=== PATIENT | female | born 1945 | race Caucasian/White ===

== ENCOUNTER 2019-07-31 09:56 | Outpatient (CLI) | payer MEDICARE, OTHER, SELFPAY ==
--- NOTE | 2019-07-31 09:58 | MM_ITS ---
WS: [id number] BILATERAL SCREENING DIGITAL MAMMOGRAM WITH CAD HISTORY: SCREENING COMPARISON: 06/21/2018 and 06/18/2017 Bilateral CC and MLO views submitted. Computer aided detection analyzed. Breast composition: The breasts are heterogeneously dense, which may obscure small masses. No suspici ous masses, microcalcifications or architectural distortion. Benign calcifications within each breast . MM/[place] [id number] IMPRESSION: BI-RADS: 2-Benign FOLLOW UP: 1 Year Follow-up
== END 2019-07-31 09:57 | disposition home or self-care (01) ==
LOC: RADSHAW 09:56
PROVIDERS: Family Provider Nurse Practitioner Family; PCP Nurse Practitioner Family; Visit Provider Nurse Practitioner Family
DX: Z12.31 Encounter for screening mammogram for malignant neoplasm of breast (principal)
CPT/HCPCS: 77067

== ENCOUNTER → 2019-08-25 10:59 | Outpatient (BNVA) | payer MEDICARE, OTHER, SELFPAY | PROVIDERS: PCP Nurse Practitioner Family; Visit Provider Nurse Practitioner Family | DX: E78.2 Mixed hyperlipidemia (principal); D64.9 Anemia, unspecified; I10 Essential (primary) hypertension; Z79.899 Other long term (current) drug therapy; E55.9 Vitamin D deficiency, unspecified | CPT/HCPCS: 80053; 80061; 81001; 82306; 82728; 83036; 83540; 83550; 84443; 85007; 85027 ==

== ENCOUNTER → 2019-11-25 09:31 | Outpatient (BNVA) | payer MEDICARE, OTHER, SELFPAY | PROVIDERS: Family Provider Nurse Practitioner Family; PCP Nurse Practitioner Family; Visit Provider Nurse Practitioner Family | DX: E83.52 Hypercalcemia (principal) | CPT/HCPCS: 80053 ==

== ENCOUNTER → 2019-11-26 12:15 | Outpatient (BNVA) | payer MEDICARE, OTHER, SELFPAY | PROVIDERS: Family Provider Nurse Practitioner Family; PCP Nurse Practitioner Family; Visit Provider Nurse Practitioner Family | DX: E83.52 Hypercalcemia (principal); Z79.899 Other long term (current) drug therapy; E55.9 Vitamin D deficiency, unspecified; I10 Essential (primary) hypertension; R53.83 Other fatigue | CPT/HCPCS: 80061; 82306; 83036; 84443; 85025 ==

== ENCOUNTER 2019-12-19 12:26 | Inpatient (IN) | payer MEDICARE, OTHER, SELFPAY ==
[2019-12-19] VITALS (9 sets, daily range): BP systolic 113–190; BP diastolic 72–127; PULSE 75–130; RESP 14–21; TEMP 36.7–38; O2SAT 92–98; BMI 36.9
--- NOTE | 2019-12-19 13:15 | XR_ITS ---
WS: [id number] PORTABLE CHEST HISTORY: chest pain COMPARISON: 01/21/2019 Lungs are clear and well expanded. No pleural effusion or pneumothorax. Cardiac size: Normal. Mediastinum/Aorta: Normal mediastinum. No osseous abnormality seen. Calcific densities measuring 15 x 6 mm in the RIGHT axillary recess. XR/XR chest 1V portable [id number] IMPRESSION: Unremarkable portable chest.
--- NOTE | 2019-12-19 13:37 | ECG_ITS ---
Measurements Intervals [place] Rate: 118 P: 32 VA: 163 QRS: 8 QRSD: 86 T: 29 QT: 355 QTc: 498 SINUS TACHYCARDIA LOW QRS VOLTAGE IN PRECORDIAL LEADS [QRS DEFLECTION < 1.0 mV IN CHEST LEADS] POSSIBLE ANTERIOR MYOCARDIAL INFARCTION , PROBABLY OLD [30 ms Q WAVE IN V3/V4, OR R < 0.2 mV IN V4] POSSIBLE INFERIOR MYOCARDIAL INFARCTION , PROBABLY OLD [30 ms Q WAVE IN II/aVF] ABNORMAL RHYTHM ECG Compared to ECG 01/21/2019 16:10:00 Low QRS voltage now present Myocardial infarct finding now present Sinus rhythm no longer present Electronically Signed On 12-19-2019 19:02:10 CDT by Jass Patino M.D. [email or web address]
--- NOTE | 2019-12-19 13:37 | CT_ITS ---
WS: [id number] CT HEAD NONCONTRAST HISTORY: AMS TECHNIQUE: Contiguous axial imaging performed through the brain in 2.5 mm imaging. Bone and soft tiss ue windows. Sagittal and coronal reformats reviewed. All CT scans at [facility] use at ast one of these dose optimization techniques: automated exposure control; mA and/or kV adjustment pe r patient size (includes targeted exams where dose is matched to clinical indication); or iterative r econstruction. DLP: 754.47 mGy.cm COMPARISON: None available. No acute intracranial hemorrhage, midline shift or mass effect. Mild atrophy and mild chronic microvascular ischemic disease. No prior infarcts. Ventricles: Normal size with no hydrocephalus. No inferior displacement of cerebellar tonsils. Paranasal sinuses: As visualized are clear. Mastoid air cells: Well pneumatized. Calvarium and scalp: Hyperostosis frontalis interna. CT/CT head wo con* [id number] IMPRESSION: 1. No acute intracranial hemorrhage or edema. 2. Mild chronic microvascular ischemic disease.
--- NOTE | 2019-12-19 13:38 | W.ED.FEVER ---
Documented by User: CHRISTINA Luo 12/19/19 15:28 HPI - Fever General: Chief Complaint: Fever Stated Complaint: ams Time Seen by Provider: 12/19/19 13:37 Source: patient and family Mode of arrival: ambulatory Limitations: altered mental status History of Present Illness: HPI Narrative: Patient is a 74-year-old female who presents to ED today along with her after they were referred here by their PCP for fever and altered mental status. Patient apparently had a fever of over 101 at the clinic however she is afebrile upon arrival. tells me that over the past few days she has been complaining of body aches and nausea. Patient has not had any vomiting or diarrhea. She complains of some mild abdominal pains. She has not had any cough, shortness of breath, difficulty breathing. Denies headache. states his does have a history of dementia but states over the past few days she has been more confused than normal. There was some concern as patient has visited the [facility] in [place] which was a hot spot location of the individual that was recently diagnosed with COVID. MD elicited complaint: fever and other (AMS) Onset (ago): day(s) Associated symptoms: Reports abdominal pain, confusion and nausea; Deny flank pain, chills, chest pain, diarrhea, dysuria, extremity pain, headache(s) or vomiting Review of Systems General: Reports: 10 or more systems reviewed and unremarkable except in HPI and below Const: Reports: fever(s) (at clinic prior to arrival here) and body aches; Denies: chills, change in appetite, change in weight, fatigue or malaise Eyes: Denies: change in vision, blurry vision, photophobia, floaters or seeing flashes ENMT: Denies: throat pain, enlarged tonsils or odynophagia Card: Reports: swelling of feet/ankles (chronic); Denies: chest pain, palpitations, irregular heart rhythm, edema, lightheadedness, syncope, pre-syncope, dyspnea on exertion, orthopnea or leg pain with exertion Resp: Denies: dyspnea, productive cough, non-productive cough or chest congestion GI: Reports: abdominal pain and nausea; Denies: vomiting, diarrhea or constipation : Denies: flank pain, difficulty voiding, dysuria, urinary frequency, urinary urgency or urinary hesitancy Musc: Denies: neck pain, back pain, extremity pain, joint pain or joint swelling Skin/Breast: Denies: rash Neuro: Reports: confusion; Denies: headache(s), numbness in extremities, weakness in extremities, sensory changes, lack of coordination, difficulty walking, frequent falls, dizziness or Slurred speech present [facility] ED PFSH: Medical History (Updated 12/19/19 @ 16:54 by Ghazal Vargas MD) Anemia Chronic osteoarthritis Depression Essential hypertension, benign Fibromyalgia H/O malignant neoplasm of colon Mild dementia Mixed hyperlipidemia Post-menopausal osteoporosis Vitamin D deficiency Social History Smoking and tobacco status: never smoked Physical Exam Const: COMMON NORMALS: no acute distress, patient oriented x3 and alert NUTRITIONAL APPEARANCE: obese ORIENTATION/CONSCIOUSNESS: Yes oriented to person, Yes oriented to place and Yes oriented to time Resp: COMMON NORMALS: normal respiratory effort and clear to auscultation bilaterally AUSCULTATION: clear to auscultation bilaterally Cardio: COMMON NORMALS: regular rhythm RATE: tachycardic RHYTHM: regular rhythm GI: COMMON NORMALS: Normal to inspection, nondistended, normoactive bowel sounds present, Soft to palpation, No hepatosplenomegaly present and no masses PALPATION: Yes Soft to palpation, Yes Tenderness to palpation present (GI) (mild diffuse; non-surgical exam) and Yes No hepatosplenomegaly present : COMMON NORMALS: Yes no CVA tenderness BLADDER/KIDNEY EXAM: Yes no CVA tenderness Back/Pelvis: COMMON NORMALS: no CVA tenderness Extremity: COMMON NORMALS: normal to inspection and full ROM OTHER: chronic bilateral non-pitting LE edema Neuro: IRMA COMA SCALE: document GCS findings Irma coma scale eye opening: Spontaneous Divide coma scale verbal response: Orientated Irma coma scale motor response: Obey commands Irma coma scale total score: 15 COMMON NORMALS: patient oriented x3, CN's II-XII intact bilaterally, moves all extremities and no focal motor deficits SENSORIUM/ORIENTATION: Yes alert, Yes oriented to person, Yes oriented to place and Yes oriented to time Skin: COMMON NORMALS: no rashes or lesions noted GENERAL SKIN EXAM: no rashes or lesions noted Course Vital Signs: Vital signs: Vital Signs Temperature 100.4 F H 12/19/19 16:00 Pulse Rate 112 H 12/19/19 16:00 Respiratory Rate 18 12/19/19 16:00 Blood Pressure 188/94 12/19/19 16:00 Pulse Oximetry 96 12/19/19 16:00 MDM - Fever Lab Data: Labs: Lab Results 12/19/19 12/19/19 12/19/19 Range/Units 14:04 14:04 14:04 WBC 3.4 L (4.0-10.0) 10^3/ uL RBC 3.86 L (4.1-5.3) 10^6/u L Hgb 11.1 L (11.5-15.3) g/dL Hct 35.1 L (37.0-47.0) % MCV 90.9 (81-99) fL MCH 28.8 (28.0-34.0) pg MCHC 31.6 (30.0-36.0) g/dL RDW 13.2 (12.1-15.1) % Plt Count 150 (130-400) 10^3/c mm MPV 10.1 (7.4-10.4) fL Neut % (Auto) 84.7 % Lymph % (Auto) 9.1 % Hancock % (Auto) 5.6 % Eos % (Auto) 0.0 % Baso % (Auto) 0.3 % Neut # (Auto) 2.9 (1.8-7.7) 10^3/u L Lymph # (Auto) 0.3 L (0.8-4.8) 10^3/u L Hancock # (Auto) 0.2 (0.2-0.9) 10^3/u L Eos # (Auto) 0.0 (0.0-0.8) 10^3/u L Baso # (Auto) 0.0 (0.0-0.1) 10^3/u L Nucleated RBC % (a uto) 0 % Nucleated RBCs # 0.0 /100WBC Sodium 129 L (136-145) mmol/L Potassium 3.4 L (3.5-5.1) mmol/L Chloride 92 L (98-107) mmol/L Carbon Dioxide 25 (22-29) mmol/L Anion Gap 15.4 (5-19) BUN 7 L (8-23) mg/dL Creatinine 0.6 (0.5-0.9) mg/dL Glucose 104 (65-115) mg/dL Calculated Osmolal ity 264 L (285-295) mOsm/k g Lactate 1.0 (0.5-2.2) mmol/L Calcium 10.6 H (8.5-10.5) mg/dL Magnesium (1.7-2.3) mg/dL Total Bilirubin 0.3 (0.15-1.2) mg/dL AST 23 (0-32) U/L ALT 13 (0-33) U/L Alkaline Phosphata se 53 (35-105) IU/L Total Protein 6.8 (6.6-8.7) g/dL Albumin 4.2 (3.5-5.2) g/dL Globulin 2.6 (1.3-4.6) g/dL Urine Color (Yellow) Urine Appearance (CLEAR) Urine pH (5-7) Ur Specific Gravit y (1.005-1.030) Urine Protein (Negative) Urine Glucose (UA) (Normal) Urine Ketones (Negative) Urine Blood (Negative) Urine Nitrate (Negative) Urine Bilirubin (NEGATIVE) Urine Urobilinogen (Negative) mg/dL Ur Leukocyte Sultana ase (Negative) 12/19/19 12/19/19 Range/Units 14:04 15:15 WBC (4.0-10.0) 10^3/ uL RBC (4.1-5.3) 10^6/u L Hgb (11.5-15.3) g/dL Hct (37.0-47.0) % MCV (81-99) fL MCH (28.0-34.0) pg MCHC (30.0-36.0) g/dL RDW (12.1-15.1) % Plt Count (130-400) 10^3/c mm MPV (7.4-10.4) fL Neut % (Auto) % Lymph % (Auto) % Hancock % (Auto) % Eos % (Auto) % Baso % (Auto) % Neut # (Auto) (1.8-7.7) 10^3/u L Lymph # (Auto) (0.8-4.8) 10^3/u L Hancock # (Auto) (0.2-0.9) 10^3/u L Eos # (Auto) (0.0-0.8) 10^3/u L Baso # (Auto) (0.0-0.1) 10^3/u L Nucleated RBC % (a uto) % Nucleated RBCs # /100WBC Sodium (136-145) mmol/L Potassium (3.5-5.1) mmol/L Chloride (98-107) mmol/L Carbon Dioxide (22-29) mmol/L Anion Gap (5-19) BUN (8-23) mg/dL Creatinine (0.5-0.9) mg/dL Glucose (65-115) mg/dL Calculated Osmolal ity (285-295) mOsm/k g Lactate (0.5-2.2) mmol/L Calcium (8.5-10.5) mg/dL Magnesium 1.6 L (1.7-2.3) mg/dL Total Bilirubin (0.15-1.2) mg/dL AST (0-32) U/L ALT (0-33) U/L Alkaline Phosphata se (35-105) IU/L Total Protein (6.6-8.7) g/dL Albumin (3.5-5.2) g/dL Globulin (1.3-4.6) g/dL Urine Color Yellow (Yellow) Urine Appearance Clear (CLEAR) Urine pH 7 (5-7) Ur Specific Gravit y 1.015 (1.005-1.030) Urine Protein Neg (Negative) Urine Glucose (UA) Norm (Normal) Urine Ketones 1+ H (Negative) Urine Blood Neg (Negative) Urine Nitrate Negative (Negative) Urine Bilirubin Neg (NEGATIVE) Urine Urobilinogen Norm (Negative) mg/dL Ur Leukocyte Sultana ase Negative (Negative) Imaging Data^: CXR: Radiologist's impression: [address] [address] XRay Report Signed Patient: Mariangel Morales Unit #: [id number] : 1945 Age/Sex: 74 / F ADM Date: 12/19/19 Loc: ER Room/Bed: Attending Dr: Ordering Provider/Ordering MD: Oksana Jose Date of Service: 12/19/19 Procedure(s): XR chest 1V portable [id number] Accession Number(s): [id number] Report Number: [id number] WS: [id number] PORTABLE CHEST HISTORY: chest pain COMPARISON: 01/21/2019 Lungs are clear and well expanded. No pleural effusion or pneumothorax. Cardiac size: Normal. Mediastinum/Aorta: Normal mediastinum. No osseous abnormality seen. Calcific densities measuring 15 x 6 mm in the RIGHT axillary recess. XR/XR chest 1V portable [id number] IMPRESSION: Unremarkable portable chest. Dictated By: Ting Ambrocio DO Signed By: Ting Ambrocio DO Signed Date/Time: 12/19/19 141 DD/ 141 CT Head: Radiologist's impression: [place] [address] CT Scan Report Signed Patient: Mariangel Morales Unit #: [id number] : 1945 Age/Sex: 74 / F ADM Date: 12/19/19 Loc: ER Room/Bed: Attending Dr: Ordering Provider/Ordering MD: Oksana Jose Date of Service: 12/19/19 Procedure(s): CT head wo con* [id number] Accession Number(s): [id number] Report Number: [id number] WS: [id number] CT HEAD NONCONTRAST HISTORY: AMS TECHNIQUE: Contiguous axial imaging performed through the brain in 2.5 mm imaging. Bone and soft tissue windows. Sagittal and coronal reformats reviewed. All CT scans at [facility] use at least one of these dose optimization techniques: automated exposure control; mA and/or kV adjustment per patient size (includes targeted exams where dose is matched to clinical indication); or iterative reconstruction. DLP: 754.47 mGy.cm COMPARISON: None available. No acute intracranial hemorrhage, midline shift or mass effect. Mild atrophy and mild chronic microvascular ischemic disease. No prior infarcts. Ventricles: Normal size with no hydrocephalus. No inferior displacement of cerebellar tonsils. Paranasal sinuses: As visualized are clear. Mastoid air cells: Well pneumatized. Calvarium and scalp: Hyperostosis frontalis interna. CT/CT head wo con* [id number] IMPRESSION: 1. No acute intracranial hemorrhage or edema. 2. Mild chronic microvascular ischemic disease. Dictated By: Ting Ambrocio DO Signed By: Ting Ambrocio DO Signed Date/Time: 12/19/191447 DD/ 45 Discharge Plan Discharge Patient Disposition: Admitted As Inpatient Clinical Impression: Fever of unknown origin Condition: Stable Referrals: Deidre,GENET, CUTTING TABLE OPERATOR [Primary Care Provider] - Coding Level of Care Code ED Software Engineering Analyst for Chg Fwd Exam Comprehensive Documented by User: Ghazal Vargas MD 12/19/19 16:55 HPI - Fever General: Chief Complaint: Fever Stated Complaint: ams Time Seen by Provider: 12/19/19 13:37 PFSH ED PFSH: Medical History (Updated 12/19/19 @ 16:54 by Ghazal Vargas MD) Anemia Chronic osteoarthritis Depression Essential hypertension, benign Fibromyalgia H/O malignant neoplasm of colon Mild dementia Mixed hyperlipidemia Post-menopausal osteoporosis Vitamin D deficiency Social History Smoking and tobacco status: never smoked Course Vital Signs: Vital signs: Vital Signs Temperature 100.4 F H 12/19/19 16:00 Pulse Rate 112 H 12/19/19 16:00 Respiratory Rate 18 12/19/19 16:00 Blood Pressure 188/94 12/19/19 16:00 Pulse Oximetry 96 12/19/19 16:00 MDM - Fever MDM Narrative: Medical decision making narrative: Patient presents here with a fever of unknown origin. I saw patient with midlevel and patient does have lymphopenia and will test for coronavirus. Patient main complaints are body aches. Patient seen by Dr. Martinez in the ER and will admit at this time. Patient has no headache or neck pain and do not believe she has meningitis. She has been stable while in the ER. Lab Data: Labs: Lab Results 05/29/20 05/29/20 05/29/20 Range/Units 14:04 14:04 14:04 WBC 3.4 L (4.0-10.0) 10^3/ uL RBC 3.86 L (4.1-5.3) 10^6/u L Hgb 11.1 L (11.5-15.3) g/dL Hct 35.1 L (37.0-47.0) % MCV 90.9 (81-99) fL MCH 28.8 (28.0-34.0) pg MCHC 31.6 (30.0-36.0) g/dL RDW 13.2 (12.1-15.1) % Plt Count 150 (130-400) 10^3/c mm MPV 10.1 (7.4-10.4) fL Neut % (Auto) 84.7 % Lymph % (Auto) 9.1 % Hancock % (Auto) 5.6 % Eos % (Auto) 0.0 % Baso % (Auto) 0.3 % Neut # (Auto) 2.9 (1.8-7.7) 10^3/u L Lymph # (Auto) 0.3 L (0.8-4.8) 10^3/u L Hancock # (Auto) 0.2 (0.2-0.9) 10^3/u L Eos # (Auto) 0.0 (0.0-0.8) 10^3/u L Baso # (Auto) 0.0 (0.0-0.1) 10^3/u L Nucleated RBC % (a uto) 0 % Nucleated RBCs # 0.0 /100WBC Sodium 129 L (136-145) mmol/L Potassium 3.4 L (3.5-5.1) mmol/L Chloride 92 L (98-107) mmol/L Carbon Dioxide 25 (22-29) mmol/L Anion Gap 15.4 (5-19) BUN 7 L (8-23) mg/dL Creatinine 0.6 (0.5-0.9) mg/dL Glucose 104 (65-115) mg/dL Calculated Osmolal ity 264 L (285-295) mOsm/k g Lactate 1.0 (0.5-2.2) mmol/L Calcium 10.6 H (8.5-10.5) mg/dL Magnesium (1.7-2.3) mg/dL Total Bilirubin 0.3 (0.15-1.2) mg/dL AST 23 (0-32) U/L ALT 13 (0-33) U/L Alkaline Phosphata se 53 (35-105) IU/L Total Protein 6.8 (6.6-8.7) g/dL Albumin 4.2 (3.5-5.2) g/dL Globulin 2.6 (1.3-4.6) g/dL Urine Color (Yellow) Urine Appearance (CLEAR) Urine pH (5-7) Ur Specific Gravit y (1.005-1.030) Urine Protein (Negative) Urine Glucose (UA) (Normal) Urine Ketones (Negative) Urine Blood (Negative) Urine Nitrate (Negative) Urine Bilirubin (NEGATIVE) Urine Urobilinogen (Negative) mg/dL Ur Leukocyte Sultana ase (Negative) 12/19/19 12/19/19 Range/Units 14:04 15:15 WBC (4.0-10.0) 10^3/ uL RBC (4.1-5.3) 10^6/u L Hgb (11.5-15.3) g/dL Hct (37.0-47.0) % MCV (81-99) fL MCH (28.0-34.0) pg MCHC (30.0-36.0) g/dL RDW (12.1-15.1) % Plt Count (130-400) 10^3/c mm MPV (7.4-10.4) fL Neut % (Auto) % Lymph % (Auto) % Hancock % (Auto) % Eos % (Auto) % Baso % (Auto) % Neut # (Auto) (1.8-7.7) 10^3/u L Lymph # (Auto) (0.8-4.8) 10^3/u L Hancock # (Auto) (0.2-0.9) 10^3/u L Eos # (Auto) (0.0-0.8) 10^3/u L Baso # (Auto) (0.0-0.1) 10^3/u L Nucleated RBC % (a uto) % Nucleated RBCs # /100WBC Sodium (136-145) mmol/L Potassium (3.5-5.1) mmol/L Chloride (98-107) mmol/L Carbon Dioxide (22-29) mmol/L Anion Gap (5-19) BUN (8-23) mg/dL Creatinine (0.5-0.9) mg/dL Glucose (65-115) mg/dL Calculated Osmolal ity (285-295) mOsm/k g Lactate (0.5-2.2) mmol/L Calcium (8.5-10.5) mg/dL Magnesium 1.6 L (1.7-2.3) mg/dL Total Bilirubin (0.15-1.2) mg/dL AST (0-32) U/L ALT (0-33) U/L Alkaline Phosphata se (35-105) IU/L Total Protein (6.6-8.7) g/dL Albumin (3.5-5.2) g/dL Globulin (1.3-4.6) g/dL Urine Color Yellow (Yellow) Urine Appearance Clear (CLEAR) Urine pH 7 (5-7) Ur Specific Gravit y 1.015 (1.005-1.030) Urine Protein Neg (Negative) Urine Glucose (UA) Norm (Normal) Urine Ketones 1+ H (Negative) Urine Blood Neg (Negative) Urine Nitrate Negative (Negative) Urine Bilirubin Neg (NEGATIVE) Urine Urobilinogen Norm (Negative) mg/dL Ur Leukocyte Sultana ase Negative (Negative) Discharge Plan Discharge Patient Disposition: Admitted As Inpatient Clinical Impression: Fever of unknown origin Condition: Stable Referrals: GENET Jiang, CUTTING TABLE OPERATOR [Primary Care Provider] - Coding Level of Care Code ED Software Engineering Analyst for g Fwd Exam Comprehensive
[2019-12-19 14:16] LABS: Basophils % 0.3 %; Hematocrit 35.1 % (37.0-47.0); Hemoglobin 11.1 g/dL (11.5-15.3); Lymphocytes # 0.3 10^3/uL (0.8-4.8); Lymphocytes % 9.1 %; Mean Corpuscular HGB Conc 31.6 g/dL (30.0-36.0); Mean Corpuscular Hemoglobin 28.8 pg (28.0-34.0); Mean Corpuscular Volume 90.9 fL (81-99); Mean Platelet Volume 10.1 fL (7.4-10.4); Monocytes # 0.2 10^3/uL (0.2-0.9); Monocytes % 5.6 %; Neutrophils # 2.9 10^3/uL (1.8-7.7); Neutrophils % 84.7 %; Nucleated Red Blood Cells % 0 %; Platelet Count 150 10^3/cmm (130-400); Red Blood Count 3.86 10^6/uL (4.1-5.3); Red Cell Distribution Width 13.2 % (12.1-15.1); White Blood Count 3.4 10^3/uL (4.0-10.0)
[2019-12-19 14:34] LABS: Alanine Aminotransferase 13 U/L (0-33); Albumin Level 4.2 g/dL (3.5-5.2); Alkaline Phosphatase 53 IU/L (35-105); Anion Gap 15.4 (5-19); Aspartate Amino Transferase 23 U/L (0-32); Blood Urea Nitrogen 7 mg/dL (8-23); Calcium 10.6 mg/dL (8.5-10.5); Carbon Dioxide 25 mmol/L (22-29); Chloride 92 mmol/L (98-107); Globulin 2.6 g/dL (1.3-4.6); Glucose 104 mg/dL (65-115); Osmolality Calculated 264 mOsm/kg (285-295); Potassium 3.4 mmol/L (3.5-5.1); Sodium 129 mmol/L (136-145); Total Bilirubin 0.3 mg/dL (0.15-1.2); Total Protein 6.8 g/dL (6.6-8.7)
[2019-12-19] MEDS: sodium chloride 0.9% 1,000 ML 500 ML IV (14:43)
[2019-12-19 15:46] LABS: Magnesium 1.6 mg/dL (1.7-2.3)
[2019-12-19 15:58] LABS: Add Urine Microscopic? NO
[2019-12-19 16:06] LABS: Bilirubin Urine Neg (NEGATIVE); Blood Urine Neg (Negative); Glucose Urine UA Norm (Normal); Ketones Urine 1+ (Negative); Leukocyte Esterase Urine Negative (Negative); Nitrate Urine Negative (Negative); Protein Urine Neg (Negative); Specific Gravity, Urine 1.015 (1.005-1.030); Urine Appearance Clear (CLEAR); Urine Color Yellow (Yellow); Urobilinogen Urine Norm (Negative); pH Urine 7 (5-7)
--- NOTE | 2019-12-19 16:49 | CTR_ITS ---
PROCEDURE INFORMATION: Exam: CT Abdomen And Pelvis With Contrast Exam date and time: 12/19/2019 5:52 PM Age: 74 years old Clinical indication: Abdominal pain; Generalized; Prior surgery; Surgery date: 6+ months; Surgery type: Colon; Patient HX: C/O fever, body aches, nausea and mild abd pain TECHNIQUE: Imaging protocol: Computed tomography of the abdomen and pelvis with intravenous contrast. Radiation optimization: All CT scans at this facility use at least one of these dose optimization techniques: automated exposure control; mA and/or kV adjustment per patient size (includes targeted exams where dose is matched to clinical indication); or iterative reconstruction. Contrast material: OMNI 300; Contrast volume: 95 ml; Contrast route: 20G; COMPARISON: CT abdomen pelvis w con* [id number] 01/21/2019 3:02 PM RADIATION DOSE METRICS: Total DLP: 1512.77 mGy-cm FINDINGS: Mediastinum: There is a small hiatal hernia. Liver: There is a diffuse decrease in hepatic parenchymal density, consistent with mild fatty infiltration. There is no focal abnormality within the liver. Gallbladder and bile ducts: There has been a cholecystectomy. Pancreas: The pancreas is normal. Spleen: The spleen is normal. Adrenals: The adrenal glands are normal. Kidneys and ureters: There is a 1 cm sized simple cyst in the mid left kidney. There is a tiny benign-appearing cyst in the lower pole of the right kidney.There is no evidence of hydronephrosis. There is no evidence of renal or ureteral calcifications. Stomach and bowel: There is apparently been a right hemicolectomy. There are some pill shaped objects within the duodenum, presumably representing recently ingested medication. There is some focal thickening of the splenic flexure of the colon with mild stranding in the adjacent fat. This could represent some focal colitis or perhaps mild diverticulitis although no diverticulum is noted in the area. Appendix: Not identified Intraperitoneal space: There is no evidence of free intraperitoneal fluid. Vasculature: Unremarkable. No abdominal aortic aneurysm. Lymph nodes: Unremarkable. No enlarged lymph nodes. Bladder: Unremarkable as visualized. Reproductive: There has been a hysterectomy. Bones/joints: There are degenerative changes in the lower lumbar spine with grade 1 spondylolisthesis at L4-L5 and L4 vertebral hemangioma not significantly changed from previous. Soft tissues: There is a wide-mouth epigastric ventral hernia containing small portion of the colon without evidence for incarceration or obstruction. There is a 2nd wide-mouth ventral hernia containing only fat. CT/CT abdomen pelvis w con* [id number] IMPRESSION: 1. Focal colitis or diverticulitis involving the splenic flexure of the colon. 2. Ventral hernia is unchanged. 3. Fatty liver 4. Small hiatus hernia. COMMENTS: Consistent with the [employer]'s Incidental Findings Committee white paper (J Am Kayla Radiol 2018): Any incidental renal lesion less than 1.0 cm or classified as too small to characterize, or any incidental cystic renal lesion characterized as simple-appearing, is likely benign. No follow-up imaging is recommended for these lesions per consensus recommendations based on imaging criteria. Radiation Dose CTDIVOL = (mGy): DLP = 1512.77 (mGy-cm)
--- NOTE | 2019-12-19 17:01 | ECG_ITS ---
Measurements Intervals [place] Rate: 103 P: 40 IN: 155 QRS: 28 QRSD: 88 T: 34 QT: 268 QTc: 352 SINUS TACHYCARDIA LOW QRS VOLTAGE IN PRECORDIAL LEADS [QRS DEFLECTION < 1.0 mV IN CHEST LEADS] POSSIBLE ANTERIOR MYOCARDIAL INFARCTION , PROBABLY OLD [30 ms Q WAVE IN V3/V4, OR R < 0.2 mV IN V4] ABNORMAL RHYTHM ECG Compared to ECG 01/21/2019 16:10:00 Low QRS voltage now present Myocardial infarct finding now present Sinus rhythm no longer present Electronically Signed On 12-19-2019 19:02:23 CDT by Jass Patino M.D. [email or web address]
--- NOTE | 2019-12-19 17:02 | P.HP_ITS ---
Providers/Chief Complaint Primary Care Provider: SUSIE Tello Chief Complaint: ams History of Present Illness Mariangel Morales is a 74 year old female who presents to the emergency department with history of fever. Over the last several days she has had some abdominal discomfort, fever, and per the patient some dry heaves. She reports she has some dementia and is not the best historian. She has not had any headache. She has some underlying confusion that has been slightly worse. reports she has been coughing on occasion. She denies any chest discomfort. There is been no history of any diarrhea, or dysuria. There is been no history of any positive contact with Covid 19 but she does live in a community where several recent cases were identified. does not believe she has had any tick bites, but does report she has several animals that she likes to sit out on the porch with that could have ticks. reports her mental status is back to baseline in the emergency department. Review of Systems General: Reports: 10 or more systems reviewed and unremarkable except in HPI and below Const: Reports: fever(s), chills and body aches Eyes: Denies: change in vision ENMT: Denies: throat pain Card: Denies: chest pain Resp: Denies: dyspnea, productive cough or non-productive cough GI: Reports: abdominal pain, nausea and vomiting : Denies: flank pain or difficulty voiding Musc: Denies: neck pain Skin/Breast: Denies: rash Neuro: Denies: headache(s) Psych: Denies: anxiety or depression Endo: Denies: polyuria Jn/Lymph: Denies: easy bruising All/Imm: Denies: urticaria Medications/Allergies Home Medications Medication Instructions Recorded Confirmed Last Taken Type alendronate 35 mg tablet 35 mg PO ONCE tab 09/01/19 12/19/19 Unknown History meloxicam 15 mg tablet 15 mg PO DAILY 90 Days #90 tab 09/01/19 12/19/19 Unknown Rx memantine 10 mg tablet ea PO 09/01/19 12/19/19 Unknown History potassium chloride 10 mEq tab PO 09/01/19 12/19/19 Unknown History tablet,extended release tramadol 50 mg tablet tab PO 09/01/19 12/19/19 Unknown History silver sulfadiazine 1 % topical 1 applic TOPICAL BID #50 gm 09/18/19 12/19/19 Unknown Rx cream pregabalin 50 mg capsule 50 mg PO DAILY 90 Days #90 cap 10/02/19 12/19/19 Unknown Rx duloxetine 60 mg capsule,delayed 60 mg PO DAILY #90 cap 11/05/19 12/19/19 Unknown Rx release metoprolol tartrate 25 mg tablet 12.5 mg PO BID #90 tab 11/19/19 12/19/19 Unknown Rx famotidine 20 mg tablet 20 mg PO DAILY 30 Days #30 tab 11/28/19 12/19/19 Unknown Rx furosemide 20 mg tablet 20 mg PO DAILY PRN 30 Days #30 tab 11/28/19 12/19/19 Unknown Rx rosuvastatin 5 mg PO DAILY 12/19/19 12/19/19 Unknown History Allergies Allergy/AdvReac Type Severity Reaction Status Date / Time No Known Allergies Allergy Verified 12/19/19 10:20 PFSH Acute PFSH: Medical History (Updated 12/19/19 @ 17:23 by Martin Maharaj MD) Anemia Chronic osteoarthritis Depression Essential hypertension, benign Fibromyalgia H/O malignant neoplasm of colon Mild dementia Mixed hyperlipidemia Post-menopausal osteoporosis Vitamin D deficiency Surgical History (Updated 12/19/19 @ 17:02 by Martin Maharaj MD) History of ankle surgery History of History of colon surgery History of colon malignancy, with resection Family History (Updated 12/19/19 @ 17:03 by Martin Maharaj MD) Other Diabetes Social History (Updated 12/19/19 @ 17:03 by Martin Maharaj MD) Smoking and tobacco status: former smoker Alcohol intake: never Substance/Drug Use: never Vitals/I&O/Wt Last Vital Signs Temp 100.4 F H 12/19/19 16:00 Pulse 112 H 12/19/19 16:00 Resp 18 12/19/19 16:00 BP 188/94 12/19/19 16:00 Pulse Ox 96 12/19/19 16:00 Weight last 48 hrs Weight 100.698 kg Physical Exam Narrative: EXAM NARRATIVE: General exam is a white female, in no apparent distress, with an elevated heart rate HEENT: Pupils equally round. Oropharynx clear. Neck is supple no lymphadenopathy or thyromegaly Cardiovascular regular, tachycardic, no murmur Lungs clear no wheezing or crackles Abdomen slight tenderness epigastric area, right upper quadrant. Positive bowel sounds. No obvious organomegaly. was deferred Extremities trace edema bilaterally. No cyanosis or clubbing Data : 12/19/19 14:04 12/19/19 14:04 Micro: Microbiology 12/19/19 14:06 Blood Culture - Preliminary Blood SPECIMEN COLLECTED 12/19/19 14:04 Blood Culture - Preliminary Blood SPECIMEN COLLECTED Other data: Covid 19 testing has been ordered as well as influenza. CT abdomen and pelvis has been ordered for abdominal discomfort EKG and troponin has been ordered for nausea, tachycardia Blood culture has been done and is pending Lymphopenia is noted. Calcium is high at 10.6. Urinalysis was negative with the exception of 1+ ketones. Head CT without acute changes. Chest x-ray no obvious infiltrate A&P Assessment and plan (1) Fever: Etiology unknown at this point. Work-up has been negative. Check CT scan abdomen and pelvis with contrast Influenza testing, Covid 19 testing Await cultures Tick panel is sent For now, secondary to leukopenia, hyponatremia, will initiate doxycycline IV(patient with nausea) for concern of tickborne illness as well as Rocephin secondary to sepsis and await cultures and lab She had confusion on admission but appears better now. We will do neurologic checks. Status: Acute (2) Leukopenia: See notations above Status: Acute (3) Hyponatremia: Repeat sodium in the morning Status: Acute (4) Hypokalemia: Supplement Status: Acute (5) Hypomagnesemia: Supplement Status: Acute (6) Sepsis: Concern of possible sepsis, even though initial lactate was normal. Concern is fever, tachycardia, and increased confusion. Source is not yet known. Initiating Rocephin while awaiting cultures as well as doxycycline. Status: Acute Additional A&P Information Hypercalcemia. Check PTH level. Hydrate and repeat in the morning Dementia. Check B12 and TSH History of GERD. Initiate Protonix, higher dose secondary to nausea and history of vomiting today. History of colon cancer with resection in the past with no evidence of recurrence Hyperlipidemia Hypertension. Continue patient's home beta-flory Depression/anxiety History of anemia Full code Lovenox for DVT prophylaxis Maintenance IV fluids Attestations Medical Necessity Statement*: Will need less than 2 midnight stay for evaluation of fever Time Spent in Patient Care: Greater than 35 minutes Coding Level of Care Code Acute Truck Driver Supervisor for Chg Fwd Diagnoses Fever R50.9 Leukopenia D72.819 Hyponatremia E87.1 Hypokalemia E87.6 Hypomagnesemia E83.42 Sepsis A41.9
[2019-12-19] MEDS: magnesium sulfate premix 2 GM/50 ML PIGGYBACK IV (17:27)
[2019-12-19] MEDS: acetaminophen 500 mg Tablet 1000 MG PO (17:27)
[2019-12-19 17:35] LABS: Troponin T (5th) Once 9 ng/mL (0-10)
[2019-12-19 17:43] LABS: Thyroid Stimulating Hormone 0.92 uIU/mL (0.27-4.20)
[2019-12-19] MEDS: iohexol 300 mg/mL 100 mL Btl IV (18:24)
--- NOTE | 2019-12-19 19:32 | PC.NURSE ---
COVID SWAB Patient's Covid swab completed. Swab labeled and taken to lab to be sent to [facility].
[2019-12-19 20:07] LABS: Influenza A by IFA Negative (Negative); Influenza B by IFA Negative (Negative)
[2019-12-19] MEDS: sodium chloride 0.9% 1,000 ML 75 ML IV (21:41)
[2019-12-19] MEDS: enoxaparin 40 mg/0.4 mL Syringe SUBCUT (21:41)
[2019-12-19] MEDS: metoprolol tartrate 25 mg Tablet 12.5 MG PO (21:41)
[2019-12-19] MEDS: pantoprazole DR 40 mg Tablet PO (21:41)
[2019-12-19] MEDS: HYDROmorphone 1 mg/mL INJ 1 mL 2 MG IVP (21:42)
[2019-12-19] MEDS: piperacillin-tazobactam 3.375 GM in sodium chloride 0.9% (plus) 50 ML IV (21:42)
[2019-12-19 22:06] LABS: Procalcitonin 0.21 ng/mL (0-0.5); Vitamin B12 259 pg/mL (232-1245)
[2019-12-19 22:17] LABS: Lipase 15 U/L (13-60)
[2019-12-19] MEDS: doxycycline 100 MG in sodium chloride 0.9% (plus) 100 ML IV (23:00)
[2019-12-19 23:19] LABS: Calcium 9.9 mg/dL (8.5-10.5); Parathyroid Hormone 190.8 pg/mL (15-65)
--- NOTE | 2019-12-19 23:29 | PC.NURSE ---
nurse noted swelling in upper left arm. ED nurse told ICU nurse that mg infusion had infiltrated. arm is hot, red, and swollen
[2019-12-20] VITALS (26 sets, daily range): BP systolic 106–165; BP diastolic 51–106; PULSE 69–117; RESP 14–27; TEMP 36.9–38.7; O2SAT 83–99
[2019-12-20] MEDS: morphine 4 mg/mL SDV 1 mL IVP (00:24)
[2019-12-20] MEDS: ondansetron 2 mg/ML SDV 2 mL 4 MG IVP ×3 (00:44→13:02)
[2019-12-20] MEDS: acetaminophen 325 mg Tablet 650 MG PO ×2 (04:11→17:01)
[2019-12-20 04:50] LABS: Basophils % 0.3 %; Hematocrit 32.3 % (37.0-47.0); Hemoglobin 10.1 g/dL (11.5-15.3); Lymphocytes # 0.3 10^3/uL (0.8-4.8); Mean Corpuscular HGB Conc 31.3 g/dL (30.0-36.0); Mean Corpuscular Hemoglobin 29.4 pg (28.0-34.0); Mean Corpuscular Volume 93.9 fL (81-99); Mean Platelet Volume 10.5 fL (7.4-10.4); Monocytes # 0.2 10^3/uL (0.2-0.9); Monocytes % 5.9 %; Neutrophils # 2.4 10^3/uL (1.8-7.7); Neutrophils % 83.1 %; Nucleated Red Blood Cells % 0 %; Platelet Count 122 10^3/cmm (130-400); Red Blood Count 3.44 10^6/uL (4.1-5.3); Red Cell Distribution Width 13.5 % (12.1-15.1); White Blood Count 2.9 10^3/uL (4.0-10.0)
[2019-12-20 05:10] LABS: Alanine Aminotransferase 28 U/L (0-33); Albumin Level 3.6 g/dL (3.5-5.2); Alkaline Phosphatase 67 IU/L (35-105); Anion Gap 13.8 (5-19); Aspartate Amino Transferase 53 U/L (0-32); Blood Urea Nitrogen 9 mg/dL (8-23); Calcium 10.3 mg/dL (8.5-10.5); Carbon Dioxide 24 mmol/L (22-29); Chloride 98 mmol/L (98-107); Globulin 2.7 g/dL (1.3-4.6); Glucose 101 mg/dL (65-115); Osmolality Calculated 270 mOsm/kg (285-295); Potassium 3.8 mmol/L (3.5-5.1); Sodium 132 mmol/L (136-145); Total Bilirubin 0.3 mg/dL (0.15-1.2); Total Protein 6.3 g/dL (6.6-8.7)
[2019-12-20] MEDS: piperacillin-tazobactam 3.375 GM in sodium chloride 0.9% (plus) 50 ML IV ×3 (06:06→21:50)
[2019-12-20] MEDS: TRAMadol 50 mg Tablet PO (06:07)
--- NOTE | 2019-12-20 07:28 | P.PN_ITS ---
Subjective Subjective: Interval history: Mariangel reports she feels better. She denies any diarrhea. She states her abdomen feels a little bit better but is still slightly tender. Denies any shortness of breath or cough. Medications: Reviewed: Yes Vitals/I&O/Wt Last Vital Signs Temp 99.6 F 12/20/19 05:14 Pulse 83 12/20/19 04:00 Resp 19 H 12/20/19 04:00 BP 150/90 12/20/19 04:00 Pulse Ox 94 12/20/19 04:00 12/19/19 12/20/19 12/20/19 22:59 06:59 14:59 Intake Total 1200 / 1200 Output Total 400 / 400 Balance 800 / 800 Weight last 48 hrs Weight 100.698 kg Physical Exam Narrative: EXAM NARRATIVE: General exam no apparent distress Cardiovascular regular, tachycardic, no murmur Lungs clear no wheezing or crackles Abdomen slight tenderness persists epigastric area but appears to be better than yesterday. Positive bowel sounds. No obvious organomegaly Extremities trace edema bilaterally. No cyanosis or clubbing Data : 12/20/19 04:20 12/20/19 04:20 Micro: Microbiology 12/19/19 14:06 Blood Culture - Preliminary Blood SPECIMEN COLLECTED 12/19/19 14:04 Blood Culture - Preliminary Blood SPECIMEN COLLECTED A&P Assessment and plan (1) Fever: Ruling out COVID. CT scan suggested colitis in the region of the splenic flexure Influenza testing negative Awaiting cultures Tick panel is sent Still with leukopenia, now with some thrombocytopenia. Still has lymphopenia. AST slightly elevated today There was concern of confusion on admission but she has none now. Status: Acute (2) Leukopenia: Still present Status: Acute (3) Hyponatremia: Improved but still slightly low Status: Acute (4) Hypokalemia: Resolved Status: Acute (5) Hypomagnesemia: Supplemented Status: Acute (6) Sepsis: Concern of possible sepsis, even though initial lactate was normal. Concern is fever, tachycardia, and increased confusion. Source is not yet known. Initiating Rocephin while awaiting cultures as well as doxycycline. Status: Acute Additional A&P Information Thrombocytopenia. Continue to follow. At this point no reason to discontinue anticoagulation. Hypercalcemia. Normal after hydration. However PTH level high. Consider outpatient follow-up Dementia. B12 and folate levels were normal History of GERD. Continue Protonix. No current reflux, vomiting or nausea History of colon cancer with resection in the past with no evidence of recur rence Hyperlipidemia Hypertension. Continue patient's home beta-flory Depression/anxiety History of anemia Full code Lovenox for DVT prophylaxis Continue maintenance IV fluids Attestations Medical Necessity Statement*: Needs continued hospitalization, for IV antibiotics secondary to concern of colitis in this febrile patient. Coding Level of Care Code Acute Creative Services Specialist for Chg F[employer] Diagnoses Fever R50.9 Leukopenia D72.819 Hyponatremia E87.1 Hypokalemia E87.6 Hypomagnesemia E83.42 Sepsis A41.9
[2019-12-20] MEDS: metoprolol tartrate 25 mg Tablet 12.5 MG PO ×2 (08:23→17:01)
[2019-12-20] MEDS: pantoprazole DR 40 mg Tablet PO ×2 (08:23→17:01)
[2019-12-20] MEDS: memantine 5 mg tablet 10 MG PO (08:24)
[2019-12-20] MEDS: atorvastatin 40 mg Tablet 20 MG PO (08:24)
[2019-12-20] MEDS: pregabalin 50 mg Capsule PO (08:24)
[2019-12-20] MEDS: duloxetine 60 mg Capsule PO (08:24)
[2019-12-20] MEDS: doxycycline 100 MG in sodium chloride 0.9% (plus) 100 ML IV ×2 (08:26→21:57)
[2019-12-20] MEDS: sodium chloride 0.9% 1,000 ML 75 ML IV ×2 (09:57→22:17)
[2019-12-20] MEDS: enoxaparin 40 mg/0.4 mL Syringe SUBCUT (20:42)
[2019-12-20] MEDS: morphine 4 mg/mL SDV 1 mL 2 MG IVP (20:42)
[2019-12-20] MEDS: lanolin oint 7 gm 1 APPLIC TOPICAL (22:19)
[2019-12-20 23:00] LABS: Coronavirus Lab Test PTC SEE COMMENTS
[2019-12-21] VITALS (16 sets, daily range): BP systolic 111–139; BP diastolic 54–72; PULSE 68–101; RESP 18–26; TEMP 36.6–37.4; O2SAT 93–99
[2019-12-21] MEDS: morphine 4 mg/mL SDV 1 mL 2 MG IVP ×2 (00:44→05:28)
[2019-12-21] MEDS: acetaminophen 325 mg Tablet 650 MG PO (03:06)
[2019-12-21] MEDS: trazodone 50 mg Tablet 25 MG PO ×2 (03:06→21:20)
[2019-12-21] MEDS: ondansetron 2 mg/ML SDV 2 mL 4 MG IVP (03:06)
[2019-12-21 04:04] LABS: Basophils % 0.5 %; Hematocrit 29.9 % (37.0-47.0); Hemoglobin 9.2 g/dL (11.5-15.3); Lymphocytes # 0.3 10^3/uL (0.8-4.8); Lymphocytes % 13.9 %; Mean Corpuscular HGB Conc 30.8 g/dL (30.0-36.0); Mean Corpuscular Hemoglobin 29.4 pg (28.0-34.0); Mean Corpuscular Volume 95.5 fL (81-99); Mean Platelet Volume 11.2 fL (7.4-10.4); Monocytes # 0.1 10^3/uL (0.2-0.9); Monocytes % 6.3 %; Neutrophils # 1.6 10^3/uL (1.8-7.7); Neutrophils % 78.8 %; Nucleated Red Blood Cells % 0 %; Platelet Count 81 10^3/cmm (130-400); Red Blood Count 3.13 10^6/uL (4.1-5.3); Red Cell Distribution Width 13.7 % (12.1-15.1); White Blood Count 2.1 10^3/uL (4.0-10.0)
[2019-12-21 04:07] LABS: Alanine Aminotransferase 22 U/L (0-33); Albumin Level 3.2 g/dL (3.5-5.2); Alkaline Phosphatase 51 IU/L (35-105); Anion Gap 14.3 (5-19); Aspartate Amino Transferase 36 U/L (0-32); Blood Urea Nitrogen 9 mg/dL (8-23); Calcium 9.9 mg/dL (8.5-10.5); Carbon Dioxide 23 mmol/L (22-29); Chloride 101 mmol/L (98-107); Globulin 2.6 g/dL (1.3-4.6); Glucose 116 mg/dL (65-115); Osmolality Calculated 277 mOsm/kg (285-295); Potassium 3.3 mmol/L (3.5-5.1); Sodium 135 mmol/L (136-145); Total Bilirubin 0.3 mg/dL (0.15-1.2); Total Protein 5.8 g/dL (6.6-8.7)
[2019-12-21] MEDS: piperacillin-tazobactam 3.375 GM in sodium chloride 0.9% (plus) 50 ML IV ×3 (05:22→21:22)
[2019-12-21] MEDS: pregabalin 50 mg Capsule PO (08:37)
[2019-12-21] MEDS: memantine 5 mg tablet 10 MG PO (08:38)
[2019-12-21] MEDS: pantoprazole DR 40 mg Tablet PO ×2 (08:38→17:22)
[2019-12-21] MEDS: duloxetine 60 mg Capsule PO (08:38)
[2019-12-21] MEDS: metoprolol tartrate 25 mg Tablet 12.5 MG PO ×2 (08:38→17:22)
[2019-12-21] MEDS: atorvastatin 40 mg Tablet 20 MG PO (08:38)
[2019-12-21] MEDS: doxycycline 100 MG in sodium chloride 0.9% (plus) 100 ML IV ×2 (08:39→20:41)
[2019-12-21 09:01] LABS: INR 1.16 (0.8-1.2)
[2019-12-21 09:02] LABS: Partial Thromboplastin Time 38.6 SECONDS (23.9-36.7)
[2019-12-21 09:06] LABS: Lactate (Lactic Acid level) 1.5 mmol/L (0.5-2.2); Lactate Dehydrogenase 217 U/L (135-214)
[2019-12-21 09:45] LABS: C Reactive Protein 26.8 mg/L (0.0-4.9)
--- NOTE | 2019-12-21 10:15 | PM.PN ---
Subjective Subjective: Interval history: Mariangel reports she is doing fine. She denies any abdominal discomfort this morning but when I questioned her further she says perhaps slightly. She denies any shortness of breath or cough. Nurses indicate that last night she received several doses of morphine for her abdomen aching and generalized body aches. Medications: Reviewed: Yes Vitals/I&O/Wt Last Vital Signs Temp 97.8 F 12/21/19 08:30 Pulse 93 12/21/19 08:30 Resp 20 H 12/21/19 08:30 BP 122/72 12/21/19 08:30 Pulse Ox 94 12/21/19 08:30 12/20/19 12/21/19 12/21/19 22:59 06:59 14:59 Intake Total 1225 / 2745 810 / 3555 700 / 700 Output Total 1000 / 1400 450 / 450 Balance 225 / 1345 810 / 2155 250 / 250 Weight last 48 hrs Weight 100.698 kg Physical Exam Narrative: EXAM NARRATIVE: General exam no apparent distress Cardiovascular regular rate and rhythm without murmur Lungs clear no wheezing or crackles Abdomen positive bowel sounds. Does not appear to be significantly tender Extremities trace edema bilaterally. No cyanosis or clubbing Data : 12/21/19 02:54 12/21/19 02:54 Micro: Microbiology 12/21/19 08:26 Blood Culture - Preliminary Blood SPECIMEN COLLECTED 12/21/19 08:35 Blood Culture - Preliminary Blood SPECIMEN COLLECTED 12/19/19 14:06 Blood Culture - Preliminary Blood NEGATIVE TO DATE 12/19/19 14:04 Blood Culture - Preliminary Blood NEGATIVE TO DATE A&P Assessment and plan (1) Fever: COVID is negative CT scan suggested colitis in the region of the splenic flexure. She is currently on Zosyn Influenza testing negative Cultures negative to date Tick panel is sent. She was started on doxycycline Leukopenia with lymphopenia and now neutropenia as well as thrombocytopenia has worsened. Hemoglobin is decreasing as well. Secondary to this I will check a haptoglobin, LDH in case hemolysis is occurring. Coagulation studies will be performed. Reticulocyte count will be obtained Lovenox discontinued and SCDs initiated. Repeat lactate. ESR, CRP will be obtained as well as repeat blood cultures. Peripheral smear will be obtained although this may not be able to be evaluated until tomorrow. If any recurrence of fever, worsening by tomorrow repeat CT scan. She did complain of diarrhea on admission and stool for C. difficile, culture ordered but she has not had any significant stools here. Without diarrhea Shiga-like toxin/Shiga toxin unlikely etiology behind thrombocytopenia and systemic illness. There was concern of confusion on admission but she has none now. Status: Acute (2) Leukopenia: Slightly worse. Etiology unclear. Status: Acute (3) Hyponatremia: Resolving Status: Acute (4) Hypokalemia: Supplement Status: Acute (5) Hypomagnesemia: Supplemented Status: Acute (6) Sepsis: Concern of possible sepsis, even though initial lactate was normal. Concern is fever, tachycardia, and increased confusion. Source is not yet known. Clinically improving although becoming more leukopenic, thrombocytopenic and now anemic. Add vancomycin. Status: Acute Additional A&P Information Thrombocytopenia. Continue to follow. At this point no reason to discontinue anticoagulation. Hypercalcemia. Normal after hydration. However PTH level high. Consider outpatient follow-up Dementia. B12 and folate levels were normal History of GERD. Continue Protonix. No current reflux, vomiting or nausea History of colon cancer with resection in the past with no evidence of recurrence Hyperlipidemia Hypertension. Continue patient's home beta-flory Depression/anxiety History of anemia Full code Lovenox for DVT prophylaxis Continue maintenance IV fluids Attestations Medical Necessity Statement*: Needs continued hospitalization for IV antibiotics secondary to sepsis. Coding Level of Care Code Acute Palliative Care Specialist for Gladys Wakefield Diagnoses Fever R50.9 Leukopenia D72.819 Hyponatremia E87.1 Hypokalemia E87.6 Hypomagnesemia E83.42 Sepsis A41.9
[2019-12-21 10:47] LABS: Erythrocyte Sedimentation Rate 18 mm/hr (0-15)
[2019-12-21 12:37] LABS: LAB Peripheral Smear Sent for Review
[2019-12-21] MEDS: sodium chloride 0.9% 1,000 ML 75 ML IV (13:54)
[2019-12-21] MEDS: HYDROcodone-acetaminophen 5-325 mg Tablet 1 TAB PO ×2 (14:02→20:39)
[2019-12-22] VITALS (9 sets, daily range): BP systolic 133–150; BP diastolic 68–78; PULSE 58–99; RESP 18–24; TEMP 36.8–37.2; O2SAT 94–97
[2019-12-22] MEDS: sodium chloride 0.9% 1,000 ML 75 ML IV ×2 (03:11→16:49)
[2019-12-22 05:39] LABS: Hematocrit 29.3 % (37.0-47.0); Hemoglobin 9.1 g/dL (11.5-15.3); Mean Corpuscular HGB Conc 31.1 g/dL (30.0-36.0); Mean Corpuscular Hemoglobin 28.7 pg (28.0-34.0); Mean Corpuscular Volume 92.4 fL (81-99); Mean Platelet Volume 11.1 fL (7.4-10.4); Nucleated Red Blood Cells % 0 %; Platelet Count 83 10^3/cmm (130-400); Red Blood Count 3.17 10^6/uL (4.1-5.3); Red Cell Distribution Width 13.6 % (12.1-15.1); White Blood Count 1.7 10^3/uL (4.0-10.0)
[2019-12-22] MEDS: piperacillin-tazobactam 3.375 GM in sodium chloride 0.9% (plus) 50 ML IV ×3 (05:40→22:55)
[2019-12-22 05:58] LABS: Alanine Aminotransferase 19 U/L (0-33); Albumin Level 3.1 g/dL (3.5-5.2); Alkaline Phosphatase 46 IU/L (35-105); Anion Gap 12.1 (5-19); Aspartate Amino Transferase 31 U/L (0-32); Blood Urea Nitrogen 7 mg/dL (8-23); Calcium 9.9 mg/dL (8.5-10.5); Carbon Dioxide 23 mmol/L (22-29); Chloride 104 mmol/L (98-107); Globulin 2.3 g/dL (1.3-4.6); Glucose 108 mg/dL (65-115); Osmolality Calculated 278 mOsm/kg (285-295); Potassium 3.1 mmol/L (3.5-5.1); Sodium 136 mmol/L (136-145); Total Bilirubin 0.2 mg/dL (0.15-1.2); Total Protein 5.4 g/dL (6.6-8.7)
[2019-12-22 06:18] LABS: Slide Review Slide Review Perform
[2019-12-22 06:22] LABS: Absolute Segmented Neutrophil 0.7 10/cmm (1.6-7.1); Band Neutrophils Absolute 0.2 10^3/cmm (0.0-1.2); Lymphocytes 38 %; Monocytes Absolute 0.1 10^3/cmm (0.1-0.6); Platelet Estimate Decreased (Normal); Segmented Neutrophils 45 %; Total Cells Counted 100 (0-100)
--- NOTE | 2019-12-22 06:50 | PC.NURSE ---
SHIFT SUMMARY. PT C/O PAIN AND RECEIVED PRN MEDICATION- EFFECTIVE IN PAIN RELIEF. STOOL SENT DOWN THIS MORNING, WAITING FOR RESULTS. SLEEP GOOD THROUGH THE NIGHT. AMBULATED FROM BED TO BATHROOM WITH ASSIST. USING CALL LIGHT APPROPRIATELY.
[2019-12-22] MEDS: ondansetron 2 mg/ML SDV 2 mL 4 MG IVP ×2 (09:22→20:47)
[2019-12-22] MEDS: pregabalin 50 mg Capsule PO (09:40)
[2019-12-22] MEDS: pantoprazole DR 40 mg Tablet PO ×2 (09:40→16:51)
[2019-12-22] MEDS: duloxetine 60 mg Capsule PO (09:40)
[2019-12-22] MEDS: memantine 5 mg tablet 10 MG PO (09:40)
[2019-12-22] MEDS: atorvastatin 40 mg Tablet 20 MG PO (09:41)
[2019-12-22] MEDS: metoprolol tartrate 25 mg Tablet 12.5 MG PO ×2 (09:41→16:50)
[2019-12-22] MEDS: doxycycline 100 MG in sodium chloride 0.9% (plus) 100 ML IV ×2 (09:43→20:22)
[2019-12-22 16:26] LABS: Lyme AB Screen <0.90 index
[2019-12-22 18:24] LABS: 25 Hydroxy Vitamin D 47 ng/mL (30-100); Ferritin 83 ng/mL (15-150); Iron 21 ug/dL (37-145); Percent Saturation 11.2 % (20-50); Total Iron Binding Capacity 187 mcg/dl; Unsaturated Iron Binding 166 ug/dL (112-347)
[2019-12-22 20:25] LABS: Vancomycin Trough 15.5 ug/mL (10-15)
[2019-12-22 20:35] LABS: Ionized Calcium 1.4 mmol/L (1.1-1.4)
--- NOTE | 2019-12-22 20:43 | P.PN_ITS ---
Subjective Subjective: Interval history: On my visit she just returned from the restroom. Overall she is doing well. Earlier in the day did have an episode of nausea and vomiting with abdominal left upper/epigastric discomfort. This is currently resolved. Vitals/I&O/Wt Last Vital Signs Temp 98.5 F 12/22/19 16:00 Pulse 82 12/22/19 16:00 Resp 20 H 12/22/19 16:00 BP 143/78 12/22/19 16:00 Pulse Ox 97 12/22/19 15:37 12/22/19 12/22/19 12/22/19 06:59 14:59 22:59 Intake Total 1883.75 / 4463.75 520 / 520 1157.5 / 1677.5 Output Total 300 / 1350 Balance 1583.75 / 3113.75 520 / 520 1157.5 / 1677.5 Physical Exam Const: COMMON NORMALS: no acute distress and patient oriented x3 NUTRITIONAL APPEARANCE: obese HENMT: COMMON NORMALS: oropharynx normal Neck/C-Spine: COMMON NORMALS: no JVD Resp: COMMON NORMALS: normal respiratory effort and clear to auscultation bilaterally AUSCULTATION: clear to auscultation bilaterally Cardio: COMMON NORMALS: no JVD, regular rhythm, S1 normal heart sound present, S2 normal heart sound present and No murmurs present (Cardio) RHYTHM: regular rhythm HEART SOUNDS: S1 normal heart sound present and S2 normal heart sound present GI: COMMON NORMALS: Normal to inspection, nondistended, normoactive bowel sounds present, Soft to palpation and non-tender PALPATION: Yes Soft to palpation Extremity: COMMON NORMALS: no joint enlargement and no pedal edema Neuro: COMMON NORMALS: patient oriented x3 and moves all extremities Skin: COMMON NORMALS: no rashes or lesions noted GENERAL SKIN EXAM: no ra shes or lesions noted Data : 12/22/19 05:28 12/22/19 05:28 Micro: Microbiology 12/22/19 04:20 Enteric Pathogens (PCR) - Final Stool - Stool Aspirate 12/22/19 04:20 C.difficile Toxin B Gene (PCR) - Final Stool - Stool Aspirate 12/21/19 08:26 Blood Culture - Preliminary Blood NEGATIVE TO DATE 12/21/19 08:35 Blood Culture - Preliminary Blood NEGATIVE TO DATE A&P Assessment and plan (1) Pancytopenia: Platelets and hemoglobin levels appear to have stabilized today. Held additional IV fluids for now which may be contributing to dilution. Interestingly, however, some worsening in absolute neutrophil count down to 700, but also with 13% bandemia today. Requested neutropenic precautions, neutropenic diet. Discussed with her. She was febrile last time on 12/19, afebrile since then. Apart from colitis or diverticulitis noted on CT abdomen pelvis and the splenic colonic flexure, otherwise no suggestion of acute infection on chest x-ray, UA, or symptomatically any suggestion of WASTE MACHINE OPERATOR, integumentary or other infection. With bandemia, would suspect infection may be responsible. Sometimes with neutrophil predominance CLL may be considered, although in her case this note does not appear to be a chronic process, but rather acute. Tick panel is pending, although Lyme disease is negative. She is empirically on doxycycline as well. B12 was checked and is normal. Will check folic acid, MMA. Iron studies did not show iron deficiency back in August, but she did have prior to that, reports did require iron transfusion at some point. Will reassess iron panel. Reticulocyte index is low at 0.45. We will request Parvovirus B19. Peripheral smear does not show blasts. Reviewed her medication list with pharmacy, and apart from some rare reports from [facility], as well as some reports of thrombocytopenia with Zosyn, and a few other medications, no obvious culprit that may explain pancytopenia. She is on pantoprazole here which is different from her famotidine, and appears in some cases may be responsible for leukopenia, thrombocytopenia. Will discontinue, restart famotidine. Counts appear to be plateauing for now apart from ANC, and so for now we will stay the course. If counts still not improving may need additional evaluation by hematology with bone marrow biopsy to assess for possible underlying marrow fibrosis. PTH is elevated. Mild hypercalcemia, although this is better than used to be in the past. Unclear cause of this. In some rare instances hypergammaglobulinemia can be associated with hyperparathyroidism, although overall protein level is not elevated. Renal function is also normal. Not sure if maybe PTH elevation is secondary to other causes like alendronate, furosemide. Status: Acute (2) Fever: Fever so far has resolved. Suspected colitis or diverticulitis. Of note does have history of colon cancer. COVID is negative. Influenza testing negative Cultures negative to date Tick panel is sent. She was started on doxycycline C. difficile negative. Enteric pathogen panel unremarkable. There was concern of confusion on admission but she has none now. Status: Acute (3) Colitis: As above Status: Acute (4) Hyponatremia: Resolved Status: Acute (5) Hypokalemia: Supplement Status: Acute (6) Hypomagnesemia: Supplemented. Recheck. Status: Acute (7) Sepsis: With leukopenia, fever, although this appears to be improving as she now remains afebrile. Continue IV antibiotics. Continue to monitor for now. Blood cultures and repeat study negative. Status: Acute Additional A&P Information Abnormal PTH: Elevated at 190. Not clear whether this is actually secondary to hyperparathyroidism, versus effect of alendronate, Lasix or something else. At this time will check vitamin D level. Check ionized calcium. Monitor calcium level. If persistent cell count issues, consider additional studies for hypergammaglobulinemia. Hypercalcemia. Normal after hydration. Check ionized calcium. Dementia. B12 and folate levels were normal History of GERD. Continue H2 flory. History of colon cancer with resection in the past with no evidence of recurrence Hyperlipidemia Hypertension. Continue patient's home beta-flory Depression/anxiety History of anemia Attestations Medical Necessity Statement*: Continue admission for assessment and management of pancytopenia, colitis, improving sepsis. Coding Level of Care Code Acute Telephone Clerks Supervisor for Gladys Wakefield Diagnoses Pancytopenia D61.818 Fever R50.9 Colitis K52.9 Hyponatremia E87.1 Hypokalemia E87.6 Hypomagnesemia E83.42 Sepsis A41.9
[2019-12-22] MEDS: HYDROcodone-acetaminophen 5-325 mg Tablet 1 TAB PO (21:34)
[2019-12-22 23:36] LABS: Folate Level 12.3 ng/mL (4.8-37.3)
[2019-12-23] VITALS: BP 134/68; PULSE 84; RESP 20; TEMP 36.7; O2SAT 96
[2019-12-23 04:00] VITALS: BP 122/74; PULSE 76; RESP 20; TEMP 36.9; O2SAT 97
--- NOTE | 2019-12-23 04:20 | PC.NURSE ---
Patient became very confuse and pulled her IV out while trying to get to. Patient thought the nurse was her . After talking with the patient she was able to recall where she is and what her situation is. Patient was moved to a bowdle hospital bed with be alarm turned on. Patient was educated on using call light to get up along with education on bed alarms and why it is being placed. Patient stated that she understood.
[2019-12-23 04:48] LABS: Eosinophils % 0.9 %; Hematocrit 29.5 % (37.0-47.0); Hemoglobin 9.2 g/dL (11.5-15.3); Lymphocytes # 0.9 10^3/uL (0.8-4.8); Lymphocytes % 26.3 %; Mean Corpuscular HGB Conc 31.2 g/dL (30.0-36.0); Mean Corpuscular Hemoglobin 28.8 pg (28.0-34.0); Mean Corpuscular Volume 92.2 fL (81-99); Mean Platelet Volume 11.1 fL (7.4-10.4); Monocytes # 0.4 10^3/uL (0.2-0.9); Monocytes % 13.3 %; Neutrophils % 59.2 %; Nucleated Red Blood Cells % 0 %; Platelet Count 96 10^3/cmm (130-400); Red Cell Distribution Width 13.6 % (12.1-15.1); White Blood Count 3.3 10^3/uL (4.0-10.0)
[2019-12-23 05:06] LABS: Magnesium 1.6 mg/dL (1.7-2.3)
[2019-12-23 05:07] LABS: Alanine Aminotransferase 18 U/L (0-33); Albumin Level 2.9 g/dL (3.5-5.2); Alkaline Phosphatase 47 IU/L (35-105); Anion Gap 13.2 (5-19); Aspartate Amino Transferase 31 U/L (0-32); Blood Urea Nitrogen 11 mg/dL (8-23); Calcium 10.4 mg/dL (8.5-10.5); Carbon Dioxide 23 mmol/L (22-29); Chloride 107 mmol/L (98-107); Globulin 2.5 g/dL (1.3-4.6); Glucose 110 mg/dL (65-115); Osmolality Calculated 287 mOsm/kg (285-295); Potassium 3.2 mmol/L (3.5-5.1); Slide Review Slide Review Perform; Sodium 140 mmol/L (136-145); Total Bilirubin 0.2 mg/dL (0.15-1.2); Total Protein 5.4 g/dL (6.6-8.7)
[2019-12-23] MEDS: piperacillin-tazobactam 3.375 GM in sodium chloride 0.9% (plus) 50 ML IV (07:22)
[2019-12-23 07:56] VITALS: BP 155/92; PULSE 92; RESP 18; TEMP 36.6; O2SAT 96
[2019-12-23] MEDS: atorvastatin 40 mg Tablet 20 MG PO (08:04)
[2019-12-23] MEDS: metoprolol tartrate 25 mg Tablet 12.5 MG PO (08:05)
[2019-12-23] MEDS: pregabalin 50 mg Capsule PO (08:05)
[2019-12-23] MEDS: duloxetine 60 mg Capsule PO (08:06)
[2019-12-23] MEDS: memantine 5 mg tablet 10 MG PO (08:06)
[2019-12-23] MEDS: doxycycline 100 MG in sodium chloride 0.9% (plus) 100 ML IV (08:07)
[2019-12-23 11:28] VITALS: BP 121/76; PULSE 78; RESP 18; TEMP 36.7; O2SAT 98
--- NOTE | 2019-12-23 11:56 | PC.SOCIAL ---
Pg 2 IMM Explained to pt Pg 2 IMM. Pt verbally understands. No questions voiced. Provided pt a copy & left on their bedside table. Signed, dated, & timed a copy & placed in pt's chart.
--- NOTE | 2019-12-23 12:55 | PM.DCS ---
Discharge Providers Date of Admission: 12/20/19 14:02 Date of Discharge: December 23, 2019 Attending Provider at Admission: Martin Maharaj MD Attending Provider at Discharge: Paknaj Rico Primary Care Provider: SUSIE Tello Diagnoses at Discharge Discharge Diagnosis (1) Pancytopenia: Status: Acute Problem details: Unclear cause. Possibly related to infection, however, if counts not recovering, consider possible bone marrow disease. May need additional evaluation by bone marrow biopsy. Please facilitate follow-up with hematology. Please follow-up Parvovirus B19 qualitative PCR. (2) Fever: Status: Acute (3) Colitis: Status: Acute Problem details: Splenic flexure colitis or diverticulitis. Will complete course of antibiotics. Given history of colon cancer, may be especially important for her to follow-up with endoscopic evaluation after resolution. (4) Hyponatremia: Status: Acute (5) Hypokalemia: Status: Acute (6) Hypomagnesemia: Status: Acute (7) Sepsis: Status: Acute (8) Hyperparathyroidism: Status: Acute Problem details: Etiology unclear, may be secondary to alendronate, possibly furosemide, please follow-up, evaluate and consider referral to endocrinology. Mild acute kidney injury, but otherwise renal function was good. Vitamin D is normal. Ionized calcium is normal, although PTH was elevated up to 190. If findings persistent, especially in view of pancytopenia, consider additional evaluation for hypogammaglobulinemia. (9) EARL (acute kidney injury): Status: Acute Problem details: Creatinine up to 1.6 on last day of admission. Discussed with her, unclear cause, possibly combination of vancomycin and Zosyn. She occasionally takes NSAIDs at home, although initially renal function was normal. Does appear to have some possibly secondary hyperparathyroidism, low calcium has remained normal during this hospitalization after initial very mild increase at 10.6 which improved with hydration. Please monitor for recurrence of hypercalcemia which may further jeopardize renal function, and warrant additional investigation. Reason for Visit Reason for Visit: [facility] Hospital Course Hospital Course: 74-year-old pleasant lady with history of colon cancer, anemia, iron deficiency, and other conditions was admitted for assessment management due to fever, abdominal discomfort, dry heaves, some underlying confusion noted on presentation, with findings on CT abdomen pelvis on presentation suggestive of colitis or diverticulitis of splenic flexure, but also with noted leukopenia, anemia on presentation, eventually also with progression to thrombocytopenia/pancytopenia with neutropenia, ANC down as low as 700 during this hospitalization. She has received treatment for her intra-abdominal infection with Zosyn, and doxycycline was maintained empirically due to the above findings. Tick panel was sent out. Blood cultures and stool studies have come back unremarkable. On presentation she was noted with elevated calcium mildly at 10.6, which improved with hydration, although also in the setting of elevated PTH up to 190. The cause of this is not entirely clear, and appears to may be degree of hyperparathyroidism, possibly secondary, perhaps secondary to alendronate, may be furosemide. Assessment with TSH, B12, folic acid, vitamin D returned normal results. Please consider additional assessment for hyperparathyroidism, consider in rare cases sometimes hypergammaglobulinemia may be associated, follow-up calcium, PTH, and if results continue coming back abnormal, consider referral to endocrinology. Iron studies did show iron deficiency anemia for which she will be started on replacement. Reticulocyte index was found low at 0.45. The pancytopenia appears to be somewhat acute, although consideration to a more chronic process was also given, possibly on masked by hydration. Peripheral smear did not reveal blasts. Her medications were reviewed, and pantoprazole received during this admission was switched back to famotidine. On 12/21 also noted to have 13% bandemia. Parvovirus B19 qualitative PCR was ordered. This will need to be followed up. Discussed with patient multiple times as diagnostic results have been coming back. Today given stabilization and actually improvement in platelet level, as well as ANC and white count, it appears that this may have been related to the acute infection with colitis/diverticulitis. Discussed with her that she would benefit from follow-up with hematology in office, and briefly discussed with her log operations coordinator/oncologist who had seen her previously for colon cancer. They will be expecting follow-up in clinic. Given colitis of splenic flexure noted, history of colon cancer, it may be important also to follow-up with endoscopic evaluation after resolution of her symptoms. She will complete the course of antibiotics with Cipro and Flagyl. Please arrange for endoscopic evaluation, and discuss with oncology whether any other studies may be warranted. On last day of hospitalization also noted to have acute kidney injury with creatinine up to 1.6. Etiology is not entirely clear. She has not been hypotensive. She has been on vancomycin and Zosyn, perhaps contributing. At home she does say she takes occasional NSAIDs, however, will discontinue. Please follow-up renal function to document resolution of kidney injury. Discussed with her for now to empirically maintain neutropenic precautions in case there is fluctuation of her blood counts further, although overall she does appear to be turning around. She is otherwise feeling very well she states. She denies any further nausea, dry heaving, and has been tolerating diet. She is feeling stronger, and ready to return home. Physical Exam Const: COMMON NORMALS: no acute distress and patient oriented x3 NUTRITIONAL APPEARANCE: obese HENMT: COMMON NORMALS: oropharynx normal Neck/C-Spine: COMMON NORMALS: no JVD Resp: COMMON NORMALS: normal respiratory effort and clear to auscultation bilaterally AUSCULTATION: clear to auscultation bilaterally Cardio: COMMON NORMALS: no JVD, regular rhythm, S1 normal heart sound present, S2 normal heart sound present and No murmurs present (Cardio) RHYTHM: regular rhythm HEART SOUNDS: S1 normal heart sound present and S2 normal heart sound present GI: COMMON NORMALS: Normal to inspection, nondistended, normoactive bowel sounds present, Soft to palpation and non-tender PALPATION: Yes Soft to palpation Extremity: COMMON NORMALS: no joint enlargement and no pedal edema Neuro: COMMON NORMALS: patient oriented x3 and moves all extremities Skin: COMMON NORMALS: no rashes or lesions noted GENERAL SKIN EXAM: no rashes or lesions noted Discharge Data Data Completed and Pending: Completed Studies During Hospitalization Category Date Time Status CT abdomen pelvis w con* [id number] Urge nt Cat Scan 12/19/19 16:[address] head wo con* [id number] Urgent Cat Scan 12/19/19 13:37 Completed XR chest 1V neyda ble [id number] Urgent Exams 12/19/19 13:15 Completed Pending at discharge Category Date Time Status Blood Culture Sta t Lab 12/19/19 14:06 Results Blood Culture Sta t Lab 12/21/19 08:26 Results Complete Blood Co unt w/Auto AM LABS Lab 12/24/19 04:00 Ordered Complete Blood Co unt w/Auto AM LABS Lab 12/25/19 04:00 Ordered Comprehensive Met abolic Panel AM LA BS Lab 12/24/19 04:00 Ordered Comprehensive Met abolic Panel AM LA BS Lab 12/25/19 04:00 Ordered Methylmalonic Aci d Routine Lab 12/22/19 05:28 Received Miscellaneous Alysa t Routine Lab 12/22/19 05:28 Received Tick Panel Stat Lab 12/19/19 17:12 Results Labs from last 24 hours 12/23/19 12/23/19 12/23/19 04:26 04:26 04:26 WBC 3.3 L RBC 3.20 L Hgb 9.2 L Hct 29.5 L MCV 92.2 MCH 28.8 MCHC 31.2 RDW 13.6 Plt Count 96 L MPV 11.1 H Neut % (Auto) 59.2 Lymph % (Auto) 26.3 [place] % (Auto) 13.3 Eos % (Auto) 0.9 Baso % (Auto) 0.0 Neut # (Auto) 2.0 Lymph # (Auto) 0.9 [place] # (Auto) 0.4 Eos # (Auto) 0.0 Baso # (Auto) 0.0 Nucleated RBC % (a uto) 0 Nucleated RBCs # 0.0 Sodium 140 Potassium 3.2 L Chloride 107 Carbon Dioxide 23 Anion Gap 13.2 BUN 11 Creatinine 1.6 H Glucose 110 Calculated Osmolal ity 287 Calcium 10.4 Ionized Calcium Me as Magnesium 1.6 L Iron TIBC % Saturation Unsat Iron Binding Ferritin Total Bilirubin 0.2 AST 31 ALT 18 Alkaline Phosphata se 47 Total Protein 5.4 L Albumin 2.9 L Globulin 2.5 25-OH Vitamin D To krystin Folate Vancomycin Trough Lyme Ab (Western B lot) 12/22/19 12/22/19 12/22/19 20:20 19:45 05:28 WBC RBC Hgb Hct MCV MCH MCHC RDW Plt Count MPV Neut % (Auto) Lymph % (Auto) [place] % (Auto) Eos % (Auto) Baso % (Auto) Neut # (Auto) Lymph # (Auto) [place] # (Auto) Eos # (Auto) Baso # (Auto) Nucleated RBC % (a uto) Nucleated RBCs # Sodium Potassium Chloride Carbon Dioxide Anion Gap BUN Creatinine Glucose Calculated Osmolal ity Calcium Ionized Calcium Me as 1.4 Magnesium Iron TIBC % Saturation Unsat Iron Binding Ferritin Total Bilirubin AST ALT Alkaline Phosphata se Total Protein Albumin Globulin 25-OH Vitamin D To krystin Folate 12.3 Vancomycin Trough 15.5 H Lyme Ab (Western B lot) 12/22/19 12/19/19 05:28 17:12 WBC RBC Hgb Hct MCV MCH MCHC RDW Plt Count MPV Neut % (Auto) Lymph % (Auto) [place] % (Auto) Eos % (Auto) Baso % (Auto) Neut # (Auto) Lymph # (Auto) [place] # (Auto) Eos # (Auto) Baso # (Auto) Nucleated RBC % (a uto) Nucleated RBCs # Sodium Potassium Chloride Carbon Dioxide Anion Gap BUN Creatinine Glucose Calculated Osmolal ity Calcium Ionized Calcium Me as Magnesium Iron 21 L TIBC 187 % Saturation 11.2 L Unsat Iron Binding 166 Ferritin 83 Total Bilirubin AST ALT Alkaline Phosphata se Total Protein Albumin Globulin 25-OH Vitamin D To krystin 47 Folate Vancomycin Trough Lyme Ab (Western B lot) <0.90 Vitals: Last Vital Signs Temp 98.0 F 12/23/19 11:28 Pulse 78 12/23/19 11:28 Resp 18 12/23/19 11:28 BP 121/76 12/23/19 11:28 Pulse Ox 98 12/23/19 11:28 Discharge Plan Discharge Patient Disposition: Home, Self-Care Condition: Stable Prescriptions: New ciprofloxacin HCl 500 mg tablet 500 mg PO BID 7 Days Qty: 14 RF: 0 ferrous sulfate 325 mg (65 mg iron) tablet 325 mg PO EVERY OTHER DAY Qty: 30 RF: 0 doxycycline hyclate 100 mg tablet 100 mg PO BID 5 Days Qty: 10 RF: 0 metronidazole [Flagyl] 500 mg tablet 500 mg PO Q8H 7 Days Qty: 21 RF: 0 Continued alendronate 35 mg tablet 35 mg PO ONCE RF: 0 tramadol 50 mg tablet 50 tab PO BID PRN (Reason: Pain) RF: 0 potassium chloride 10 mEq tablet extended release 1 tab PO BID RF: 0 memantine 10 mg tablet 10 mg PO DAILY RF: 0 silver sulfadiazine [Silvadene] 1 % cream 1 applic TOPICAL BID Qty: 50 RF: 0 furosemide [Lasix] 20 mg tablet 20 mg PO DAILY PRN (Reason: edema) 30 Days Qty: 30 RF: 0 pregabalin [Lyrica] 50 mg capsule 50 mg PO DAILY 90 Days Qty: 90 RF: 1 duloxetine 60 mg capsule,delayed release(DR/EC) 60 mg PO DAILY Qty: 90 RF: 2 metoprolol tartrate 25 mg tablet 12.5 mg PO BID Qty: 90 RF: 1 rosuvastatin 5 mg Tablet 5 mg PO DAILY RF: 0 Changed famotidine [Pepcid AC] 20 mg tablet 20 mg PO BIDPC 30 Days Qty: 30 RF: 2 Discontinued meloxicam 15 mg tablet 15 mg PO DAILY 90 Days Qty: 90 RF: 1 Discharge Orders: Discharge Order (Routine); Ordered 12/23/19 Ordered By: Pankaj Rico Other Ambulatory Orders: Basic Metabolic Panel (Routine) Timeframe: 3 Days Facility: [facility] - Location: Lab - Main Lab Ordered By: Pankaj Rico Complete Blood Count w/Auto (Routine) Timeframe: 3 Days Location: Determined by Patient Ordered By: Pankaj Rico Referrals: GENET Jiang FNP [Primary Care Provider] - 12/29/19 10:00 am (olitis, pancytopenia, PTH elevation) Jay Tucker MD [Hospitalist] - 1 week (Pancytopenia, colitis, Hx colon cancer) Discharge Diet: Cardiac Discharge Activity: Resume usual activity Activity Restrictions/Additional Instructions: Please discuss with your primary care doctor regarding arrangements of follow-up colonoscopy in 4-6 weeks after resolution of colitis given all so history of colon cancer, to follow-up make sure this episode was related to infection and nothing else. Please follow-up with your primary care doctor as well as with Dr. Tucker with regards to pancytopenia (low white blood cell counts, low red cell counts, low platelets). For now to be on the maintain Safe side, maintain neutropenic precautions at home, neutropenic diet. Your blood counts will be rechecked in 3 days. Up with your primary care doctor also regarding acute kidney injury. Creatinine up to 1.6. Avoid any NSAIDs like ibuprofen, Aleve, or any other at home. Occasional Tylenol is okay if needed. Discuss also with your primary care doctor with regards to follow-up of calcium level and elevated parathyroid hormone. These may be due to alendronate use, however, should be followed up, and if both persistently high, discuss with your primary care doctor regarding referral to an infection control coordinator for assessment. Please discuss with your primary care doctor with regards to iron deficiency anemia. At home, if you start spiking high fevers, develop severe abdominal pain, vomiting or inability to tolerate food or drink, or other abnormal symptoms, please seek medical attention without delay. Discharge Attestations Time Spent in Discharge Care*: greater than 30 min Quality Metrics Clinical Quality Measures During this hospital stay, did patient experience: None Coding Level of Care Code Acute Director Private for Chg Fwd Diagnoses Pancytopenia D61.818 Fever R50.9 Colitis K52.9 Hyponatremia E87.1 Hypokalemia E87.6 Hypomagnesemia E83.42 Sepsis A41.9 Hyperparathyroidism E21.3 EARL (acute kidney injury) N17.9
[2019-12-23] MEDS: magnesium sulfate premix 2 GM/50 ML PIGGYBACK IV (13:52)
[2019-12-23 16:14] VITALS: BP 121/76; PULSE 78; RESP 18; TEMP 36.7; O2SAT 98
[2019-12-24 16:37] LABS: RMSF IGG NOT DETECTED; RMSF IGM NOT DETECTED
[2019-12-25 16:26] LABS: E. Chaffeensis AB IGG <1:64; E. Chaffeensis AB IGM <1:20
[2019-12-27 20:26] LABS: Methylmalonic Acid 192 nmol/L (87-318)
== END 2019-12-23 16:15 | disposition home or self-care (01) | DRG 872 ==
LOC: ER 16:54 → MEDSURG 19:46 → ICU 20:46 → MEDSURG 12-20 07:40 → ICU 12-20 20:04 → MEDSURG 12-21 13:29
PROVIDERS: Emergency Medicine; Physician Assistant; Admitting Provider Internal Medicine; PCP Nurse Practitioner Family; Visit Provider Internal Medicine
DX: A41.9 Sepsis, unspecified organism (principal); E87.1 Hypo-osmolality and hyponatremia; D61.818 Other pancytopenia; N17.9 Acute kidney failure, unspecified; F03.90 Unspecified dementia, unspecified severity, without behavioral disturbance, psychotic disturbance, mood disturbance, and anxiety; M19.90 Unspecified osteoarthritis, unspecified site; F41.8 Other specified anxiety disorders; I10 Essential (primary) hypertension; M79.7 Fibromyalgia; Z85.038 Personal history of other malignant neoplasm of large intestine; E78.2 Mixed hyperlipidemia; M81.0 Age-related osteoporosis without current pathological fracture; Z87.891 Personal history of nicotine dependence; Z20.828 Contact with and (suspected) exposure to other viral communicable diseases; E87.6 Hypokalemia; E83.42 Hypomagnesemia; K21.9 Gastro-esophageal reflux disease without esophagitis; D69.6 Thrombocytopenia, unspecified; K52.9 Noninfective gastroenteritis and colitis, unspecified; D50.9 Iron deficiency anemia, unspecified
CPT/HCPCS: 12345; 36415; 70450; 71045; 74177; 80053; 80202; 80500; 81003; 82306; 82310; 82330; 82607; 82728; 82746; 83010; 83540; 83550; 83605; 83615; 83690; 83735; 83970; 84145; 84443; 84484; 85007; 85025; 85045; 85610; 85651; 85730; 86140; 86747; 86880; 87040; 87400; 87493; 87506; 87635; 87804; 93005; 96375; 99284; G0378; J1170; J1650; J2270; J2405; J2543; J3370; J3475; J3490; J7030; J7050; Q9967

== ENCOUNTER → 2019-12-26 09:55 | Outpatient (BNVA) | payer MEDICARE, OTHER, SELFPAY | PROVIDERS: PCP Nurse Practitioner Family; Visit Provider Nurse Practitioner Family | DX: R50.9 Fever, unspecified (principal); R11.2 Nausea with vomiting, unspecified | CPT/HCPCS: 36415; 80048; 85025 ==

== ENCOUNTER → 2020-01-09 11:28 | Outpatient (BNVA) | payer MEDICARE, OTHER, SELFPAY | PROVIDERS: PCP Nurse Practitioner Family; Visit Provider Nurse Practitioner Family | DX: D50.9 Iron deficiency anemia, unspecified (principal); E87.6 Hypokalemia | CPT/HCPCS: 80053; 85025 ==

== ENCOUNTER → 2020-01-12 15:20 | Outpatient (BNVA) | payer MEDICARE, OTHER, SELFPAY | PROVIDERS: PCP Nurse Practitioner Family; Visit Provider Nurse Practitioner Family | DX: R60.9 Edema, unspecified (principal); E83.42 Hypomagnesemia; E87.6 Hypokalemia; D50.9 Iron deficiency anemia, unspecified; M81.0 Age-related osteoporosis without current pathological fracture | CPT/HCPCS: 80053; 83540; 83735 ==

== ENCOUNTER → 2020-02-11 08:45 | Outpatient (BNVA) | payer MEDICARE, OTHER, SELFPAY | PROVIDERS: PCP Nurse Practitioner Family; Visit Provider Nurse Practitioner Family | DX: E87.6 Hypokalemia (principal); D50.9 Iron deficiency anemia, unspecified; E83.42 Hypomagnesemia | CPT/HCPCS: 36415; 80053; 83540; 83735; 85025 ==

== ENCOUNTER 2020-08-10 15:13 | Outpatient (CLI) | payer MEDICARE, OTHER, SELFPAY ==
--- NOTE | 2020-08-10 15:21 | MM_ITS ---
WS: [id number] BILATERAL SCREENING DIGITAL MAMMOGRAM WITH CAD HISTORY: SCREENING COMPARISON: 07/31/2019 and 06/21/2018 Bilateral CC and MLO views submitted. Computer aided detection analyzed. Breast composition: There are scattered areas of fibroglandular density. No suspicious masses, microc alcifications or architectural distortion. Rodlike calcifications and scattered round calcifications. Asymmetries are stable. MM/[id number] IMPRESSION: BI-RADS: 2-Benign FOLLOW UP: 1 Year Follow-up
== END 2020-08-10 15:14 | disposition home or self-care (01) ==
LOC: RADSHAW 15:20
PROVIDERS: PCP Nurse Practitioner Family; Visit Provider Nurse Practitioner Family
DX: Z12.31 Encounter for screening mammogram for malignant neoplasm of breast (principal)
CPT/HCPCS: 77067

== ENCOUNTER → 2020-10-28 10:55 | Outpatient (BNVA) | payer MEDICARE, OTHER, SELFPAY | PROVIDERS: PCP Nurse Practitioner Family; Visit Provider Nurse Practitioner Family | DX: I10 Essential (primary) hypertension (principal); E55.9 Vitamin D deficiency, unspecified; Z79.899 Other long term (current) drug therapy | CPT/HCPCS: 80053; 80061; 81003; 82306; 83036; 84443; 85025 ==

== ENCOUNTER → 2020-11-02 11:40 | Outpatient (BNVA) | payer MEDICARE, OTHER, SELFPAY | PROVIDERS: PCP Nurse Practitioner Family; Visit Provider Nurse Practitioner Family | DX: D50.9 Iron deficiency anemia, unspecified (principal); M19.90 Unspecified osteoarthritis, unspecified site; L98.9 Disorder of the skin and subcutaneous tissue, unspecified | CPT/HCPCS: 36415; 82728; 83550 ==

== ENCOUNTER 2020-12-13 12:28 | Inpatient (IN) | payer MEDICARE, OTHER, SELFPAY ==
[2020-12-13 12:30] VITALS: BP 125/69; PULSE 117; RESP 18; TEMP 36.7; O2SAT 97; BMI 33.7
--- NOTE | 2020-12-13 12:48 | ED_ITS ---
HPI - Nausea/Vomiting/Diarrhea General: Chief complaint: Nausea/Vomiting/Diarrhea Stated complaint: NAUSEA/ INCREASED HEART RATE Time Seen by Provider: 12/13/20 12:43 History of Present Illness: HPI Narrative: This patient is a 75-year-old female who presents to the emergency department complaint of nausea vomiting diarrhea has been intermittent for the past week. Patient describes her vomiting is more dry heaves. Patient states has been going on for a week and did go to her PCPs office this morning and they sent her to the emergency department. Patient is EKG on arrival sinus tach with a heart rate of 115 patient has had her gallbladder out and has had a history of colon surgery related to malignancy. Will do medical evaluation treat as needed. Patient states that she has had positive flatus today Description of diarrhea: watery Associated nausea: Yes Associated symtoms: Reports nausea; Denies anxiety, change in vision, chest pain, dysuria, fatigue, headache(s) or palpitations Review of Systems General: Reports: 10 or more systems reviewed and unremarkable except in HPI and below Const: Denies: fever(s), chills, body aches or fatigue Eyes: Denies: change in vision or blurry vision ENMT: Denies: throat pain, hoarseness or mouth pain Card: Denies: chest pain, palpitations, irregular heart rhythm, edema, swelling of feet/ankles or lightheadedness Resp: Denies: dyspnea, productive cough, non-productive cough, wheezing or pain on inspiration GI: Reports: nausea, vomiting and diarrhea; Denies: abdominal pain : Denies: flank pain, difficulty voiding, dysuria, urinary frequency, urinary urgency or urinary hesitancy Musc: Denies: neck pain, back pain, extremity pain, extremity swelling, joint pain, joint swelling, joint redness, joint warmth or limited range of motion Skin/Breast: Denies: rash, pruritus, erythema or skin tenderness Neuro: Denies: headache(s), numbness in extremities or weakness in extremities Psych: Denies: anxiety or depression PFS ED PFSH: Medical History Anemia Chronic osteoarthritis Depression Essential hypertension, benign Fibromyalgia H/O malignant neoplasm of colon Influenza vaccine needed Lesion of finger Mild dementia Mixed hyperlipidemia Post-menopausal osteoporosis Vitamin D deficiency Surgical History History of ankle surgery History of History of colon surgery History of colon malignancy, with resection Family History Other Diabetes Social History Smoking and tobacco status: former smoker Alcohol intake: never Physical Exam Const: COMMON NORMALS: no acute distress, average body habitus, patient oriented x3, no limitations, healthy appearing, alert and well nourished HENMT: COMMON NORMALS: normocephalic, atraumatic, hearing grossly normal bilaterally, external ears normal, EAC's normal, TM's normal bilaterally, Normal external nose present, Normal nasal mucous membranes and turbinates present, moist oral mucous membranes, oropharynx normal, dentition normal and gingiva normal HEAD & SCALP: normocephalic and atraumatic NOSE: Normal external nose present and Normal nasal mucous membranes and turbinates present EXTERNAL EAR: Yes external ears normal EXTERNAL AUDITORY CANAL: EAC's normal TYMPANIC MEMBRANE: TM's normal bilaterally Neck/C-Spine: COMMON NORMALS: full ROM, no lymphadenopathy, supple, no me ningeal signs, no JVD, Thyroid normal and No carotid bruits THYROID: Thyroid normal Chest: COMMONS NORMALS: normal inspection of the chest, normal palpation of entire chest wall, normal inspection of the breasts and normal palpation of the breasts Breast/axilla inspection: Yes normal inspection of the breasts BREAST/AXILLA PALPATION: Yes normal palpation of the breasts Resp: COMMON NORMALS: normal respiratory effort, No retractions, No use of accessory muscles, clear to auscultation bilaterally and percussion normal AUSCULTATION: clear to auscultation bilaterally PERCUSSION: percussion normal Cardio: COMMON NORMALS: no JVD, regular rate, regular rhythm, S1 normal heart sound present, S2 normal heart sound present, No gallops present (Cardio), No clicks present (Cardio), No murmurs present (Cardio), No rub (Cardio) and Peripheral pulses 2+ throughout RATE: regular rate RHYTHM: regular rhythm HEART SOUNDS: S1 normal heart sound present and S2 normal heart sound present PERIPHERAL PULSES: Peripheral pulses 2+ throughout GI: COMMON NORMALS: Normal to inspection, nondistended, normoactive bowel sounds present, Soft to palpation, non-tender, No hepatosplenomegaly present, no masses and no bruits PALPATION: Yes Soft to palpation and Yes No hepatosplenomegaly present : COMMON NORMALS: Yes no CVA tenderness, Yes normal external appearance, Yes normal appearance of the vagina, Yes normal appearance of the cervix, Yes normal bimanual exam, Yes No adnexal tenderness and Yes no masses BLADDER/KIDNEY EXAM: Yes no CVA tenderness BIMANUAL EXAM - VAGINA & UTERUS: Yes normal bimanual exam Back/Pelvis: COMMON NORMALS: no CVA tenderness, thoracic and lumbar spine normal to inspection, no thoracic nor lumbar tenderness, thoraco-lumbar ROM normal and straight leg raise negative bilaterally Extremity: COMMON NORMALS: normal to inspection, full ROM, capillary refill normal, no joint enlargement, no clubbing, cyanosis or edema, no calf tenderness and no pedal edema Neuro: COMMON NORMALS: patient oriented x3 SENSORIUM/ORIENTATION: Yes alert MENINGEAL SIGNS: Yes no meningeal signs Course Reevaluation(s): Reevaluation #1: I did discuss at length with patient and family about findings of CT scan and x-rays concerning for possible partial small bowel obstruction. We also discussed at length with patient's recurrence of possible malignancy in the colon. They state understanding and is agreeable for admission to the hospital. Patient has not had any more vomiting in the emergency department. Time: 15:22 Consultations: Consultation #1: I did discuss leg with general surgery Dr. Mack who agrees with assessment and plan agrees with patient most likely will need a colonoscopy and further evaluation and treatment with surgical standpoint. He will see as a consult. We are awaiting hospitalist return call. Time: 15:13 Consultation #2: I did discuss liquid Dr. Whatley hospitalist he will see the patient admit read further orders. Will do medical management. Time: 15:22 Vital Signs: Vital signs: Vital Signs Temperature 98.0 F 12/13/20 12:30 Pulse Rate 105 H 12/13/20 14:13 Respiratory Rate 15 12/13/20 14:13 Blood Pressure 109/62 12/13/20 14:13 Pulse Oximetry 96 12/13/20 14:13 MDM - Nausea/Vomiting/Diarrhea MDM Narrative: Medical decision making narrative: This patient is a 75-year-old female who presents to the emergency department complaint of nausea vomiting diarrhea has been intermittent for the past week. Patient describes her vomiting is more dry heaves. Patient states has been going on for a week and did go to her PCPs office this morning and they sent her to the emergency department. Patient is EKG on arrival sinus tach with a heart rate of 115 patient has had her gallbladder out and has had a history of colon surgery related to malignancy. Will do medical evaluation treat as needed. Patient states that she has had positive flatus today I did discuss at length with patient and family about findings of CT scan and x- rays concerning for possible partial small bowel obstruction. We also discussed at length with patient's recurrence of possible malignancy in the colon. They state understanding and is agreeable for admission to the hospital. Patient has not had any more vomiting in the emergency department. I did discuss leg with general surgery Dr. Mack who agrees with assessment and plan agrees with patient most likely will need a colonoscopy and further evaluation and treatment with surgical standpoint. He will see as a consult. We are awaiting hospitalist return call. I did discuss liquid Dr. Whatley hospitalist he will see the patient admit read further orders. Will do medical management. Lab Data: Labs: Lab Results 12/13/20 12/13/20 12/13/20 Range/Units 11:25 11:25 13:02 WBC 17.9 H (4.0-10.0) 10^3/ uL RBC 4.05 L (4.1-5.3) 10^6/u L Hgb 9.2 L (11.5-15.3) g/dL Hct 31.2 L (37.0-47.0) % MCV 77.0 L (81-99) fL MCH 22.7 L (28.0-34.0) pg MCHC 29.5 L (30.0-36.0) g/dL RDW 17.0 H (12.1-15.1) % Plt Count 409 H (130-400) 10^3/c mm MPV 10.4 (7.4-10.4) fL Neut % (Auto) 85.2 % Lymph % (Auto) 7.4 % Pender % (Auto) 6.6 % Eos % (Auto) 0.1 % Baso % (Auto) 0.2 % Neut # (Auto) 15.27 H (1.8-7.7) 10^3/u L Lymph # (Auto) 1.3 (0.8-4.8) 10^3/u L Pender # (Auto) 1.2 H (0.2-0.9) 10^3/u L Eos # (Auto) 0.0 (0.0-0.8) 10^3/u L Baso # (Auto) 0.0 (0.0-0.1) 10^3/u L Nucleated RBC % (a uto) 0 % Nucleated RBCs # 0.0 /100WBC Sodium 134 L (136-145) mmol/L Potassium 5.0 (3.5-5.1) mmol/L Chloride 99 (98-107) mmol/L Carbon Dioxide 22 (22-29) mmol/L Anion Gap 18.0 (5-19) BUN 9 (8-23) mg/dL Creatinine 0.6 (0.5-0.9) mg/dL GFR Calculation Not Reportable Glucose 112 (65-115) mg/dL Calculated Osmolal ity 277 L (285-295) mOsm/k g Calcium 10.2 (8.5-10.5) mg/dL Magnesium 1.9 (1.7-2.3) mg/dL Total Bilirubin 0.3 (0.15-1.2) mg/dL AST 41 H (0-32) U/L ALT 22 (0-33) U/L Alkaline Phosphata se 80 (35-105) IU/L Total Protein 6.3 L (6.6-8.7) g/dL Albumin 3.5 (3.5-5.2) g/dL Globulin 2.8 (1.3-4.6) g/dL Lipase 13 (13-60) U/L Urine Color Dark yellow (Yellow) Urine Appearance Clear (CLEAR) Urine pH 5 (5-7) Ur Specific Gravit y 1.020 (1.005-1.030) Urine Protein Neg (Negative) Urine Glucose (UA) Norm (Normal) Urine Ketones Negative (Negative) Urine Blood Neg (Negative) Urine Nitrate Negative (Negative) Urine Bilirubin 1+ H (Negative) Urine Urobilinogen Norm (Negative) mg/dL Ur Leukocyte Sultana ase Negative (Negative) Imaging Data^: KUB: Attestation: I personally reviewed and interpreted this imaging study as follows: Radiologist's impression: IMPRESSION: 1. Several small bowel fluid levels identified. Early or incomplete small bowel obstruction not excluded. This might also represent adynamic ileus. 2. Mild plaque atelectasis in the left lung base. No acute cardiopulmonary f inding. CT Abd/Pel: Attestation: I personally reviewed and interpreted this imaging study as follows: Radiologist's impression: IMPRESSION: 1. Marked bowel wall thickening in the splenic flexure suggesting malignancy, with infiltration of surrounding pericolonic fat. 2. Small bowel dilatation about surgical anastomotic site, which can be further evaluated with small bowel follow-through if clinically indicated. 3. Additional findings as described above. Discharge Plan Discharge Patient Disposition: Admitted As Inpatient Clinical Impression: Nausea vomiting and diarrhea, Partial obstruction of small intestine, Local re currence of malignant neoplasm of colon Condition: Stable Prescriptions: No Action tramadol 50 mg tablet 50 mg PO BID PRN (Reason: Pain) 30 Days Qty: 60 RF: 2 ferrous sulfate 325 mg (65 mg iron) tablet 325 mg PO EVERY OTHER DAY Qty: 30 RF: 5 metoprolol tartrate 25 mg tablet 12.5 mg PO BID Qty: 90 RF: 1 Tylenol Extra Strength 500 mg Tablet 1,000 mg PO PRN RF: 0 Vitamin D3 125 mcg (5,000 unit) Tablet 125 mcg PO QAM RF: 0 Prevagen Extra Strength 1 cap PO QAM RF: 0 potassium chloride 10 mEq tablet extended release 20 meq PO BID RF: 0 alendronate 35 mg tablet 35 mg PO Q7D RF: 0 Pepcid AC 20 mg tablet 20 mg PO DAILY RF: 0 Lasix 20 mg tablet 20 mg PO DAILY RF: 0 rosuvastatin 5 mg tablet 5 mg PO QAM RF: 0 memantine 10 mg tablet 10 mg PO QPM RF: 0 duloxetine 60 mg capsule,delayed release(DR/EC) 60 mg PO QPM RF: 0 Lyrica 50 mg capsule 50 mg PO BEDTIME RF: 0 Referrals: Deidre,GENET, [employer] [Primary Care Provider] - Coding Level of Care Code ED Health Information Technician for g Fwd Exam Comprehensive
--- NOTE | 2020-12-13 12:48 | XR_ITS ---
WS: [id number] Exam: XR acute abdomen series [id number] Date/Time of Exam: 12/13/2020 12:48 PM Reason For Exam: Abd Pain Chest radiograph compared to prior study December 30, 2008. There is mild plaque atelectasis in the left base. The lungs are otherwise clear. No pleural effusion . Normal cardiomediastinal structures. Flat and erect abdomen. There are several small bowel fluid levels identified. This may represent ear ly or incomplete small bowel obstruction. Signs of prior cholecystectomy. Additional surgical clips s een in the central and right abdomen. Visualized organ margins are unremarkable. Several opaque densi ties seen in the left abdomen that may represent medication in the GI tract. Bony structures are inta ct. XR/XR acute abdomen series [id number] IMPRESSION: 1. Several small bowel fluid levels identified. Early or incomplete small bowel obstruction not excluded. This might also represent adynamic ileus. 2. Mild plaque atelectasis in the left lung base. No acute cardiopulmonary find ing.
[2020-12-13 13:08] LABS: Basophils % 0.2 %; Eosinophils % 0.1 %; Hematocrit 31.2 % (37.0-47.0); Hemoglobin 9.2 g/dL (11.5-15.3); Lymphocytes # 1.3 10^3/uL (0.8-4.8); Lymphocytes % 7.4 %; Mean Corpuscular HGB Conc 29.5 g/dL (30.0-36.0); Mean Corpuscular Hemoglobin 22.7 pg (28.0-34.0); Mean Platelet Volume 10.4 fL (7.4-10.4); Monocytes # 1.2 10^3/uL (0.2-0.9); Monocytes % 6.6 %; Neutrophils # 15.27 10^3/uL (1.8-7.7); Neutrophils % 85.2 %; Nucleated Red Blood Cells % 0 %; Platelet Count 409 10^3/cmm (130-400); Red Blood Count 4.05 10^6/uL (4.1-5.3); White Blood Count 17.9 10^3/uL (4.0-10.0)
[2020-12-13 13:09] LABS: Add Urine Microscopic? NO; Charge for UA Resulting for Rev
[2020-12-13 13:21] LABS: Alanine Aminotransferase 22 U/L (0-33); Albumin Level 3.5 g/dL (3.5-5.2); Alkaline Phosphatase 80 IU/L (35-105); Blood Urea Nitrogen 9 mg/dL (8-23); Calcium 10.2 mg/dL (8.5-10.5); Carbon Dioxide 22 mmol/L (22-29); Chloride 99 mmol/L (98-107); Globulin 2.8 g/dL (1.3-4.6); Glucose 112 mg/dL (65-115); Lipase 13 U/L (13-60); Magnesium 1.9 mg/dL (1.7-2.3); Osmolality Calculated 277 mOsm/kg (285-295); Sodium 134 mmol/L (136-145); Total Bilirubin 0.3 mg/dL (0.15-1.2); Total Protein 6.3 g/dL (6.6-8.7)
[2020-12-13 13:21] LABS: Bilirubin Urine 1+ (Negative); Blood Urine Neg (Negative); Glucose Urine UA Norm (Normal); Ketones Urine Negative (Negative); Leukocyte Esterase Urine Negative (Negative); Nitrate Urine Negative (Negative); Protein Urine Neg (Negative); Urine Appearance Clear (CLEAR); Urine Color Dark Yellow (Yellow); Urobilinogen Urine Norm (Negative); pH Urine 5 (5-7)
[2020-12-13 13:22] LABS: Aspartate Amino Transferase 41 U/L (0-32)
--- NOTE | 2020-12-13 13:55 | CTR_ITS ---
PROCEDURE INFORMATION: Exam: CT Abdomen And Pelvis Without Contrast Exam date and time: 12/13/2020 2:02 PM Age: 75 years old Clinical indication: Abdominal pain; Generalized; Prior surgery; Surgery type: Colon, c section; Additional info: Flank pain TECHNIQUE: Imaging protocol: Computed tomography of the abdomen and pelvis without contrast. Radiation optimization: All CT scans at this facility use at least one of these dose optimization techniques: automated exposure control; mA and/or kV adjustment per patient size (includes targeted exams where dose is matched to clinical indication); or iterative reconstruction. COMPARISON: CT abdomen pelvis w con* [id number] 12/19/2019 6:07 PM RADIATION DOSE METRICS: Total DLP (mGy-cm): 1782.84 FINDINGS: Detailed evaluation of the abdominal and pelvic viscera is somewhat limited in the absence of intravenous contrast. Inferior thorax: Mild interstitial prominence and parenchymal stranding. Small hiatal hernia. Liver: Fatty infiltration of the liver. Gallbladder and bile ducts: Status post cholecystectomy. Pancreas: No pancreatic mass or ductal dilatation. Spleen: Spleen upper limits of normal in size. Adrenal glands: Unremarkable adrenals. Kidneys and ureters: 11 mm cyst in the posterior left kidney. 4 mm nodular hypodensity in the right kidney which is too small to accurately characterize. No hydronephrosis. Stomach and bowel: Marked bowel wall thickening in the splenic flexure suggesting malignancy, with infiltration of surrounding pericolonic fat. Mild gastric wall thickening. Small bowel dilatation about surgical anastomotic site, which can be further evaluated with small bowel follow-through if clinically indicated. Appendix: Nonvisualization of the appendix. Intraperitoneal space: Small quantity of intraperitoneal fluid in the left upper quadrant. Vasculature: Normal caliber of the abdominal aorta. Vascular calcification. Lymph nodes: Subcentimeter lymph nodes. Urinary bladder: Nondistended bladder. Reproductive: Status post hysterectomy. Bones/joints: Osteopenia. Degenerative change and disc bulging. 2.9 cm intraosseous hemangioma in the L4 vertebral body. Grade 1 anterolisthesis of L4 on L5. Soft tissues: Bowel containing ventral wall hernia and fat containing umbilical hernia. Injection granulomata. CT/CT abdomen pelvis wo con [id number] IMPRESSION: 1. Marked bowel wall thickening in the splenic flexure suggesting malignancy, with infiltration of surrounding pericolonic fat. 2. Small bowel dilatation about surgical anastomotic site, which can be further evaluated with small bowel follow-through if clinically indicated. 3. Additional findings as described above. The aforementioned findings initiated a critical results communication pathway. An addendum will be issued at the time of clincian notification. COMMENTS: Consistent with the [employer]'s Incidental Findings Committee white paper (J Am Kayla Radiol 2018): Any incidental renal lesion less than 1 cm or classified as too small to characterize, or any incidental cystic renal lesion characterized as simple-appearing, is likely benign. No follow-up imaging is recommended for these lesions per consensus recommendations based on imaging criteria. Radiation Dose CTDIVOL = (mGy): DLP = 1782.84 (mGy-cm)
[2020-12-13] MEDS: sodium chloride 0.9% 1,000 ML 999 ML IV (14:10)
[2020-12-13] MEDS: ondansetron 2 mg/ML SDV 2 mL 4 MG IVP ×2 (14:12→17:03)
[2020-12-13 14:13] VITALS: BP 109/62; PULSE 105; RESP 15; O2SAT 96
--- NOTE | 2020-12-13 15:13 | P.CONIM_ITS ---
Providers/Reason For Consult Consulting Physican/Specialty*: Willy Mack MD Reason for Consult*: Concern about colon malignancy Requesting Physcian: Dr. Enriquez Primary Care Provider: SUSIE Tello History of Present Illness History of Present Illness Chief Complaint: Loose stools History of present illness: Ms. Mariangel Morales is a pleasant 75 year old female with history of obesity and a current weight of 2 3 pounds with a BMI 34, patient comes today to the emergency department with worsening history of nausea and loose stools in association with dull aching abdominal pain, patient reports the pain is more in the central part of being referred. Nothing seems to make it better or worse at this time. Patient undergone blood work and a CT scan of the abdomen and pelvis that showed incidental finding concerning for malignancy of the splenic flexure. Patient reports back in the 90s that she had colon cancer surgery and 10 years ago she had another one but she does not recall which segments of the colon were removed she also reports extensive family history of colorectal cancer in one of her sons had colon cancer as well. CT scan of the abdomen and pelvis did show Detailed evaluation of the abdominal and pelvic viscera is somewhat limited in the absence of intravenous contrast. Inferior thorax: Mild interstitial prominence and parenchymal stranding. Small hiatal hernia. Liver: Fatty infiltration of the liver. Gallbladder and bile ducts: Status post cholecystectomy. Pancreas: No pancreatic mass or ductal dilatation. Spleen: Spleen upper limits of normal in size. Adrenal glands: Unremarkable adrenals. Kidneys and ureters: 11 mm cyst in the posterior left kidney. 4 mm nodular hypodensity in the right kidney which is too small to accurately characterize. No hydronephrosis. Stomach and bowel: Marked bowel wall thickening in the splenic flexure suggesting malignancy, with infiltration of surrounding pericolonic fat. Mild gastric wall thickening. Small bowel dilatation about surgical anastomotic site, which can be further evaluated with small bowel follow-through if clinically indicated. Appendix: Nonvisualization of the appendix. Intraperitoneal space: Small quantity of intraperitoneal fluid in the left upper quadrant. Vasculature: Normal caliber of the abdominal aorta. Vascular calcification. Lymph nodes: Subcentimeter lymph nodes. Urinary bladder: Nondistended bladder. Reproductive: Status post hysterectomy. Bones/joints: Osteopenia. Degenerative change and disc bulging. 2.9 cm intraosseous hemangioma in the L4 vertebral body. Grade 1 anterolisthesis of L4 on L5. Soft tissues: Bowel containing ventral wall hernia and fat containing umbilical hernia. Injection granulomata. CT/CT abdomen pelvis wo con [id number] IMPRESSION: 1. Marked bowel wall thickening in the splenic flexure suggesting malignancy, with infiltration of surrounding pericolonic fat. 2. Small bowel dilatation about surgical anastomotic site, which can be further evaluated with small bowel follow-through if clinically indicated. 3. Additional findings as described above. Patient was seen and evaluated based on general surgery consultation in the emergency department room #12 Review of Systems General: Reports: 10 or more systems reviewed and unremarkable except in HPI and below Meds/Allergies Home Medications and Allergies Home Medications Medication Instructions Recorded Confirmed Last Taken Type ferrous sulfate 325 mg (65 mg 325 mg PO EVERY OTHER DAY #30 tab 02/19/20 12/13/20 12/12/20 Rx iron) tablet metoprolol tartrate 25 mg tablet 12.5 mg PO BID #90 tab 10/28/20 12/13/20 12/13/20 08:30 Rx tramadol 50 mg tablet 50 mg PO BID PRN 30 Days #60 tab 11/02/20 12/13/20 Unknown Rx Lasix 20 mg PO DAILY 12/13/20 12/13/20 12/13/20 History Lyrica 50 mg PO BEDTIME 12/13/20 12/13/20 12/12/20 History Pepcid AC 20 mg PO DAILY 12/13/20 12/13/20 12/12/20 History Prevagen Extra Strength 1 cap PO QAM 12/13/20 12/13/20 12/13/20 History acetaminophen [Tylenol Extra 1,000 mg PO PRN 12/13/20 12/13/20 Unknown History Strength] alendronate 35 mg PO Q7D 12/13/20 12/13/20 12/10/20 History cholecalciferol (vitamin D3) 125 mcg PO QAM 12/13/20 12/13/20 12/13/20 History [Vitamin D3] duloxetine 60 mg PO QPM 12/13/20 12/13/20 12/12/20 History memantine 10 mg PO QPM 12/13/20 12/13/20 12/12/20 History potassium chloride 20 meq PO BID 12/13/20 12/13/20 12/13/20 08:30 History rosuvastatin 5 mg PO QAM 12/13/20 12/13/20 12/13/20 History Allergies Allergy/AdvReac Type Severity Reaction Status Date / Time No Known Allergies Allergy Verified 12/13/20 15:15 PFSH Acute PFSH: Medical History Anemia Chronic osteoarthritis Depression Essential hypertension, benign Fibromyalgia H/O malignant neoplasm of colon Influenza vaccine needed Lesion of finger Mild dementia Mixed hyperlipidemia Post-menopausal osteoporosis Vitamin D deficiency Surgical History History of ankle surgery History of History of colon surgery History of colon malignancy, with resection Family History Other Diabetes Social History Smoking and tobacco status: former smoker Alcohol intake: never Vitals/I&O/Wt Last Vital Signs Temp 98.0 F 12/13/20 12:30 Pulse 105 H 12/13/20 14:13 Resp 15 12/13/20 14:13 BP 109/62 12/13/20 14:13 Pulse Ox 96 12/13/20 14:13 Weight last 48 hrs Weight 203 lb Physical Exam Narrative: EXAM NARRATIVE: Patient is conscious alert oriented X3 BMI 34 Head and neck examination PERRLA no masses no cervical lymphadenopathy no jaundice Cardiac examination audible S1-S2 no murmurs no gallops no arrhythmias Chest is clear bilateral,abscence of Rhonchi or wheezes,no surgical emphysema Abdomen nontender mildly distended soft no organomegaly guarding or rigidity/no signs of peritonitis Likely incarcerated periumbilical incisional hernia Midline scar Obese A&P Assessment and plan (1) Nausea vomiting and diarrhea: Based on history taking physical examination and reviewing the chart and images. We will plan to perform a diagnostic colonoscopy at some point once patient recovers from this episode there is no evidence of bowel obstruction. Patient will require IV fluid resuscitation and antinausea medication with repeated physical exam. It would be quite challenging to retrieve patient's operative report since it has been a long time. We will continue to follow Thank you for consulting general surgery to participate taking care Status: Acute Consult Attestations Medical Necessity Statement: Patient requiring inpatient hospitalization passing 2 midnights for resuscitation and repeated physical examination per surgery Time Spent in Patient Care: 16 - 35 minutes Coding Level of Care Code Acute Preschool Program Director for [facility] Fwd Diagnoses Nausea vomiting and diarrhea R11.2; R19.7
[2020-12-13 16:38] VITALS: BP 111/70; PULSE 105; RESP 18; O2SAT 96
[2020-12-13 16:59] VITALS: BP 135/79; PULSE 90; RESP 17; TEMP 36.4; O2SAT 99
[2020-12-13] MEDS: sodium chloride 0.9% 500 ML IV (17:02)
--- NOTE | 2020-12-13 17:07 | PM.HP ---
Providers/Chief Complaint Admitting Physician: Jim Whatley MD Primary Care Provider: SUSIE Tello Chief Complaint: NAUSEA/ INCREASED HEART RATE History of Present Illness Mariangel Morales is a 75 year old female with past medical history of hypertension, iron deficiency anemia,Ca colon s/p resection, came in with chief complaint of 1 week duration of abdominal pain, nausea, vomiting, lightheadedness, dizziness, fatigue, malaise, she was at her primary care physician today where she was found to be tachycardic. Upon arrival in the ER she was worked up for above-mentioned complaints Imaging studies CT abdomen and pelvis without contrast: Marked bowel wall thickening in the splenic flexure suggesting malignancy, with infiltration of surrounding pericolonic fat. X-ray chest: Clean Pertinent labs: WBC:17.9 , H/H: 9.2/ 31 PLT: 409. Review of Systems Const: Denies: fever(s), chills, body aches or diaphoresis Card: Denies: palpitations, edema, swelling of feet/ankles, dyspnea on exertion, orthopnea or leg pain with exertion Resp: Denies: dyspnea, productive cough, wheezing or pain on inspiration : Denies: flank pain Musc: Denies: back pain, extremity pain or extremity swelling Neuro: Denies: headache(s), difficulty walking or confusion Medications/Allergies Home Medications Medication Instructions Recorded Confirmed Last Taken Type ferrous sulfate 325 mg (65 mg 325 mg PO EVERY OTHER DAY #30 tab 02/19/20 12/13/20 12/12/20 Rx iron) tablet metoprolol tartrate 25 mg tablet 12.5 mg PO BID #90 tab 10/28/20 12/13/20 12/13/20 08:30 Rx tramadol 50 mg tablet 50 mg PO BID PRN 30 Days #60 tab 11/02/20 12/13/20 Unknown Rx Lasix 20 mg PO DAILY 12/13/20 12/13/20 12/13/20 History Lyrica 50 mg PO BEDTIME 12/13/20 12/13/20 12/12/20 History Pepcid AC 20 mg PO DAILY 12/13/20 12/13/20 12/12/20 History Prevagen Extra Strength 1 cap PO QAM 12/13/20 12/13/20 12/13/20 History acetaminophen [Tylenol Extra 1,000 mg PO PRN 12/13/20 12/13/20 Unknown History Strength] alendronate 35 mg PO Q7D 12/13/20 12/13/20 12/10/20 History cholecalciferol (vitamin D3) 125 mcg PO QAM 12/13/20 12/13/20 12/13/20 History [Vitamin D3] duloxetine 60 mg PO QPM 12/13/20 12/13/20 12/12/20 History memantine 10 mg PO QPM 12/13/20 12/13/20 12/12/20 History potassium chloride 20 meq PO BID 12/13/20 12/13/20 12/13/20 08:30 History rosuvastatin 5 mg PO QAM 12/13/20 12/13/20 12/13/20 History Allergies Allergy/AdvReac Type Severity Reaction Status Date / Time No Known Allergies Allergy Verified 12/13/20 15:15 PFSH Acute PFSH: Medical History Anemia Chronic osteoarthritis Depression Essential hypertension, benign Fibromyalgia H/O malignant neoplasm of colon Influenza vaccine needed Lesion of finger Mild dementia Mixed hyperlipidemia Post-menopausal osteoporosis Vitamin D deficiency Surgical History History of ankle surgery History of History of colon surgery History of colon malignancy, with resection Family History Other Diabetes Social History Smoking and tobacco status: former smoker Alcohol intake: never Vitals/I&O/Wt Last Vital Signs Temp 98.0 F 12/13/20 12:30 Pulse 105 H 12/13/20 16:38 Resp 18 12/13/20 16:38 BP 111/70 12/13/20 16:38 Pulse Ox 96 12/13/20 16:38 12/13/20 12/13/20 12/13/20 06:59 14:59 22:59 Intake Total 1000 / 1000 Balance 1000 / 1000 Weight last 48 hrs Weight 92.079 kg Physical Exam Const: COMMON NORMALS: patient oriented x3 HENMT: COMMON NORMALS: normocephalic and atraumatic HEAD & SCALP: normocephalic and atraumatic Chest: CHEST: Yes Symmetrical chest wall rise Resp: COMMON NORMALS: normal respiratory effort and clear to auscultation bilaterally EFFORT & INSPECTION: Yes symmetric chest movement AUSCULTATION: clear to auscultation bilaterally Cardio: COMMON NORMALS: regular rate, regular rhythm, S1 normal heart sound present, S2 normal heart sound present, No gallops present (Cardio), No murmurs present (Cardio), No rub (Cardio) and Peripheral pulses 2+ throughout RATE: regular rate RHYTHM: regular rhythm HEART SOUNDS: S1 normal heart sound present and S2 normal heart sound present PERIPHERAL PULSES: Peripheral pulses 2+ throughout GI: COMMON NORMALS: Normal to inspection, nondistended, normoactive bowel sounds present, Soft to palpation, non-tender, No hepatosplenomegaly present and no masses AUSCULTATION: Yes normoactive bowel sounds PALPATION: Yes Soft to palpation and Yes No hepatosplenomegaly present RECTAL EXAM: deferred Extremity: COMMON NORMALS: no clubbing, cyanosis or edema and no pedal edema Neuro: COMMON NORMALS: patient oriented x3 Data : 12/13/20 11:25 12/13/20 11:25 A&P Assessment and plan (1) Colitis: Possible Collitis V/S recurrence of colonic malignancy. Came in with Nausea,vomiting, LLQ abdominal pain. CT abdomen and pelvis without contrast: Marked bowel wall thickening in the splenic flexure suggesting malignancy, with infiltration of surrounding pericolonic fat. Lactic Acid Procal Blood Culture Metronidazole and Ciprofloxacin Possible Colonscopy once clinically Stable Status: Acute (2) Nausea vomiting and diarrhea: Predominantly complaining of dry heaves. Zofran PRN Status: Acute (3) Tachycardia: Sinus tachycardia. Likely secondary to dehydration 2/2 poor oral intake Status: Acute (4) Essential hypertension, benign: Status: Chronic (5) Anemia: Microcytic anemia Denies any bright red blood per rectum, melena, hematuria H&H; 9.2/31.2 Monitor CBC for now Transfuse to maintain hemoglobin greater than 7 Status: Chronic Qualifiers: Anemia type: iron deficiency Iron deficiency anemia type: unspecified iron deficiency Qualified Code(s): D50.9 - Iron deficiency anemia, unspecified Additional A&P Information CODE STATUS: Full code DVT prophylaxis; Lovenox 40 mg sc daily Attestations Medical Necessity Statement*: patient needs to be in hospital for the management of Collitis.Anticipated LOS Greater then 2 midnights. Coding Level of Care Code Acute Risk Investigator for Chg Fwd Exam Detailed Diagnoses Colitis K52.9 Nausea vomiting and diarrhea R11.2; R19.7 Tachycardia R00.0 Essential hypertension, benign I10 Anemia D50.9 Anemia type: iron deficiency Iron deficiency anemia type: unspecified iron deficiency
[2020-12-13] MEDS: duloxetine 60 mg Capsule PO (17:25)
[2020-12-13] MEDS: acetaminophen 325 mg Tablet 650 MG PO (17:25)
[2020-12-13] MEDS: memantine 5 mg tablet 10 MG PO (17:25)
[2020-12-13] MEDS: lanolin oint 7 gm 1 APPLIC TOPICAL (17:25)
[2020-12-13] MEDS: TRAMadol 50 mg Tablet PO (17:25)
[2020-12-13] MEDS: sodium chloride 0.9% 1,000 ML 75 ML IV (18:09)
[2020-12-13 20:00] VITALS: BP 107/68; PULSE 83; RESP 18; TEMP 36.7; O2SAT 95
[2020-12-13] MEDS: metoprolol tartrate 25 mg Tablet 12.5 MG PO (21:21)
[2020-12-13] MEDS: pregabalin 50 mg Capsule PO (21:21)
[2020-12-13] MEDS: ciprofloxacin 400 MG/200 ML PREMIX 200 MG IV (21:22)
[2020-12-13] MEDS: metroNIDAZOLE IV 500 MG/100 ML PREMIX 100 MG IV (22:29)
[2020-12-14] VITALS: BP 101/65; PULSE 84; RESP 18; TEMP 36.9; O2SAT 96
[2020-12-14 04:00] VITALS: BP 99/63; PULSE 96; RESP 18; TEMP 36.9; O2SAT 96
[2020-12-14 06:04] LABS: Basophils % 0.4 %; Eosinophils # 0.1 10^3/uL (0.0-0.8); Eosinophils % 0.7 %; Hematocrit 25.8 % (37.0-47.0); Hemoglobin 7.4 g/dL (11.5-15.3); Lymphocytes % 8.5 %; Mean Corpuscular HGB Conc 28.7 g/dL (30.0-36.0); Mean Corpuscular Hemoglobin 22.6 pg (28.0-34.0); Mean Corpuscular Volume 78.9 fL (81-99); Mean Platelet Volume 9.6 fL (7.4-10.4); Monocytes % 9.1 %; Neutrophils # 9.19 10^3/uL (1.8-7.7); Neutrophils % 80.9 %; Nucleated Red Blood Cells % 0 %; Platelet Count 294 10^3/cmm (130-400); Red Blood Count 3.27 10^6/uL (4.1-5.3); Red Cell Distribution Width 16.7 % (12.1-15.1); White Blood Count 11.4 10^3/uL (4.0-10.0)
[2020-12-14 06:22] LABS: Lactic Sepsis W/Reflex 0.9 mmol/L (0.5-2.2)
--- NOTE | 2020-12-14 06:35 | PM.PN ---
Subjective Subjective: Interval history: Patient overall feels a whole lot better Medications: Reviewed: Yes Vitals/I&O/Wt Last Vital Signs Temp 98.4 F 12/14/20 04:00 Pulse 96 12/14/20 04:00 Resp 18 12/14/20 04:00 BP 99/63 12/14/20 04:00 Pulse Ox 96 12/14/20 04:00 12/13/20 12/13/20 12/14/20 14:59 22:59 06:59 Intake Total 1939 Output Total 0 / 0 200 / 200 Balance 1939 -0 Weight last 48 hrs Weight 203 lb Physical Exam Narrative: EXAM NARRATIVE: Patient is conscious alert oriented X3 BMI 34 Head and neck examination PERRLA no masses no cervical lymphadenopathy no jaundice Abdomen nontender mildly distended soft no organomegaly guarding or rigidity/no signs of peritonitis Obese Data : 12/15/20 05:48 12/15/20 05:48 Micro: Microbiology 12/13/20 20:20 Blood Culture - Preliminary Blood SPECIMEN COLLECTED 12/13/20 20:15 Blood Culture - Preliminary Blood SPECIMEN COLLECTED A&P Assessment and plan (1) Nausea vomiting and diarrhea: Can have clear liquid diet from surgical standpoint Plan to perform a colonoscopy down the road in 6 weeks after subsidence of the inflammatory process Silvia as an outpatient for 10 days We will add CEA carcinoembryonic to be drawn with the a.m. labs today Thank you for consulting general surgery to participate taking care Status: Acute Attestations Medical Necessity Statement*: patient needs to be in hospital for the management of Collitis.Anticipated LOS Greater then 2 midnights. 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
[2020-12-14 06:43] LABS: Anion Gap 9.3 (5-19); Blood Urea Nitrogen 10 mg/dL (8-23); Calcium 9.6 mg/dL (8.5-10.5); Carbon Dioxide 24 mmol/L (22-29); Chloride 103 mmol/L (98-107); Glucose 104 mg/dL (65-115); Osmolality Calculated 273 mOsm/kg (285-295); Potassium 4.3 mmol/L (3.5-5.1); Sodium 132 mmol/L (136-145)
[2020-12-14] MEDS: metroNIDAZOLE IV 500 MG/100 ML PREMIX 100 MG IV ×2 (06:44→18:08)
[2020-12-14 07:07] LABS: Carcinoembryonic Antigen 1.2 ng/mL (0.0-4.7)
[2020-12-14 07:47] VITALS: BP 111/73; PULSE 101; RESP 17; TEMP 37.1; O2SAT 95
[2020-12-14] MEDS: metoprolol tartrate 25 mg Tablet 12.5 MG PO ×2 (10:30→20:59)
[2020-12-14] MEDS: atorvastatin 40 mg Tablet 20 MG PO (10:30)
[2020-12-14] MEDS: famotidine 20 mg Tablet PO (10:30)
[2020-12-14] MEDS: ciprofloxacin 400 MG/200 ML PREMIX 200 MG IV ×2 (10:30→20:59)
--- NOTE | 2020-12-14 10:30 | PC.CHAP ---
Pastoral Care Encounter/Spiritual Assessment Type of Contact [] Declined able bodied watchman visit [] Patient/Family/Request visit [] Outpatient visit [] Follow-up visit [] Physician referral [] Code/Alert [x] Routine visit [] Staff referral [] Actively dying [] Patient sleeping [] Family support [] [] Out of room [] Palliative care [] [] Receiving care in room [] Pre-surgical visit [] Trauma [] Long length of stay [] ICU visit [] Other: Relational/Emotional Strength [xx] Patient feels connected with others/family/visitors/staff [] Distress [] Loneliness/isolation [] Abandonment Spirituality of Patient x Person of Tram [] Attends Gnosticism of their Tram [x] Believes in Prayer [x] Reads Bible or Pentecostalism materials [] There are Spiritual issues to be addressed Title 1 Tutor Interventions [x] Prayer [x] Active listening [x] Non-anxious presence []xa Spiritual/emotional support [] Crisis/trauma care [] Spiritual counseling [] Bereavement support [] Provided bereavement packet [] Provided Bible/devotional materials [] Provided toy/stuffed animal, coloring book to patient or family member [] Provided Communion [] Anointing/Dorothy [] Salvation [x] Completed spiritual assessment [] Other: Impact on Illness or Injury [] Angry [] Fearful [] Anxious [] Often cries [] Exhaustion [] Unable to work [] Unable to attend taoism [] Unable to walk/stand [] Unable to read [] Unable to drive [] Unable to eat/drink [] Unable to sleep [] Unable to be with family [] Patient intubated [] Other: Summary patient very concern about liz Time spent with patient 10 min
[2020-12-14 11:37] VITALS: BP 100/68; PULSE 101; RESP 18; TEMP 37.1; O2SAT 98
[2020-12-14 16:00] VITALS: BP 112/64; PULSE 108; RESP 18; TEMP 37.2; O2SAT 96
[2020-12-14 16:56] LABS: Basophils % 0.2 %; Eosinophils # 0.1 10^3/uL (0.0-0.8); Eosinophils % 0.5 %; Hematocrit 26.1 % (37.0-47.0); Hemoglobin 7.6 g/dL (11.5-15.3); Lymphocytes # 1.2 10^3/uL (0.8-4.8); Lymphocytes % 9.6 %; Mean Corpuscular HGB Conc 29.1 g/dL (30.0-36.0); Mean Corpuscular Hemoglobin 23.1 pg (28.0-34.0); Mean Corpuscular Volume 79.3 fL (81-99); Mean Platelet Volume 9.4 fL (7.4-10.4); Monocytes % 7.9 %; Neutrophils # 10.21 10^3/uL (1.8-7.7); Neutrophils % 81.4 %; Nucleated Red Blood Cells % 0 %; Platelet Count 303 10^3/cmm (130-400); Red Blood Count 3.29 10^6/uL (4.1-5.3); Red Cell Distribution Width 16.7 % (12.1-15.1); White Blood Count 12.5 10^3/uL (4.0-10.0)
[2020-12-14] MEDS: acetaminophen 325 mg Tablet 650 MG PO (18:07)
[2020-12-14] MEDS: TRAMadol 50 mg Tablet PO (18:07)
[2020-12-14] MEDS: memantine 5 mg tablet 10 MG PO (18:08)
[2020-12-14] MEDS: duloxetine 60 mg Capsule PO (18:08)
--- NOTE | 2020-12-14 19:31 | P.PN_ITS ---
Subjective Subjective: Interval history: Overall patient is doing better, currently tolerating diet well, denies any nausea vomiting, abdominal pain.Has remained afebrile, WBC count is trending down. No bowel movement today, hemoglobin has dropped to 7.4. Medications: Reviewed: Yes Vitals/I&O/Wt Last Vital Signs Temp 99.0 F 12/14/20 16:00 Pulse 108 H 12/14/20 16:00 Resp 18 12/14/20 16:00 BP 112/64 12/14/20 16:00 Pulse Ox 96 12/14/20 16:00 12/14/20 12/14/20 12/14/20 06:59 14:59 22:59 Intake Total 0 2019 240 / 2260 Output Total 200 / 200 Balance -100 0 2019 240 2260 Weight last 48 hrs Weight 92.079 kg Physical Exam Const: COMMON NORMALS: patient oriented x3 HENMT: COMMON NORMALS: normocephalic and atraumatic HEAD & SCALP: normocephalic and atraumatic Chest: CHEST: Yes Symmetrical chest wall rise Resp: COMMON NORMALS: normal respiratory effort and clear to auscultation bilaterally EFFORT & INSPECTION: Yes symmetric chest movement AUSCULTATION: clear to auscultation bilaterally Cardio: COMMON NORMALS: regular rate, regular rhythm, S1 normal heart sound present, S2 normal heart sound present, No gallops present (Cardio), No murmurs present (Cardio), No rub (Cardio) and Peripheral pulses 2+ throughout RATE: regular rate RHYTHM: regular rhythm HEART SOUNDS: S1 normal heart sound present and S2 normal heart sound present PERIPHERAL PULSES: Peripheral pulses 2+ throughout GI: COMMON NORMALS: Normal to inspection, nondistended, normoactive bowel sounds present, Soft to palpation, non-tender, No hepatosplenomegaly present and no masses AUSCULTATION: Yes normoactive bowel sounds PALPATION: Yes Soft to palpation and Yes No hepatosplenomegaly present RECTAL EXAM: deferred Extremity: COMMON NORMALS: no clubbing, cyanosis or edema and no pedal edema Neuro: COMMON NORMALS: patient oriented x3 Data : 12/14/20 16:39 12/14/20 05:50 Micro: Microbiology 12/13/20 20:20 Blood Culture - Preliminary Blood SPECIMEN COLLECTED 12/13/20 20:15 Blood Culture - Preliminary Blood SPECIMEN COLLECTED A&P Assessment and plan (1) Colitis: Possible Collitis V/S recurrence of colonic malignancy. Came in with Nausea,vomiting, LLQ abdominal pain. CT abdomen and pelvis without contrast: Marked bowel wall thickening in the splenic flexure suggesting malignancy, with infiltration of surrounding pericolonic fat. Lactic Acid: 0.9 Procal:0.10 Blood Culture Metronidazole and Ciprofloxacin Possible Colonscopy once clinically Stable Status: Acute (2) Nausea vomiting and diarrhea: Predominantly complaining of dry heaves. Zofran PRN Status: Acute (3) Tachycardia: Sinus tachycardia. Status: Acute (4) Essential hypertension, benign: Status: Chronic (5) Anemia: Microcytic anemia Denies any bright red blood per rectum, melena, hematuria. Anemia panel FOBT Monitor CBC for now Transfuse to maintain hemoglobin greater than 7. Possible EGD as an outpatient Status: Chronic Qualifiers: Anemia type: iron deficiency Iron deficiency anemia type: unspecified iron deficiency Qualified Code(s): D50.9 - Iron deficiency anemia, unspecified Additional A&P Information CODE STATUS: Full code DVT prophylaxis; Lovenox 40 mg sc daily Attestations Medical Necessity Statement*: Patient needs to be in hospital for management of above-defined problems. 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
[2020-12-14 20:00] VITALS: BP 119/73; PULSE 115; RESP 20; TEMP 37.3; O2SAT 97
[2020-12-14] MEDS: enoxaparin 40 mg/0.4 mL Syringe SUBCUT (20:59)
[2020-12-14] MEDS: pregabalin 50 mg Capsule PO (20:59)
[2020-12-15] VITALS: BP 114/71; PULSE 94; RESP 18; TEMP 36.6; O2SAT 95
[2020-12-15] MEDS: metroNIDAZOLE IV 500 MG/100 ML PREMIX 100 MG IV ×2 (00:40→19:49)
[2020-12-15 04:00] VITALS: BP 105/69; PULSE 92; RESP 17; TEMP 36.6; O2SAT 97
[2020-12-15 06:11] LABS: Basophils % 0.2 %; Eosinophils # 0.1 10^3/uL (0.0-0.8); Eosinophils % 0.6 %; Hematocrit 25.6 % (37.0-47.0); Hemoglobin 7.4 g/dL (11.5-15.3); Lymphocytes # 1.3 10^3/uL (0.8-4.8); Lymphocytes % 12.5 %; Mean Corpuscular HGB Conc 28.9 g/dL (30.0-36.0); Mean Corpuscular Hemoglobin 22.8 pg (28.0-34.0); Mean Platelet Volume 9.5 fL (7.4-10.4); Monocytes # 0.9 10^3/uL (0.2-0.9); Monocytes % 8.7 %; Neutrophils # 8.07 10^3/uL (1.8-7.7); Neutrophils % 77.5 %; Nucleated Red Blood Cells % 0 %; Platelet Count 298 10^3/cmm (130-400); Red Blood Count 3.24 10^6/uL (4.1-5.3); Red Cell Distribution Width 16.8 % (12.1-15.1); White Blood Count 10.4 10^3/uL (4.0-10.0)
[2020-12-15 06:30] LABS: Anion Gap 9.7 (5-19); Blood Urea Nitrogen 7 mg/dL (8-23); Calcium 9.2 mg/dL (8.5-10.5); Carbon Dioxide 25 mmol/L (22-29); Chloride 102 mmol/L (98-107); Ferritin 28 ng/mL (15-150); Glucose 115 mg/dL (65-115); Iron 9 ug/dL (37-145); Osmolality Calculated 275 mOsm/kg (285-295); Percent Saturation 5.1 % (20-50); Potassium 3.7 mmol/L (3.5-5.1); Sodium 133 mmol/L (136-145); Total Iron Binding Capacity 174 mcg/dl; Unsaturated Iron Binding 165 ug/dL (112-347)
[2020-12-15 06:43] LABS: Vitamin B12 239 pg/mL (232-1245)
[2020-12-15 07:43] LABS: Folate Level 6.5 ng/mL (4.8-37.3)
[2020-12-15 08:00] VITALS: BP 102/62; PULSE 91; RESP 18; TEMP 36.8; O2SAT 96
[2020-12-15] MEDS: famotidine 20 mg Tablet PO (10:26)
[2020-12-15] MEDS: atorvastatin 40 mg Tablet 20 MG PO (10:26)
[2020-12-15] MEDS: metoprolol tartrate 25 mg Tablet 12.5 MG PO ×2 (10:26→22:29)
[2020-12-15] MEDS: iron sucrose 200 MG in sodium chloride 0.9% (100 ml) 100 ML 220 MG IV (10:27)
[2020-12-15] MEDS: ciprofloxacin 400 MG/200 ML PREMIX 200 MG IV ×2 (11:14→22:29)
--- NOTE | 2020-12-15 11:54 | P.PN_ITS ---
Subjective Subjective: Interval history: Overall patient is doing better, currently tolerating diet well, denies any nausea vomiting, abdominal pain.Has remained afebrile, WBC count is trending down. No bowel movement today, hemoglobin has dropped to 7.4. Medications: Reviewed: Yes Vitals/I&O/Wt Last Vital Signs Temp 98.2 F 12/15/20 08:00 Pulse 91 12/15/20 08:00 Resp 18 12/15/20 08:00 BP 102/62 12/15/20 08:00 Pulse Ox 96 12/15/20 08:00 12/14/20 12/15/20 12/15/20 22:59 06:59 14:59 Intake Total 540 / 2560 340 / 2900 350 / 350 Output Total 1400 / 1400 Balance 540 / 2560 -1060 / 1500 350 / 350 Weight last 48 hrs Weight 92.079 kg Physical Exam Const: COMMON NORMALS: patient oriented x3 HENMT: COMMON NORMALS: normocephalic and atraumatic HEAD & SCALP: normocephalic and atraumatic Chest: CHEST: Yes Symmetrical chest wall rise Resp: COMMON NORMALS: normal respiratory effort and clear to auscultation bilaterally EFFORT & INSPECTION: Yes symmetric chest movement AUSCULTATION: clear to auscultation bilaterally Cardio: COMMON NORMALS: regular rate, regular rhythm, S1 normal heart sound present, S2 normal heart sound present, No gallops present (Cardio), No murmurs present (Cardio), No rub (Cardio) and Peripheral pulses 2+ throughout RATE: regular rate RHYTHM: regular rhythm HEART SOUNDS: S1 normal heart sound present and S2 normal heart sound present PERIPHERAL PULSES: Peripheral pulses 2+ throughout GI: COMMON NORMALS: Normal to inspection, nondistended, normoactive bowel sounds present, Soft to palpation, non-tender, No hepatosplenomegaly present and no masses AUSCULTATION: Yes normoactive bowel sounds PALPATION: Yes Soft to palpation and Yes No hepatosplenomegaly present RECTAL EXAM: deferred Extremity: COMMON NORMALS: no clubbing, cyanosis or edema and no pedal edema Neuro: COMMON NORMALS: patient oriented x3 Data : 12/15/20 05:48 12/15/20 05:48 Micro: Microbiology 12/13/20 20:20 Blood Culture - Preliminary Blood NEGATIVE TO DATE 12/13/20 20:15 Blood Culture - Preliminary Blood NEGATIVE TO DATE A&P Assessment and plan (1) Colitis: Possible Collitis V/S recurrence of colonic malignancy. Came in with Nausea,vomiting, LLQ abdominal pain. CT abdomen and pelvis without contrast: Marked bowel wall thickening in the splenic flexure suggesting malignancy, with infiltration of surrounding pericolonic fat. Lactic Acid: 0.9 Procal:0.10 Blood Culture Metronidazole and Ciprofloxacin Possible Colonscopy once clinically Stable Status: Acute (2) Nausea vomiting and diarrhea: Predominantly complaining of dry heaves. Zofran PRN Status: Acute (3) Tachycardia: Sinus tachycardia. Status: Acute (4) Essential hypertension, benign: Status: Chronic (5) Anemia: Microcytic iron deficiency anemia Denies any bright red blood per rectum, melena, hematuria. Anemia panel: Serum iron: 9 , TIBC : 174 percent saturation: 5.1, serum ferritin: 28 Vitamin B12: 239 , folic acid: 6.5 FOBT Plan is to transfuse 1 unit PRBC today MMA with a.m. labs Monitor CBC for now Possible EGD as an outpatient Status: Chronic Qualifiers: Anemia type: iron deficiency Iron deficiency anemia type: unspecified iron deficiency Qualified Code(s): D50.9 - Iron deficiency anemia, unspecified Additional A&P Information CODE STATUS: Full code DVT prophylaxis; Lovenox 40 mg sc daily Attestations 2 Medical Necessity Statement*: Patient needs to be in hospital for management of anemia,collitis. Coding Level of Care Code Acute Apartment Maintenance Technician for g Fwd Diagnoses Colitis K52.9 Nausea vomiting and diarrhea R11.2; R19.7 Tachycardia R00.0 Essential hypertension, benign I10 Anemia D50.9 Anemia type: iron deficiency Iron deficiency anemia type: unspecified iron deficiency
[2020-12-15 12:00] VITALS: BP 107/68; PULSE 84; RESP 18; TEMP 36.9; O2SAT 95
[2020-12-15 16:00] VITALS: BP 110/68; PULSE 98; RESP 18; TEMP 36.8; O2SAT 95
[2020-12-15] MEDS: duloxetine 60 mg Capsule PO (17:39)
[2020-12-15] MEDS: memantine 5 mg tablet 10 MG PO (17:39)
[2020-12-15 20:00] VITALS: BP 110/60; PULSE 105; RESP 18; TEMP 36.9; O2SAT 96
[2020-12-15] MEDS: pregabalin 50 mg Capsule PO (22:28)
[2020-12-15] MEDS: enoxaparin 40 mg/0.4 mL Syringe SUBCUT (22:28)
[2020-12-16] VITALS (8 sets, daily range): BP systolic 97–126; BP diastolic 64–77; PULSE 82–97; RESP 18; TEMP 36.6–36.9; O2SAT 93–96
[2020-12-16] MEDS: metroNIDAZOLE IV 500 MG/100 ML PREMIX 100 MG IV (03:11)
[2020-12-16] MEDS: atorvastatin 40 mg Tablet 20 MG PO (08:12)
[2020-12-16] MEDS: famotidine 20 mg Tablet PO (08:13)
[2020-12-16] MEDS: metoprolol tartrate 25 mg Tablet 12.5 MG PO (08:14)
[2020-12-16 09:06] LABS: Basophils % 0.2 %; Eosinophils # 0.1 10^3/uL (0.0-0.8); Hemoglobin 9.4 g/dL (11.5-15.3); Lymphocytes # 1.2 10^3/uL (0.8-4.8); Lymphocytes % 10.8 %; Mean Corpuscular HGB Conc 29.4 g/dL (30.0-36.0); Mean Corpuscular Hemoglobin 23.4 pg (28.0-34.0); Mean Corpuscular Volume 79.8 fL (81-99); Mean Platelet Volume 9.6 fL (7.4-10.4); Monocytes # 0.7 10^3/uL (0.2-0.9); Monocytes % 6.4 %; Neutrophils # 9.08 10^3/uL (1.8-7.7); Neutrophils % 81.2 %; Nucleated Red Blood Cells % 0 %; Platelet Count 312 10^3/cmm (130-400); Red Blood Count 4.01 10^6/uL (4.1-5.3); Red Cell Distribution Width 17.1 % (12.1-15.1); White Blood Count 11.2 10^3/uL (4.0-10.0)
[2020-12-16 09:24] LABS: Anion Gap 13.2 (5-19); Blood Urea Nitrogen 5 mg/dL (8-23); Calcium 9.4 mg/dL (8.5-10.5); Carbon Dioxide 23 mmol/L (22-29); Chloride 102 mmol/L (98-107); Glucose 139 mg/dL (65-115); Osmolality Calculated 280 mOsm/kg (285-295); Potassium 3.2 mmol/L (3.5-5.1); Sodium 135 mmol/L (136-145)
--- NOTE | 2020-12-16 10:52 | PM.DCS ---
Discharge Providers Date of Admission: 12/13/20 15:28 Date of Discharge: December 16, 2020 Attending Provider at Admission: Jim Whatley MD Attending Provider at Discharge: Jim Whatley MD Primary Care Provider: SUSIE Tello Diagnoses at Discharge Discharge Diagnosis (1) Colitis: Status: Resolved (2) Nausea vomiting and diarrhea: Status: Resolved (3) Tachycardia: Status: Resolved (4) Essential hypertension, benign: Status: Chronic (5) Anemia: Status: Chronic Qualifiers: Anemia type: iron deficiency Iron deficiency anemia type: unspecified iron deficiency Qualified Code(s): D50.9 - Iron deficiency anemia, unspecified Reason for Visit Reason for Visit: NAUSEA/ INCREASED HEART RATE Hospital Course Hospital Course Mariangel Morales is a 75 year old female with past medical history of hypertension, iron deficiency anemia,Ca colon s/p resection, came in with chief complaint of 1 week duration of abdominal pain, nausea, vomiting (predominantly dry heaves), lightheadedness, dizziness, fatigue, malaise, she was at her primary care physician today where she was found to be tachycardic. Upon arrival in the ER she was worked up for above-mentioned complaints Imaging studies CT abdomen and pelvis without contrast: Marked bowel wall thickening in the splenic flexure suggesting malignancy, with infiltration of surrounding pericolonic fat. X-ray chest: Clean. Pertinent labs: WBC:17.9 , H/H: 9.2/ PLT: 409. She was admitted for the management of nausea vomiting diarrhea, and possible colitis versus recurrence of colonic malignancy. She was started on metronidazole and ciprofloxacin IV,Lactic Acid: 0.9 Procal:0.10. Blood Culture: Was negative, she responded well to the antibiotics, at the time of discharge she was tolerating diet well, denied any nausea vomiting abdominal pain, WBC had appropriately trended down.Patient was also seen by Dr. Mack, he will plan to do colonoscopy as an outpatient in near future to further work-up for malignancy.She was also managed for chronic microcytic iron deficiency anemia , hemoglobin during the hospital stay had dropped to 7.4, she denied any bright red blood per rectum melena , hematuria , Anemia panel: Serum iron: 9 , TIBC : 174 percent saturation: 5.1, serum ferritin: 28 Vitamin B12: 239 , folic acid: 6.5 FOBT: Was pending at the time of discharge, she received 1 unit PRBC, posttransfusion her hemoglobin was 9.4. She was also given 1 bag of IV Venofer, and was continued on her oral ferrous sulfate medication. She was also started on oral cyanocobalamin 1000 mcg p.o. daily for likely vitamin B12 deficiency given low borderline vitamin B12 level and pending MMA. She responded well to the above medical management And will follow up with her primary care physician as well as oncologist as an outpatient. Physical Exam Const: COMMON NORMALS: patient oriented x3 HENMT: COMMON NORMALS: normocephalic and atraumatic HEAD & SCALP: normocephalic and atraumatic Chest: CHEST: Yes Symmetrical chest wall rise Resp: COMMON NORMALS: normal respiratory effort and clear to auscultation bilaterally EFFORT & INSPECTION: Yes symmetric chest movement AUSCULTATION: clear to auscultation bilaterally Cardio: COMMON NORMALS: regular rate, regular rhythm, S1 normal heart sound present, S2 normal heart sound present, No gallops present (Cardio), No murmurs present (Cardio), No rub (Cardio) and Peripheral pulses 2+ throughout RATE: regular rate RHYTHM: regular rhythm HEART SOUNDS: S1 normal heart sound present and S2 normal heart sound present PERIPHERAL PULSES: Peripheral pulses 2+ throughout GI: COMMON NORMALS: Normal to inspection, nondistended, normoactive bowel sounds present, Soft to palpation, non-tender, No hepatosplenomegaly present and no masses AUSCULTATION: Yes normoactive bowel sounds PALPATION: Yes Soft to palpation and Yes No hepatosplenomegaly present RECTAL EXAM: deferred Extremity: COMMON NORMALS: no clubbing, cyanosis or edema and no pedal edema Neuro: COMMON NORMALS: patient oriented x3 Discharge Data Data Completed and Pending: Completed Studies During Hospitalization Category Date Time Status CT abdomen pelvis wo con [id number] Stat Cat Scan 12/13/20 13:55 Completed XR acute abdomen series [id number] Stat Exams 12/13/20 12:48 Completed Pending at discharge Category Date Time Status Blood Culture Rou carlos Lab 12/13/20 20:20 Results Immunochemical Fe smauel OCB Routine Lab 12/14/20 19:29 Uncollected Methylmalonic Aci d Routine Lab 12/16/20 08:52 Received PRBC [Leukocyte R educed RBC] Routin e Lab 12/15/20 17:23 Results Type and Screen R outine Lab 12/15/20 17:23 Results Labs from last 24 hours 12/16/20 12/16/20 12/16/20 08:52 08:52 08:52 WBC 11.2 H RBC 4.01 L Hgb 9.4 L Hct 32.0 L MCV 79.8 L MCH 23.4 L MCHC 29.4 L RDW 17.1 H Plt Count 312 MPV 9.6 Neut % (Auto) 81.2 Lymph % (Auto) 10.8 Thayer % (Auto) 6.4 Eos % (Auto) 1.0 Baso % (Auto) 0.2 Neut # (Auto) 9.08 H Lymph # (Auto) 1.2 Thayer # (Auto) 0.7 Eos # (Auto) 0.1 Baso # (Auto) 0.0 Nucleated RBC % (a uto) 0 Nucleated RBCs # 0.0 Sodium 135 L Potassium 3.2 L Chloride 102 Carbon Dioxide 23 Anion Gap 13.2 BUN 5 L Creatinine 0.4 L GFR Calculation Not Reportable Glucose 139 H Calculated Osmolal ity 280 L Calcium 9.4 Methylmalonic Acid Pending Blood Type Rho(D) Type Antibody Screen Crossmatch 12/15/20 17:23 WBC RBC Hgb Hct MCV MCH MCHC RDW Plt Count MPV Neut % (Auto) Lymph % (Auto) Thayer % (Auto) Eos % (Auto) Baso % (Auto) Neut # (Auto) Lymph # (Auto) Thayer # (Auto) Eos # (Auto) Baso # (Auto) Nucleated RBC % (a uto) Nucleated RBCs # Sodium Potassium Chloride Carbon Dioxide Anion Gap BUN Creatinine GFR Calculation Glucose Calculated Osmolal ity Calcium Methylmalonic Acid Blood Type O Positive Rho(D) Type Positive / 4+ Antibody Screen Negative Crossmatch See Detail Vitals: Last Vital Signs Temp 98.3 F 12/16/20 07:59 Pulse 86 12/16/20 07:59 Resp 18 12/16/20 07:59 BP 126/77 12/16/20 07:59 Pulse Ox 94 12/16/20 07:59 Discharge Plan Discharge Patient Disposition: Home Condition: Stable Prescriptions: New metronidazole 500 mg tablet 500 mg PO BID 7 Days Qty: 14 RF: 0 Cipro 500 mg tablet 500 mg PO Q12H Qty: 14 RF: 0 cyanocobalamin (vitamin B-12) 1,000 mcg capsule 1,000 mcg PO DAILY Qty: 60 RF: 0 Continued tramadol 50 mg tablet 50 mg PO BID PRN (Reason: Pain) 30 Days Qty: 60 RF: 2 ferrous sulfate 325 mg (65 mg iron) tablet 325 mg PO EVERY OTHER DAY Qty: 30 RF: 5 metoprolol tartrate 25 mg tablet 12.5 mg PO BID Qty: 90 RF: 1 Tylenol Extra Strength 500 mg Tablet 1,000 mg PO PRN RF: 0 Vitamin D3 125 mcg (5,000 unit) Tablet 125 mcg PO QAM RF: 0 Prevagen Extra Strength 1 cap PO QAM RF: 0 potassium chloride 10 mEq tablet extended release 20 meq PO BID RF: 0 alendronate 35 mg tablet 35 mg PO Q7D RF: 0 Pepcid AC 20 mg tablet 20 mg PO DAILY RF: 0 Lasix 20 mg tablet 20 mg PO DAILY RF: 0 rosuvastatin 5 mg tablet 5 mg PO QAM RF: 0 memantine 10 mg tablet 10 mg PO QPM RF: 0 duloxetine 60 mg capsule,delayed release(DR/EC) 60 mg PO QPM RF: 0 Lyrica 50 mg capsule 50 mg PO BEDTIME RF: 0 Discharge Orders: Discharge Order (Routine); Ordered 12/16/20 Ordered By: Jim Whatley Referrals: Willy Mack MD [Physician] - 01/05/21 4:00 pm (This will be a telehealth visit. [facility] will call you before your appointment. ) GENET Jiang, MEAT PASSER [Primary Care Provider] - 12/30/20 9:00 am Discharge Diet: Regular Discharge Activity: Resume usual activity Patient Instructions: Ciprofloxacin (By mouth), Metronidazole (By mouth), Vitamin B-12 (Cyanocobalamin) (By mouth), Irritable Bowel Syndrome (DC), Opioid Safety Discharge Attestations Time Spent in Discharge Care*: less than 30 min Specific Discharge Activities: educating patient, discussing with pcp/other providers, discussing with showcase trimmer/social workers/dc planners, documenting/other paperwork and evaluating patient/reviewing data Status at Discharge: Cognitive status at discharge: cognitively intact, Behavioral status at discharge: cooperative, Functional status at discharge: independent ambulation Overall status at discharge: patient is back to baseline Quality Metrics Clinical Quality Measures During this hospital stay, did patient experience: None Coding Level of Care Code Acute Chg FW DC note Diagnoses Colitis K52.9 Nausea vomiting and diarrhea R11.2; R19.7 Tachycardia R00.0 Essential hypertension, benign I10 Anemia D50.9 Anemia type: iron deficiency Iron deficiency anemia type: unspecified iron deficiency
--- NOTE | 2020-12-16 11:10 | DCPLANNER ---
Pg 2 of IM updated and reviewed with pt. and Spouse, both laughed about appealing as pt is ready to go home. Copy provided.
--- NOTE | 2020-12-16 11:30 | PC.NURSE ---
Patient's IV removed. Patient tolerated well. Reviewed patient's discharge with patient and spouse. Patient and spouse verbalized understanding of discharge instructions including follow up appointments and medications that are at the pharmacy in [place] at there request. Patient is alert and orientated times 3. Patient wheel chaired to private car.
[2020-12-21 17:23] LABS: Methylmalonic Acid 115 nmol/L (87-318)
== END 2020-12-16 11:30 | disposition home or self-care (01) | DRG 392 ==
LOC: ER 16:01 → MEDSURG 16:07
PROVIDERS: Surgery; Admitting Provider Internal Medicine; Emergency Provider Emergency Medicine; PCP Nurse Practitioner Family; Visit Provider Internal Medicine
DX: K52.9 Noninfective gastroenteritis and colitis, unspecified (principal); R93.3 Abnormal findings on diagnostic imaging of other parts of digestive tract; R00.0 Tachycardia, unspecified; D50.9 Iron deficiency anemia, unspecified; I10 Essential (primary) hypertension; M19.90 Unspecified osteoarthritis, unspecified site; E66.9 Obesity, unspecified; Z68.33 Body mass index [BMI] 33.0-33.9, adult; Z85.038 Personal history of other malignant neoplasm of large intestine; E78.5 Hyperlipidemia, unspecified; M81.0 Age-related osteoporosis without current pathological fracture; F03.90 Unspecified dementia, unspecified severity, without behavioral disturbance, psychotic disturbance, mood disturbance, and anxiety; M79.7 Fibromyalgia; Z90.49 Acquired absence of other specified parts of digestive tract; Z80.0 Family history of malignant neoplasm of digestive organs; Z87.891 Personal history of nicotine dependence
CPT/HCPCS: 36415; 36430; 74022; 74176; 80048; 80053; 81003; 82378; 82607; 82728; 82746; 83540; 83550; 83605; 83690; 83735; 83921; 84145; 85025; 86850; 86900; 86920; 87040; 96361; 96372; 96374; 96375; 99285; J0744; J1650; J1756; J2405; J7030; J7040; P9016; S0030

== ENCOUNTER 2020-12-23 10:42 | Inpatient (IN) | payer MEDICARE, OTHER, SELFPAY ==
[2020-12-23] VITALS (8 sets, daily range): BP systolic 111–152; BP diastolic 70–97; PULSE 74–113; RESP 16–18; TEMP 36.2–36.3; O2SAT 94–98; BMI 38.2
--- NOTE | 2020-12-23 11:00 | CT_ITS ---
WS: [id number] CT ABDOMEN PELVIS TECHNIQUE: Contrast-enhanced CT of the abdomen and pelvis with coronal and sagittal reformatted image s. CLINICAL INFORMATION: Nausea, recent SBO COMPARISON: December 13, 2020 DLP: 1887.[address] scans at [facility] use at least one of these dose optimization techniques: automat ed exposure control; mA and/or kV adjustment per patient size (includes targeted exams where dose is matched to clinical indication); or iterative reconstruction. FINDINGS: Dilated fluid-filled small bowel loops consistent with small bowel obstruction progression from previ ous. Again seen is diffuse induration with enhancement and thickening involving the splenic flexure most c onsistent with neoplasm. This is unchanged since the recent examination. Induration in the surroundin g mesenteric fat. This results in the upstream small bowel obstruction. Previous Partial colectomy wi th small bowel anastomosis in the midabdomen. Left descending colon and sigmoid colon are decompressed. Splenic flexure mass measures 10.8 x 6.7 x 8.9 CCM. Diffuse fatty infiltration of the liver. Prior cholecystectomy. Small amount perihepatic ascites. Sma ll esophageal hiatal hernia. Subsegmental atelectasis in the lingula and left lower lobe. Fatty atrop hy of the pancreas. Normal portal vein and splenic vein. Normal spleen. Adrenal glands are normal. No rmal renal parenchymal enhancement. No hydronephrosis. Small bilateral renal cysts. Ventral abdominal wall hernia is unchanged. Normal caliber abdominal aorta aorta. No abdominal or pelvic lymphadenopat hy. No inguinal lymphadenopathy. Slight anterolisthesis L4 on L5. CT/CT abdomen pelvis w con* [id number] IMPRESSION: 1. Prior postoperative changes partial colectomy with small bowel anastomosis in the anterior mid abdomen. 2. Large heterogeneously enhancing splenic flexure mass consistent with neopla sm with induration in the surrounding mesenteric fat. There is small bowel obst ruction proximal to the mass with moderate dilatation of the anastomosis and pr oximal fluid-filled small bowel loops. This is progressed since the prior exami [facility]. 3. Left descending colon is decompressed. 4. Small esophageal hiatal hernia. 5. No abdominal or pelvic lymphadenopathy. No inguinal lymphadenopathy. 6. No other significant changes from previous. Notified SUSIE Aguilera at 12/23/2020 12:21 PM.
--- NOTE | 2020-12-23 11:06 | ECG_ITS ---
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 Measurements Intervals [place] Rate: 105 P: 54 VA: 203 QRS: 17 QRSD: 74 T: 50 QT: 317 QTc: 419 Interpretive Statements SINUS TACHYCARDIA LOW QRS VOLTAGE [QRS DEFLECTION < 0.5/1.0 mV IN LIMB/CHEST LEADS] POSSIBLE ANTERIOR MYOCARDIAL INFARCTION [30 ms Q WAVE IN V3/V4, OR R < 0.2 mV IN V4], OF INDETERMINATE AGE Compared to ECG 12/19/2019 17:40:08 No significant changes Electronically Signed On 12-23-2020 18:40:07 CDT by Kemal Nguyen M.D. [email or web address]entorCloudgulf[facility] behavioral health systemCurbStandselect medical [facility].[employer]/store/OM/[id number]
--- NOTE | 2020-12-23 11:06 | W.ED.GENADLT ---
HPI - General Adult General: Chief complaint: Nausea/Vomiting/Diarrhea Stated complaint: NAUSEA NOT EATING Time Seen by Provider: 12/23/20 11:00 History of Present Illness: HPI narrative: Patient complains of nausea. States she has not ate in 3 days. Also states she is not had a bowel movement since Sunday. Is taking tramadol for abdominal pain. Recently in the hospital a week ago possible mass in colon. complaint: Nausea Onset (ago): day(s) Location: abdomen Severity scale (1-10): 3 Quality: aching Pain Consistency: constant Relieving factors: none Exacerbating factors: none Associated symptoms: Reports decreased appetite and nausea; Deny chest pain, dyspnea, headache(s) or rash Review of Systems Const: Denies: fever(s), chills or body aches Eyes: Denies: change in vision or blurry vision ENMT: Denies: throat pain or nasal congestion Card: Denies: chest pain or dyspnea on exertion Resp: Denies: dyspnea, productive cough or non-productive cough GI: Reports: abdominal pain and nausea Musc: Denies: extremity pain Skin/Breast: Denies: rash Neuro: Denies: headache(s) Psych: Denies: anxiety or depression Jn/Lymph: Denies: easy bruising PFSH ED PFSH: Medical History Anemia Chronic osteoarthritis Depression Essential hypertension, benign Fibromyalgia H/O malignant neoplasm of colon Influenza vaccine needed Lesion of finger Mild dementia Mixed hyperlipidemia Post-menopausal osteoporosis Vitamin D deficiency Surgical History History of ankle surgery History of History of colon surgery History of colon malignancy, with resection Family History Other Diabetes Social History Smoking and tobacco status: former smoker Alcohol intake: never Physical Exam Const: COMMON NORMALS: no acute distress, average body habitus and patient oriented x3 HENMT: COMMON NORMALS: normocephalic HEAD & SCALP: normal to inspection and normocephalic FACE & SINUS: normal facial exam Eye: COMMON NORMALS: conjunctivae normal GENERAL EYE: appearance normal, both eyes and all related structures CONJUNCTIVA: Yes conjunctivae normal Neck/C-Spine: COMMON NORMALS: no JVD Chest: COMMONS NORMALS: normal inspection of the chest Resp: COMMON NORMALS: normal respiratory effort and clear to auscultation bilaterally AUSCULTATION: clear to auscultation bilaterally Cardio: COMMON NORMALS: no JVD and regular rhythm RATE: tachycardic RHYTHM: regular rhythm OTHER: BLE edema, 3+ non pitting GI: AUSCULTATION: Yes Hypoactive bowel sounds present PALPATION: Yes Tenderness to palpation present (GI) Details: LUQ and RUQ PERCUSSION: dullness to percussion Extremity: COMMON NORMALS: normal to inspection and full ROM Neuro: COMMON NORMALS: patient oriented x3 Course Vital Signs: Vital signs: Vital Signs Temperature 97.4 F L 12/23/20 10:48 Pulse Rate 95 12/23/20 10:48 Respiratory Rate 18 12/23/20 11:42 Blood Pressure 152/97 12/23/20 10:48 Pulse Oximetry 95 12/23/20 10:48 [facility] - General Adult Lab Data: Labs: Lab Results 12/23/20 Range/Units 11:35 WBC 16.0 H (4.0-10.0) 10^3/ uL RBC 4.91 (4.1-5.3) 10^6/u L Hgb 11.9 (11.5-15.3) g/dL Hct 40.2 (37.0-47.0) % MCV 81.9 (81-99) fL MCH 24.2 L (28.0-34.0) pg MCHC 29.6 L (30.0-36.0) g/dL RDW 20.1 H (12.1-15.1) % Plt Count 368 (130-400) 10^3/c mm MPV 9.8 (7.4-10.4) fL Neut % (Auto) 89.2 % Lymph % (Auto) 6.6 % [place] % (Auto) 3.3 % Eos % (Auto) 0.4 % Baso % (Auto) 0.1 % Neut # (Auto) 14.25 H (1.8-7.7) 10^3/u L Lymph # (Auto) 1.1 (0.8-4.8) 10^3/u L [place] # (Auto) 0.5 (0.2-0.9) 10^3/u L Eos # (Auto) 0.1 (0.0-0.8) 10^3/u L Baso # (Auto) 0.0 (0.0-0.1) 10^3/u L Nucleated RBC % (a uto) 0 % Nucleated RBCs # 0.0 /100WBC EKG Data^: EKG 1: EKG interpretation date: 12/23/20 EKG interpretation time: 11:29 Computer generated interpretation: Ventricular rate 118 bpm OH interval 177 ms QRS duration 78 ms QT is 417 ms shows sinus tach and a possible anterior ID old with Q waves in V3 V4 Discharge Plan Discharge Prescriptions: No Action tramadol 50 mg tablet 50 mg PO BID PRN (Reason: Pain) 30 Days Qty: 60 RF: 2 ferrous sulfate 325 mg (65 mg iron) tablet 325 mg PO EVERY OTHER DAY Qty: 30 RF: 5 metoprolol tartrate 25 mg tablet 12.5 mg PO BID Qty: 90 RF: 1 Tylenol Extra Strength 500 mg Tablet 1,000 mg PO PRN RF: 0 Vitamin D3 125 mcg (5,000 unit) Tablet 125 mcg PO QAM RF: 0 Prevagen Extra Strength 1 cap PO QAM RF: 0 potassium chloride 10 mEq tablet extended release 20 meq PO BID RF: 0 alendronate 35 mg tablet 35 mg PO Q7D RF: 0 Pepcid AC 20 mg tablet 20 mg PO DAILY RF: 0 Lasix 20 mg tablet 20 mg PO DAILY RF: 0 rosuvastatin 5 mg tablet 5 mg PO QAM RF: 0 memantine 10 mg tablet 10 mg PO QPM RF: 0 duloxetine 60 mg capsule,delayed release(DR/EC) 60 mg PO QPM RF: 0 Lyrica 50 mg capsule 50 mg PO BEDTIME RF: 0 Cipro 500 mg tablet 500 mg PO Q12H Qty: 14 RF: 0 cyanocobalamin (vitamin B-12) 1,000 mcg capsule 1,000 mcg PO DAILY Qty: 60 RF: 0 Coding Level of Care Code ED Metal Ceiling Builder for Chg Fwd Exam Comprehensive
[2020-12-23] MEDS: sodium chloride 0.9% 1,000 ML 999 ML IV (11:40)
[2020-12-23] MEDS: ondansetron 2 mg/ML SDV 2 mL 4 MG IVP ×2 (11:41→21:37)
[2020-12-23 11:44] LABS: Basophils % 0.1 %; Eosinophils # 0.1 10^3/uL (0.0-0.8); Eosinophils % 0.4 %; Hematocrit 40.2 % (37.0-47.0); Hemoglobin 11.9 g/dL (11.5-15.3); Lymphocytes # 1.1 10^3/uL (0.8-4.8); Lymphocytes % 6.6 %; Mean Corpuscular HGB Conc 29.6 g/dL (30.0-36.0); Mean Corpuscular Hemoglobin 24.2 pg (28.0-34.0); Mean Corpuscular Volume 81.9 fL (81-99); Mean Platelet Volume 9.8 fL (7.4-10.4); Monocytes # 0.5 10^3/uL (0.2-0.9); Monocytes % 3.3 %; Neutrophils # 14.25 10^3/uL (1.8-7.7); Neutrophils % 89.2 %; Nucleated Red Blood Cells % 0 %; Platelet Count 368 10^3/cmm (130-400); Red Blood Count 4.91 10^6/uL (4.1-5.3); Red Cell Distribution Width 20.1 % (12.1-15.1)
[2020-12-23] MEDS: iohexol 300 mg/mL 100 mL Btl IV (11:50)
[2020-12-23 12:15] LABS: Alanine Aminotransferase < 5 U/L (0-33); Albumin Level 3.1 g/dL (3.5-5.2); Alkaline Phosphatase 57 IU/L (35-105); Blood Urea Nitrogen 9 mg/dL (8-23); Calcium 10.7 mg/dL (8.5-10.5); Carbon Dioxide 23 mmol/L (22-29); Chloride 97 mmol/L (98-107); Globulin 4.2 g/dL (1.3-4.6); Glucose 124 mg/dL (65-115); Lipase 13 U/L (13-60); Osmolality Calculated 272 mOsm/kg (285-295); Sodium 131 mmol/L (136-145); Total Bilirubin 0.3 mg/dL (0.15-1.2); Total Protein 7.3 g/dL (6.6-8.7)
[2020-12-23 12:17] LABS: Anion Gap 16.2 (5-19); Aspartate Amino Transferase 13 U/L (0-32); Potassium 5.2 mmol/L (3.5-5.1)
[2020-12-23 13:17] LABS: Protein Urine Trace (Negative); Specific Gravity, Urine 1.025 (1.005-1.030); Urine Appearance Clear (CLEAR); Urine Color Amber (Yellow); pH Urine 5 (5-7)
[2020-12-23 13:18] LABS: Bilirubin Urine 1+ (Negative); Blood Urine Neg (Negative); Glucose Urine UA Norm (Normal); Ketones Urine 1+ (Negative)
[2020-12-23 13:19] LABS: Add Urine Microscopic? YES; Bacteria Urine TRACE /hpf; Calcium Oxalate Crystals Urine 25-40 /hpf; Leukocyte Esterase Urine 1+ (Negative); Nitrate Urine Positive (Negative); RBC Urine 0-4 /hpf (0-2); Squamous Epithelial Cell Urine 0-4 /hpf (0-5); Urobilinogen Urine Norm (Negative); WBC Urine 0-4 /hpf (0-5)
[2020-12-23 13:20] LABS: Add Urine Culture? No
[2020-12-23] MEDS: levofloxacin-dextrose 5 % 500 MG/100 ML PREMIX 100 MG IV (13:29)
[2020-12-23 13:31] LABS: Lactic Sepsis W/Reflex 2.2 mmol/L (0.5-2.2)
[2020-12-23 14:04] LABS: SARS Covid-2 Antigen Negative (Negative)
[2020-12-23] MEDS: metroNIDAZOLE IV 500 MG/100 ML PREMIX 100 MG IV (14:40)
[2020-12-23 14:42] LABS: Reflex Lactate Order REFLEX LACTIC ORDERD
[2020-12-23 16:31] LABS: Thyroid Stimulating Hormone 2.23 uIU/mL (0.27-4.20)
--- NOTE | 2020-12-23 16:34 | PC.NURSE ---
Report called, bed not ready.
--- NOTE | 2020-12-23 17:18 | PM.HP ---
Providers/Chief Complaint Admitting Physician: Jabier Meier MD Primary Care Provider: SUSIE Tello Chief Complaint: NAUSEA NOT EATING History of Present Illness Mariangel Morales is a 75 year old female who presented to the ER today since she has been having generalized abdominal pain for the last 2 to 3 days. As per the patient's she has not had much to eat and her last bowel movement was 4 days ago. The pain is generalized, does not radiate, no aggravating or relieving factors. Patient has mild dementia. She states that she had some nausea but no vomiting. She was admitted to the hospital on 12/13/2020 for possible bowel obstruction and was discharged on 12/16/2020. At that point there was a mass noted in the splenic flexure and the plan was for an outpatient colonoscopy. Patient denies any bleeding per rectum. She was noted to be anemic on last admission and was transfused 1 unit PRBC. Patient had a right hemicolectomy for colon cancer 30 years ago and subsequently had a resection of local recurrence 10 years ago. Her last colonoscopy was in 2017 which was normal and a 5-year follow-up was recommended. Review of Systems General: Reports: 10 or more systems reviewed and unremarkable except in HPI and below Medications/Allergies Home Medications Medication Instructions Recorded Confirmed Last Taken Type ferrous sulfate 325 mg (65 mg 325 mg PO EVERY OTHER DAY #30 tab 02/19/20 12/23/20 12/23/20 Rx iron) tablet metoprolol tartrate 25 mg tablet 12.5 mg PO BID #90 tab 10/28/20 12/23/20 12/23/20 Rx Prevagen Extra Strength 1 cap PO DAILY@89912/13/20 12/23/20 12/23/20 History acetaminophen [Tylenol Extra 1,000 mg PO PRN PRN 12/13/20 12/23/20 Unknown History Strength] alendronate 35 mg PO Q7D 12/13/20 12/23/20 12/10/20 History cholecalciferol (vitamin D3) 125 mcg PO DAILY@89912/13/20 12/23/20 12/23/20 History [Vitamin D3] duloxetine 60 mg PO DAILY@199912/13/20 12/23/20 12/22/20 History famotidine [Pepcid AC] 20 mg PO DAILY@89912/13/20 12/23/20 12/23/20 History furosemide [Lasix] 20 mg PO DAILY@89912/13/20 12/23/20 12/23/20 History memantine 10 mg PO DAILY@199912/13/20 12/23/20 12/22/20 History potassium chloride 20 meq PO BID@89912/13/20 12/23/20 12/23/20 History pregabalin [Lyrica] 50 mg PO BEDTIME@199912/13/20 12/23/20 12/22/20 History rosuvastatin 5 mg PO DAILY@89912/13/20 12/23/20 12/23/20 History ciprofloxacin HCl [Cipro] 500 mg PO Q12H #14 tab 12/16/20 12/23/20 12/23/20 Rx tramadol 50 mg tablet 50 mg PO BID PRN 30 Days #60 tab 12/21/20 12/23/20 12/23/20 Rx cyanocobalamin (vitamin B-12) 1,000 mcg PO DAILY@89912/23/20 12/23/20 12/23/20 History Allergies Allergy/AdvReac Type Severity Reaction Status Date / Time No Known Allergies Allergy Verified 12/23/20 12:14 PFSH Acute PFSH: Medical History Anemia Chronic osteoarthritis Colitis Depression Essential hypertension, benign Fibromyalgia H/O malignant neoplasm of colon 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 Mild dementia Mixed hyperlipidemia Post-menopausal osteoporosis Vitamin D deficiency Surgical History H/O right hemicolectomy colon cancer History of ankle surgery History of S/P colon resection colon cancer recurrence Status post colonoscopy Family History Other Diabetes Social History Smoking and tobacco status: former smoker Alcohol intake: never Vitals/I&O/Wt Last Vital Signs Temp 97.4 F L 12/23/20 10:48 Pulse 101 H 12/23/20 16:33 Resp 16 12/23/20 16:33 BP 118/71 12/23/20 16:33 Pulse Ox 96 12/23/20 16:33 12/23/20 12/23/20 12/23/20 06:59 14:59 22:59 Intake Total 1100 / 1100 Balance 1100 / 1100 Weight last 48 hrs Weight 230 lb Physical Exam Narrative: EXAM NARRATIVE: HEENT: Normocephalic Eye: Sclera /conjunctiva normal Abdomen: Soft to palpation, well-healed midline laparotomy scar, with incisional hernia Neurological: Oriented to place person and time Skin: Intact, no lesions appreciated on gross exam Data : 12/23/20 11:35 12/23/20 11:35 Micro: Microbiology 12/23/20 12:30 Bacterial Antigens - Final Urine Kidney 12/23/20 16:00 Blood Culture - Preliminary Blood SPECIMEN COLLECTED 12/23/20 11:35 Blood Culture - Preliminary Blood SPECIMEN COLLECTED A&P Assessment and plan (1) Large bowel obstruction: 75-year-old female with history of prior laparotomy x2 for colon cancer and subsequent local recurrence. Patient now presents with abdominal pain, obstipation and nausea of [address] abdomen pelvis has revealed progression of her distended bowel loops as well as development of large bowel obstruction at the splenic flexure mass. Discussed the findings with the patient and her . Plan to admit as inpatient N.p.o. with NG tube to low intermittent suction [place] to gravity Lovenox for DVT prophylaxis Protonix for GI prophylaxis CEA was 1.2. Medical management as per Dr. Meier We will therefore plan for laparoscopic possible open left hemicolectomy with ileostomy tomorrow. Discussed with the patient and her that since she has large bowel obstruction and since there has been progression over the last 1 week we will proceed with surgery rather than perform a colonoscopy to confirm diagnosis. Status: Acute Attestations Medical Necessity Statement*: Large bowel obstruction requiring inpatient stay and surgery tomorrow Coding Level of Care Code Acute International Representative for [facility] Diagnoses Large bowel obstruction K56.609
--- NOTE | 2020-12-23 17:58 | P.CONIM_ITS ---
Providers/Reason For Consult Consulting Physician/Specialty*: Dr. Quick Reason for Consult*: Medical ailment management Attending Physician: Jabier Meier MD Primary Care Provider: SUSIE Tello History of Present Illness History of Present Illness Mariangel Morales is a 75 year old female with past medical show depression, essential hypertension, history of malignant neoplasm of the colon post right hemicolectomy 30 years ago, mixed hyperlipidemia, vitamin D deficiency who was r ecently in hospital for diarrhea and was discharged on December 16. At that time there was a concern for possible recurrence of malignancy and she was planned to do colonoscopy as an outpatient. Patient present to the ER today because of ongoing abdominal pain, nausea and vomiting with unable to keep anything down for last 2 days. Patient states that the abdominal pain, nausea and vomiting has been going on and off for last 1 week. She states she does not feel like eating and become nauseous when she eats so she is not trying to eat anything. Abdominal pain is generalized, does not radiate does not have any aggravating or relieving factors, not associated with any bleeding per rectum, hematochezia, hematemesis or melena. Patient is admitted under surgery for further management and possible SBO due to due to malignant neoplasm and is planned to going to the OR tomorrow. Medicine was consulted for management of medical conditions. Review of Systems General: Reports: 10 or more systems reviewed and unremarkable except in HPI and below Const: Denies: fever(s), chills, body aches, change in appetite, change in weight, malaise, night sweats, diaphoresis, change in sleep pattern, daytime sleepiness or snoring Eyes: Denies: change in vision, blurry vision, photophobia, eye discomfort or eye discharge ENMT: Denies: throat pain, enlarged tonsils, hoarseness, mouth pain, oral sores, dry mouth, tinnitus, nasal congestion or post nasal drip Card: Denies: chest pain, palpitations, irregular heart rhythm, edema, swelling of feet/ankles, lightheadedness, syncope, pre-syncope, dyspnea on exertion, orthopnea, leg pain with exertion or acrocyanosis Resp: Denies: dyspnea, productive cough, non-productive cough, wheezing, stridor, pain on inspiration, change in phlegm color, hemoptysis or chest congestion GI: Denies: abdominal pain, nausea, vomiting, hematemesis, coffee ground emesis, dysphagia, heartburn, diarrhea, constipation, bloating, GI cramping, change in bowel habits, pain on defecation, hematochezia or melena : Denies: flank pain, dysuria, urinary frequency, urinary urgency, urinary hesitancy, nocturia or hematuria Musc: Denies: neck pain, back pain, extremity pain, joint pain, joint swelling, joint redness, joint stiffness or limited range of motion Neuro: Denies: headache(s), numbness in extremities, weakness in extremities, sensory changes, lack of coordination, difficulty walking, frequent falls, dizziness, vertigo, confusion, Slurred speech present, difficulty communicating thoughts or seizure-like activity Psych: Denies: anxiety, depression, mood swings, panic attacks, hopelessness or irritability Endo: Denies: polyuria, polydipsia, tired all the time, cold intolerance, excessive sweating, flushing or heat intolerance Jn/Lymph: Denies: easy bruising or easy bleeding All/Imm: Denies: tongue swelling, facial swelling or acute wheezing Meds/Allergies Home Medications and Allergies Home Medications Medication Instructions Recorded Confirmed Last Taken Type ferrous sulfate 325 mg (65 mg 325 mg PO EVERY OTHER DAY #30 tab 02/19/20 12/23/20 12/23/20 Rx iron) tablet metoprolol tartrate 25 mg tablet 12.5 mg PO BID #90 tab 10/28/20 12/23/20 12/23/20 Rx Prevagen Extra Strength 1 cap PO DAILY@89912/13/20 12/23/20 12/23/20 History acetaminophen [Tylenol Extra 1,000 mg PO PRN PRN 12/13/20 12/23/20 Unknown History Strength] alendronate 35 mg PO Q7D 12/13/20 12/23/20 12/10/20 History cholecalciferol (vitamin D3) 125 mcg PO DAILY@89912/13/20 12/23/20 12/23/20 History [Vitamin D3] duloxetine 60 mg PO DAILY@199912/13/20 12/23/20 12/22/20 History famotidine [Pepcid AC] 20 mg PO DAILY@89912/13/20 12/23/20 12/23/20 History furosemide [Lasix] 20 mg PO DAILY@89912/13/20 12/23/20 12/23/20 History memantine 10 mg PO DAILY@199912/13/20 12/23/20 12/22/20 History potassium chloride 20 meq PO BID@89912/13/20 12/23/20 12/23/20 History pregabalin [Lyrica] 50 mg PO BEDTIME@199912/13/20 12/23/20 12/22/20 History rosuvastatin 5 mg PO DAILY@89912/13/20 12/23/20 12/23/20 History ciprofloxacin HCl [Cipro] 500 mg PO Q12H #14 tab 12/16/20 12/23/20 12/23/20 Rx tramadol 50 mg tablet 50 mg PO BID PRN 30 Days #60 tab 12/21/20 12/23/20 12/23/20 Rx cyanocobalamin (vitamin B-12) 1,000 mcg PO DAILY@89912/23/20 12/23/20 12/23/20 History Allergies Allergy/AdvReac Type Severity Reaction Status Date / Time No Known Allergies Allergy Verified 12/23/20 12:14 PFSH Acute PFSH: Medical History (Updated 12/24/20 @ 18:19 by Jabier Meier MD) Anemia Chronic osteoarthritis Colitis Depression Essential hypertension, benign Fibromyalgia H/O malignant neoplasm of colon HTN (hypertension) 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 Mild dementia Mixed hyperlipidemia Post-menopausal osteoporosis Vitamin D deficiency Surgical History H/O right hemicolectomy colon cancer History of ankle surgery History of S/P colon resection colon cancer recurrence Status post colonoscopy Family History Other Diabetes Social History Smoking and tobacco status: former smoker Alcohol intake: never Vitals/I&O/Wt Last Vital Signs Temp 97.4 F L 12/23/20 10:48 Pulse 101 H 12/23/20 16:33 Resp 16 12/23/20 16:33 BP 118/71 12/23/20 16:33 Pulse Ox 96 12/23/20 16:33 12/23/20 12/23/2012/23/21 06:59 14:59 22:59 Intake Total 1100 / 1100 Balance 1100 / 1100 Weight last 48 hrs Weight 104.326 kg Physical Exam Narrative: EXAM NARRATIVE: EXAM NARRATIVE: General: No acute distress,, AOx3, mild occasionally forgetful, at bedside ion HEENT: PERRLA pupils bilaterally equal and reactive Chest:Bronchial breath sounds b/l ,decreased air entry, equal good air entry bilaterally, no more fine basal crackles CVS: S1-S2 regular, no murmurs, no tachycardia, no gallops, no rubs Abdomen: Soft, generalized tenderness, no organomegaly noted noticed, obese, bowel sounds sluggish, Neuro: No focal deficits, no facial deformity, AO x3, power 5/5 in all limbs Data Micro: Micro: Microbiology 12/23/20 12:30 Bacterial Antigens - Final Urine Kidney 12/23/20 16:00 Blood Culture - Pr eliminary Blood SPECIMEN [place] 12/23/20 11:35 Blood Culture - Pr eliminary Blood SPECIMEN [facility] A&P Assessment and plan (1) Large bowel obstruction: Status: Acute (2) H/O malignant neoplasm of colon: Status: Acute (3) HTN (hypertension): Status: Acute (4) UTI (urinary tract infection): Status: Acute Additional A&P Information Large bowel obstruction: Patient due for or tomorrow with surgery. Keep n.p.o. for now. SCDs for DVT prophylaxis. Famotidine for PUD prophylaxis. Normal saline at 75 cc/h. NG tube as per surgery team. Hypertension: Hold off on oral medications for now. Start patient on metoprolol 2.5 mg every 6 hours as needed for heart rate of more than 100 when systolic blood pressure is more than 110. UTI: UA dirty. Patient giving no symptoms of dysuria but patient has dementia so unable unable to assess properly. Patient has mild leukocytosis. For now start patient on ceftriaxone daily. Urine culture. Blood cultures. Will DC antibiotics as per the culture results. Hold off on other oral chronic medication including duloxetine, iron, melatonin, Lasix. Will monitor mental status secondary to start patient on medications accordingly. Can use Haldol 0.5 mg IM every 6 hours as needed for agitation. Avoid Ativan. Full code. Diet, anticoagulation as per surgery. Famotidine for PUD prophylaxis. Consult Attestations Medical Necessity Statement: As per primary team Time Spent in Patient Care: 16 - 35 minutes (>than 50% of time spent in counselling and/or direct pt care on unit) . 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
[2020-12-23 18:54] LABS: NT Pro B Type Natriuretic Pept 259 pg/mL (0-450); Procalcitonin 0.13 ng/mL (0-0.5)
[2020-12-23 19:05] LABS: Iron 37 ug/dL (37-145); Percent Saturation 16.5 % (20-50); Total Iron Binding Capacity 223 mcg/dl; Unsaturated Iron Binding 186 ug/dL (112-347)
--- NOTE | 2020-12-23 19:12 | PC.NURSE ---
ER contacted about overdue meds. I was told that Catherine will call me back
[2020-12-23 20:34] LABS: Potassium 4.3 mmol/L (3.5-5.1)
[2020-12-23] MEDS: enoxaparin 40 mg/0.4 mL Syringe SUBCUT (21:34)
[2020-12-23] MEDS: D5-NS 0.45% + KCL 20 mEq 20 MEQ/1,000 ML BAG 100 MEQ IV (21:34)
[2020-12-23] MEDS: insulin regular-human 10 UNIT in SYRINGE 1 EACH IVP (21:40)
[2020-12-23] MEDS: dextrose 50% syringe 50 mL IVP (21:40)
[2020-12-23] MEDS: cefTRIAXone 1,000 MG in sodium chloride 0.9% (plus) 50 ML 100 MG IV (21:45)
--- NOTE | 2020-12-23 23:16 | XRR_ITS ---
PROCEDURE INFORMATION: Exam: XR Chest Exam date and time: 12/23/2020 11:21 PM Age: 75 years old Clinical indication: Device placement; Ng tube; Additional info: Ng tube placement TECHNIQUE: Imaging protocol: XR of the chest. Views: 1 view. COMPARISON: [facility] XR chest 1V portable [id number] 12/19/2019 1:41 PM FINDINGS: Tubes, catheters and devices: Midline nasogastric tube with proximal portion folded back upon itself within the upper thoracic esophagus. The distal tip terminates in the distal thoracic esophagus. Lungs: Left lower lobe atelectasis versus infiltrate. Right lung is clear. Pleural spaces: Unremarkable. No pleural effusion. No pneumothorax. Heart/Mediastinum: No cardiomegaly. Bones/joints: Mild degenerative spine changes. No acute abnormality demonstrated. XR/XR chest 1V portable [id number] IMPRESSION: 1. Malpositioned nasogastric tube, with proximal portion folded back upon itself in the upper thoracic esophagus. 2. Left lower lobe atelectasis versus infiltrate.
[2020-12-24] VITALS (30 sets, daily range): BP systolic 89–128; BP diastolic 60–86; PULSE 105–150; RESP 17–139; TEMP 36.1–37.1; O2SAT 94–100
--- NOTE | 2020-12-24 01:19 | XRR_ITS ---
PROCEDURE INFORMATION: Exam: XR Chest Exam date and time: 12/24/2020 1:21 AM Age: 75 years old Clinical indication: Device placement; Ng tube; Patient HX: Check S/P ng adjustment; Additional info: Ng tube placement TECHNIQUE: Imaging protocol: XR of the chest. Views: 1 view. COMPARISON: [facility] (CHEST, ) 12/23/2020 11:28 PM FINDINGS: NG tube has been placed with the tip in the stomach. Lungs: Strandy changes are seen in the left base, unchanged. No consolidation. Pleural spaces: Unremarkable. No pleural effusion. No pneumothorax. Heart/Mediastinum: Unremarkable. No cardiomegaly. Bones/joints: Unremarkable. XR/XR chest 1V portable [id number] IMPRESSION: The NG tube is in good position.
[2020-12-24 05:53] LABS: Basophils % 0.1 %; Eosinophils % 0.2 %; Hematocrit 35.8 % (37.0-47.0); Hemoglobin 10.6 g/dL (11.5-15.3); Lymphocytes # 1.4 10^3/uL (0.8-4.8); Mean Corpuscular HGB Conc 29.6 g/dL (30.0-36.0); Mean Corpuscular Hemoglobin 24.1 pg (28.0-34.0); Mean Corpuscular Volume 81.5 fL (81-99); Mean Platelet Volume 9.5 fL (7.4-10.4); Monocytes # 0.9 10^3/uL (0.2-0.9); Monocytes % 5.9 %; Neutrophils # 12.66 10^3/uL (1.8-7.7); Neutrophils % 84.3 %; Nucleated Red Blood Cells % 0 %; Platelet Count 341 10^3/cmm (130-400); Red Blood Count 4.39 10^6/uL (4.1-5.3); Red Cell Distribution Width 19.9 % (12.1-15.1)
[2020-12-24] MEDS: ondansetron 2 mg/ML SDV 2 mL 4 MG IVP (06:08)
[2020-12-24 06:13] LABS: Alanine Aminotransferase < 5 U/L (0-33); Albumin Level 2.7 g/dL (3.5-5.2); Alkaline Phosphatase 46 IU/L (35-105); Anion Gap 12.4 (5-19); Aspartate Amino Transferase 11 U/L (0-32); Blood Urea Nitrogen 7 mg/dL (8-23); Calcium 10.1 mg/dL (8.5-10.5); Carbon Dioxide 25 mmol/L (22-29); Chloride 100 mmol/L (98-107); Globulin 3.5 g/dL (1.3-4.6); Glucose 134 mg/dL (65-115); Osmolality Calculated 276 mOsm/kg (285-295); Potassium 4.4 mmol/L (3.5-5.1); Sodium 133 mmol/L (136-145); Total Bilirubin 0.2 mg/dL (0.15-1.2); Total Protein 6.2 g/dL (6.6-8.7)
[2020-12-24] MEDS: D5-NS 0.45% + KCL 20 mEq 20 MEQ/1,000 ML BAG 100 MEQ IV ×2 (08:08→21:11)
[2020-12-24] MEDS: pantoprazole 40 mg SDV IVP (08:09)
[2020-12-24] MEDS: sodium chloride 0.9% 1,000 ML 30 ML IV (13:00)
--- NOTE | 2020-12-24 13:12 | PM.PN ---
Subjective Subjective: Interval history: Patient had some nasal bleeding, continues to have abdominal pain Vitals/I&O/Wt Last Vital Signs Temp 98.5 F 12/24/20 12:49 Pulse 122 H 12/24/20 12:49 Resp 17 12/24/20 12:49 BP 128/86 12/24/20 12:49 Pulse Ox 97 12/24/20 12:49 12/23/20 12/24/20 12/24/20 22:59 06:59 14:59 Intake Total 150.1 / 2140.1 890 / 2140.1 110 / 110 Output Total 150 / 150 Balance 150.1 / 1990.1 740 / 1989.1 110 / 110 Weight last 48 hrs Weight 230 lb Physical Exam Narrative: EXAM NARRATIVE: Abdomen: Soft, tender, nondistended, NG tube to LIS Urinary Catheter Management^: [place] Latex: Cath Placed During This Visit: yes Reason for Continuing Indwelling Catheter: Accurate Measurement of Urinary Output in Critically Ill Patients Urinary Catheter Date of Insertion: 12/23/20 Urinary Catheter Time of Insertion: 21:30 Data : 12/24/20 05:28 12/24/20 05:28 Micro: Microbiology 12/24/20 06:55 MRSA Culture - Final Nose 12/23/20 12:30 Bacterial Antigens - Final Urine Kidney 12/23/20 16:00 Blood Culture - Preliminary Blood SPECIMEN COLLECTED 12/23/20 11:35 Blood Culture - Preliminary Blood SPECIMEN COLLECTED A&P Assessment and plan (1) Large bowel obstruction: 75-year-old female with history of colon cancer, prior colectomy who presents with a splenic flexure mass causing large bowel obstruction. Plan for laparoscopic possible open left hemicolectomy, possible ileostomy Procedure, risks, benefits and alternatives have been discussed with the patient who wishes to proceed with surgery. 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
--- NOTE | 2020-12-24 13:38 | ANES.PREANE2 ---
Pre-Anesthetic Assessment Pre-Anesthetic Assessment: Height/Weight: Height 1.65 m Weight 104.326 kg Temp Pulse Resp BP Pulse Ox 98.5 F 122 H 17 128/86 97 12/24/20 12:49 12/24/20 12:49 12/24/20 12:49 12/24/20 12:49 12/24/20 12:49 Preop Diagnosis: colon mass Proposed Procedure: Operation Date: 12/24/20 12:00 Proposed Procedures p Laparoscopic Left Hemicolectomy(Not Applicable) - Jassi Quick MD Was Beta Jaden taken within 24 hours: Yes Was Clonidine taken within 24 hours: N/A Social: Social History: No alcohol and No tobacco Exam: Pre-Anes Outpt Exam: alert, oriented x 3 and clear to auscultation bilaterally Airway: Submandibular: WNL Cervical ROM: WNL MP: 2 Additional comments: missing several CV/HEM: CV/HEM: Anemia and HTN GI: GI: GERD Comments: colitis, colon mass Metabolic: Metabolic: Morbid obesity Neuropsych: Neuropsych: Depression Anesthetic Plan: ASA status: 3 Anesthesia: General (RSI) Risk of > 500 ml blood loss (7ml/kg in children): No Meds/Allergies Current Medications: Current Medications Generic Name Dose Route Start Last Admin Trade Name Freq PRN Reason Stop Dose Admin Enoxaparin Sodium 40 mg 12/23/20 21:00 12/23/20 21:34 Enoxaparin 40 Mg /0.4 Ml Syringe SUBCUT 40 mg Q24H MATTHEW Administration Ceftriaxone Sodium 1,000 mg/ 50 mls @ 100 mls/ hr 12/23/20 15:45 12/23/20 22:22 Sodium Chloride IV Infused Q24H MATTHEW Infusion Protocol Potassium Chloride /Dextrose/Sod Cl 20 meq in 1,000 m ls @ 100 mls/hr 12/23/20 16:45 12/24/20 08:08 D5-Ns 0.45% + Joselito l 20 Meq IV 100 mls/hr .Q10H MATTHEW Administration Sodium Chloride 1,000 mls @ 30 ml s/hr 12/24/20 13:00 12/24/20 13:00 Sodium Chloride 0.9% IV 12/25/20 12:59 30 mls/hr .Q24H MATTHEW Administration Ondansetron HCl 4 mg 12/23/20 16:44 12/24/20 06:08 Ondansetron 2 Mg /Ml Sdv 2 Ml IVP 4 mg Q4H PRN Administration NAUSEA AND VOMITI NG Pantoprazole Sodiu m 40 mg 12/24/20 09:00 12/24/20 08:09 Pantoprazole 40 Mg Sdv IVP 40 mg DAILY MATTHEW Administration Pregabalin 50 mg 12/23/20 20:00 12/23/20 21:18 Pregabalin 50 Mg Capsule PO Not Given BEDTIME@1999 [facility] PFSH Anesthesia PFSH: Medical History Anemia Chronic osteoarthritis Colitis Depression Essential hypertension, benign Fibromyalgia H/O malignant neoplasm of colon 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 Mild dementia Mixed hyperlipidemia Post-menopausal osteoporosis Vitamin D deficiency Surgical History H/O right hemicolectomy colon cancer History of ankle surgery History of S/P colon resection colon cancer recurrence Status post colonoscopy Family History Other Diabetes Social History Smoking and tobacco status: former smoker Alcohol intake: never Data Anesthesia CBC & Chem 7: 12/24/20 05:28 12/24/20 05:28 Other Labs: Laboratory Results - last 48 hr 12/23/20 12/23/20 12/23/20 11:35 11:35 11:35 WBC 16.0 H RBC 4.91 Hgb 11.9 Hct 40.2 MCV 81.9 MCH 24.2 L MCHC 29.6 L RDW 20.1 H Plt Count 368 MPV 9.8 Neut % (Auto) 89.2 Lymph % (Auto) 6.6 [place] % (Auto) 3.3 Eos % (Auto) 0.4 Baso % (Auto) 0.1 Neut # (Auto) 14.25 H Lymph # (Auto) 1.1 [place] # (Auto) 0.5 Eos # (Auto) 0.1 Baso # (Auto) 0.0 Nucleated RBC % (auto) 0 Nucleated RBCs # 0.0 Sodium 131 L Potassium 5.2 H Chloride 97 L Carbon Dioxide 23 Anion Gap 16.2 BUN 9 Creatinine 0.6 GFR Calculation Not Reportable Glucose 124 H Calculated Osmolality 272 L Lactic Acid Lactic Acid (Sepsis) Calcium 10.7 H Iron 37 TIBC 223 % Saturation 16.5 L Unsat Iron Binding 186 Total Bilirubin 0.3 AST 13 ALT < 5 Alkaline Phosphatase 57 NT-Pro-B Natriuret Pep 259 Total Protein 7.3 Albumin 3.1 L Globulin 4.2 Lipase 13 Procalcitonin 0.13 TSH Urine Color Urine Appearance Urine pH Ur Specific [place] Urine Protein Urine Glucose (UA) Urine Ketones Urine Blood Urine Nitrate Urine Bilirubin Urine Urobilinogen Ur Leukocyte Esterase Urine RBC Urine WBC Ur Squamous Epith Cells Calcium Oxalate Crystal Amorphous Sediment Urine Bacteria SARS-CoV-2 Ag (Rapid) 12/23/20 12/23/20 12/23/20 11:35 12:30 12:51 WBC RBC Hgb Hct MCV MCH MCHC RDW Plt Count MPV Neut % (Auto) Lymph % (Auto) [place] % (Auto) Eos % (Auto) Baso % (Auto) Neut # (Auto) Lymph # (Auto) [place] # (Auto) Eos # (Auto) Baso # (Auto) Nucleated RBC % (auto) Nucleated RBCs # Sodium Potassium Chloride Carbon Dioxide Anion Gap BUN Creatinine GFR Calculation Glucose Calculated Osmolality Lactic Acid 2.2 Lactic Acid (Sepsis) Calcium Iron TIBC % Saturation Unsat Iron Binding Total Bilirubin AST ALT Alkaline Phosphatase NT-Pro-B Natriuret Pep Total Protein Albumin Globulin Lipase Procalcitonin TSH 2.23 Urine Color Jossy Urine Appearance Clear Urine pH 5 Ur Specific [place] 1.025 Urine Protein Trace Urine Glucose (UA) Norm Urine Ketones 1+ H Urine Blood Neg Urine Nitrate Positive H Urine Bilirubin 1+ H Urine Urobilinogen Norm Ur Leukocyte Esterase 1+ H Urine RBC 0-4 H Urine WBC 0-4 H Ur Squamous Epith Cells 0-4 H Calcium Oxalate Crystal 25-40 H Amorphous Sediment Not Reportable Urine Bacteria Trace SARS-CoV-2 Ag (Rapid) 12/23/20 12/23/20 12/23/20 13:35 16:00 19:16 WBC RBC Hgb Hct MCV MCH MCHC RDW Plt Count MPV Neut % (Auto) Lymph % (Auto) [place] % (Auto) Eos % (Auto) Baso % (Auto) Neut # (Auto) Lymph # (Auto) [place] # (Auto) Eos # (Auto) Baso # (Auto) Nucleated RBC % (auto) Nucleated RBCs # Sodium Potassium 4.3 Chloride Carbon Dioxide Anion Gap BUN Creatinine GFR Calculation Glucose Calculated Osmolality Lactic Acid Lactic Acid (Sepsis) 1.0 Calcium Iron TIBC % Saturation Unsat Iron Binding Total Bilirubin AST ALT Alkaline Phosphatase NT-Pro-B Natriuret Pep Total Protein Albumin Globulin Lipase Procalcitonin TSH Urine Color Urine Appearance Urine pH Ur Specific [place] Urine Protein Urine Glucose (UA) Urine Ketones Urine Blood Urine Nitrate Urine Bilirubin Urine Urobilinogen Ur Leukocyte Esterase Urine RBC Urine WBC Ur Squamous Epith Cells Calcium Oxalate Crystal Amorphous Sediment Urine Bacteria SARS-CoV-2 Ag (Rapid) Negative 12/24/20 12/24/20 05:28 05:28 WBC 15.0 H RBC 4.39 Hgb 10.6 L Hct 35.8 L MCV 81.5 MCH 24.1 L MCHC 29.6 L RDW 19.9 H Plt Count 341 MPV 9.5 Neut % (Auto) 84.3 Lymph % (Auto) 9.0 [place] % (Auto) 5.9 Eos % (Auto) 0.2 Baso % (Auto) 0.1 Neut # (Auto) 12.66 H Lymph # (Auto) 1.4 [place] # (Auto) 0.9 Eos # (Auto) 0.0 Baso # (Auto) 0.0 Nucleated RBC % (auto) 0 Nucleated RBCs # 0.0 Sodium 133 L Potassium 4.4 Chloride 100 Carbon Dioxide 25 Anion Gap 12.4 BUN 7 L Creatinine 0.6 GFR Calculation Not Reportable Glucose 134 H Calculated Osmolality 276 L Lactic Acid Lactic Acid (Sepsis) Calcium 10.1 Iron TIBC % Saturation Unsat Iron Binding Total Bilirubin 0.2 AST 11 ALT < 5 Alkaline Phosphatase 46 NT-Pro-B Natriuret Pep Total Protein 6.2 L Albumin 2.7 L Globulin 3.5 Lipase Procalcitonin TSH Urine Color Urine Appearance Urine pH Ur Specific [place] Urine Protein Urine Glucose (UA) Urine Ketones Urine Blood Urine Nitrate Urine Bilirubin Urine Urobilinogen Ur Leukocyte Esterase Urine RBC Urine WBC Ur Squamous Epith Cells Calcium Oxalate Crystal Amorphous Sediment Urine Bacteria SARS-CoV-2 Ag (Rapid) Micro: Microbiology 12/24/20 06:55 MRSA Culture - Final Nose 12/23/20 12:30 Bacterial Antigens - Final Urine Kidney 12/23/20 16:00 Blood Culture - Preliminary Blood SPECIMEN COLLECTED 12/23/20 11:35 Blood Culture - Preliminary Blood SPECIMEN COLLECTED Cardiac Studies: No Data to Display
[2020-12-24] MEDS: piperacillin-tazobactam 3.375 GM in sodium chloride 0.9% (plus) 50 ML IV ×2 (14:00→21:12)
[2020-12-24 17:22] LABS: Hematocrit 40.2 % (37.0-47.0); Hemoglobin 11.2 g/dL (11.5-15.3)
[2020-12-24] MEDS: sodium chloride 0.9% SDV 10 mL 20 ML (17:53)
--- NOTE | 2020-12-24 18:19 | P.PN_ITS ---
Subjective Subjective: Interval history: No events overnight. Patient remains comfortable though mildly anxious. at bedside. Had NG tube placed last night. Post NG tube placement patient had mild epistaxis. Has remained afebrile hemodynamically stable. Patient is due for overload in the afternoon. Vitals/I&O/Wt Last Vital Signs Temp 98.5 F 12/24/20 12:49 Pulse 122 H 12/24/20 12:49 Resp 17 12/24/20 12:49 BP 128/86 12/24/20 12:49 Pulse Ox 97 12/24/20 12:49 12/24/20 12/24/20 12/24/20 06:59 14:59 22:59 Intake Total 890 / 2140.1 160 / 160 0 / 160 Output Total 150 / 150 Balance 740 / 1990.1 160 / 160 0 / 160 Weight last 48 hrs Weight 104.326 kg Physical Exam Narrative: EXAM NARRATIVE: EXAM NARRATIVE: General: No acute distress,, AOx3, mild occasionally forgetful, at bedside ion HEENT: PERRLA pupils bilaterally equal and reactive Chest:Bronchial breath sounds b/l ,decreased air entry, equal good air entry bilaterally, no more fine basal crackles CVS: S1-S2 regular, no murmurs, no tachycardia, no gallops, no rubs Abdomen: Soft, generalized tenderness, no organomegaly noted noticed, obese, bowel sounds sluggish, Neuro: No focal deficits, no facial deformity, AO x3, power 5/5 in all limbs Urinary Catheter Management^: [place] Latex: Cath Placed During This Visit: yes Reason for Continuing Indwelling Catheter: Accurate Measurement of Urinary Output in Critically Ill Patients Urinary Catheter Date of Insertion: 12/23/20 Urinary Catheter Time of Insertion: 21:30 Data : 12/24/20 16:26 12/24/20 05:28 Micro: Microbiology 12/23/20 16:00 Blood Culture - Preliminary Blood NEGATIVE TO DATE 12/23/20 11:35 Blood Culture - Preliminary Blood NEGATIVE TO DATE 12/24/20 06:55 MRSA Culture - Final Nose 12/23/20 12:30 Bacterial Antigens - Final Urine Kidney A&P Assessment and plan (1) Large bowel obstruction: Status: Acute (2) H/O malignant neoplasm of colon: Status: Acute (3) HTN (hypertension): Status: Acute (4) UTI (urinary tract infection): Status: Acute Additional A&P Information Large bowel obstruction: Patient due for or tomorrow with surgery. Keep n.p.o. for now. Normal saline at 75 cc/h. Hypertension: Hold off on oral medications for now. Start patient on metoprolol 2.5 mg every 6 hours as needed for heart rate of more than 100 when systolic blood pressure is more than 110. UTI: UA dirty. Patient giving no symptoms of dysuria but patient has dementia so unable unable to assess properly. Patient has mild leukocytosis. For now start patient on ceftriaxone daily. Urine culture. Blood cultures. Will DC antibiotics as per the culture results. Hold off on other oral chronic medication including duloxetine, iron, melatonin, Lasix. Will monitor mental status secondary to start patient on medications accordingly. Can use Haldol 0.5 mg IM every 6 hours as needed for agitation. Avoid Ativan. We will change medication as per clinical picture postoperatively. Full code. Diet, anticoagulation as per surgery. Famotidine for PUD prophylaxis. Attestations Medical Necessity Statement*: As per primary team. Time Spent in Patient Care: Greater than 35 minutes (>than 50% of time spent in counselling and/or direct pt care on unit) . Coding Level of Care Code Acute [employer] for Gladys Fwd Diagnoses Large bowel obstruction K56.609 H/O malignant neoplasm of colon Z85.038 HTN (hypertension) I10 UTI (urinary tract infection) N39.0
--- NOTE | 2020-12-24 18:30 | P.OP_ITS ---
Operative Report Date of procedure: December 24, 2020 Pre-op Diagnosis: 1.Large bowel obstruction secondary to mass at splenic flexure 2. History of right hemicolectomy and partial colectomy for colon cancer 3. Incarcerated incisional hernia containing small bowel loops Post-op Diagnosis: 1. Extensive adhesions involving the entire abdominal wall from prior surgery 2. Splenic flexure mass adherent to the inferior pole of the spleen and pos terior wall of the stomach 3. Thickened small bowel wall consistent with chronic obstruction and distended small bowel loops and transverse colon up to the splenic flexure at site of obstruction 4. Incarcerated incisional hernia containing small bowel loops Procedure Done: 1. Diagnostic laparoscopy 2. Open lysis of adhesions for 2 hours 3. Left hemicolectomy 4. End ileostomy 5. Open primary repair of incisional hernia Specimens removed/disposition: Left colon containing transverse colon, splenic flexure and descending colon Surgeon: Jassi Quick Anesthesia: General Estimated blood loss (mL): 350 IV fluids (mL): 5,000 Urine output (mL): 350 Condition: critical Disposition: ICU Brief History: This is a 75-year-old female who presented to the ER yesterday with complaints of abdominal pain, nausea and obstipation with poor oral intake. Patient recently been admitted a week ago with bowel obstruction and was noted to have a splenic flexure mass. The mass had progressed to a point where it was causing large bowel obstruction. Patient has a history of prior right cholo colectomy for colon cancer and a subsequent ex lap with partial colectomy for recurrent colon cancer. Patient also had incisional hernia containing small bowel loops from prior surgeries. Procedure: The patient was taken to the operating room and intubated under general anesthesia after IV antibiotic had been administered. Patient already had an NG tube and Hargrove catheter in place. The abdomen was prepped and draped in a sterile manner. Using open Rosen technique the peritoneal cavity was entered through a 2 cm incision in the right upper quadrant. A 10 mm port was placed and 15 mm of pneumoperitoneum was created. A 10 mm 30 degree scope was introduced revealing multiple distended small bowel loops and omentum adherent to the abdominal wall along the site of prior surgery scars. Due to multiple distended bowel loops it was impossible to proceed with laparoscopic surgery and therefore the port was removed and pneumoperitoneum released. A midline laparotomy incision was made through the existing scar, subcutaneous tissues and linea alba was divided to enter the peritoneal cavity. The hernia sac was excised. There were multiple small bowel loops adherent in the midline incisional hernia from prior surgery. Careful lysis of adhesions was performed to take down the small bowel loops adherent to the abdominal wall through the midline laparotomy wound and the incision was slowly extended superiorly and inferiorly until the abdominal cavity could be well visualized. Lysis of adhesions was performed to separate the distended small bowel loops using Metzenbaum scissors. About 2 hours of extensive lysis of adhesions was performed until the small bowel was completely free from the ligament of Treitz up to the ileocolic anastomosis. There were 3 serosal tears but no enterotomies. The serosal tears were approximated using interrupted 3-0 Vicryl sutures. The contents of the small bowel was milked proximally and aspirated through the existing NG tube. The greater omentum at the ileocolic anastomosis was taken down and the lesser sac was entered. The line of Toldt was opened laterally along the descending colon and the descending colon was mobilized medially. The large splenic flexure mass was adherent to the lateral abdominal wall as well as to the posterior wall of the stomach. This appeared to be secondary to a desmoplastic reaction. Using energy device the greater omentum was completely from the greater curvature of the stomach and the posterior wall of the stomach was freed from the splenic flexure mass using Metzenbaum scissors. The serosal tears the posterior wall of the stomach were then closed using interrupted 3-0 Vicryl suture. There was no gastrotomy. Using a combination of finger dissection as well as division of attachments using cautery and energy device the splenic flexure was completely taken down. There was a small capsular tear at the inferior pole of the spleen and a 4 x 8 cm Surgicel was placed. There was some bleeding from the short gastrics which was controlled with energy device. The small bowel was divided using 75mm blue load KERRI stapler just pro ximal to the ileocolic anastomosis. The mesentery of the transverse colon as well as descending colon was divided using energy device. The distal descending colon was divided using 75 mm blue load KERRI stapler. Just lateral to the ligament of Treitz the inferior mesenteric vein was identified and divided using energy device but there was some bleeding which was controlled with 3-0 Vicryl suture ligation of IMV. The descending colon was mobilized from lateral to medial side until a left hemicolectomy specimen was retrieved and sent in formalin to pathology. The peritoneal cavity was irrigated with 3 L of warm saline. Decision was made to perform an ileostomy and not perform ileocolic anastomosis since patient only had a sigmoid colon, as well as the fact that the patient was on pressors since she was hypotensive during surgery. I decided to place ileostomy on the left side since patient had a right paramedian scar from prior laparotomy. A 2 cm diameter circular incision was made over the rectus muscle inferior to the umbilicus in the left lower quadrant, subcutaneous tissue was excised using electrocautery and a cruciate incision is made in the anterior rectus sheath, rectus muscles were and an opening made in the posterior rectus sheath which was 2 fingerbreadths wide and the stapled end of the ileum was exteriorized after ensuring that there was no twisting of the mesentery. Interrupted 3-0 Vicryl sutures were used to approximate the serosa of the ileum into the peritoneum. The fascia in the right upper quadrant port site was closed using [id number] Vicryl suture. She had a ventral hernia with a defect measuring about 5 cm in the midline from prior laparotomy and a primary repair of the incisional hernia was performed where the fascia was approximated in the midline using a running #1 looped PDS. The skin at both incisions were closed with dwayne and sterile dressings were applied. Interrupted 3-0 Vicryl sutures were then used to approximate the serosa to the anterior rectus sheath at the ileostomy site. The staple line was divided using electrocautery and the end of the ostomy was everted and an ileostomy was created in a standard fashion using interrupted 4-0 Vicryl sutures. The patient was subsequently extubated and transferred to ICU with an NG tube and Hargrove catheter in place.
[2020-12-24] MEDS: HYDROmorphone 1 mg/mL INJ 1 mL 0.25 MG IVP ×2 (19:04→19:14)
--- NOTE | 2020-12-24 19:06 | P.ANESPOST_ITS ---
Inpatient post-anesthesia follow up: Airway intact: Yes Vital signs: Temperature 97 F Pulse Rate [Monito r] 95 Pulse Rate 138 Respiratory Rate 139 Blood Pressure [Ri ght Arm] 152/97 Blood Pressure 96/83 Pulse Oximetry 100 Oxygen Delivery Me thod Simple Mask Oxygen Flow Rate 8 Fraction of Inspir ed Oxygen Hydration adequate: No Nausea and vomiting: No Pain level: 4 Addit ional Comments: Somnolent in PACU, still some hemodynamic instability (BP 90/60, HR 130's), placed A.line to ICU.
--- NOTE | 2020-12-24 19:06 | ANES.PROC ---
Anesthesia Procedures Procedure/Date: 12/24/20 Arterial Line: Time Out Performed: Yes Consent: requested by attending/covering physician, from patient, risks and benefits reviewed and patient agrees to proceed Size (Gauge): 20 Technique Used: guide wire technique Post-Procedure: dry sterile dressing placed Patient Tolerated Procedure: well Complications: none Site: left and radial
[2020-12-24] MEDS: HYDROmorphone 1 mg/mL INJ 1 mL 0.5 MG IVP (19:24)
[2020-12-24] MEDS: lactated ringers 1,000 ML 999 ML (20:10)
[2020-12-24 20:33] LABS: Basophils # 0.1 10^3/uL (0.0-0.1); Basophils % 0.3 %; Hematocrit 39.1 % (37.0-47.0); Hemoglobin 11.8 g/dL (11.5-15.3); Lymphocytes # 1.2 10^3/uL (0.8-4.8); Lymphocytes % 3.9 %; Mean Corpuscular HGB Conc 30.2 g/dL (30.0-36.0); Mean Corpuscular Hemoglobin 25.5 pg (28.0-34.0); Mean Corpuscular Volume 84.4 fL (81-99); Monocytes # 1.9 10^3/uL (0.2-0.9); Monocytes % 6.1 %; Neutrophils # 27.12 10^3/uL (1.8-7.7); Neutrophils % 89.2 %; Nucleated Red Blood Cells % 0 %; Platelet Count 425 10^3/cmm (130-400); Red Blood Count 4.63 10^6/uL (4.1-5.3); Red Cell Distribution Width 20.9 % (12.1-15.1)
[2020-12-24 21:04] LABS: Alanine Aminotransferase < 5 U/L (0-33); Albumin Level 2.4 g/dL (3.5-5.2); Alkaline Phosphatase 30 IU/L (35-105); Anion Gap 13.4 (5-19); Aspartate Amino Transferase 11 U/L (0-32); Blood Urea Nitrogen 6 mg/dL (8-23); Calcium 9.1 mg/dL (8.5-10.5); Carbon Dioxide 18 mmol/L (22-29); Chloride 108 mmol/L (98-107); Glucose 198 mg/dL (65-115); Osmolality Calculated 283 mOsm/kg (285-295); Potassium 4.4 mmol/L (3.5-5.1); Sodium 135 mmol/L (136-145); Total Bilirubin 0.3 mg/dL (0.15-1.2); Total Protein 4.4 g/dL (6.6-8.7)
[2020-12-24 21:27] LABS: White Blood Count 30.4 10^3/uL (4.0-10.0)
[2020-12-24] MEDS: morphine 4 mg/mL SDV 1 mL 3 MG IVP (21:54)
[2020-12-25] VITALS (56 sets, daily range): BP systolic 96–137; BP diastolic 73–107; PULSE 101–150; RESP 18–25; TEMP 36.4; O2SAT 91–100
[2020-12-25 05:17] LABS: Basophils # 0.1 10^3/uL (0.0-0.1); Basophils % 0.2 %; Hematocrit 39.5 % (37.0-47.0); Hemoglobin 11.9 g/dL (11.5-15.3); Lymphocytes # 0.9 10^3/uL (0.8-4.8); Lymphocytes % 3.8 %; Mean Corpuscular HGB Conc 30.1 g/dL (30.0-36.0); Mean Corpuscular Hemoglobin 25.4 pg (28.0-34.0); Mean Corpuscular Volume 84.4 fL (81-99); Mean Platelet Volume 10.6 fL (7.4-10.4); Monocytes # 1.3 10^3/uL (0.2-0.9); Monocytes % 5.6 %; Neutrophils # 20.19 10^3/uL (1.8-7.7); Nucleated Red Blood Cells % 0 %; Platelet Count 410 10^3/cmm (130-400); Red Blood Count 4.68 10^6/uL (4.1-5.3); Red Cell Distribution Width 20.6 % (12.1-15.1); White Blood Count 22.5 10^3/uL (4.0-10.0)
[2020-12-25 05:47] LABS: Anion Gap 14.7 (5-19); Blood Urea Nitrogen 8 mg/dL (8-23); Calcium 9.2 mg/dL (8.5-10.5); Carbon Dioxide 16 mmol/L (22-29); Chloride 107 mmol/L (98-107); Glucose 226 mg/dL (65-115); Osmolality Calculated 281 mOsm/kg (285-295); Potassium 4.7 mmol/L (3.5-5.1); Sodium 133 mmol/L (136-145)
--- NOTE | 2020-12-25 06:04 | PC.NURSE ---
MD Joe at bedside throughout shift. RN updated on pt condition, and continued tachycardia with slight hypotension noted. Patient otherwise stable. Answers questions. Does not report any pain. MD gave orders to continue to monitor, and update with any changes. If needed for hypotension, POC includes phenylepherine to be initiated. Currently not indicated at this time. Patient resting comfortably. Oral care completed Q2hr. No big events overnight.
[2020-12-25] MEDS: piperacillin-tazobactam 3.375 GM in sodium chloride 0.9% (plus) 50 ML IV ×3 (06:38→21:18)
[2020-12-25] MEDS: D5-NS 0.45% + KCL 20 mEq 20 MEQ/1,000 ML BAG 100 MEQ IV ×2 (06:40→13:53)
[2020-12-25] MEDS: HYDROcodone-acetaminophen 5-325 mg Tablet 1 TAB PO ×2 (09:49→16:17)
[2020-12-25] MEDS: lactulose oral liq 20 gm/30 mL UDC 10 GM PO ×2 (09:50→20:22)
--- NOTE | 2020-12-25 09:51 | PC.PT ---
PT attempted evaluation on pt. Pt was difficult to arouse and once aroused, became aggitated and told therapit to get out . Several attempts were made to calm pt, but she became more aggitated. We will attempt evaluation one more time 12/26/20.
--- NOTE | 2020-12-25 10:53 | P.PN_ITS ---
Subjective Subjective: Interval history: Overnight patient was brought to the ICU after she underwent left hemicolectomy and ileostomy for monitoring. On examination patient lying comfortably in bed with at bedside, NG tube is still in place. Patient is awake, alert complaining of mild pain. Patient has just received pain medication 30 minutes prior to my examination. Currently patient is on 2 L oxygen supplementation saturating 98%. Maps have remained over 65. Heart rate running in 140s, sinus rhythm. Estimated blood loss 350, received 5000 cc of fluid, 1 unit of blood during OR Vitals/I&O/Wt Last Vital Signs Temp 98.7 F 12/24/20 19:50 Pulse 128 H 12/25/20 06:00 Resp 17 12/24/20 20:25 BP 108/77 12/24/20 20:25 Pulse Ox 98 12/25/20 00:26 12/24/20 12/25/20 12/25/20 22:59 06:59 14:59 Intake Total 1000 / 1160 998.333 / 2158.333 Output Total 1800 / 1800 300 / 2100 Balance -800 / -640 698.333 / 58.333 Physical Exam Narrative: EXAM NARRATIVE: General: In distress because of abdominal pain, NG tube in place, AO x3, tired appearing HEENT: PERRLA pupils bilaterally equal and reactive Chest:Bronchial breath sounds b/l ,decreased air entry, equal good air entry bilaterally, no more fine basal crackles CVS: S1-S2 regular, no murmurs, tachycardia, no gallops, no rubs Abdomen: Soft, nontender, not distended, surgical incision with dry dressing, left lower quadrant ileostomy present slightly edematous without any stool in bag. Neuro: No focal deficits, no facial deformity, AO x3, power 5/5 in all limbs Urinary Catheter Management^: Hargrove Latex: Cath Placed During This Visit: yes Reason for Continuing Indwelling Catheter: Accurate Measurement of Urinary Output in Critically Ill Patients Urinary Catheter Date of Insertion: 12/23/20 Urinary Catheter Time of Insertion: 21:30 Data : 12/25/20 03:55 12/25/20 03:55 Micro: Microbiology 12/23/20 16:00 Blood Culture - Preliminary Blood NEGATIVE TO DATE 12/23/20 11:35 Blood Culture - Preliminary Blood NEGATIVE TO DATE 12/24/20 06:55 MRSA Culture - Final Nose A&P Assessment and plan (1) Large bowel obstruction: Status: Acute (2) H/O malignant neoplasm of colon: Status: Acute (3) HTN (hypertension): Status: Acute (4) UTI (urinary tract infection): Status: Acute Additional A&P Information Large bowel obstruction: Post left hemicolectomy with ileostomy. Postoperative day 1. Pain management, diet advancement, physical therapy, anticoagulation as per sherrell gical team. Continue with gentle hydration with normal saline 75 cc/h. Leukocytosis: Most likely reactive from the OR yesterday. Patient has remained afebrile and hemodynamically stable at present. We will continue to monitor the trend. If patient spikes fever will go for broad-spectrum antibiotics. For now continue with Zosyn postoperatively which will also cover for possible UTI. Hypertension: Goal blood pressure less than 140/90 mmHg with mean over 65. If patient is able to tolerate oral we will restart home medication. Patient is tachycardic most likely because of pain and anxiety and postoperative status. Start patient on metoprolol 12.5 mg twice daily at home dose because of borderl ine blood pressures and will uptitrate if patient blood pressures are well tolerated. Pain management. Restart home anxiety medications including Cymbalta, memantine. Start on Xanax 0.5 3 times daily as needed. UTI: UA dirty. Patient giving no symptoms of dysuria but patient has dementia so unable unable to assess properly. Continue with Zosyn as above. We will follow up urine culture and blood cultures and will de-escalate antibiotics as per the culture results. We will change medication as per clinical picture postoperatively. Full code. Diet, anticoagulation as per surgery. Famotidine for PUD prophylaxis. Attestations Medical Necessity Statement*: As per primary team Time Spent in Patient Care: Greater than 35 minutes (>than 50% of time spent in counselling and/or direct pt care on unit) . Procedures Arterial Line Size (Gauge): 20 Coding Level of Care Code Acute Residence Hall Director for Chg Fwd Diagnoses Large bowel obstruction K56.609 H/O malignant neoplasm of colon Z85.038 HTN (hypertension) I10 UTI (urinary tract infection) N39.0
--- NOTE | 2020-12-25 11:42 | PM.PN ---
Subjective Subjective: Interval history: Patient denies significant pain, no significant NG output, ostomy had some serous drainage, has been off pressors last night and is currently on room air Vitals/I&O/Wt Last Vital Signs Temp 98.7 F 12/24/20 19:50 Pulse 128 H 12/25/20 06:00 Resp 17 12/24/20 20:25 BP 108/77 12/24/20 20:25 Pulse Ox 98 12/25/20 00:26 12/24/20 12/25/20 12/25/20 22:59 06:59 14:59 Intake Total 1000 / 2158.333 998.333 / 2158.333 Output Total 1800 / 2100 300 / 2100 Balance -800 / 58.333 698.333 / 58.333 Physical Exam Narrative: EXAM NARRATIVE: Abdomen: Soft, tender, nondistended, incision clean and dry, left lower quadrant ileostomy pink, edematous, no flatus or stool in the bag Urinary Catheter Management^: Hargrove Latex: Cath Placed During This Visit: yes Reason for Continuing Indwelling Catheter: Accurate Measurement of Urinary Output in Critically Ill Patients Urinary Catheter Date of Insertion: 12/23/20 Urinary Catheter Time of Insertion: 21:30 Data : 12/25/20 03:55 12/25/20 03:55 Micro: Microbiology 12/23/20 16:00 Blood Culture - Preliminary Blood NEGATIVE TO DATE 12/23/20 11:35 Blood Culture - Preliminary Blood NEGATIVE TO DATE 12/24/20 06:55 MRSA Culture - Final Nose A&P Assessment and plan (1) S/P left hemicolectomy: 75-year-old female status post left hemicolectomy with ileostomy for his large bowel obstruction from a splenic flexure mass, with postop ileus, currently hemodynamically stable Clamp NG tube, start clear liquid diet Out of bed to chair Case management for custodial placement Physical therapy Hargrove catheter for 1 more day to monitor urine output accurately Morphine, [place] for pain control Lactulose for bowel regimen Lovenox SCD for DVT prophylaxis Protonix for GI prophylaxis Hemoglobin stable at 11.9 WBC: 22.5, afebrile, continue IV Zosyn for UTI as follows abdominal prophylaxis Metoprolol restarted as patient is tachycardic in the 140s Status: Acute Attestations Medical Necessity Statement*: Status post left hemicolectomy with postop ileus requiring continued inpatient stay Dr. Quick Procedures Arterial Line Size (Gauge): 20 Coding Level of Care Code Acute Regulatory Affairs Manager for Chg Fwd Diagnoses S/P left hemicolectomy Z90.49
[2020-12-25] MEDS: morphine 4 mg/mL SDV 1 mL 3 MG IVP ×3 (12:01→21:18)
[2020-12-25] MEDS: metoprolol tartrate 25 mg Tablet 12.5 MG PO ×2 (12:18→18:09)
[2020-12-25] MEDS: pantoprazole 40 mg SDV IVP (12:18)
[2020-12-25] MEDS: duloxetine 60 mg Capsule PO (12:18)
[2020-12-25] MEDS: ALPRAZolam 0.25 mg Tablet PO (16:17)
--- NOTE | 2020-12-25 16:51 | PC.NURSE ---
Pt assisted up to chair. 2 moderate assist. Stayed in chair for 2 hours then helped back to bed. Pain meds given and resting at this time.
[2020-12-25] MEDS: memantine 5 mg tablet 10 MG PO (18:09)
[2020-12-25] MEDS: enoxaparin 40 mg/0.4 mL Syringe SUBCUT (18:09)
[2020-12-25] MEDS: ondansetron 2 mg/ML SDV 2 mL 4 MG IVP (18:56)
[2020-12-25] MEDS: metoprolol tartrate 25 mg Tablet PO (20:22)
[2020-12-26] VITALS (85 sets, daily range): BP systolic 100–147; BP diastolic 68–88; PULSE 78–125; RESP 12–23; TEMP 36.8; O2SAT 84–100
[2020-12-26] MEDS: morphine 4 mg/mL SDV 1 mL 3 MG IVP ×4 (03:00→21:28)
[2020-12-26 03:58] LABS: Basophils # 0.1 10^3/uL (0.0-0.1); Basophils % 0.2 %; Hematocrit 32.6 % (37.0-47.0); Hemoglobin 9.5 g/dL (11.5-15.3); Lymphocytes # 1.6 10^3/uL (0.8-4.8); Lymphocytes % 7.4 %; Mean Corpuscular HGB Conc 29.1 g/dL (30.0-36.0); Mean Corpuscular Hemoglobin 25.5 pg (28.0-34.0); Mean Corpuscular Volume 87.4 fL (81-99); Mean Platelet Volume 10.3 fL (7.4-10.4); Monocytes # 1.5 10^3/uL (0.2-0.9); Neutrophils # 18.43 10^3/uL (1.8-7.7); Nucleated Red Blood Cells % 0 %; Platelet Count 334 10^3/cmm (130-400); Red Blood Count 3.73 10^6/uL (4.1-5.3); Red Cell Distribution Width 21.2 % (12.1-15.1); White Blood Count 21.7 10^3/uL (4.0-10.0)
[2020-12-26 04:17] LABS: Anion Gap 11.7 (5-19); Blood Urea Nitrogen 14 mg/dL (8-23); Calcium 9.9 mg/dL (8.5-10.5); Carbon Dioxide 20 mmol/L (22-29); Chloride 103 mmol/L (98-107); Glucose 141 mg/dL (65-115); Osmolality Calculated 273 mOsm/kg (285-295); Potassium 4.7 mmol/L (3.5-5.1); Sodium 130 mmol/L (136-145)
[2020-12-26] MEDS: HYDROcodone-acetaminophen 5-325 mg Tablet 1 TAB PO ×2 (06:09→17:26)
[2020-12-26] MEDS: piperacillin-tazobactam 3.375 GM in sodium chloride 0.9% (plus) 50 ML IV ×3 (06:09→21:14)
[2020-12-26] MEDS: ALPRAZolam 0.25 mg Tablet PO ×3 (06:10→21:28)
[2020-12-26] MEDS: diphenhydrAMINE 50 mg/mL SDV 1mL 12.5 MG IVP (06:23)
--- NOTE | 2020-12-26 06:52 | PC.NURSE ---
Shift Summary; Patient had multiple episodes of pain throughout night. PRN medications given as indicated. More onset confusion noted by RN. Patient redirected patient to little avail at times. Early this AM RN observed patient pulling NG tube, vigorously scratching at skin, and attempting to tear off patient ID bands/monitoring devices. PRN medications given as ordered. 280 u/o total throughout shift.
[2020-12-26] MEDS: pantoprazole 40 mg SDV IVP (08:47)
[2020-12-26] MEDS: duloxetine 60 mg Capsule PO (08:47)
[2020-12-26] MEDS: memantine 5 mg tablet 10 MG PO ×2 (08:47→17:27)
[2020-12-26] MEDS: metoprolol tartrate 25 mg Tablet PO ×2 (08:47→20:34)
[2020-12-26] MEDS: lactulose oral liq 20 gm/30 mL UDC 10 GM PO ×2 (08:48→20:35)
--- NOTE | 2020-12-26 10:35 | PM.PN ---
Subjective Subjective: Interval history: Overnight patient was brought to the ICU after she underwent left hemicolectomy and ileostomy for monitoring. On examination patient lying comfortably in bed with at bedside, NG tube is still in place. Patient is awake, alert complaining of mild pain. Patient has just received pain medication 30 minutes prior to my examination. Currently patient is on 2 L oxygen supplementation saturating 98%. Maps have remained over 65. Heart rate running in 140s, sinus rhythm. Estimated blood loss 350, received 5000 cc of fluid, 1 unit of blood during OR Vitals/I&O/Wt Last Vital Signs Temp 97.6 F 12/25/20 19:05 Pulse 103 H 12/26/20 08:46 Resp 20 H 12/26/20 08:48 BP 118/73 12/25/20 20:05 Pulse Ox 95 12/26/20 08:48 12/25/20 12/26/20 12/26/20 22:59 06:59 14:59 Intake Total 330 / 1101.667 200 / 1301.667 Output Total 265 / 265 275 / 540 Balance 65 / 836.667 -75 / 761.667 Physical Exam Narrative: EXAM NARRATIVE: General: In distress because of abdominal pain, NG tube in place, AO x3, tired appearing HEENT: PERRLA pupils bilaterally equal and reactive Chest:Bronchial breath sounds b/l ,decreased air entry, equal good air entry bilaterally, no more fine basal crackles CVS: S1-S2 regular, no murmurs, tachycardia, no gallops, no rubs Abdomen: Soft, nontender, not distended, surgical incision with dry dressing, left lower quadrant ileostomy present slightly edematous without any stool in bag. Neuro: No focal deficits, no facial deformity, AO x3, power 5/5 in all limbs Urinary Catheter Management^: Hargrove Latex: Cath Placed During This Visit: yes Reason for Continuing Indwelling Catheter: Accurate Measurement of Urinary Output in Critically Ill Patients Urinary Catheter Date of Insertion: 12/23/20 Urinary Catheter Time of Insertion: 21:30 Data : 12/26/20 02:57 12/26/20 02:57 Other Labs: Microbiology 12/23/20 12:30 Urine,Clean Catch Urine Culture - Preliminary Staphylococcus aureus 12/23/20 16:00 Blood Blood Culture - Preliminary NEGATIVE TO DATE 12/23/20 11:35 Blood Blood Culture - Preliminary NEGATIVE TO DATE 12/24/20 06:55 Nose MRSA Culture - Final 12/23/20 12:30 Urine Kidney Bacterial Antigens - Final A&P Assessment and plan (1) Large bowel obstruction: Status: Acute (2) H/O malignant neoplasm of colon: Status: Acute (3) S/P left hemicolectomy: Status: Acute (4) HTN (hypertension): Status: Acute (5) UTI (urinary tract infection): Status: Acute (6) Hyponatremia: Status: Acute Additional A&P Information Large bowel obstruction: Post left hemicolectomy with ileostomy. Postoperative day 2. Pain management, diet advancement, physical therapy, anticoagulation as per surgical team. Continue with gentle hydration with normal saline 75 cc/h. Leukocytosis: Most likely reactive from the OR yesterday. Patient has remained afebrile and hemodynamically stable at present. We will continue to monitor the trend. If patient spikes fever will go for broad-spectrum antibiotics. For now continue with Zosyn postoperatively which will also cover for possible UTI. Hypertension: Goal blood pressure less than 140/90 mmHg with mean over 65. Continue with metoprolol for milligrams twice daily. Pain management. Restart home anxiety medications including Cymbalta, memantine. Start on Xanax 0.5 3 times daily as needed. UTI: Urine culture growing staph aureus. Sensitivities pending. For now continue with Zosyn. Hyponatremia: Change fluids from D5 half NS to NS at 50 cc/h. Monitor daily for now. We will change medication as per clinical picture postoperatively. Full code. Clear liquid diet, advance as per surgery. Lovenox for DVT prophylaxis Protonix for PUD prophylaxis. Attestations Medical Necessity Statement*: Patient requires further hospitalization for postoperative management for post left hemicolectomy with ileostomy for large bowel obstruction and history of malignant neoplasm, UTI Procedures Arterial Line Size (Gauge): 20 Coding Level of Care Code Acute Film Or Videotape Editor for Chg Fwd Diagnoses Large bowel obstruction K56.609 H/O malignant neoplasm of colon Z85.038 S/P left hemicolectomy Z90.49 HTN (hypertension) I10 UTI (urinary tract infection) N39.0 Hyponatremia E87.1
[2020-12-26] MEDS: iron sucrose 200 MG in sodium chloride 0.9% (100 ml) 100 ML 220 MG IV (10:58)
[2020-12-26] MEDS: sodium chloride 0.9% 1,000 ML 50 ML IV (10:58)
--- NOTE | 2020-12-26 13:23 | PC.SOCIAL ---
IMM Update Pg. 2 of IMM updated and reviewed with patient's who is at bedside, who verbalized understanding. Copy provided.
--- NOTE | 2020-12-26 14:49 | P.PN_ITS ---
Subjective Subjective: Interval history: Patient's ostomy is functioning, she tolerated clears with the NG tube clamped, her tachycardia is improved Vitals/I&O/Wt Last Vital Signs Temp 97.6 F 12/25/20 19:05 Pulse 103 H 12/26/20 08:46 Resp 20 H 12/26/20 08:48 BP 118/73 12/25/20 20:05 Pulse Ox 95 12/26/20 08:48 12/25/20 12/26/20 12/26/20 22:59 06:59 14:59 Intake Total 330 / 1301.667 200 / 8764.699 7882 / 1310 Output Total 265 / 540 275 / 540 200 / 200 Balance 65 / 761.667 -75 / 928.104 9672 / 1110 Physical Exam Narrative: EXAM NARRATIVE: Abdomen: Soft, tender, incision clean dry and intact, ostomy pink and functioning Urinary Catheter Management^: Hargrove Latex: Cath Placed During This Visit: yes Reason for Continuing Indwelling Catheter: Accurate Measurement of Urinary Output in Critically Ill Patients Urinary Catheter Date of Insertion: 12/23/20 Urinary Catheter Time of Insertion: 21:30 Data : 12/26/20 02:57 12/26/20 02:57 Micro: Microbiology 12/23/20 12:30 Urine Culture - Preliminary Urine,Clean Catch Staphylococcus aureus A&P Assessment and plan (1) S/P left hemicolectomy: 75-year-old female status post left hemicolectomy with ileostomy for his large bowel obstruction from a splenic flexure mass, with postop ileus, currently hemodynamically stable Advance to full liquid diet, start Ensure supplements Out of bed to chair Case management for alf placement Physical therapy DC Hargrove catheter Morphine, [place] for pain control Lactulose for bowel regimen Lovenox SCD for DVT prophylaxis Protonix for GI prophylaxis Hemoglobin stable Hyponatremia: Fluids changed to normal saline WBC: 21.7, afebrile, continue IV Zosyn for UTI showing staph aureus and for abdominal prophylaxis Metoprolol restarted as patient is tachycardic in the 140s, improved We will keep the patient in the ICU for 1 more night, transferred to the floor tomorrow Status: Acute Attestations Medical Necessity Statement*: Status post left hemicolectomy with postop ileus, malnutrition requiring continued inpatient stay Procedures Arterial Line Size (Gauge): 20 Coding Level of Care Code Acute Automobile Accessories Salesperson for Chg Fwd Diagnoses S/P left hemicolectomy Z90.49
--- NOTE | 2020-12-26 16:50 | PC.NURSE ---
Pt OOB to chair. She was able to stand up with 2 assist. 3 nurses at bed side to assist. Urine leaking out around catheter. Removed cath, 10 ml of Fluid removed from balloon prior. Pt tolerated well.
[2020-12-26] MEDS: enoxaparin 40 mg/0.4 mL Syringe SUBCUT (17:27)
--- NOTE | 2020-12-26 18:07 | PC.NURSE ---
Pt back to bed, on second attempt. First attempt 2 assist unable to get her out of chair, even though she said she was doing it. . Second attempt 4 assist and coaching, maximum assist. Pt up out of chair but would not completely straighten up.She kept saying let me sit down. Pt ended up across the bed, Then repositioned with 4 assist to straighten up in bed. Pt incontinent of urine twice during this occurrence. Pericare and bed linen change provided.
--- NOTE | 2020-12-26 21:00 | PC.NURSE ---
Patient Confused When patient asked what year it is she stated, 1919 and then when patient asked to take a drink of water through a straw she counts from 1-10 and does not drink anything through the straw.
[2020-12-27] VITALS (75 sets, daily range): BP systolic 124–160; BP diastolic 73–127; PULSE 73–114; RESP 12–26; TEMP 36.1–36.6; O2SAT 83–100; BMI 37.4
[2020-12-27] MEDS: LORazepam 2 mg/mL INJ 1 mL 0.5 MG IVP (03:12)
--- NOTE | 2020-12-27 03:19 | PC.NURSE ---
Patient Pulling at Wires Patient keeps taking gown off and is pulling at blood pressure cuff, telemetry wires, colostomy bag, and IV sites. Called Dr. Diaz and informed him the patient is pulling at the colostomy bag and IV sites. Received a one time verbal order for 0.5 mg of IVP Ativan.
[2020-12-27] MEDS: diphenhydrAMINE 50 mg/mL SDV 1mL 12.5 MG IVP (03:38)
[2020-12-27] MEDS: ALPRAZolam 0.25 mg Tablet PO ×2 (03:46→13:33)
[2020-12-27] MEDS: piperacillin-tazobactam 3.375 GM in sodium chloride 0.9% (plus) 50 ML IV ×3 (05:38→21:36)
[2020-12-27] MEDS: sodium chloride 0.9% 1,000 ML 50 ML IV (05:47)
--- NOTE | 2020-12-27 05:49 | PC.NURSE ---
Shift Summary Patient is calm and resting at this time. NS infusing at 50 mls/hr and Zosyn infusing at 12.5 mls/hr in the left neck IV site. Right forearm and right AC IV sites do not have anything infusing at this time. Patient is on 4 liters of NC. Patient is very confused at this time and cannot state the date or where she is at. Patient is oriented to self only at this time. Patient has only had one complaint of pain in her back all evening. Colostomy had 800 mls out of dark brown/green liquid. No urine output overnight.
[2020-12-27 05:51] LABS: Basophils % 0.1 %; Eosinophils # 0.1 10^3/uL (0.0-0.8); Eosinophils % 0.4 %; Hemoglobin 8.8 g/dL (11.5-15.3); Lymphocytes % 6.9 %; Mean Corpuscular HGB Conc 29.3 g/dL (30.0-36.0); Mean Corpuscular Hemoglobin 24.8 pg (28.0-34.0); Mean Corpuscular Volume 84.5 fL (81-99); Mean Platelet Volume 9.8 fL (7.4-10.4); Monocytes # 1.1 10^3/uL (0.2-0.9); Monocytes % 7.3 %; Neutrophils # 12.55 10^3/uL (1.8-7.7); Neutrophils % 84.9 %; Nucleated Red Blood Cells % 0 %; Platelet Count 300 10^3/cmm (130-400); Red Blood Count 3.55 10^6/uL (4.1-5.3); Red Cell Distribution Width 21.8 % (12.1-15.1); White Blood Count 14.8 10^3/uL (4.0-10.0)
[2020-12-27 06:09] LABS: Anion Gap 11.2 (5-19); Blood Urea Nitrogen 15 mg/dL (8-23); Calcium 10.9 mg/dL (8.5-10.5); Carbon Dioxide 23 mmol/L (22-29); Chloride 105 mmol/L (98-107); Glucose 75 mg/dL (65-115); Osmolality Calculated 280 mOsm/kg (285-295); Potassium 4.2 mmol/L (3.5-5.1); Sodium 135 mmol/L (136-145)
[2020-12-27] MEDS: memantine 5 mg tablet 10 MG PO ×2 (09:44→17:37)
[2020-12-27] MEDS: metoprolol tartrate 25 mg Tablet PO ×2 (09:44→19:57)
[2020-12-27] MEDS: HYDROcodone-acetaminophen 5-325 mg Tablet 1 TAB PO ×2 (09:44→20:07)
[2020-12-27] MEDS: pantoprazole 40 mg SDV IVP (09:45)
[2020-12-27] MEDS: lactulose oral liq 20 gm/30 mL UDC 10 GM PO ×2 (09:45→19:57)
--- NOTE | 2020-12-27 09:45 | PC.NURSE ---
MAR other delay due to caring for other patients at Lactulose due time.
[2020-12-27] MEDS: duloxetine 60 mg Capsule PO (09:46)
[2020-12-27] MEDS: ondansetron 2 mg/ML SDV 2 mL 4 MG IVP ×2 (10:29→23:05)
--- NOTE | 2020-12-27 10:35 | PC.NURSE ---
Emesis noted. Zofran admin. Will continue to monitor.
[2020-12-27] MEDS: iron sucrose 200 MG in sodium chloride 0.9% (100 ml) 100 ML 220 MG IV (10:59)
--- NOTE | 2020-12-27 11:00 | PC.NURSE ---
PT workig with pt. Left EJ IV out. Gauze dressing applied, pressure held until bleeding stopped. Catheter tip intact. No redness or swelling noted at site. Patient tolerated well..
--- NOTE | 2020-12-27 11:15 | PC.NURSE ---
1000 assessment and rounding not completed due to this nurse caring for 3 pt and other pt's urgent care needs.
--- NOTE | 2020-12-27 12:58 | PM.PN ---
Subjective Subjective: Interval history: Patient was up in chair, tolerating full liquid diet, ostomy is functioning Vitals/I&O/Wt Last Vital Signs Temp 97.6 F 12/27/20 04:00 Pulse 90 12/27/20 06:00 Resp 15 12/27/20 05:35 BP 133/76 12/27/20 05:35 Pulse Ox 83 L 12/27/20 02:55 12/26/20 12/27/20 12/27/20 22:59 06:59 14:59 Intake Total 150 / 2450.833 990.833 / 2450.833 50 / 50 Output Total 700 / 1700 800 / 1700 Balance -550 / 750.833 190.833 / 750.833 50 / 50 Weight last 48 hrs Weight 225 lb 3 oz Physical Exam Narrative: EXAM NARRATIVE: Abdomen: Soft, nondistended, tender, incision clean dry and intact, ostomy pink and functioning Urinary Catheter Management^: H[employer]rove Latex: Cath Placed During This Visit: yes, but has since been removed by the nurse Reason for Continuing Indwelling Catheter: Accurate Measurement of Urinary Output in Critically Ill Patients Urinary Catheter Date of Insertion: 12/23/20 Urinary Catheter Time of Insertion: 21:30 Date Urinary Catheter Removed: 12/26/20 Time Urinary Catheter Discontinued: 16:40 Data : 12/27/20 05:36 12/27/20 05:36 Micro: Microbiology 12/23/20 12:30 Urine Culture - Final Urine,Clean Catch Staphylococcus aureus A&P Assessment and plan (1) S/P left hemicolectomy: 75-year-old female status post left hemicolectomy with ileostomy for his large bowel obstruction from a splenic flexure mass, with postop ileus, currently hemodynamically stable Advance to GI soft diet, start Ensure supplements Out of bed to chair Case management for [facility] placement Physical therapy Morphine, [place] for pain control Lactulose for bowel regimen Lovenox SCD for DVT prophylaxis Protonix for GI prophylaxis Hemoglobin stable Hyponatremia: Dull, DC IV fluids WBC: Down to 14.8, afebrile, continue IV Zosyn for UTI showing staph aureus and for abdominal prophylaxis Metoprolol restarted as patient is tachycardic in the 140s, improved Transfer to floor, hopefully patient can be discharged to [facility] on 12/29/2020 Status: Acute Attestations Medical Necessity Statement*: Status post left hemicolectomy requiring continued status post left hemicolectomy requiring continued inpatient stay Procedures Arterial Line Size (Gauge): 20 Coding Level of Care Code Acute Doctor Of Chiropractic for Chg Fwd Diagnoses S/P left hemicolectomy Z90.49
[2020-12-27] MEDS: acetaminophen 325 mg Tablet 650 MG PO (13:33)
--- NOTE | 2020-12-27 14:00 | PC.NURSE ---
Pt complaining of abdominal pain. She stated I had surgery now put me to bed. She was getting agitated. She wanted pain med. Acetaminophen and xanax administered. Discussed with pt using the BSC because she had not used it yet to urinate today. Pt stated she hade already done that a couple times today, reminded her that that was yesterday. Pt then agreeable to try BSC. Assisted pt, 2 assist and walker to BSC. Jossy urine noted. Pt assisted to W/C. for impending transfer. Pt stated she felt much better.
--- NOTE | 2020-12-27 14:12 | PC.NURSE ---
Report faxed to [employer].
--- NOTE | 2020-12-27 14:28 | PC.NURSE ---
Report called to [facility].Report given to MELL Mendoza
--- NOTE | 2020-12-27 14:45 | PC.NURSE ---
Pt trasnferred to [facility] room 258 via W/C. All belongings with pt.
[2020-12-27] MEDS: enoxaparin 40 mg/0.4 mL Syringe SUBCUT (17:37)
--- NOTE | 2020-12-27 18:40 | P.PN_ITS ---
Subjective Subjective: Interval history: She is confused due to dementia, is at bedside. She reports is having some pain in her belly. denies any vomiting. When asked about her appetite, says it is not good. He is not oriented. Vitals/I&O/Wt Last Vital Signs Temp 97.8 F 12/27/20 15:28 Pulse 91 12/27/20 15:28 Resp 18 12/27/20 15:28 BP 135/85 12/27/20 15:28 Pulse Ox 94 12/27/20 15:28 12/27/20 12/27/20 12/27/20 06:59 14:59 22:59 Intake Total 990.833 / 2450.833 810 / 810 645 / 1455 Output Total 800 / 1700 1200 / 1200 400 / 1600 Balance 190.833 / 750.833 -390 / -390 245 / -145 Weight last 48 hrs Weight 102.143 kg Physical Exam Const: COMMON NORMALS: no acute distress and alert; negative for patient oriented x3 NUTRITIONAL APPEARANCE: obese ORIENTATION/CONSCIOUSNESS: Yes awake HENMT: COMMON NORMALS: oropharynx normal Neck/C-Spine: COMMON NORMALS: no JVD Resp: COMMON NORMALS: normal respiratory effort and clear to auscultation bilaterally AUSCULTATION: clear to auscultation bilaterally Cardio: COMMON NORMALS: no JVD, regular rhythm, S1 normal heart sound present, S2 normal heart sound present and No murmurs present (Cardio) RHYTHM: regular rhythm HEART SOUNDS: S1 normal heart sound present and S2 normal heart sound present GI: COMMON NORMALS: Normal to inspection, nondistended, normoactive bowel sounds present, Soft to palpation and non-tender PALPATION: Yes Soft to palpation OTHER: Ostomy functioning in the left lower abdomen Midline incision covered by dressing Extremity: COMMON NORMALS: no joint enlargement and no pedal edema Neuro: COMMON NORMALS: moves all extremities; negative for patient oriented x3 SENSORIUM/ORIENTATION: Yes alert Skin: COMMON NORMALS: no rashes or lesions noted GENERAL SKIN EXAM: no rashes or lesions noted Urinary Catheter Management^: Hargrove Latex: Cath Placed During This Visit: yes, but has since been removed by the nurse Reason for Continuing Indwelling Catheter: Accurate Measurement of Urinary Output in Critically Ill Patients Urinary Catheter Date of Insertion: 06/03/21 Urinary Catheter Time of Insertion: 21:30 Date Urinary Catheter Removed: 12/26/20 Time Urinary Catheter Discontinued: 16:40 Data : 12/27/20 05:36 12/27/20 05:36 Micro: Microbiology 12/23/20 12:30 Urine Culture - Final Urine,Clean Catch Staphylococcus aureus A&P Assessment and plan (1) Large bowel obstruction: Tolerating diet, although appetite is not good. Agree with discontinuation of IV fluids. Advance diet as tolerating. Mobilize as tole rating. Requires significant assistance, also with deconditioning, will benefit from skilled nurse facility rehabilitation. Status: Acute (2) H/O malignant neoplasm of colon: Status: Acute (3) S/P left hemicolectomy: Status: Acute (4) HTN (hypertension): Close to goal this afternoon 135/85. This morning with few elevated episo pamella, as high as 160/79. Continue metoprolol for now. Status: Acute (5) UTI (urinary tract infection): Possible UTI. 20-30,000 Staphylococcus. Currently empirically on Zosyn. Non-MRSA. Blood culture negative. Bacteremia at this time not suspected as the source. Status: Acute (6) Hyponatremia: Mild. Oral intake is tolerating. Status: Acute Additional A&P Information Leukocytosis: Improving. Continues empirically on Zosyn at this time, as well as for possible urinary tract infection. No reported hydronephrosis. No bacteremia. Pain management.continue Cymbalta, memantine. Xanax 0.5 3 times daily as needed. Attestations Medical Necessity Statement*: Continue admission following hemicolectomy due to neoplasm with obstruction with pelvic cytosis, UTI, in a lady with dementia. Procedures Arterial Line Size (Gauge): 20 Coding Level of Care Code Acute Integrity Consultant for g Fwd Diagnoses Large bowel obstruction K56.609 H/O malignant neoplasm of colon Z85.038 S/P left hemicolectomy Z90.49 HTN (hypertension) I10 UTI (urinary tract infection) N39.0 Hyponatremia E87.1
[2020-12-27] MEDS: morphine 4 mg/mL SDV 1 mL 3 MG IVP (23:08)
--- NOTE | 2020-12-27 23:25 | PC.NURSE ---
NAUSEA/PAIN Had small bile emesis and cont with c/o nausea afterwards. says she has been saying abdomen was hurting as well and says she has been little restless. RN medicated with IV Zofran & Morphine
[2020-12-28] VITALS (10 sets, daily range): BP systolic 120–149; BP diastolic 72–86; PULSE 77–116; RESP 16–18; TEMP 36.4–36.9; O2SAT 92–94
[2020-12-28 02:42] LABS: Basophils % 0.2 %; Eosinophils # 0.1 10^3/uL (0.0-0.8); Eosinophils % 0.7 %; Hematocrit 30.7 % (37.0-47.0); Lymphocytes # 1.3 10^3/uL (0.8-4.8); Lymphocytes % 9.3 %; Mean Corpuscular HGB Conc 29.3 g/dL (30.0-36.0); Mean Corpuscular Hemoglobin 25.6 pg (28.0-34.0); Mean Corpuscular Volume 87.2 fL (81-99); Monocytes # 0.9 10^3/uL (0.2-0.9); Monocytes % 6.7 %; Neutrophils # 11.19 10^3/uL (1.8-7.7); Neutrophils % 82.7 %; Nucleated Red Blood Cells % 0 %; Platelet Count 370 10^3/cmm (130-400); Red Blood Count 3.52 10^6/uL (4.1-5.3); Red Cell Distribution Width 22.1 % (12.1-15.1); White Blood Count 13.5 10^3/uL (4.0-10.0)
[2020-12-28 03:06] LABS: Anion Gap 15.6 (5-19); Blood Urea Nitrogen 13 mg/dL (8-23); Calcium 10.9 mg/dL (8.5-10.5); Carbon Dioxide 19 mmol/L (22-29); Chloride 102 mmol/L (98-107); Glucose 60 mg/dL (65-115); Osmolality Calculated 274 mOsm/kg (285-295); Potassium 3.6 mmol/L (3.5-5.1); Sodium 133 mmol/L (136-145)
[2020-12-28] MEDS: piperacillin-tazobactam 3.375 GM in sodium chloride 0.9% (plus) 50 ML IV ×3 (06:53→23:35)
[2020-12-28] MEDS: duloxetine 60 mg Capsule PO (09:09)
[2020-12-28] MEDS: metoprolol tartrate 25 mg Tablet PO ×2 (09:09→20:57)
[2020-12-28] MEDS: memantine 5 mg tablet 10 MG PO ×2 (09:09→17:50)
[2020-12-28] MEDS: pantoprazole 40 mg SDV IVP (09:10)
[2020-12-28] MEDS: lactulose oral liq 20 gm/30 mL UDC 10 GM PO (09:10)
--- NOTE | 2020-12-28 10:27 | PC.SOCIAL ---
IMM Update Pg.2 of IMM Updated and reviewed with patient and family at bedside. Copy provided.
[2020-12-28] MEDS: iron sucrose 200 MG in sodium chloride 0.9% (100 ml) 100 ML 220 MG IV (11:23)
--- NOTE | 2020-12-28 12:49 | PM.PN ---
Subjective Subjective: Interval history: Sitting up in chair, denies any different abdominal pain, had one episode of emesis yesterday. She apparently has been confused but she is tolerating a regular diet and her ostomy is functioning Vitals/I&O/Wt Last Vital Signs Temp 97.8 F 12/28/20 12:00 Pulse 90 12/28/20 12:00 Resp 18 12/28/20 12:00 BP 149/78 12/28/20 12:00 Pulse Ox 94 12/28/20 12:00 12/27/20 12/28/20 12/28/20 22:59 06:59 14:59 Intake Total 645 / 1965 510 / 1965 340 / 340 Output Total 550 / 2500 750 / 2500 345 / 345 Balance 95 / -535 -240 / -535 -5 / -5 Weight last 48 hrs Weight 228 lb 3.2 oz Weight 225 lb 3 oz Physical Exam Narrative: EXAM NARRATIVE: Abdomen: Soft, minimally tender, nondistended, incision clean dry and intact, ostomy left lower quadrant, pink and functioning Urinary Catheter Management^: Hargrove Latex: Cath Placed During This Visit: yes, but has since been removed by the nurse Reason for Continuing Indwelling Catheter: Accurate Measurement of Urinary Output in Critically Ill Patients Urinary Catheter Date of Insertion: 12/23/20 Urinary Catheter Time of Insertion: 21:30 Date Urinary Catheter Removed: 12/26/20 Time Urinary Catheter Discontinued: 16:40 Data : 12/28/20 02:08 12/28/20 02:08 Micro: Microbiology 12/23/20 12:30 Urine Culture - Final Urine,Clean Catch Staphylococcus aureus A&P Assessment and plan (1) S/P left hemicolectomy: 75-year-old female status post left hemicolectomy with ileostomy for her large bowel obstruction from a splenic flexure mass, with postop ileus, resolved currently hemodynamically stable GI soft diet, Ensure supplements Out of bed to chair Case management for detention placement, hopefully detention tomorrow Physical therapy Morphine, [place] for pain control DC lactulose since patient had 1800 and ostomy output Lovenox SCD for DVT prophylaxis Protonix for GI prophylaxis Hemoglobin stable WBC: Down to 13.5, afebrile, continue IV Zosyn for UTI showing staph aureus and for abdominal prophylaxis Metoprolol restarted as patient is tachycardic in the 140s, improved Status: Acute Attestations Medical Necessity Statement*: Patient will need 1 more night of inpatient stay, can hopefully go to detention tomorrow Procedures Arterial Line Size (Gauge): 20 Coding Level of Care Code Acute Government Gauger for Chg Fwd Diagnoses S/P left hemicolectomy Z90.49
[2020-12-28] MEDS: enoxaparin 40 mg/0.4 mL Syringe SUBCUT (17:49)
--- NOTE | 2020-12-28 20:55 | P.PN_ITS ---
Subjective Subjective: Interval history: Appetite is not the best. Having some pain in her back, otherwise denies pain in the abdomen or elsewhere. No vomiting. Review of systems limited and not trustworthy due to advanced dementia. Her sister is accompanying her by the bedside. Vitals/I&O/Wt Last Vital Signs Temp 97.6 F 12/28/20 20:00 Pulse 97 12/28/20 20:00 Resp 16 12/28/20 20:00 BP 120/72 12/28/20 20:00 Pulse Ox 93 12/28/20 20:00 12/28/20 12/28/20 12/28/20 06:59 14:59 22:59 Intake Total 510 / 1965 340 / 340 240 / 580 Output Total 750 / 2500 1295 / 1295 2625 / 3920 Balance -240 / -535 -955 / -955 -2385 / -3340 Weight last 48 hrs Weight 103.51 kg Weight 102.143 kg Physical Exam Const: COMMON NORMALS: no acute distress and alert; negative for patient oriented x3 NUTRITIONAL APPEARANCE: obese ORIENTATION/CONSCIOUSNESS: Yes awake HENMT: COMMON NORMALS: oropharynx normal Neck/C-Spine: COMMON NORMALS: no JVD Resp: COMMON NORMALS: normal respiratory effort and clear to auscultation bilaterally AUSCULTATION: clear to auscultation bilaterally Cardio: COMMON NORMALS: no JVD, regular rhythm, S1 normal heart sound present, S2 normal heart sound present and No murmurs present (Cardio) RHYTHM: regular rhythm HEART SOUNDS: S1 normal heart sound present and S2 normal heart sound present GI: COMMON NORMALS: Normal to inspection, nondistended, normoactive bowel sounds present, Soft to palpation and non-tender AUSCULTATION: Yes Hyperactive bowel sounds present PALPATION: Yes Soft to palpation OTHER: Ostomy functioning in the left lower abdomen Midline incision covered by dressing Extremity: COMMON NORMALS: no joint enlargement and no pedal edema Neuro: COMMON NORMALS: moves all extremities; negative for patient oriented x3 SENSORIUM/ORIENTATION: Yes alert Skin: COMMON NORMALS: no rashes or lesions noted GENERAL SKIN EXAM: no rashes or lesions noted Urinary Catheter Management^: H[place]rove Latex: Cath Placed During This Visit: yes, but has since been removed by the nurse Reason for Continuing Indwelling Catheter: Accurate Measurement of Urinary Output in Critically Ill Patients Urinary Catheter Date of Insertion: 12/23/20 Urinary Catheter Time of Insertion: 21:30 Date Urinary Catheter Removed: 12/26/20 Time Urinary Catheter Discontinued: 16:40 Data : 12/28/20 02:08 12/28/20 02:08 Micro: Microbiology 12/23/20 16:00 Blood Culture - Final Blood NO GROWTH AFTER 5 DAYS 12/23/20 11:35 Blood Culture - Final Blood NO GROWTH AFTER 5 DAYS A&P Assessment and plan (1) S/P left hemicolectomy: Denies abdominal pain. Colostomy appears to be functioning. Somewhat hypoactive bowel sounds. No vomiting. Tolerating oral intake. Leukocytosis appears to be gradually decreasing. Continue to mobilize as tolerating. If continues to improve, no issues with persistent ileus, tolerating oral int marquis, perhaps can proceed to rehabilitation at care home facility. Status: Acute (2) Large bowel obstruction: Resolved. Status: Acute (3) H/O malignant neoplasm of colon: Status: Acute (4) HTN (hypertension): Blood pressure currently at goal, 120/72. Continue metoprolol for now. Status: Acute (5) UTI (urinary tract infection): Possible UTI. 20-30,000 Staphylococcus. Currently empirically on Zosyn. Non-MRSA. Blood culture negative. Bacteremia at this time not suspected as the source. Complete 5-day course. Given atypical organism possible surveillance culture can be considered. Status: Acute (6) Hyponatremia: Mild. Oral intake is tolerating. Status: Acute Additional A&P Information Leukocytosis: Improving. Continues empirically on Zosyn at this time, as well as for possible urinary tract infection. No reported hydronephrosis. No bacteremia. Pain management.continue Cymbalta, memantine. Xanax 0.5 3 times daily as needed. Attestations Medical Necessity Statement*: Continue admission for assessment management following bowel obstruction, hemicolectomy, with persistent leukocytosis gradually improving, persistent tachycardia, and lady with underlying dementia, unreliable review of systems. Procedures Arterial Line Size (Gauge): 20 Coding Level of Care Code Acute Senior Software Quality Analyst for Chg Fwd Diagnoses S/P left hemicolectomy Z90.49 Large bowel obstruction K56.609 H/O malignant neoplasm of colon Z85.038 HTN (hypertension) I10 UTI (urinary tract infection) N39.0 Hyponatremia E87.1
[2020-12-29] VITALS (9 sets, daily range): BP systolic 104–124; BP diastolic 58–76; PULSE 80–120; RESP 17–20; TEMP 36.3–37.1; O2SAT 94–95
[2020-12-29 02:41] LABS: Basophils % 0.2 %; Eosinophils # 0.1 10^3/uL (0.0-0.8); Hematocrit 27.7 % (37.0-47.0); Hemoglobin 8.6 g/dL (11.5-15.3); Lymphocytes # 1.4 10^3/uL (0.8-4.8); Lymphocytes % 12.8 %; Mean Corpuscular Hemoglobin 25.7 pg (28.0-34.0); Mean Corpuscular Volume 82.7 fL (81-99); Mean Platelet Volume 9.3 fL (7.4-10.4); Monocytes # 0.9 10^3/uL (0.2-0.9); Monocytes % 8.3 %; Neutrophils # 8.18 10^3/uL (1.8-7.7); Neutrophils % 77.1 %; Nucleated Red Blood Cells % 0 %; Platelet Count 333 10^3/cmm (130-400); Red Blood Count 3.35 10^6/uL (4.1-5.3); Red Cell Distribution Width 21.8 % (12.1-15.1); White Blood Count 10.6 10^3/uL (4.0-10.0)
[2020-12-29 03:03] LABS: Anion Gap 14.2 (5-19); Blood Urea Nitrogen 11 mg/dL (8-23); Calcium 10.9 mg/dL (8.5-10.5); Carbon Dioxide 22 mmol/L (22-29); Chloride 101 mmol/L (98-107); Glucose 58 mg/dL (65-115); Osmolality Calculated 275 mOsm/kg (285-295); Potassium 3.2 mmol/L (3.5-5.1); Sodium 134 mmol/L (136-145)
[2020-12-29] MEDS: piperacillin-tazobactam 3.375 GM in sodium chloride 0.9% (plus) 50 ML IV (05:58)
[2020-12-29] MEDS: metoprolol tartrate 25 mg Tablet PO (08:43)
[2020-12-29] MEDS: memantine 5 mg tablet 10 MG PO (08:43)
[2020-12-29] MEDS: duloxetine 60 mg Capsule PO (08:43)
[2020-12-29] MEDS: pantoprazole 40 mg SDV IVP (08:44)
[2020-12-29] MEDS: potassium chloride oral liq 20 mEq/15 mL UDC PO (08:58)
[2020-12-29] MEDS: iron sucrose 200 MG in sodium chloride 0.9% (100 ml) 100 ML 220 MG IV (11:33)
--- NOTE | 2020-12-29 12:04 | P.PN_ITS ---
Subjective Subjective: Interval history: Sleeping, but wakes up easily. Denies any pain, denies any needs or discomfort. When asked if she might eat today and whether appetite is somewhat better, states that yes. Vitals/I&O/Wt Last Vital Signs Temp 97.3 F L 12/29/20 11:32 Pulse 80 12/29/20 11:32 Resp 18 12/29/20 11:32 BP 116/71 12/29/20 11:32 Pulse Ox 95 12/29/20 11:32 12/28/20 12/29/20 12/29/20 22:59 06:59 14:59 Intake Total 290 / 630 50 / 680 50 / 50 Output Total 2625 / 3920 650 / 4570 300 / 300 Balance -2335 / -3290 -600 / -3890 -250 / -250 Weight last 48 hrs Weight 98.43 kg Weight 103.51 kg Physical Exam Const: COMMON NORMALS: no acute distress and alert; negative for patient oriented x3 NUTRITIONAL APPEARANCE: obese ORIENTATION/CONSCIOUSNESS: Yes awake HENMT: COMMON NORMALS: oropharynx normal Neck/C-Spine: COMMON NORMALS: no JVD Resp: COMMON NORMALS: normal respiratory effort and clear to auscultation bilaterally AUSCULTATION: clear to auscultation bilaterally Cardio: COMMON NORMALS: no JVD, regular rhythm, S1 normal heart sound present, S2 normal heart sound present and No murmurs present (Cardio) RHYTHM: regular rhythm HEART SOUNDS: S1 normal heart sound present and S2 normal heart sound present GI: COMMON NORMALS: Normal to inspection, nondistended, normoactive bowel sounds present, Soft to palpation and non-tender AUSCULTATION: Yes Hyperactive bowel sounds present PALPATION: Yes Soft to palpation OTHER: Ostomy functioning in the left lower abdomen Midline incision covered by dressing Extremity: COMMON NORMALS: no joint enlargement and no pedal edema Neuro: COMMON NORMALS: moves all extremities; negative for patient oriented x3 SENSORIUM/ORIENTATION: Yes alert Skin: COMMON NORMALS: no rashes or lesions noted GENERAL SKIN EXAM: no rashes or lesions noted Urinary Catheter Management^: H[employer]rove Latex: Cath Placed During This Visit: yes, but has since been removed by the nurse Reason for Continuing Indwelling Catheter: Accurate Measurement of Urinary Output in Critically Ill Patients Urinary Catheter Date of Insertion: 12/23/20 Urinary Catheter Time of Insertion: 21:30 Date Urinary Catheter Removed: 12/26/20 Time Urinary Catheter Discontinued: 16:40 Data : 12/29/20 02:31 12/29/20 02:31 Micro: Microbiology 12/23/20 16:00 Blood Culture - Final Blood NO GROWTH AFTER 5 DAYS 12/23/20 11:35 Blood Culture - Final Blood NO GROWTH AFTER 5 DAYS A&P Assessment and plan (1) S/P left hemicolectomy: She is doing well. No pain or discomfort. Today reports she might eat little bit better. Advance diet as tolerating. Leukocytosis coming down, 10.6. From perspective of urinary tract infection likely can DC antibiotics unless needed to be continued from surgical per spective. Discussed with family at bedside. Likely to be proceeding to SNF today for rehabilitation. Continue to mobilize as tolerating. Status: Acute (2) UTI (urinary tract infection): Today would be last day for antibiotic. Consider repeat surveillance blood culture in several weeks given atypical organism, although at this time does not appear to have bacteremia, with negative blood cultures 12/13, 12/23, no s igns of septic embolic disease. Status: Acute (3) Large bowel obstruction: Resolved. Status: Acute (4) H/O malignant neoplasm of colon: Status post hemicolectomy. Pending pathology. Follow-up with surgery. Status: Acute (5) HTN (hypertension): Blood pressure currently at goal. Continue metoprolol. Status: Acute (6) Hyponatremia: Mild. Oral intake as tolerating. Status: Acute Additional A&P Information Hypokalemia: Mild, requested replacement. Continue potassium replacement, follow-up potassium level. Anemia: Hemoglobin with slight decline compared to baseline after surgery, however, appears to have around 8.5-9 last several days. Follow-up level. Leukocytosis: Resolving. No reported hydronephrosis. No bacteremia. Continue Cymbalta, memantine. Attestations Medical Necessity Statement*: Likely discharge to SNF today. Procedures Arterial Line Size (Gauge): 20 Coding Level of Care Code Acute Sales Representative Health Insurance for Chg Fwd Diagnoses S/P left hemicolectomy Z90.49 UTI (urinary tract infection) N39.0 Large bowel obstruction K56.609 H/O malignant neoplasm of colon Z85.038 HTN (hypertension) I10 Hyponatremia E87.1
--- NOTE | 2020-12-29 14:13 | PM.PN ---
Subjective Subjective: Interval history: Patient is awake and alert, no nausea or vomiting, ostomy is functioning Vitals/I&O/Wt Last Vital Signs Temp 97.3 F L 12/29/20 11:32 Pulse 80 12/29/20 11:32 Resp 18 12/29/20 11:32 BP 116/71 12/29/20 11:32 Pulse Ox 95 12/29/20 11:32 12/28/20 12/29/20 12/29/20 22:59 06:59 14:59 Intake Total 290 / 680 50 / 680 280 / 280 Output Total 2625 / 4570 650 / 4570 300 / 300 Balance -2335 / -3890 -600 / -3890 -20 / -20 Weight last 48 hrs Weight 217 lb Weight 228 lb 3.2 oz Physical Exam Narrative: EXAM NARRATIVE: Abdomen: Soft, nontender, nonrigid, incisions healing well, ostomy pink and functioning Urinary Catheter Management^: H[place]rove Latex: Cath Placed During This Visit: yes, but has since been removed by the nurse Reason for Continuing Indwelling Catheter: Accurate Measurement of Urinary Output in Critically Ill Patients Urinary Catheter Date of Insertion: 12/23/20 Urinary Catheter Time of Insertion: 21:30 Date Urinary Catheter Removed: 12/26/20 Time Urinary Catheter Discontinued: 16:40 Data : 12/29/20 02:31 12/29/20 02:31 Micro: Microbiology 12/23/20 16:00 Blood Culture - Final Blood NO GROWTH AFTER 5 DAYS 12/23/20 11:35 Blood Culture - Final Blood NO GROWTH AFTER 5 DAYS A&P Assessment and plan (1) S/P left hemicolectomy: Overall doing well Discharge to group home today Status: Acute Attestations Medical Necessity Statement*: Status post left hemicolectomy, DC to group home today Procedures Arterial Line Size (Gauge): 20 Coding Level of Care Code Acute Plate And Weld Inspector for Chg Fwd Diagnoses S/P left hemicolectomy Z90.49
--- NOTE | 2020-12-29 14:15 | P.DS_ITS ---
Discharge Providers Date of Admission: 12/23/20 15:34 Date of Discharge: December 29, 2020 Attending Provider at Admission: Jabier Meier MD Attending Provider at Discharge: Jassi Quick MD Primary Care Provider: SUSIE Tello Diagnoses at Discharge Discharge Diagnosis (1) S/P left hemicolectomy: Status: Acute Permanent problem details: with ileostomy Reason for Visit Reason for Visit: NAUSEA NOT EATING Hospital Course Hospital Course Mariangel Morales is a 75 year old female who presented to the ER today since she has been having generalized abdominal pain for the last 2 to 3 days. As per the patient's she has not had much to eat and her last bowel movement was 4 days ago. The pain is generalized, does not radiate, no aggravating or relieving factors. Patient has mild dementia. She states that she had some nausea but no vomiting. She was admitted to the hospital on 12/13/2020 for possible bowel obstruction and was discharged on 12/16/2020. At that point there was a mass noted in the splenic flexure and the plan was for an outpatient colonoscopy. Patient denies any bleeding per rectum. She was noted to be anemic on last admission and was transfused 1 unit PRBC. Patient had a right hemicolectomy for colon cancer 30 years ago and subsequently had a resection of local recurrence 10 years ago. Her last colonoscopy was in 2016 which was normal and a 5-year follow-up was recommended. Patient underwent left hemicolectomy with ileostomy on 12/24/2020. By a day 3, patient had return of bowel function and her ileostomy is functioning well. Her NG tube was discontinued and she was slowly advanced to a regular diet. At time of discharge she is tolerating a regular diet, vital signs are stable, her incision was clean dry and intact and her ostomy is functioning well. She was diagnosed with UTI showing staph aureus and was treated with IV Zosyn Physical Exam Urinary Catheter Management^: [place] Latex: Cath Placed During This Visit: yes, but has since been removed by the nurse Reason for Continuing Indwelling Catheter: Accurate Measurement of Urinary Output in Critically Ill Patients Urinary Catheter Date of Insertion: 12/23/20 Urinary Catheter Time of Insertion: 21:30 Date Urinary Catheter Removed: 12/26/20 Time Urinary Catheter Discontinued: 16:40 Discharge Data Data Completed and Pending: Completed Studies During Hospitalization Category Date Time Status CT abdomen pelvis w con* [id number] Urge nt Cat Scan 12/23/20 11:00 Completed XR chest 1V neyda ble [id number] Stat Exams 12/23/20 23:16 Completed XR chest 1V neyda ble [id number] Stat Exams 12/24/20 01:19 Completed Pending at discharge Category Date Time Status Basic Metabolic P kb AM LABS Lab 12/30/20 04:00 Ordered Complete Blood Co unt w/Auto AM LABS Lab 12/30/20 04:00 Ordered Pathology: Surgic al [PTH] Routine Pth 12/24/20 18:27 Received Labs from last 24 hours 12/29/20 12/29/20 02:31 02:31 WBC 10.6 H RBC 3.35 L Hgb 8.6 L Hct 27.7 L MCV 82.7 MCH 25.7 L MCHC 31.0 RDW 21.8 H Plt Count 333 MPV 9.3 Neut % (Auto) 77.1 Lymph % (Auto) 12.8 [place] % (Auto) 8.3 Eos % (Auto) 1.0 Baso % (Auto) 0.2 Neut # (Auto) 8.18 H Lymph # (Auto) 1.4 [place] # (Auto) 0.9 Eos # (Auto) 0.1 Baso # (Auto) 0.0 Nucleated RBC % (a uto) 0 Nucleated RBCs # 0.0 Sodium 134 L Potassium 3.2 L Chloride 101 Carbon Dioxide 22 Anion Gap 14.2 BUN 11 Creatinine 0.5 GFR Calculation Not Reportable Glucose 58 L Calculated Osmolal ity 275 L Calcium 10.9 H Vitals: Last Vital Signs Temp 97.3 F L 12/29/20 11:32 Pulse 80 12/29/20 11:32 Resp 18 12/29/20 11:32 BP 116/71 12/29/20 11:32 Pulse Ox 95 12/29/20 11:32 Discharge Plan Discharge Patient Disposition: Home Condition: Stable Prescriptions: Continued tramadol 50 mg tablet 50 mg PO BID PRN (Reason: Pain) 30 Days Qty: 60 RF: 2 ferrous sulfate 325 mg (65 mg iron) tablet 325 mg PO EVERY OTHER DAY Qty: 30 RF: 5 acetaminophen [Tylenol Extra Strength] 500 mg Tablet 1,000 mg PO PRN PRN (Reason: Pain) RF: 0 cholecalciferol (vitamin D3) [Vitamin D3] 125 mcg (5,000 unit) Tablet 125 mcg PO DAILY@0900 RF: 0 Prevagen Extra Strength 1 cap PO DAILY@09 RF: 0 potassium chloride 10 mEq tablet extended release 20 meq PO BID@0900 RF: 0 alendronate 35 mg tablet 35 mg PO Q7D RF: 0 famotidine [Pepcid AC] 20 mg tablet 20 mg PO DAILY@0900 RF: 0 rosuvastatin 5 mg tablet 5 mg PO DAILY@899 RF: 0 memantine 10 mg tablet 10 mg PO DAILY@1999 RF: 0 duloxetine 60 mg capsule,delayed release(DR/EC) 60 mg PO DAILY@1999 RF: 0 pregabalin [Lyrica] 50 mg capsule 50 mg PO BEDTIME@1999 RF: 0 cyanocobalamin (vitamin B-12) 1,000 mcg capsule 1,000 mcg PO DAILY@0900 RF: 0 Changed Lasix 20 mg tablet 20 mg PO DAILY@0900 PRN (Reason: Edema) Qty: 0 RF: 0 metoprolol tartrate 25 mg tablet 25 mg PO BID Qty: 90 RF: 1 Discontinued ciprofloxacin HCl [Cipro] 500 mg tablet 500 mg PO Q12H Qty: 14 RF: 0 Discharge Orders: Discharge Order (Routine); Ordered 12/29/20 Ordered By: Jassi Quick Referrals: GENET Jiang FNP [Primary Care Provider] - 4-7 days Jassi Quick MD [Physician] - 01/11/21 Discharge Diet: Advance as tolerated Activity Restrictions/Additional Instructions: Diet Advance to normal diet as tolerated, increase fluid intake as much as possible. Activity Avoid strenuous activity for 2 weeks but continue with daily activities including walking as tolerated. Do not lift more than 10 pounds for 2 weeks [address]riving You can resume driving once you stop using narcotic pain medications, and transition to non-opioid pain medications like Tylenol, Motrin, Aleve, etc. Medications Pain Take tramadol as needed and transition to non-opioid pain medications like Tylenol, Motrin, Aleve etc. over the next few days. The goal of the pain medications is to make the pain bearable and not to be pain free since you recently had surgery. Resume all home medications after surgery as per the medication reconciliation list Nausea Nausea is common after surgery, take nausea medications as needed and stay on a liquid bland diet until nausea resolves. Dehydration Ensure adequate oral intake by mouth to match the ostomy output otherwise patient could get dehydrated and developed renal failure. Add Metamucil 1 tablespoon 1-2 times a day if ostomy output continues to be greater than 1200 cc/day Shower It is ok to shower but avoid getting the wound wet for 48 hours after surgery. Do not soak in bathtub, swimming pool or hot tub for 2 weeks. Wound care Keep wound clean and dry, some of the dwayne on the inferior aspect of the wound has partially come loose . If the wound dehiscence covered with antibi otic cream and sterile dressing. Routine ostomy care Do not apply antibiotics or other medications on the incision Problems with the wound: you can develop some redness around the incision from bruising after surgery. If there is increasing pain, redness, tenderness around the incision with or without drainage, please contact my office to rule out an infection. Sometimes the skin at the incisions can separate, resulting in reopening of the wound. Cover the wound with antibiotic cream and sterile dressings and contact my office. Contact physician Call the office at [phone] during office hours or go the Emergency Room ?Fever to 100.4 or greater ?Shaking chills ?Pain that increases over time ?Redness, warmth, or pus draining from incision sites ?Persistent nausea or inability to take in liquids Discharge Attestations Time Spent in Discharge Care*: less than 30 min Status at Discharge: Cognitive status at discharge: cognitively intact , Behavioral status at discharge: cooperative , Quality Metrics Clinical Quality Measures During this hospital stay, did patient experience: None Coding Level of Care Code Acute Rowan ELISSA CHU note Diagnoses S/P left hemicolectomy Z90.49
== END 2020-12-29 16:55 | disposition skilled nursing facility (03) | DRG 330 ==
LOC: ER 15:32 → MEDSURG 16:14 → ICU 12-24 18:18 → MEDSURG 12-27 14:43
PROVIDERS: Internal Medicine; Nurse Practitioner Family; Admitting Provider Student in an Organized Health Care Education/Training Program; Emergency Provider Family Medicine; PCP Nurse Practitioner Family; Visit Provider Surgery
PROC: 0DTG0ZZ Resection of Left Large Intestine, Open Approach (ICD-10-PCS; CPT 49320; principal; 2020-12-24 12:00)
PROC: 0DTG0ZZ Resection of Left Large Intestine, Open Approach (ICD-10-PCS; 2020-12-24 12:00)
DX: C18.5 Malignant neoplasm of splenic flexure (principal); K43.0 Incisional hernia with obstruction, without gangrene; N39.0 Urinary tract infection, site not specified; E87.1 Hypo-osmolality and hyponatremia; Z90.49 Acquired absence of other specified parts of digestive tract; Z85.038 Personal history of other malignant neoplasm of large intestine; M81.0 Age-related osteoporosis without current pathological fracture; F32.9 Major depressive disorder, single episode, unspecified; I10 Essential (primary) hypertension; M79.7 Fibromyalgia; F03.90 Unspecified dementia, unspecified severity, without behavioral disturbance, psychotic disturbance, mood disturbance, and anxiety; E78.2 Mixed hyperlipidemia; E55.9 Vitamin D deficiency, unspecified; Z87.891 Personal history of nicotine dependence; B95.61 Methicillin susceptible Staphylococcus aureus infection as the cause of diseases classified elsewhere; D64.9 Anemia, unspecified
CPT/HCPCS: 36415; 51702; 71045; 74177; 80048; 80053; 81001; 83540; 83550; 83605; 83690; 83880; 84132; 84145; 84443; 85014; 85018; 85025; 86403; 86850; 86900; 86920; 87040; 87077; 87086; 87186; 87426; 87641; 88309; 93005; 94664; 96365; 96367; 96372; 96375; 97161; 97165; 97530; 97535; 99285; C9113; C9290; J0330; J0696; J1170; J1200; J1650; J1756; J1815; J1956; J2060; J2270; J2370; J2405; J2543; J2704; J3010; J3490; J7030; P9016; P9041; Q9967; S0030

== ENCOUNTER 2021-02-08 11:46 | Emergency (ER) | payer MEDICARE, OTHER, SELFPAY ==
[2021-02-08 11:50] VITALS: BP 98/69; PULSE 100; RESP 15; TEMP 36.3; O2SAT 99; BMI 27.8
[2021-02-08 12:02] VITALS: BP 102/72; PULSE 99; RESP 15; O2SAT 97
--- NOTE | 2021-02-08 12:19 | XRR_ITS ---
PROCEDURE INFORMATION: Exam: XR Chest Exam date and time: 02/08/2021 12:19 PM Age: 75 years old Clinical indication: Other: Reduced breath sounds; Patient HX: General abd pain TECHNIQUE: Imaging protocol: XR of the chest. Views: 1 view. COMPARISON: CR XR chest 1V portable [id number] 12/24/2020 1:23 AM FINDINGS: Lungs: Lungs are clear bilaterally. Pleural spaces: No pleural effusion. No pneumothorax. Heart/Mediastinum: The cardiac silhouette and mediastinal contours are unremarkable. Bones/joints: Degenerative changes in the spine and shoulders. XR/XR chest 1V portable [id number] IMPRESSION: 1. No acute cardiopulmonary process. 2. Incidental/nonacute findings are listed in the report.
--- NOTE | 2021-02-08 12:24 | CT_ITS ---
WS: [id number] CT ABDOMEN AND PELVIS WITH CONTRAST HISTORY: leaking ileostomy TECHNIQUE: Imaging performed of the abdomen and pelvis with IV contrast. Single phase imaging of the abdomen. Coronal and sagittal reformats are submitted. All CT scans at [facility] use at least one of these dose optimization techniques: automated exposure control; mA and/or kV adjustment per patient size (includes targeted exams where dose is matched to clinical indication); or iterativ e reconstruction. IV CONTRAST: Omnipaque 300; 95 mL IV. Oral contrast: No DLP: 1647.67 mGy.cm COMPARISON: 12/23/2020 Lower thorax: Lung bases are clear. Heart is normal size. No hiatal hernia. Liver/biliary system: Normal size with no intrahepatic dilatation. Gallbladder: Status post cholecystectomy. Pancreas: Normal size pancreas and pancreatic duct. No adjacent inflammation. Spleen: Normal size spleen. Hypoechoic area along the anterior spleen is very nonspecific. Adrenal glands: Normal. Right kidney: Normal size kidney. Hypoechoic area along the posterior kidney is probably a cyst but t oo small to characterize. Left kidney: Hypoechoic 9 mm nodule in the posterior kidney is probably a cyst. Aorta: Mild atherosclerosis with no aneurysm. Lymphadenopathy: There are several small subcentimeter lymph nodes near the celiac axis. Free fluid: None. GI tract: Large amount of the colon has been resected. Splenic flexure is been removed. The mass is n o longer visualized. Surgical sutures are noted in the distal descending colon excision site. Colon p rior to that the splenic flexure has been resected. There is an ileostomy in the LEFT lower quadrant. No obstruction of the GI tract. 2 small air collections extending over length of 2.7 cm in the LEFT upper quadrant adjacent to the spleen and small bowel may be a small developing abscess. Predominantl y air-filled collection. This is at the site of the prior surgery. Abdominal wall: Postsurgical changes along the ventral abdominal wall. Extending over a length of 15 cm is a mixture of soft tissue and low density corresponded with the surgical tract. Some mild periph eral enhancement within this irregular shaped collection along the incision site. There is a small am ount of fluid and increased density. There are a few small foci of air. Pelvis: Air in the urinary bladder. No free fluid in the pelvis. No adenopathy. Bones: 2 mm anterolisthesis of L4. Increased density within L4 may be a hemangioma. CT/CT abdomen pelvis w con* [id number] IMPRESSION: 1. Postsurgical changes with mild peripheral enhancement extends over length o f 15 cm along the abdominal wall. There are multiple ill-defined collections. M ay be all normal postoperative seroma and resolution of hematomas. Early infect ion/phlegmonous formation is not excluded. 2. Additional loculated collection measuring 2.7 cm at its maximum containing air in the LEFT upper quadrant at the prior colon resection site. Suspicious fo r small abscess. There is adjacent inflammation. Not likely accessible for perc utaneous drainage. 3. Subcentimeter lymph nodes around the celiac axis. 4. Prior cholecystectomy. 5. Air in the urinary bladder. May be from recent catheterization. If no recen t catheterization consider gas producing organisms.
--- NOTE | 2021-02-08 12:26 | ECG_ITS ---
[facility] Test Date: 2021-02-08 Pat Name: Mariangel Morales Department: Room: Gender: Female Corsetier: : 1945 Requested By: Uriel Harley Order Number: [id number] Sophie MD: Kaley Donato M.D. Measurements Intervals [place] Rate: 94 P: 51 VA: 159 QRS: -4 QRSD: 77 T: 64 QT: 328 QTc: 411 Interpretive Statements SINUS RHYTHM LOW QRS VOLTAGE IN PRECORDIAL LEADS [QRS DEFLECTION < 1.0 mV IN CHEST LEADS] POSSIBLE ANTERIOR MYOCARDIAL INFARCTION [30 ms Q WAVE IN V3/V4, OR R < 0.2 mV IN V4], PROBABLY OLD Compared to ECG 12/23/2020 13:46:29 Sinus tachycardia no longer present Myocardial infarct finding still present Electronically Signed On 02-08-2021 16:42:59 CDT by Kaley Donato M.D. [id number]
[2021-02-08 13:01] LABS: Basophils # 0.1 10^3/uL (0.0-0.1); Basophils % 0.6 %; Eosinophils # 0.7 10^3/uL (0.0-0.8); Eosinophils % 8.5 %; Hematocrit 41.1 % (37.0-47.0); Hemoglobin 12.3 g/dL (11.5-15.3); Lymphocytes # 2.1 10^3/uL (0.8-4.8); Lymphocytes % 25.3 %; Mean Corpuscular HGB Conc 29.9 g/dL (30.0-36.0); Mean Corpuscular Hemoglobin 27.8 pg (28.0-34.0); Mean Platelet Volume 10.9 fL (7.4-10.4); Monocytes # 0.8 10^3/uL (0.2-0.9); Monocytes % 9.4 %; Neutrophils # 4.66 10^3/uL (1.8-7.7); Neutrophils % 56.1 %; Nucleated Red Blood Cells % 0 %; Platelet Count 216 10^3/cmm (130-400); Red Blood Count 4.42 10^6/uL (4.1-5.3); Red Cell Distribution Width 21.9 % (12.1-15.1); White Blood Count 8.3 10^3/uL (4.0-10.0)
[2021-02-08] MEDS: iohexol 300 mg/mL 100 mL Btl IV (13:07)
[2021-02-08 13:24] LABS: Troponin(5th) Baseline 17 ng/L (0-10)
[2021-02-08 13:25] LABS: Lactate (Lactic Acid level) 1.2 mmol/L (0.5-2.2)
[2021-02-08 13:36] LABS: Add Urine Microscopic? YES; Bilirubin Urine Neg (Negative); Blood Urine Neg (Negative); Glucose Urine UA Norm (Normal); Ketones Urine 1+ (Negative); Leukocyte Esterase Urine 2+ (Negative); Nitrate Urine Positive (Negative); Protein Urine Neg (Negative); Specific Gravity, Urine 1.025 (1.005-1.030); Urine Appearance SL Hazy (CLEAR); Urine Color Yellow (Yellow); Urobilinogen Urine Norm (Negative); pH Urine 5 (5-7)
[2021-02-08 13:40] LABS: Add Urine Culture? Yes; Bacteria Urine 3+ /hpf; RBC Urine 0-4 /hpf (0-2); WBC Urine 80-100 /hpf (0-5)
[2021-02-08 13:46] LABS: Alanine Aminotransferase 11 U/L (0-33); Albumin Level 2.8 g/dL (3.5-5.2); Alkaline Phosphatase 77 IU/L (35-105); Aspartate Amino Transferase 19 U/L (0-32); Blood Urea Nitrogen 15 mg/dL (8-23); Calcium 10.6 mg/dL (8.5-10.5); Carbon Dioxide 21 mmol/L (22-29); Chloride 106 mmol/L (98-107); Globulin 3.5 g/dL (1.3-4.6); Glucose 92 mg/dL (65-115); Lipase 27 U/L (13-60); Osmolality Calculated 282 mOsm/kg (285-295); Sodium 136 mmol/L (136-145); Total Bilirubin 0.2 mg/dL (0.15-1.2); Total Protein 6.3 g/dL (6.6-8.7)
[2021-02-08 13:49] LABS: Anion Gap 13.8 (5-19); Potassium 4.8 mmol/L (3.5-5.1)
[2021-02-08 14:35] VITALS: BP 102/76; PULSE 81; RESP 15; O2SAT 94
[2021-02-08] MEDS: cefTRIAXone 1,000 MG in sodium chloride 0.9% (plus) 100 ML 100 MG IV (15:05)
--- NOTE | 2021-02-08 16:11 | ED_ITS ---
HPI - General Adult General: Chief complaint: General Medical Stated complaint: LEAKING ILEOSTOMY Time Seen by Provider: 02/08/21 11:47 History of Present Illness: HPI narrative: The patient is a 75-year-old female with history of ileostomy related to colon cancer who comes to the ER asking for it to be checked. There is some erythema surrounding her ileostomy site which apparently has been there and is from irritation related to the stool. There is an area where the redness clearly was which is nearly 12 inches in diameter and it appears to be improving from that original area which is much less red and then there is a slightly red area surrounding the ileostomy. She is mildly tender in the very red area which she says is also improving. Other than that her ileostomy is having normal output. She is afebrile does not complain of fever and chills nor belly pain. She says she just came because her family wanted her to come to have it checked out. Severity: mild Associated symptoms: Reports no associated symptoms and rash; Deny chest pain, confusion, dyspnea, headache(s) or palpitations Review of Systems General: Reports: 10 or more systems reviewed and unremarkable except in HPI and below Const: Denies: fatigue Eyes: Denies: change in vision, blurry vision or eye redness ENMT: Denies: throat pain, swelling of lips/tongue, ear or mastoid pain or nasal congestion Card: Denies: chest pain, palpitations, irregular heart rhythm, edema, dyspnea on exertion or orthopnea Resp: Denies: dyspnea, productive cough or non-productive cough GI: Denies: abdominal pain, diarrhea or GI cramping : Denies: flank pain, difficulty voiding, urinary frequency or urinary urgency Musc: Denies: neck pain, back pain, extremity pain, joint pain, joint redness, limited range of motion or muscle weakness Skin/Breast: Reports: rash; Denies: pruritus, erythema, skin pain or skin tenderness Neuro: Denies: headache(s), numbness in extremities, weakness in extremities, sensory changes, difficulty walking, dizziness, confusion or Slurred speech present Psych: Denies: anxiety or depression Endo: Denies: polyuria All/Imm: Denies: urticaria, throat swelling or tongue swelling PFSH ED PFSH: Medical History Anemia Chronic osteoarthritis Colitis Depression Essential hypertension, benign Fibromyalgia H/O malignant neoplasm of colon HTN (hypertension) 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 Mild dementia Mixed hyperlipidemia Post-menopausal osteoporosis Vitamin D deficiency Surgical History H/O right hemicolectomy colon cancer History of ankle surgery History of S/P colon resection colon cancer recurrence S/P left hemicolectomy (12/24/20) with ileostomy Status post colonoscopy Family History Other Diabetes Social History Alcohol intake: never Physical Exam Const: COMMON NORMALS: no acute distress, average body habitus, patient oriented x3, no limitations, healthy appearing, alert and well nourished GENERAL APPEARANCE: cooperative, comfortable, well kempt and well developed ORIENTATION/CONSCIOUSNESS: Yes awake, Yes oriented to person, Yes oriented to place and Yes oriented to time HENMT: COMMON NORMALS: normocephalic, external ears normal and Normal external nose present HEAD & SCALP: normal to inspection and normocephalic NOSE: Normal external nose present EXTERNAL EAR: Yes external ears normal MOUTH: Normal oral and palatal mucosa present THROAT: posterior oropharynx normal Eye: COMMON NORMALS: Equal, round and reactive pupils present and EOMs intact bilaterally GENERAL EYE: appearance normal, both eyes and all related structures PUPIL: Yes Equal, round and reactive pupils present Neck/C-Spine: COMMON NORMALS: full ROM, no lymphadenopathy, no meningeal signs and no JVD GENERAL: Yes normal visual inspection Lymph: LYMPHATIC: no lymphadenopathy noted Chest: COMMONS NORMALS: normal inspection of the chest and normal palpation of entire chest wall Resp: COMMON NORMALS: normal respiratory effort, No retractions, No use of accessory muscles, clear to auscultation bilaterally and percussion normal EFFORT & INSPECTION: Yes able to speak in complete sentences AUSCULTATION: clear to auscultation bilaterally PERCUSSION: percussion normal Cardio: COMMON NORMALS: no JVD, regular rate, regular rhythm, S1 normal heart sound present, S2 normal heart sound present and Peripheral pulses 2+ throughout RATE: regular rate RHYTHM: regular rhythm HEART SOUNDS: S1 normal heart sound present and S2 normal heart sound present PERIPHERAL PULSES: Peripheral pulses 2+ throughout GI: COMMON NORMALS: Normal to inspection, nondistended, normoactive bowel sounds present, Soft to palpation, non-tender and no masses INSPECTION: Yes normal to inspection PALPATION: Yes Soft to palpation OTHER: No significant tenderness. She does have a rash from irritation related to her feces from her ileostomy. It appears to be improved there is a much paperboard machine operator pinkish color which it was likely much darker red approximately 12 inches wide which is probably where it was significantly inflamed however is improving and now there is a 5 to 7 cm area around the ileostomy which has a crusted irritated rash. Minimal associated tenderness. No significant other tenderness in her abdomen palpated. GI image (female): 1. Ileostomy functioning normally surrounded by approximately 5 to 7 cm of erythematous rash which is likely irritation from feces. : COMMON NORMALS: Yes no CVA tenderness BLADDER/KIDNEY EXAM: Yes no CVA tenderness Back/Pelvis: COMMON NORMALS: no CVA tenderness, thoracic and lumbar spine normal to inspection, no thoracic nor lumbar tenderness and thoraco-lumbar ROM normal Extremity: COMMON NORMALS: normal to inspection, full ROM, capillary refill normal, no joint enlargement and no pedal edema GENERAL: Yes normal exam except as noted Neuro: COMMON NORMALS: patient oriented x3, CN's II-XII intact bilaterally, moves all extremities, no focal motor deficits, no sensory deficits noted and gait normal SENSORIUM/ORIENTATION: Yes alert, Yes oriented to person, Yes oriented to place and Yes oriented to time MENINGEAL SIGNS: Yes no meningeal signs Psych: COMMON NORMALS: mental status grossly normal, Normal thought process present, cooperative, normal affect and speech normal APPEARANCE: Yes well kempt ATTITUDE: Yes calm SPEECH: Yes normal speech THOUGHT PROCESS: Normal thought process present Skin: COMMON NORMALS: no rashes or lesions noted GENERAL SKIN EXAM: no rashes or lesions noted Course Vital Signs: Vital signs: Vital Signs Temperature 97.4 F L 02/08/21 11:50 Pulse Rate 81 02/08/21 14:35 Respiratory Rate 15 02/08/21 14:35 Blood Pressure 102/76 02/08/21 14:35 Pulse Oximetry 94 02/08/21 14:35 MDM - General Adult MDM Narrative: Medical decision making narrative: The patient came in to have her ileostomy checked out. It is functioning normally and has an improving rash around it. She has no abdominal tenderness, normal white count, afebrile and denies fever and chills. Her belly CT did show postoperative changes and a possible abscess. I discussed with Dr. Quick who performed the procedure and does not think it is an abscess and recommends outpatient follow-up of it. Given her normal labs and lack of tenderness and fever she will be discharged back to the [place] [facility]. Incidentally she does have a UTI which she was given ceftriaxone for. Will be discharged with Keflex. ER with worsening symptoms at any time otherwise follow-up outpatient with Dr. Quick in a few days. Lab Data: Labs: Lab Results 02/08/21 02/08/21 02/08/21 Range/Units 12:50 12:50 12:50 WBC 8.3 (4.0-10.0) 10^3/ uL RBC 4.42 (4.1-5.3) 10^6/u L Hgb 12.3 (11.5-15.3) g/dL Hct 41.1 (37.0-47.0) % MCV 93.0 (81-99) fL MCH 27.8 L (28.0-34.0) pg MCHC 29.9 L (30.0-36.0) g/dL RDW 21.9 H (12.1-15.1) % Plt Count 216 (130-400) 10^3/c mm MPV 10.9 H (7.4-10.4) fL Neut % (Auto) 56.1 % Lymph % (Auto) 25.3 % [place] % (Auto) 9.4 % Eos % (Auto) 8.5 % Baso % (Auto) 0.6 % Neut # (Auto) 4.66 (1.8-7.7) 10^3/u L Lymph # (Auto) 2.1 (0.8-4.8) 10^3/u L [place] # (Auto) 0.8 (0.2-0.9) 10^3/u L Eos # (Auto) 0.7 (0.0-0.8) 10^3/u L Baso # (Auto) 0.1 (0.0-0.1) 10^3/u L Nucleated RBC % (a uto) 0 % Nucleated RBCs # 0.0 /100WBC Sodium 136 (136-145) mmol/L Potassium 4.8 (3.5-5.1) mmol/L Chloride 106 (98-107) mmol/L Carbon Dioxide 21 L (22-29) mmol/L Anion Gap 13.8 (5-19) BUN 15 (8-23) mg/dL Creatinine 0.7 (0.5-0.9) mg/dL GFR Calculation Not Reportable Glucose 92 (65-115) mg/dL Calculated Osmolal ity 282 L (285-295) mOsm/k g Lactate 1.2 (0.5-2.2) mmol/L Calcium 10.6 H (8.5-10.5) mg/dL Total Bilirubin 0.2 (0.15-1.2) mg/dL AST 19 (0-32) U/L ALT 11 (0-33) U/L Alkaline Phosphata se 77 (35-105) IU/L Troponin T Baselin e (0-10) ng/L Total Protein 6.3 L (6.6-8.7) g/dL Albumin 2.8 L (3.5-5.2) g/dL Globulin 3.5 (1.3-4.6) g/dL Lipase 27 (13-60) U/L Urine Color (Yellow) Urine Appearance (CLEAR) Urine pH (5-7) Ur Specific Gravit y (1.005-1.030) Urine Protein (Negative) Urine Glucose (UA) (Normal) Urine Ketones (Negative) Urine Blood (Negative) Urine Nitrate (Negative) Urine Bilirubin (Negative) Urine Urobilinogen (Negative) mg/dL Ur Leukocyte Sultana ase (Negative) Urine RBC (0-2) /hpf Urine WBC (0-5) /hpf Ur Squamous Epith Cells (0-5) /hpf Amorphous Sediment Urine Bacteria (NONE) /hpf 02/08/21 02/08/21 Range/Units 12:50 12:53 WBC (4.0-10.0) 10^3/ uL RBC (4.1-5.3) 10^6/u L Hgb (11.5-15.3) g/dL Hct (37.0-47.0) % MCV (81-99) fL MCH (28.0-34.0) pg MCHC (30.0-36.0) g/dL RDW (12.1-15.1) % Plt Count (130-400) 10^3/c mm MPV (7.4-10.4) fL Neut % (Auto) % Lymph % (Auto) % [place] % (Auto) % Eos % (Auto) % Baso % (Auto) % Neut # (Auto) (1.8-7.7) 10^3/u L Lymph # (Auto) (0.8-4.8) 10^3/u L [place] # (Auto) (0.2-0.9) 10^3/u L Eos # (Auto) (0.0-0.8) 10^3/u L Baso # (Auto) (0.0-0.1) 10^3/u L Nucleated RBC % (a uto) % Nucleated RBCs # /100WBC Sodium (136-145) mmol/L Potassium (3.5-5.1) mmol/L Chloride (98-107) mmol/L Carbon Dioxide (22-29) mmol/L Anion Gap (5-19) BUN (8-23) mg/dL Creatinine (0.5-0.9) mg/dL GFR Calculation Glucose (65-115) mg/dL Calculated Osmolal ity (285-295) mOsm/k g Lactate (0.5-2.2) mmol/L Calcium (8.5-10.5) mg/dL Total Bilirubin (0.15-1.2) mg/dL AST (0-32) U/L ALT (0-33) U/L Alkaline Phosphata se (35-105) IU/L Troponin T Baselin e 17 H (0-10) ng/L Total Protein (6.6-8.7) g/dL Albumin (3.5-5.2) g/dL Globulin (1.3-4.6) g/dL Lipase (13-60) U/L Urine Color Yellow (Yellow) Urine Appearance Sl hazy (CLEAR) Urine pH 5 (5-7) Ur Specific Gravit y 1.025 (1.005-1.030) Urine Protein Neg (Negative) Urine Glucose (UA) Norm (Normal) Urine Ketones 1+ H (Negative) Urine Blood Neg (Negative) Urine Nitrate Positive H (Negative) Urine Bilirubin Neg (Negative) Urine Urobilinogen Norm (Negative) mg/dL Ur Leukocyte Sultana ase 2+ H (Negative) Urine RBC 0-4 H (0-2) /hpf Urine WBC 80-100 H (0-5) /hpf Ur Squamous Epith Cells 5-10 H (0-5) /hpf Amorphous Sediment Not Reportable Urine Bacteria 3+ H (NONE) /hpf Discharge Plan Discharge Patient Disposition: Home Clinical Impression: UTI (urinary tract infection), H/O ileostomy Condition: Stable Prescriptions: New cephalexin 500 mg capsule 500 mg PO BID 7 Days Qty: 14 RF: 0 No Action tramadol 50 mg tablet 50 mg PO BID PRN (Reason: Pain) 30 Days Qty: 60 RF: 2 acetaminophen [Tylenol Extra Strength] 500 mg Tablet 1,000 mg PO PRN PRN (Reason: Pain) RF: 0 cholecalciferol (vitamin D3) [Vitamin D3] 125 mcg (5,000 unit) Tablet 125 mcg PO DAILY@0800 RF: 0 potassium chloride 10 mEq tablet extended release 20 meq PO BID@0800 RF: 0 alendronate 35 mg tablet 35 mg PO Q7D RF: 0 famotidine [Pepcid AC] 20 mg tablet 20 mg PO DAILY@0800 RF: 0 rosuvastatin 5 mg tablet 5 mg PO DAILY@0800 RF: 0 memantine 10 mg tablet 10 mg PO DAILY@0800 RF: 0 pregabalin [Lyrica] 50 mg capsule 50 mg PO BEDTIME@0800 RF: 0 cyanocobalamin (vitamin B-12) 1,000 mcg capsule 1,000 mcg PO DAILY@0800 RF: 0 Senna-S 8.6-50 mg Tablet 1 tab PO BID PRN (Reason: Constipation) RF: 0 Milk of Magnesia 400 mg/5 mL Suspension 400 mg PO DAILY PRN (Reason: UNKNOWN) RF: 0 zinc oxide Ointment 1 applic TOPICAL TID@0800,1200,2000 RF: 0 ondansetron 4 mg Film 4 mg PO Q6H PRN (Reason: N/V) RF: 0 Metamucil 3.4 gram/5.4 gram Powder 1 - 2 tbsp PO DAILY RF: 0 Prostat 15 ml PO BID@0800,2000 RF: 0 ferrous sulfate 325 mg (65 mg iron) tablet 325 mg PO Q2D RF: 0 Lasix 20 mg tablet 20 mg PO DAILY@0800 PRN (Reason: Edema) RF: 0 metoprolol tartrate 25 mg tablet 25 mg PO BID@799,1999 RF: 0 duloxetine 60 mg capsule,delayed release(DR/EC) 60 mg PO DAILY@0800 RF: 0 Discharge Orders: Discharge ED (Routine); Ordered 02/08/21 Ordered By: Uriel Harley Referrals: GENET Jiang, TECHNOLOGY PROFESSIONAL [Primary Care Provider] - Discharge Diet: Advance as tolerated Discharge Activity: Resume usual activity Patient Instructions: Opioid Safety Activity Restrictions/Additional Instructions: You came in to ask for your ileostomy to be checked and it is functioning appropriately and the redness around your ileostomy appears to be getting somewhat better. You also have been noted to have a urinary tract infection. Please take Keflex twice a day for a week and return to the ER with any worsening symptoms. Of note your belly CT did show some areas of healing and a small possible abscess. I discussed with Dr. Quick and he does not think it is an abscess. Your white count is normal, you are afebrile, and have no belly pain or tenderness. He thinks it is more a normal healing process and wants it to be monitored as an outpatient. Please return to the ER with any worsening symptoms, pain, fever or any other worrisome symptoms for reevaluation. Otherwise follow-up with him in a few days in clinic. Coding Level of Care Code ED Feather Cutting Machine Feeder for Gladys Wakefield
[2021-02-08 17:16] VITALS: BP 104/65; PULSE 85; RESP 16; O2SAT 98
== END 2021-02-08 17:10 | disposition home or self-care (01) ==
PROVIDERS: Emergency Provider Family Medicine; PCP Nurse Practitioner Family
DX: Z43.2 Encounter for attention to ileostomy (principal); R21 Rash and other nonspecific skin eruption; N39.0 Urinary tract infection, site not specified; I10 Essential (primary) hypertension; E78.2 Mixed hyperlipidemia; F03.90 Unspecified dementia, unspecified severity, without behavioral disturbance, psychotic disturbance, mood disturbance, and anxiety; Z85.038 Personal history of other malignant neoplasm of large intestine
CPT/HCPCS: 71045; 74177; 80053; 81001; 83605; 83690; 84484; 85025; 87077; 87086; 87186; 93005; 96365; 99284; J0696; Q9967

== ENCOUNTER 2021-02-28 18:42 | Emergency (ER) | payer MEDICARE, OTHER, SELFPAY ==
[2021-02-28 19:22] VITALS: BMI 25.8
[2021-02-28 19:57] LABS: Basophils # 0.1 10^3/uL (0.0-0.1); Basophils % 0.7 %; Eosinophils # 0.7 10^3/uL (0.0-0.8); Hematocrit 45.7 % (37.0-47.0); Hemoglobin 14.5 g/dL (11.5-15.3); Lymphocytes # 1.9 10^3/uL (0.8-4.8); Lymphocytes % 24.8 %; Mean Corpuscular HGB Conc 31.7 g/dL (30.0-36.0); Mean Corpuscular Hemoglobin 29.3 pg (28.0-34.0); Mean Corpuscular Volume 92.3 fL (81-99); Mean Platelet Volume 11.2 fL (7.4-10.4); Monocytes # 0.7 10^3/uL (0.2-0.9); Monocytes % 9.6 %; Neutrophils # 4.27 10^3/uL (1.8-7.7); Neutrophils % 55.6 %; Nucleated Red Blood Cells % 0 %; Platelet Count 158 10^3/cmm (130-400); Red Blood Count 4.95 10^6/uL (4.1-5.3); Red Cell Distribution Width 19.6 % (12.1-15.1); White Blood Count 7.7 10^3/uL (4.0-10.0)
--- NOTE | 2021-02-28 20:09 | W.ED.GENADLT ---
HPI - General Adult General: Chief complaint: General Medical Stated complaint: CRITICAL LABS Time Seen by Provider: 02/28/21 19:20 Source: patient, family and EMS Mode of arrival: EMS Limitations: no limitations History of Present Illness: HPI narrative: 75-year-old female 75-year-old female who sent here by the skilled nursing for high calcium she was seen and treated at [facility] with IV fluids. She got back to the skilled nursing they decided to send her here. Her calcium there was 14.2. Patient here has no medical complaints. States she feels fine. Denies any vomiting or diarrhea. Associated symptoms: Deny chest pain, dyspnea, headache(s), nausea, rash or vomiting Review of Systems Const: Denies: fever(s), chills, body aches or change in appetite Eyes: Denies: blurry vision or eye discomfort ENMT: Denies: throat pain or dental pain Card: Denies: chest pain Resp: Denies: dyspnea GI: Denies: abdominal pain, nausea, vomiting or diarrhea : Denies: dysuria Musc: Denies: neck pain or back pain Skin/Breast: Denies: rash Neuro: Denies: headache(s) Psych: Denies: depression Jn/Lymph: Denies: easy bruising All/Imm: Denies: urticaria PFSH ED PFSH: Medical History Anemia Chronic osteoarthritis Colitis Depression Essential hypertension, benign Fibromyalgia H/O malignant neoplasm of colon HTN (hypertension) 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 Mild dementia Mixed hyperlipidemia Post-menopausal osteoporosis Vitamin D deficiency Surgical History H/O right hemicolectomy colon cancer History of ankle surgery History of S/P colon resection colon cancer recurrence S/P left hemicolectomy (12/24/20) with ileostomy Status post colonoscopy Family History Other Diabetes Social History Alcohol intake: never Physical Exam Const: COMMON NORMALS: no acute distress, patient oriented x3 and healthy appearing HENMT: COMMON NORMALS: normocephalic and atraumatic HEAD & SCALP: normocephalic and atraumatic Eye: COMMON NORMALS: Equal, round and reactive pupils present and EOMs intact bilaterally PUPIL: Yes Equal, round and reactive pupils present Neck/C-Spine: COMMON NORMALS: full ROM and supple Chest: COMMONS NORMALS: normal inspection of the chest and normal palpation of entire chest wall Resp: COMMON NORMALS: normal respiratory effort, No retractions, No use of accessory muscles and clear to auscultation bilaterally AUSCULTATION: clear to auscultation bilaterally Cardio: COMMON NORMALS: regular rate, regular rhythm and No murmurs present (Cardio) RATE: regular rate RHYTHM: regular rhythm GI: COMMON NORMALS: Normal to inspection, nondistended, normoactive bowel sounds present, Soft to palpation, non-tender and no masses PALPATION: Yes Soft to palpation Extremity: COMMON NORMALS: normal to inspection and full ROM Neuro: COMMON NORMALS: patient oriented x3, moves all extremities and no focal motor deficits Psych: COMMON NORMALS: mental status grossly normal, Normal thought process present and cooperative THOUGHT PROCESS: Normal thought process present Skin: COMMON NORMALS: no rashes or lesions noted and no wounds GENERAL SKIN EXAM: no rashes or lesions noted MDM - General Adult MDM Narrative: Medical decision making narrative: Patient presents with hypercalcemia is much improved. She had been 14.2 and is 10.7 here. She is stable for discharge back to skilled nursing at this time. She has no medical complaints here. Lab Data: Labs: Lab Results 02/28/21 02/28/21 Range/Units 19:50 19:50 WBC 7.7 (4.0-10.0) 10^3/ uL RBC 4.95 (4.1-5.3) 10^6/u L Hgb 14.5 (11.5-15.3) g/dL Hct 45.7 (37.0-47.0) % MCV 92.3 (81-99) fL MCH 29.3 (28.0-34.0) pg MCHC 31.7 (30.0-36.0) g/dL RDW 19.6 H (12.1-15.1) % Plt Count 158 (130-400) 10^3/c mm MPV 11.2 H (7.4-10.4) fL Neut % (Auto) 55.6 % Lymph % (Auto) 24.8 % [place] % (Auto) 9.6 % Eos % (Auto) 9.0 % Baso % (Auto) 0.7 % Neut # (Auto) 4.27 (1.8-7.7) 10^3/u L Lymph # (Auto) 1.9 (0.8-4.8) 10^3/u L [place] # (Auto) 0.7 (0.2-0.9) 10^3/u L Eos # (Auto) 0.7 (0.0-0.8) 10^3/u L Baso # (Auto) 0.1 (0.0-0.1) 10^3/u L Nucleated RBC % (a uto) 0 % Nucleated RBCs # 0.0 /100WBC Sodium 134 L (136-145) mmol/L Potassium 3.9 (3.5-5.1) mmol/L Chloride 103 (98-107) mmol/L Carbon Dioxide 18 L (22-29) mmol/L Anion Gap 16.9 (5-19) BUN 15 (8-23) mg/dL Creatinine 0.8 (0.5-0.9) mg/dL GFR Calculation Not Reportable Glucose 90 (65-115) mg/dL Calculated Osmolal ity 278 L (285-295) mOsm/k g Calcium 10.7 H (8.5-10.5) mg/dL Magnesium 1.1 L (1.7-2.3) mg/dL Total Bilirubin 0.3 (0.15-1.2) mg/dL AST 20 (0-32) U/L ALT 15 (0-33) U/L Alkaline Phosphata se 94 (35-105) IU/L Total Protein 6.6 (6.6-8.7) g/dL Albumin 3.5 (3.5-5.2) g/dL Globulin 3.1 (1.3-4.6) g/dL Lipase 33 (13-60) U/L Discharge Plan Discharge Patient Disposition: Home Clinical Impression: Hypercalcemia Condition: Stable Prescriptions: No Action tramadol 50 mg tablet 50 mg PO BID PRN (Reason: Pain) 30 Days Qty: 60 RF: 2 memantine 10 mg tablet See Rx Instructions .ROUTE .COMPLEX Qty: 90 RF: 1 acetaminophen [Tylenol Extra Strength] 500 mg Tablet 1,000 mg PO PRN PRN (Reason: Pain) RF: 0 cholecalciferol (vitamin D3) [Vitamin D3] 125 mcg (5,000 unit) Tablet 125 mcg PO DAILY@0800 RF: 0 potassium chloride 10 mEq tablet extended release 20 meq PO BID@0800 RF: 0 alendronate 35 mg tablet 35 mg PO Q7D RF: 0 famotidine [Pepcid AC] 20 mg tablet 20 mg PO DAILY@0800 RF: 0 rosuvastatin 5 mg tablet 5 mg PO DAILY@0800 RF: 0 pregabalin [Lyrica] 50 mg capsule 50 mg PO BEDTIME@0800 RF: 0 cyanocobalamin (vitamin B-12) 1,000 mcg capsule 1,000 mcg PO DAILY@0800 RF: 0 Senna-S 8.6-50 mg Tablet 1 tab PO BID PRN (Reason: Constipation) RF: 0 Milk of Magnesia 400 mg/5 mL Suspension 400 mg PO DAILY PRN (Reason: UNKNOWN) RF: 0 zinc oxide Ointment 1 applic TOPICAL TID@0800,1200,1999 RF: 0 ondansetron 4 mg Film 4 mg PO Q6H PRN (Reason: N/V) RF: 0 Metamucil 3.4 gram/5.4 gram Powder 1 - 2 tbsp PO DAILY RF: 0 Prostat 15 ml PO BID@0800,1999 RF: 0 ferrous sulfate 325 mg (65 mg iron) tablet 325 mg PO Q2D RF: 0 Lasix 20 mg tablet 20 mg PO DAILY@0800 PRN (Reason: Edema) RF: 0 metoprolol tartrate 25 mg tablet 25 mg PO BID@08,1999 RF: 0 duloxetine 60 mg capsule,delayed release(DR/EC) 60 mg PO DAILY@0800 RF: 0 Discharge Orders: Discharge ED (Routine); Ordered 02/28/21 Ordered By: Ghazal Vargas Referrals: GENET Jiang, NUMERICAL CONTROL NESTING OPERATOR [Primary Care Provider] - Discharge Diet: Advance as tolerated Discharge Activity: Resume usual activity Patient Instructions: Hypercalcemia (ED) Coding Level of Care Code ED Plaster Model And Mold Maker for Chg Fwd Exam Comprehensive
[2021-02-28 20:18] LABS: Alanine Aminotransferase 15 U/L (0-33); Albumin Level 3.5 g/dL (3.5-5.2); Alkaline Phosphatase 94 IU/L (35-105); Anion Gap 16.9 (5-19); Aspartate Amino Transferase 20 U/L (0-32); Blood Urea Nitrogen 15 mg/dL (8-23); Calcium 10.7 mg/dL (8.5-10.5); Carbon Dioxide 18 mmol/L (22-29); Chloride 103 mmol/L (98-107); Globulin 3.1 g/dL (1.3-4.6); Glucose 90 mg/dL (65-115); Lipase 33 U/L (13-60); Magnesium 1.1 mg/dL (1.7-2.3); Osmolality Calculated 278 mOsm/kg (285-295); Potassium 3.9 mmol/L (3.5-5.1); Sodium 134 mmol/L (136-145); Total Bilirubin 0.3 mg/dL (0.15-1.2); Total Protein 6.6 g/dL (6.6-8.7)
--- NOTE | 2021-02-28 20:37 | PC.NURSE ---
pt called and he is currently on his way to come get her. calling [facility] now to give report.
--- NOTE | 2021-02-28 20:38 | PC.NURSE ---
called [facility]... spoke with vimal. stated she will help pt help pt into facility.
[2021-02-28 22:20] VITALS: BP 109/72; PULSE 95; RESP 16; TEMP 36.6; O2SAT 95
== END 2021-02-28 22:21 | disposition home or self-care (01) ==
PROVIDERS: Emergency Provider Emergency Medicine; PCP Nurse Practitioner Family
DX: E83.52 Hypercalcemia (principal); I10 Essential (primary) hypertension; E78.2 Mixed hyperlipidemia; F03.90 Unspecified dementia, unspecified severity, without behavioral disturbance, psychotic disturbance, mood disturbance, and anxiety
CPT/HCPCS: 80053; 83690; 83735; 85025; 99281

== ENCOUNTER 2021-03-25 13:45 | Inpatient (IN) | payer MEDICARE, OTHER, SELFPAY ==
[2021-03-25] VITALS (7 sets, daily range): BP systolic 98–124; BP diastolic 58–75; PULSE 63–84; RESP 14–19; TEMP 35.7–36.3; O2SAT 98–100; BMI 36.6
--- NOTE | 2021-03-25 13:50 | W.ED.AMS ---
HPI - Altered Mental Status General: Chief Complaint: Syncope Stated Complaint: ALOC, FATIGUE, WEAKNESS Time Seen by Provider: 03/25/21 13:49 History of Present Illness: HPI narrative: Ms. Morales is a 75-year-old lady with history of hypertension, hyperlipidemia, status post left hemicolectomy with ileostomy who presents to the emergency department due to altered mental status and syncope. Patient's exact mental status is unclear though likely has a component of dementia. [facility] resides at [facility]. She was reportedly tried to go to an appointment when she had a syncopal episode. She does not recall this and therefore cannot endorse any intensity, course, provoking, exacerbating, or alleviating factors. She otherwise denies complaints however due to mental status reliability of history is questionable at best. Review of Systems Narrative: unable to obtain due to mental status PFSH ED PFSH: Medical History Anemia Chronic osteoarthritis Colitis Depression Essential hypertension, benign Fibromyalgia H/O malignant neoplasm of colon HTN (hypertension) 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 Mild dementia Mixed hyperlipidemia Post-menopausal osteoporosis Vitamin D deficiency Surgical History H/O right hemicolectomy colon cancer History of ankle surgery History of S/P colon resection colon cancer recurrence S/P left hemicolectomy (12/24/20) with ileostomy Status post colonoscopy Family History Other Diabetes Social History Smoking and tobacco status: never smoked Alcohol intake: never Physical Exam Narrative: EXAM NARRATIVE: General: no acute distress, nontoxic Head: Normocephalic and atraumatic Eyes: PERRL, no conjunctiv injection Ear, nose, throat: Normal external exam, no trauma Neck: Normal range of motion, supple Respiratory: Patient is in no respiratory distress, lungs CTAB Cardiovascular: Patient is not tachycardic, RRR GI: non tender, marked erythema inferior abdomen from ostomy site. additional medial superior area of drainage. no ostomy appliance present Extremities: pulses intact with good cap refills, no LE pitting edema Neuro: moves all extremities. impaired memory and cognition Skin: Warm, dry, abdominal as noted above Course ED course: - Monitor, IV access, and vital signs obtained. - The patient was seen and evaluated by me at bedside - Initial evaluation was notable for chronically ill appearance. abdominal exam as noted with drainage seperate from ostomy. impaired cognition and orientation - IV fluids, IV pain medication, IV antiemetics, and IV antibiotics ordered . - Labs notable for hyponatremia, hypomag, audie. urine pending at time of admission - Imaging notable for no acute explaination for syncope. abdominal exam with fluid collections that likely are draining - The exact etiology of syncope is unclear. Patient is not low risk via syncope rules. electrolyte abnormalities could precipitate arrythmia as cause and require repeat. Given age and comorbidities the patient is not a candidate for rapid IVF and ED recheck. - Hospitalist was contacted and agreed admit the patient. - Upon serial reexamation the patient's condition remained similar. They were admitted without incident or further clinical deterioration. Vital Signs: Vital signs: Vital Signs Temperature 97.7 F 03/27/21 11:25 Pulse Rate 84 03/27/21 11:25 Respiratory Rate 18 03/27/21 11:25 Blood Pressure 120/80 03/27/21 11:25 Pulse Oximetry 97 03/27/21 11:25 MDM - Altered Mental Status Lab Data: Labs: Lab Results 03/25/21 03/25/21 03/25/21 Range/Units 13:05 13:05 13:05 WBC 8.8 (4.0-10.0) 10^3/ uL RBC 5.22 (4.1-5.3) 10^6/u L Hgb 15.4 H (11.5-15.3) g/dL Hct 48.3 H (37.0-47.0) % MCV 92.5 (81-99) fl MCH 29.5 (28.0-34.0) pg MCHC 31.9 (30.0-36.0) g/dL RDW 16.5 H (12.1-15.1) % Plt Count 221 (130-400) 10^3/c mm MPV 10.8 H (7.4-10.4) fL Neut % (Auto) 71.2 % Lymph % (Auto) 23.4 % [place] % (Auto) 3.9 % Eos % (Auto) 0.8 % Baso % (Auto) 0.2 % Neut # (Auto) 6.26 (1.8-7.7) 10^3/u L Lymph # (Auto) 2.1 (0.8-4.8) 10^3/u L [place] # (Auto) 0.3 (0.2-0.9) 10^3/u L Eos # (Auto) 0.1 (0.0-0.8) 10^3/u L Baso # (Auto) 0.0 (0.0-0.1) 10^3/u L Nucleated RBC % (a uto) 0 % Nucleated RBCs # 0.0 /100WBC Sodium Cancelled Potassium Cancelled Chloride Cancelled Carbon Dioxide Cancelled Anion Gap Cancelled BUN Cancelled Creatinine Cancelled GFR Calculation Cancelled Glucose Cancelled POC Glucose (70-110) mg/dL Calculated Osmolal ity Cancelled Lactate 1.6 (0.5-2.2) mmol/L Calcium Cancelled Total Bilirubin Cancelled AST Cancelled ALT Cancelled Alkaline Phosphata se Cancelled Troponin T Baselin e Troponin T 120 Min [place] (0-10) ng/L Delta Troponin T (0-10) ABS# Troponin T Hi Sens 6Hr (0-10) ng/L Troponin T Hi Sens 6Hr Delta (0-12) ng/L C-Reactive Protein (0.0-4.9) mg/L NT-Pro-B Natriuret Pep Cancelled Total Protein Cancelled Albumin Cancelled Globulin Cancelled Procalcitonin (0-0.5) ng/mL TSH Cancelled Urine Color (Yellow) Urine Appearance (CLEAR) Urine pH (5-7) Ur Specific Gravit y (1.005-1.030) Urine Protein (Negative) Urine Glucose (UA) (Normal) Urine Ketones (Negative) Urine Blood (Negative) Urine Nitrate (Negative) Urine Bilirubin (Negative) Urine Urobilinogen (Negative) mg/dL Ur Leukocyte Sultana ase (Negative) Urine RBC (0-2) /hpf Urine WBC (0-5) /hpf Ur Squamous Epith Cells (0-5) /hpf Calcium Oxalate Cr ystal /hpf Amorphous Sediment Urine Bacteria (NONE) /hpf Hyaline Casts /lpf 03/25/21 03/25/21 03/25/21 Range/Units 13:05 14:07 15:52 WBC (4.0-10.0) 10^3/ uL RBC (4.1-5.3) 10^6/u L Hgb (11.5-15.3) g/dL Hct (37.0-47.0) % MCV (81-99) fl MCH (28.0-34.0) pg MCHC (30.0-36.0) g/dL RDW (12.1-15.1) % Plt Count (130-400) 10^3/c mm MPV (7.4-10.4) fL Neut % (Auto) % Lymph % (Auto) % [place] % (Auto) % Eos % (Auto) % Baso % (Auto) % Neut # (Auto) (1.8-7.7) 10^3/u L Lymph # (Auto) (0.8-4.8) 10^3/u L [place] # (Auto) (0.2-0.9) 10^3/u L Eos # (Auto) (0.0-0.8) 10^3/u L Baso # (Auto) (0.0-0.1) 10^3/u L Nucleated RBC % (a uto) % Nucleated RBCs # /100WBC Sodium Potassium Chloride Carbon Dioxide Anion Gap BUN Creatinine GFR Calculation Glucose POC Glucose 91 (70-110) mg/dL Calculated Osmolal ity Lactate (0.5-2.2) mmol/L Calcium Total Bilirubin AST ALT Alkaline Phosphata se Troponin T Baselin e Cancelled 49 H Troponin T 120 Min [place] (0-10) ng/L Delta Troponin T (0-10) ABS# Troponin T Hi Sens 6Hr (0-10) ng/L Troponin T Hi Sens 6Hr Delta (0-12) ng/L C-Reactive Protein (0.0-4.9) mg/L NT-Pro-B Natriuret Pep Total Protein Albumin Globulin Procalcitonin (0-0.5) ng/mL TSH Urine Color (Yellow) Urine Appearance (CLEAR) Urine pH (5-7) Ur Specific Gravit y (1.005-1.030) Urine Protein (Negative) Urine Glucose (UA) (Normal) Urine Ketones (Negative) Urine Blood (Negative) Urine Nitrate (Negative) Urine Bilirubin (Negative) Urine Urobilinogen (Negative) mg/dL Ur Leukocyte Sultana ase (Negative) Urine RBC (0-2) /hpf Urine WBC (0-5) /hpf Ur Squamous Epith Cells (0-5) /hpf Calcium Oxalate Cr ystal /hpf Amorphous Sediment Urine Bacteria (NONE) /hpf Hyaline Casts /lpf 03/25/21 03/25/21 03/25/21 Range/Units 15:52 18:23 22:00 WBC (4.0-10.0) 10^3/ uL RBC (4.1-5.3) 10^6/u L Hgb (11.5-15.3) g/dL Hct (37.0-47.0) % MCV (81-99) fl MCH (28.0-34.0) pg MCHC (30.0-36.0) g/dL RDW (12.1-15.1) % Plt Count (130-400) 10^3/c mm MPV (7.4-10.4) fL Neut % (Auto) % Lymph % (Auto) % [place] % (Auto) % Eos % (Auto) % Baso % (Auto) % Neut # (Auto) (1.8-7.7) 10^3/u L Lymph # (Auto) (0.8-4.8) 10^3/u L [place] # (Auto) (0.2-0.9) 10^3/u L Eos # (Auto) (0.0-0.8) 10^3/u L Baso # (Auto) (0.0-0.1) 10^3/u L Nucleated RBC % (a uto) % Nucleated RBCs # /100WBC Sodium 128 L Potassium 4.2 Chloride 96 L Carbon Dioxide 21 L Anion Gap 15.2 BUN 52 H Creatinine 1.6 H GFR Calculation Not Reportable Glucose 73 POC Glucose (70-110) mg/dL Calculated Osmolal ity 279 L Lactate (0.5-2.2) mmol/L Calcium 12.2 H Total Bilirubin 0.2 AST 21 ALT 13 Alkaline Phosphata se 101 Troponin T Baselin e Troponin T 120 Min [place] 55.25 H (0-10) ng/L Delta Troponin T 6.25 (0-10) ABS# Troponin T Hi Sens 6Hr (0-10) ng/L Troponin T Hi Sens 6Hr Delta (0-12) ng/L C-Reactive Protein 7.0 H (0.0-4.9) mg/L NT-Pro-B Natriuret Pep 775 H Total Protein 5.5 L Albumin 3.0 L Globulin 2.5 Procalcitonin 0.18 (0-0.5) ng/mL TSH 0.86 Urine Color Yellow (Yellow) Urine Appearance Sl hazy (CLEAR) Urine pH 5 (5-7) Ur Specific Gravit y 1.015 (1.005-1.030) Urine Protein Neg (Negative) Urine Glucose (UA) Norm (Normal) Urine Ketones Negative (Negative) Urine Blood 2+ H (Negative) Urine Nitrate Negative (Negative) Urine Bilirubin Neg (Negative) Urine Urobilinogen Norm (Negative) mg/dL Ur Leukocyte Sultana ase 2+ H (Negative) Urine RBC 5-10 H (0-2) /hpf Urine WBC 40-55 H (0-5) /hpf Ur Squamous Epith Cells 5-10 H (0-5) /hpf Calcium Oxalate Cr ystal 0-4 H /hpf Amorphous Sediment Not Reportable Urine Bacteria 3+ H (NONE) /hpf Hyaline Casts 0-4 H /lpf 03/25/21 03/26/21 03/26/21 Range/Units 22:24 06:11 06:11 WBC 6.0 (4.0-10.0) 10^3/ uL RBC 4.79 (4.1-5.3) 10^6/u L Hgb 14.5 (11.5-15.3) g/dL Hct 45.9 (37.0-47.0) % MCV 95.8 (81-99) fl MCH 30.3 (28.0-34.0) pg MCHC 31.6 (30.0-36.0) g/dL RDW 17.1 H (12.1-15.1) % Plt Count 175 (130-400) 10^3/c mm MPV 11.1 H (7.4-10.4) fL Neut % (Auto) 64.3 % Lymph % (Auto) 22.9 % [place] % (Auto) 10.7 % Eos % (Auto) 1.3 % Baso % (Auto) 0.3 % Neut # (Auto) 3.85 (1.8-7.7) 10^3/u L Lymph # (Auto) 1.4 (0.8-4.8) 10^3/u L [place] # (Auto) 0.6 (0.2-0.9) 10^3/u L Eos # (Auto) 0.1 (0.0-0.8) 10^3/u L Baso # (Auto) 0.0 (0.0-0.1) 10^3/u L Nucleated RBC % (a uto) 0 % Nucleated RBCs # 0.0 /100WBC Sodium Cancelled Potassium Cancelled Chloride Cancelled Carbon Dioxide Cancelled Anion Gap Cancelled BUN Cancelled Creatinine Cancelled GFR Calculation Cancelled Glucose Cancelled POC Glucose (70-110) mg/dL Calculated Osmolal ity Cancelled Lactate (0.5-2.2) mmol/L Calcium Cancelled Total Bilirubin AST ALT Alkaline Phosphata se Troponin T Baselin e Troponin T 120 Min [place] (0-10) ng/L Delta Troponin T (0-10) ABS# Troponin T Hi Sens 6Hr 53.44 H (0-10) ng/L Troponin T Hi Sens 6Hr Delta 4.44 (0-12) ng/L C-Reactive Protein (0.0-4.9) mg/L NT-Pro-B Natriuret Pep Total Protein Albumin Globulin Procalcitonin (0-0.5) ng/mL TSH Urine Color (Yellow) Urine Appearance (CLEAR) Urine pH (5-7) Ur Specific Gravit y (1.005-1.030) Urine Protein (Negative) Urine Glucose (UA) (Normal) Urine Ketones (Negative) Urine Blood (Negative) Urine Nitrate (Negative) Urine Bilirubin (Negative) Urine Urobilinogen (Negative) mg/dL Ur Leukocyte Sultana ase (Negative) Urine RBC (0-2) /hpf Urine WBC (0-5) /hpf Ur Squamous Epith Cells (0-5) /hpf Calcium Oxalate Cr ystal /hpf Amorphous Sediment Urine Bacteria (NONE) /hpf Hyaline Casts /lpf 03/26/21 Range/Units 09:50 WBC (4.0-10.0) 10^3/ uL RBC (4.1-5.3) 10^6/u L Hgb (11.5-15.3) g/dL Hct (37.0-47.0) % MCV (81-99) fl MCH (28.0-34.0) pg MCHC (30.0-36.0) g/dL RDW (12.1-15.1) % Plt Count (130-400) 10^3/c mm MPV (7.4-10.4) fL Neut % (Auto) % Lymph % (Auto) % [place] % (Auto) % Eos % (Auto) % Baso % (Auto) % Neut # (Auto) (1.8-7.7) 10^3/u L Lymph # (Auto) (0.8-4.8) 10^3/u L [place] # (Auto) (0.2-0.9) 10^3/u L Eos # (Auto) (0.0-0.8) 10^3/u L Baso # (Auto) (0.0-0.1) 10^3/u L Nucleated RBC % (a uto) % Nucleated RBCs # /100WBC Sodium 135 L Potassium 4.1 Chloride 104 Carbon Dioxide 21 L Anion Gap 14.1 BUN 35 H Creatinine 0.8 GFR Calculation Not Reportable Glucose 68 POC Glucose (70-110) mg/dL Calculated Osmolal ity 286 Lactate (0.5-2.2) mmol/L Calcium 12.2 H Total Bilirubin AST ALT Alkaline Phosphata se Troponin T Baselin e Troponin T 120 Min [place] (0-10) ng/L Delta Troponin T (0-10) ABS# Troponin T Hi Sens 6Hr (0-10) ng/L Troponin T Hi Sens 6Hr Delta (0-12) ng/L C-Reactive Protein (0.0-4.9) mg/L NT-Pro-B Natriuret Pep Total Protein Albumin Globulin Procalcitonin (0-0.5) ng/mL TSH Urine Color (Yellow) Urine Appearance (CLEAR) Urine pH (5-7) Ur Specific Gravit y (1.005-1.030) Urine Protein (Negative) Urine Glucose (UA) (Normal) Urine Ketones (Negative) Urine Blood (Negative) Urine Nitrate (Negative) Urine Bilirubin (Negative) Urine Urobilinogen (Negative) mg/dL Ur Leukocyte Sultana ase (Negative) Urine RBC (0-2) /hpf Urine WBC (0-5) /hpf Ur Squamous Epith Cells (0-5) /hpf Calcium Oxalate Cr ystal /hpf Amorphous Sediment Urine Bacteria (NONE) /hpf Hyaline Casts /lpf Discharge Plan Discharge Patient Disposition: Admitted As Inpatient Admit Provider: Jim Whatley Coding Level of Care Code ED Paid Search Analyst for Gladys Wakefield
[2021-03-25] MEDS: sodium chloride 0.9% 500 ML IV (14:00)
--- NOTE | 2021-03-25 14:00 | CT_ITS ---
WS: [id number] CT HEAD NONCONTRAST HISTORY: syncope, AMS TECHNIQUE: Contiguous axial imaging performed through the brain in 2.5 mm imaging. Bone and soft tiss ue windows. Sagittal and coronal reformats reviewed. All CT scans at [facility] use at least one of these dose optimization techniques: automated exposure control; mA and/or kV adjustment per pa tient size (includes targeted exams where dose is matched to clinical indication); or iterative recon struction. DLP: 826.53 mGy.cm COMPARISON: 12/19/2019 No acute intracranial hemorrhage, midline shift or mass effect. Mild atrophy and mild chronic microvascular ischemic disease. No area of effacement or sulcal edema. No midline shift. Ventricles: Normal size with no hydrocephalus. Paranasal sinuses: Mild mucoperiosteal thickening in the RIGHT sphenoid sinus. Otherwise sinuses are clear. Mastoid air cells: Well pneumatized. Calvarium and scalp: Hyperostosis frontalis interna. CT/CT head wo con* [id number] IMPRESSION: 1. No acute intracranial hemorrhage. 2. Mild atrophy and mild chronic ischemic disease. Stable since 12/19/2019.
--- NOTE | 2021-03-25 14:00 | XR_ITS ---
WS: [id number] Portable AP upright chest, 03/25/2021 Clinical Data: syncope Comparison: Portable chest, 02/08/2021. Findings: No nodules, masses or effusions are seen. The heart is normal. The pulmonary vascularity is not increased. No pneumonia or pneumothorax is seen. The aortic arch and descending aorta show tortu osity. There is a calcification over the right greater tuberosity, most likely calcific bursitis or t endinitis. There is osteoarthritis of the left shoulder. XR/XR chest 1V portable [id number] Impression: Atherosclerosis.
--- NOTE | 2021-03-25 14:00 | CT_ITS ---
WS: [id number] CT ABDOMEN AND PELVIS WITH CONTRAST HISTORY: s/p left cholo with DLI(?), drainage, ?abscess TECHNIQUE: Imaging performed of the abdomen and pelvis with IV contrast. Single phase imaging of the abdomen. Coronal and sagittal reformats are submitted. All CT scans at [facility] use at [address] one of these dose optimization techniques: automated exposure control; mA and/or kV adjustment per patient size (includes targeted exams where dose is matched to clinical indication); or iterative re construction. IV CONTRAST: Omnipaque 300; 95 mL IV. Oral contrast: No DLP: 1618.58 mGy.cm COMPARISON: 02/08/2021 and 12/23/2020 Lower thorax: Lung bases are clear. Heart is normal size. No hiatal hernia. Liver/biliary system: Normal size with no intrahepatic dilatation. Gallbladder: Status post cholecystectomy. Pancreas: Atrophied pancreas. Spleen: Normal size spleen. No mass or infarct. Adrenal glands: Normal. Right kidney: 5 mm cyst lower pole cortex. No obstruction. Left kidney: 1.0 cm cyst mid posterior LEFT kidney. No obstruction. Aorta: Normal. Lymphadenopathy: None. Free fluid: None. GI tract: Partial colectomy. Surgical sutures are noted near the mid descending colon. Ileostomy in t he LEFT abdominal wall. The ileostomy is very similar in appearance to the prior study. There is no o bstruction. Abdominal wall: Irregular soft tissue complex extending over length of 14 cm along the anterior abdom inal wall this is along the surgical tract. There are multiple areas of skin thickening and a few sma ll fluid collections and fat necrosis. There are a few small foci of air near the umbilical region wh ich could represent early infection. Fluid collection associated with the foci of air is 1.4 cm. Ther e is an additional fluid collection which has slightly increased in size measuring 2.3 cm diameter al malinda the supraumbilical midline of the abdominal wall. Pelvis: Prior hysterectomy. Urinary bladder is normally distended. No adenopathy or fluid. Bones: L4 anterolisthesis by [address]/CT abdomen pelvis w con* [id number] IMPRESSION: 1. Ventral abdominal wall postsurgical changes. There are a few new foci of ai r within a small collection measuring 1.4 cm at the umbilical region. There is additional collection which has slightly increased in size in the supraumbilica l postsurgical site now measuring 2.3 cm. 2. LEFT ileostomy site appears stable. 3. Partial colectomy. 4. Prior cholecystectomy.
--- NOTE | 2021-03-25 14:01 | ECG_ITS ---
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: : 1945 Requested By: Jonathan Loja Order Number: [id number] Reading MD: JAIME YAP Measurements Intervals [place] Rate: 74 P: 50 DE: 140 QRS: 13 QRSD: 89 T: 81 QT: 373 QTc: 414 Interpretive Statements SINUS RHYTHM LOW QRS VOLTAGE IN PRECORDIAL LEADS [QRS DEFLECTION < 1.0 mV IN CHEST LEADS] MARKED ST ELEVATION, CONSIDER INFERIOR INJURY [MARKED ST ELEVATION W/O NORMALLY INFLECTED T-WAVE IN II/aVF] ACUTE TX Compared to ECG 02/08/2021 12:30:10 ST (T wave) deviation now present Myocardial infarct finding still present Electronically Signed On 03-26-2021 20:16:02 CDT by JAIME YAP [email or web address].Thryve/store/OV/[id number]
[2021-03-25 15:00] LABS: Basophils % 0.2 %; Eosinophils # 0.1 10^3/uL (0.0-0.8); Eosinophils % 0.8 %; Hematocrit 48.3 % (37.0-47.0); Hemoglobin 15.4 g/dL (11.5-15.3); Lymphocytes # 2.1 10^3/uL (0.8-4.8); Lymphocytes % 23.4 %; Mean Corpuscular HGB Conc 31.9 g/dL (30.0-36.0); Mean Corpuscular Hemoglobin 29.5 pg (28.0-34.0); Mean Corpuscular Volume 92.5 fl (81-99); Mean Platelet Volume 10.8 fL (7.4-10.4); Monocytes # 0.3 10^3/uL (0.2-0.9); Monocytes % 3.9 %; Neutrophils # 6.26 10^3/uL (1.8-7.7); Neutrophils % 71.2 %; Nucleated Red Blood Cells % 0 %; Platelet Count 221 10^3/cmm (130-400); Red Blood Count 5.22 10^6/uL (4.1-5.3); Red Cell Distribution Width 16.5 % (12.1-15.1); White Blood Count 8.8 10^3/uL (4.0-10.0)
[2021-03-25] MEDS: iohexol 300 mg/mL 100 mL Btl IV (15:10)
--- NOTE | 2021-03-25 16:01 | ECG_ITS ---
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 Automatic: : 1945 Requested By: Jonathan Loja Order Number: [id number] Reading MD: JAIME YAP Measurements Intervals [place] Rate: 71 P: 68 MO: 162 QRS: 11 QRSD: 81 T: 77 QT: 386 QTc: 422 Interpretive Statements SINUS RHYTHM LOW QRS VOLTAGE IN PRECORDIAL LEADS [QRS DEFLECTION < 1.0 mV IN CHEST LEADS] Compared to ECG 03/25/2021 14:19:50 ST (T wave) deviation no longer present Myocardial infarct finding no longer present Electronically Signed On 03-26-2021 20:18:43 CDT by JAIME YAP [email or web address].[employer]/[email or web address]/OV/[id number]
[2021-03-25 16:29] LABS: Lactate (Lactic Acid level) 1.6 mmol/L (0.5-2.2)
[2021-03-25 16:38] LABS: Troponin(5th) Baseline 49 ng/L (0-10)
[2021-03-25 16:39] LABS: NT Pro B Type Natriuretic Pept 775 pg/mL (0-450); Procalcitonin 0.18 ng/mL (0-0.5); Thyroid Stimulating Hormone 0.86 uIU/mL (0.27-4.20)
[2021-03-25 16:50] LABS: Alanine Aminotransferase 13 U/L (0-33); Alkaline Phosphatase 101 IU/L (35-105); Anion Gap 15.2 (5-19); Aspartate Amino Transferase 21 U/L (0-32); Blood Urea Nitrogen 52 mg/dL (8-23); Calcium 12.2 mg/dL (8.5-10.5); Carbon Dioxide 21 mmol/L (22-29); Chloride 96 mmol/L (98-107); Globulin 2.5 g/dL (1.3-4.6); Glucose 73 mg/dL (65-115); Osmolality Calculated 279 mOsm/kg (285-295); Potassium 4.2 mmol/L (3.5-5.1); Sodium 128 mmol/L (136-145); Total Bilirubin 0.2 mg/dL (0.15-1.2); Total Protein 5.5 g/dL (6.6-8.7)
[2021-03-25] MEDS: magnesium sulfate premix 4 GM/100 ML PREMIX IV (17:56)
--- NOTE | 2021-03-25 18:18 | PM.HP ---
Providers/Chief Complaint Primary Care Provider: SUSIE Tello Chief Complaint: ALOC, FATIGUE, WEAKNESS History of Present Illness Mariangel Morales is a 75 year old female hypertension, iron deficiency anemia ,Squamous cell carcinoma right third digit , h/o Ca colon S/P right hemicolectomy 30 years ago and subsequently had a resection of local recurrence 10 years ago. Recent left hemicolectomy with end ileostomy on 12/24/2020 for large bowel obstruction secondary to splenic flexure mass. She was brought in today as when she was coming to the regular appointment with Dr. Quick, she experienced a syncopal episode, with loss of conscious around 30 seconds to a minute, with full regain of consciousness, syncopal episode was witnessed by his , denied any seizure-like activity. Upon arrival in the ER she was worked up for above-mentioned complaint. Imaging studies: CT head without contrast: No acute intracranial pathology. X-ray chest: No infiltrates, pulmonary vascular congestion, pneumothorax. CT abdomen pelvis w con was done because she has extensive skin excoriation around the ostomy site: LEFT ileostomy site appears stable. Partial colectomy. EKG: Sinus rhythm Pertinent labs: WBC: 8.8, H&H:15/48, platelet count: 221 Serum sodium 128, serum potassium :4.2, BUN: 52, creatinine:1.6 , baseline troponin T:49, 2-hour troponin: 55, 2-hour delta: 6, proBNP:775, procalcitonin:0.18, TSH:0.86, Review of Systems Const: Denies: fever(s) or chills Card: Denies: palpitations or edema Resp: Denies: productive cough, wheezing or pain on inspiration GI: Denies: nausea, vomiting, diarrhea or constipation Musc: Denies: extremity pain or extremity swelling Neuro: Denies: headache(s) or confusion Medications/Allergies Home Medications Medication Instructions Recorded Confirmed Last Taken Type acetaminophen [Tylenol Extra 1,000 mg PO PRN PRN MDD SEE 12/13/20 03/25/21 03/24/21 History Strength] PHARMACY COMMENT cholecalciferol (vitamin D3) 125 mcg PO DAILY@0800 12/13/20 03/25/21 03/25/21 History [Vitamin D3] famotidine [Pepcid AC] 20 mg PO DAILY@0800 12/13/2021 09/03/21 History pregabalin [Lyrica] 50 mg PO DAILY@0800 12/13/20 03/25/21 03/25/21 History tramadol 50 mg tablet 50 mg PO BID PRN 30 Days #60 tab 12/21/20 03/25/21 03/24/21 Rx cyanocobalamin (vitamin B-12) 1,000 mcg PO DAILY@0800 12/23/20 03/25/21 03/25/21 History Prostat 15 ml PO BID@0800,199902/08/21 03/25/21 03/25/21 History duloxetine 60 mg PO DAILY@79902/08/21 03/25/21 03/25/21 History psyllium husk [Metamucil] 1 - 2 tbsp PO DAILY 02/08/21 03/25/21 03/25/21 History zinc oxide 1 applic TOPICAL TID@0800,1199,199902/08/21 03/25/21 03/25/21 History food supplemt, lactose-reduced 1 ea PO TID 03/25/21 03/25/21 03/25/21 History [TwoCal HN] metoprolol tartrate 25 mg PO DAILY@08,199903/25/21 03/25/21 03/25/21 History Allergies Allergy/AdvReac Type Severity Reaction Status Date / Time No Known Allergies Allergy Verified 03/07/21 14:48 PFSH Acute PFSH: Medical History Anemia Chronic osteoarthritis Colitis Depression Essential hypertension, benign Fibromyalgia H/O malignant neoplasm of colon HTN (hypertension) 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 Mild dementia Mixed hyperlipidemia Post-menopausal osteoporosis Vitamin D deficiency Surgical History H/O right hemicolectomy colon cancer History of ankle surgery History of S/P colon resection colon cancer recurrence S/P left hemicolectomy (12/24/20) with ileostomy Status post colonoscopy Family History Other Diabetes Social History Smoking and tobacco status: never smoked Alcohol intake: never Vitals/I&O/Wt Last Vital Signs Temp 96.3 F L 03/25/21 13:50 Pulse 71 03/25/21 17:00 Resp 16 03/25/21 17:00 BP 124/75 03/25/21 17:00 Pulse Ox 100 03/25/21 17:00 Weight last 48 hrs Weight 99.79 kg Physical Exam Const: COMMON NORMALS: patient oriented x3 HENMT: COMMON NORMALS: normocephalic and atraumatic Resp: COMMON NORMALS: clear to auscultation bilaterally AUSCULTATION: clear to auscultation bilaterally Cardio: COMMON NORMALS: regular rate, regular rhythm, S1 normal heart sound present, S2 normal heart sound present, No gallops present (Cardio), No murmurs present (Cardio), No rub (Cardio) and Peripheral pulses 2+ throughout RATE: regular rate RHYTHM: regular rhythm HEART SOUNDS: S1 normal heart sound present and S2 normal heart sound present PERIPHERAL PULSES: Peripheral pulses 2+ throughout GI: COMMON NORMALS: Soft to palpation, non-tender, No hepatosplenomegaly present and no masses AUSCULTATION: Yes normoactive bowel sounds PALPATION: Yes Soft to palpation and Yes No hepatosplenomegaly present RECTAL EXAM: deferred OTHER: Extensive skin excoriation around the ostomy site Extremity: COMMON NORMALS: no clubbing, cyanosis or edema and no pedal edema Neuro: COMMON NORMALS: patient oriented x3 Data : 03/25/21 13:05 03/25/21 15:52 Micro: Microbiology 03/25/21 15:51 Blood Culture - Preliminary Blood SPECIMEN COLLECTED 03/25/21 15:52 Blood Culture - Preliminary Blood SPECIMEN COLLECTED A&P Assessment and plan (1) Syncope: Syncope likely vasovagal: Continue nuclear monitoring technician Status: Acute (2) EARL (acute kidney injury): Likely secondary to dehydration: Baseline serum creatinine is: 0.8-1 Current serum creatinine is 1.6 IV hydration with normal saline at 75 cc an hour Monitor BMP Avoid nephrotoxic Status: Acute (3) Hyponatremia: Hypovolemic hyponatremia Plan as above Status: Acute (4) Dehydration: Status: Acute (5) HTN (hypertension): Status: Acute (6) S/P left hemicolectomy: Status: Acute Additional A&P Information CODE STATUS:Full code DVT PPX:Lovenox Attestations Medical Necessity Statement*: Patient needs to be in hospital for management of syncope, EARL.Anticipated length of stay less than 2 midnights. Coding Level of Care Code Acute Loom Overhauler for g Fwd Diagnoses Syncope R55 EARL (acute kidney injury) N17.9 Hyponatremia E87.1 Dehydration E86.0 HTN (hypertension) I10 S/P left hemicolectomy Z90.49
[2021-03-25 19:02] LABS: Troponin 5 2HR 55.25 ng/L (0-10); Troponin 5 2HR Delta 6.25 ABS# (0-10)
[2021-03-25] MEDS: sodium chloride 0.9% 1,000 ML 75 ML IV (20:02)
[2021-03-25] MEDS: metoprolol tartrate 25 mg Tablet PO (20:03)
[2021-03-25] MEDS: enoxaparin 40 mg/0.4 mL Syringe SUBCUT (20:03)
[2021-03-25 20:32] LABS: LAB Peripheral Smear Sent for Review
[2021-03-25 22:04] LABS: Urine Appearance SL Hazy (CLEAR); Urine Color Yellow (Yellow)
[2021-03-25 22:05] LABS: Add Urine Microscopic? YES; Bilirubin Urine Neg (Negative); Blood Urine 2+ (Negative); Glucose Urine UA Norm (Normal); Ketones Urine Negative (Negative); Leukocyte Esterase Urine 2+ (Negative); Nitrate Urine Negative (Negative); Protein Urine Neg (Negative); Specific Gravity, Urine 1.015 (1.005-1.030); Urobilinogen Urine Norm (Negative); pH Urine 5 (5-7)
[2021-03-25 22:41] LABS: Add Urine Culture? Yes; Bacteria Urine 3+ /hpf; Calcium Oxalate Crystals Urine 0-4 /hpf; Hyaline Casts Urine 0-4 /lpf; WBC Urine 40-55 /hpf (0-5)
[2021-03-25 23:14] LABS: Troponin 5 6HR 53.44 ng/L (0-10); Troponin 5 6HR Delta 4.44 ng/L (0-12)
[2021-03-26] VITALS (8 sets, daily range): BP systolic 97–120; BP diastolic 55–80; PULSE 62–108; RESP 15–18; TEMP 36.3–36.8; O2SAT 92–100
[2021-03-26 06:38] LABS: Basophils % 0.3 %; Eosinophils # 0.1 10^3/uL (0.0-0.8); Eosinophils % 1.3 %; Hematocrit 45.9 % (37.0-47.0); Hemoglobin 14.5 g/dL (11.5-15.3); Lymphocytes # 1.4 10^3/uL (0.8-4.8); Lymphocytes % 22.9 %; Mean Corpuscular HGB Conc 31.6 g/dL (30.0-36.0); Mean Corpuscular Hemoglobin 30.3 pg (28.0-34.0); Mean Corpuscular Volume 95.8 fl (81-99); Mean Platelet Volume 11.1 fL (7.4-10.4); Monocytes # 0.6 10^3/uL (0.2-0.9); Monocytes % 10.7 %; Neutrophils # 3.85 10^3/uL (1.8-7.7); Neutrophils % 64.3 %; Nucleated Red Blood Cells % 0 %; Platelet Count 175 10^3/cmm (130-400); Red Blood Count 4.79 10^6/uL (4.1-5.3); Red Cell Distribution Width 17.1 % (12.1-15.1)
[2021-03-26] MEDS: famotidine 20 mg Tablet PO (09:46)
[2021-03-26] MEDS: cyanocobalamin 1,000 mcg Tablet 1000 MCG PO (09:47)
[2021-03-26] MEDS: metoprolol tartrate 25 mg Tablet PO ×2 (09:47→21:22)
[2021-03-26] MEDS: cholecalciferol (vitamin D3) 5,000 unit Tablet 5000 UNIT PO (09:47)
[2021-03-26] MEDS: pregabalin 50 mg Capsule PO (09:47)
[2021-03-26] MEDS: duloxetine 60 mg Capsule PO (09:47)
[2021-03-26] MEDS: sodium chloride 0.9% 1,000 ML 75 ML IV (09:48)
[2021-03-26 11:12] LABS: Blood Urea Nitrogen 35 mg/dL (8-23); Calcium 12.2 mg/dL (8.5-10.5); Carbon Dioxide 21 mmol/L (22-29); Chloride 104 mmol/L (98-107); Glucose 68 mg/dL (65-115); Osmolality Calculated 286 mOsm/kg (285-295); Sodium 135 mmol/L (136-145)
[2021-03-26 11:47] LABS: Anion Gap 14.1 (5-19); Potassium 4.1 mmol/L (3.5-5.1)
--- NOTE | 2021-03-26 14:30 | P.PN_ITS ---
Subjective Subjective: Interval history: Patient was seen and examined this morning, no fresh syncopal episode.Much more alert and awake as compared to yesterday. Medications: Reviewed: Yes Vitals/I&O/Wt Last Vital Signs Temp 98.2 F 03/26/21 13:34 Pulse 90 03/26/21 13:34 Resp 15 03/26/21 13:34 BP 101/69 03/26/21 13:34 Pulse Ox 99 03/26/21 13:34 03/25/21 03/26/21 03/26/21 22:59 06:59 14:59 Intake Total 1000 / 1000 Output Total 0 / 0 Balance 0 / 0 1000 / 1000 Weight last 48 hrs Weight 99.79 kg Weight 99.79 kg Physical Exam Const: COMMON NORMALS: patient oriented x3 HENMT: COMMON NORMALS: normocephalic and atraumatic HEAD & SCALP: normocephalic and atraumatic Resp: COMMON NORMALS: clear to auscultation bilaterally AUSCULTATION: clear to auscultation bilaterally Cardio: COMMON NORMALS: regular rate, regular rhythm, S1 normal heart sound present, S2 normal heart sound present, No gallops present (Cardio), No murmurs present (Cardio), No rub (Cardio) and Peripheral pulses 2+ throughout RATE: regular rate RHYTHM: regular rhythm HEART SOUNDS: S1 normal heart sound p resent and S2 normal heart sound present PERIPHERAL PULSES: Peripheral pulses 2+ throughout GI: COMMON NORMALS: Soft to palpation, non-tender, No hepatosplenomegaly present and no masses AUSCULTATION: Yes normoactive bowel sounds PALPATION: Yes Soft to palpation and Yes No hepatosplenomegaly present RECTAL EXAM: deferred OTHER: Extensive skin excoriation around the ostomy site Extremity: COMMON NORMALS: no clubbing, cyanosis or edema and no pedal edema Neuro: COMMON NORMALS: patient oriented x3 Data : 03/26/21 06:11 03/26/21 09:50 Micro: Microbiology 03/25/21 15:51 Blood Culture - Preliminary Blood SPECIMEN COLLECTED 03/25/21 15:52 Blood Culture - Preliminary Blood SPECIMEN COLLECTED A&P Assessment and plan (1) Syncope: Syncope likely vasovagal: Continue bus driver/monitor Status: Acute (2) EARL (acute kidney injury): Likely secondary to dehydration: Resolved Baseline serum creatinine is: 0.8-1 Current serum creatinine is 0.8 IV hydration with normal saline at 75 cc an hour Monitor BMP Avoid nephrotoxic Status: Acute (3) Hyponatremia: Hypovolemic hyponatremia Plan as above Status: Acute (4) Dehydration: Status: Acute (5) HTN (hypertension): Status: Acute (6) S/P left hemicolectomy: Status: Acute Additional A&P Information CODE STATUS:Full code DVT PPX:Lovenox Attestations Medical Necessity Statement*: Patient needs to be in hospital for the management of Dehydration, EARL , syncope Coding Level of Care Code Acute Religion Teacher for [facility] Fwd Diagnoses Syncope R55 EARL (acute kidney injury) N17.9 Hyponatremia E87.1 Dehydration E86.0 HTN (hypertension) I10 S/P left hemicolectomy Z90.49
[2021-03-26] MEDS: enoxaparin 40 mg/0.4 mL Syringe SUBCUT (21:22)
[2021-03-26] MEDS: TRAMadol 50 mg Tablet PO (21:54)
[2021-03-27] MEDS: sodium chloride 0.9% 1,000 ML 75 ML IV (02:34)
[2021-03-27 04:00] VITALS: BP 97/64; PULSE 74; RESP 18; TEMP 36.4; O2SAT 97
[2021-03-27 06:00] LABS: Basophils % 0.2 %; Eosinophils # 0.2 10^3/uL (0.0-0.8); Eosinophils % 3.3 %; Hematocrit 38.8 % (37.0-47.0); Hemoglobin 12.5 g/dL (11.5-15.3); Lymphocytes # 1.8 10^3/uL (0.8-4.8); Lymphocytes % 31.6 %; Mean Corpuscular HGB Conc 32.2 g/dL (30.0-36.0); Mean Corpuscular Hemoglobin 30.4 pg (28.0-34.0); Mean Corpuscular Volume 94.4 fl (81-99); Mean Platelet Volume 10.8 fL (7.4-10.4); Monocytes # 0.7 10^3/uL (0.2-0.9); Monocytes % 11.4 %; Neutrophils # 3.04 10^3/uL (1.8-7.7); Neutrophils % 53.2 %; Nucleated Red Blood Cells % 0 %; Platelet Count 168 10^3/cmm (130-400); Red Blood Count 4.11 10^6/uL (4.1-5.3); Red Cell Distribution Width 16.8 % (12.1-15.1); White Blood Count 5.7 10^3/uL (4.0-10.0)
[2021-03-27 06:25] LABS: Blood Urea Nitrogen 23 mg/dL (8-23); Calcium 11.5 mg/dL (8.5-10.5); Carbon Dioxide 17 mmol/L (22-29); Chloride 109 mmol/L (98-107); Glucose 71 mg/dL (65-115); Osmolality Calculated 278 mOsm/kg (285-295); Sodium 133 mmol/L (136-145)
[2021-03-27 06:26] LABS: Anion Gap 10.8 (5-19); Potassium 3.8 mmol/L (3.5-5.1)
[2021-03-27 07:57] LABS: Glucose Point of Care 91 mg/dL (70-110)
[2021-03-27 07:59] VITALS: BP 98/64; PULSE 76; RESP 18; TEMP 36.4; O2SAT 98
[2021-03-27] MEDS: cyanocobalamin 1,000 mcg Tablet 1000 MCG PO (09:47)
[2021-03-27] MEDS: cholecalciferol (vitamin D3) 5,000 unit Tablet 5000 UNIT PO (09:48)
[2021-03-27] MEDS: famotidine 20 mg Tablet PO (09:48)
[2021-03-27] MEDS: duloxetine 60 mg Capsule PO (09:48)
[2021-03-27] MEDS: pregabalin 50 mg Capsule PO (10:06)
[2021-03-27 11:25] VITALS: BP 120/80; PULSE 84; RESP 18; TEMP 36.5; O2SAT 97
[2021-03-27 11:27] LABS: Glucose Point of Care 69 mg/dL (70-110)
--- NOTE | 2021-03-27 15:23 | PC.CHAP ---
Pastoral Care Encounter/Spiritual Assessment Type of Contact [] Declined program instructor visit [] Patient/Family/Request visit [] Outpatient visit [] Follow-up visit [] Physician referral [] Code/Alert [XX] Routine visit [] Staff referral [] Actively dying [] Patient sleeping [] Family support [] [] Out of room [] Palliative care [] [] Receiving care in room [] Pre-surgical visit [] Trauma [] Long length of stay [] ICU visit [XX] Other: Pt's was also present. Visit was mostly with him as pt has dementia. Relational/Emotional Strength [XX] Patient feels connected with others/family/visitors/staff [] Distress [] Loneliness/isolation [] Abandonment Spirituality of Patient [XX] Person of Tram [XX] Attends [employer] of their Tram [XX] Believes in Prayer [XX] Reads Bible or Spiritism materials [] There are Spiritual issues to be addressed Coat Cutter Interventions [XX] Prayer [XX] Active listening [XX] Non-anxious presence [XX] Spiritual/emotional support [] Crisis/trauma care [] Spiritual counseling [] Bereavement support [] Provided bereavement packet [XX] Provided Bible/devotional materials [] Provided toy/stuffed animal, coloring book to patient or family member [] Provided Communion [] Anointing/[place] [] Salvation [XX] Completed spiritual assessment [] Other: Impact on Illness or Injury [] Angry [] Fearful [] Anxious [] Often cries [] Exhaustion [] Unable to work [] Unable to attend orthodoxy [] Unable to walk/stand [] Unable to read [] Unable to drive [] Unable to eat/drink [] Unable to sleep [] Unable to be with family [] Patient intubated [] Other: Summary: Pt has extensive family history of cancer and personal history with 4 bouts of cancer. Pt also has dementia and resides in [facility] (alf facility). Pt's was present and the visit was primarily with him. Spouse is deacon in his spiritism and describes a life of many challenges but also of God's faithfulness. Current challenges include care-giving, missing great-granddaughter, and his ill (the pt). Spouse very emotional throughout the visit. He stated that he now recognizes that praying for someone isn't always enough....that we have to reach out and help with tangible offerings. Time spent with patient: 35 mins.
[2021-03-27 15:24] VITALS: BP 116/79; PULSE 107; RESP 18; TEMP 36.6; O2SAT 95
[2021-03-27 16:24] LABS: Glucose Point of Care 65 mg/dL (70-110)
--- NOTE | 2021-03-27 16:26 | PC.NURSE ---
Patients blood sugar was 65. orange juice given will recheck in 45 minutes.
--- NOTE | 2021-03-27 16:55 | P.PN_ITS ---
Subjective Subjective: Interval history: Patient was seen and examined this morning. No acute events overnight. Medications: Reviewed: Yes Vitals/I&O/Wt Last Vital Signs Temp 97.8 F 03/27/21 15:24 Pulse 107 H 03/27/21 15:24 Resp 18 03/27/21 15:24 BP 116/79 03/27/21 15:24 Pulse Ox 95 03/27/21 15:24 03/27/21 03/27/21 03/27/21 06:59 14:59 22:59 Intake Total 1000 / 2240 Balance 1000 / 2240 Weight last 48 hrs Weight 99.79 kg Physical Exam Const: COMMON NORMALS: patient oriented x3 HENMT: COMMON NORMALS: normocephalic and atraumatic HEAD & SCALP: normocephalic and atraumatic Resp: COMMON NORMALS: clear to auscultation bilaterally AUSCULTATION: clear to auscultation bilaterally Cardio: COMMON NORMALS: regular rate, regular rhythm, S1 normal heart sound present, S2 normal heart sound present, No gallops present (Cardio), No murmurs present (Cardio), No rub (Cardio) and Peripheral pulses 2+ throughout RATE: regular rate RHYTHM: regular rhythm HEART SOUNDS: S1 normal heart sound present and S2 normal heart sound present PERIPHERAL PULSES: Peripheral pulses 2+ throughout GI: COMMON NORMALS: Soft to palpation, non-tender, No hepatosplenomegaly present and no masses AUSCULTATION: Yes normoactive bowel sounds PALPATION: Yes Soft to palpation and Yes No hepatosplenomegaly present RECTAL EXAM: deferred OTHER: Extensive skin excoriation around the ostomy site Extremity: COMMON NORMALS: no clubbing, cyanosis or edema and no pedal edema Neuro: COMMON NORMALS: patient oriented x3 Data : 03/27/21 05:29 03/27/21 05:29 Micro: Microbiology 03/25/21 22:00 Urine Culture - Preliminary Urine,Clean Catch Gram Negative Rods 03/25/21 15:52 Blood Culture - Preliminary Blood NEGATIVE TO DATE 03/25/21 15:51 Blood Culture - Preliminary Blood NEGATIVE TO DATE A&P Assessment and plan (1) Syncope: Syncope likely vasovagal: Continue humanities coordinator Status: Acute (2) EARL (acute kidney injury): Likely secondary to dehydration: Resolved Baseline serum creatinine is: 0.8-1 Current serum creatinine is 0.8 IV hydration with normal saline at 75 cc an hour Monitor BMP Avoid nephrotoxic Status: Acute (3) Hyponatremia: Hypovolemic hyponatremia Plan as above Status: Acute (4) Dehydration: Resolved Status: Acute (5) HTN (hypertension): Status: Acute (6) S/P left hemicolectomy: Status: Acute Additional A&P Information Erythema of the osteomy site. Continue wound care. Surgery follow-up as an outpatient. CODE STATUS:Full code DVT PPX:Lovenox. Disposition: Patient is due to be [facility] tomorrow to the [facility], awaiting placement. Attestations Medical Necessity Statement*: Patient is due to be discharged tomorrow to the [facility], awaiting placement. Coding Level of Care Code Acute Sediment Remediation Consultant for [facility] Diagnoses Syncope R55 EARL (acute kidney injury) N17.9 Hyponatremia E87.1 Dehydration E86.0 HTN (hypertension) I10 S/P left hemicolectomy Z90.49
[2021-03-27 19:26] VITALS: BP 118/73; PULSE 95; RESP 18; TEMP 36.4; O2SAT 98
[2021-03-27] MEDS: metoprolol tartrate 25 mg Tablet PO (19:31)
[2021-03-27] MEDS: enoxaparin 40 mg/0.4 mL Syringe SUBCUT (19:31)
[2021-03-27 23:53] VITALS: BP 100/60; PULSE 82; RESP 20; TEMP 36.6; O2SAT 98
[2021-03-28 03:58] VITALS: BP 114/82; PULSE 77; RESP 18; TEMP 36.7; O2SAT 98
[2021-03-28 07:47] VITALS: BP 113/71; PULSE 91; RESP 18; TEMP 36.4; O2SAT 99
[2021-03-28] MEDS: cyanocobalamin 1,000 mcg Tablet 1000 MCG PO (09:29)
[2021-03-28] MEDS: famotidine 20 mg Tablet PO (09:29)
[2021-03-28] MEDS: cholecalciferol (vitamin D3) 5,000 unit Tablet 5000 UNIT PO (09:29)
[2021-03-28] MEDS: metoprolol tartrate 25 mg Tablet PO (09:30)
[2021-03-28] MEDS: pregabalin 50 mg Capsule PO (09:30)
[2021-03-28] MEDS: duloxetine 60 mg Capsule PO (09:30)
[2021-03-28 11:54] VITALS: BP 113/73; PULSE 69; RESP 17; TEMP 36.4; O2SAT 98
--- NOTE | 2021-03-28 12:31 | P.DS_ITS ---
Discharge Providers Date of Admission: 03/26/21 16:38 Date of Discharge: March 28, 2021 Attending Provider at Admission: Jim Whatley MD Attending Provider at Discharge: Jass Sarkar MD Primary Care Provider: SUSIE Tello Diagnoses at Discharge Discharge Diagnosis (1) Syncope: Status: Acute (2) EARL (acute kidney injury): Status: Acute (3) Hyponatremia: Status: Acute (4) Dehydration: Status: Acute (5) HTN (hypertension): Status: Acute (6) S/P left hemicolectomy: Status: Acute Permanent problem details: with ileostomy Reason for Visit Reason for Visit: ALOC, FATIGUE, WEAKNESS Hospital Course Hospital Course HPI done by Dr. Chacorta August Sanjuana Morales is a 75 year old female hypertension, iron deficiency anemia ,Squamous cell carcinoma right third digit , h/o Ca colon S/P right hemico lectomy 30 years ago and subsequently had a resection of local recurrence 10 years ago. Recent left hemicolectomy with end ileostomy on 12/24/2020 for large bowel obstruction secondary to splenic flexure mass. She was brought in today as when she was coming to the regular appointment with Dr. Quick, she experienced a syncopal episode, with loss of conscious around 30 seconds to a minute, with full regain of consciousness, syncopal episode was witnessed by his , denied any seizure-like activity. Upon arrival in the ER she was worked up for above-mentioned complaint. Imaging studies: CT head without contrast: No acute intracranial pathology. X-ray chest: No infiltrates, pulmonary vascular congestion, pneumothorax. CT abdomen pelvis w con was done because she has extensive skin excoriation around the ostomy site: LEFT ileostomy site appears stable. Partial colectomy. EKG: Sinus rhythm Pertinent labs: WBC: 8.8, H&H:15/48, platelet count: 221 Serum sodium 128, serum potassium :4.2, BUN: 52, creatinine:1.6 , baseline troponin T:49, 2-hour troponin: 55, 2-hour delta: 6, proBNP:775, procalcitonin:0.18, TSH:0.86, Hospital course Patient was admitted for evaluation of syncopal event. Etiology was thought to be related to dehydration and vasovagal syncope. Her symptoms improved after IV fluid hydration. Hyponatremia and EARL improved as well. Normal TSH, procalcitonin level, abnormal UA however contaminant sample. Urine culture growing gram-negative rods previously she tested positive for Klebsiella and staph aureus. Head CT unremarkable. On day of discharge sodium 133 hemodynamically stable she has stayed afebrile throughout her hospitalization, for cellulitis around her ostomy I would put doxycycline at the time of discharge along Levaquin for her UTI. For her wound care she will follow up with Dr. Abdelrahman ann.. Her white count is 4.7, she has remained afebrile throughout her hospitalization. Physical Exam Narrative: EXAM NARRATIVE: COMMON NORMALS: patient oriented x3 HENMT: COMMON NORMALS: normocephalic and atraumatic HEAD & SCALP: normocephalic and atraumatic Resp: COMMON NORMALS: clear to auscultation bilaterally AUSCULTATION: clear to auscultation bilaterally Cardio: COMMON NORMALS: regular rate, regular rhythm, S1 normal heart sound present, S2 normal heart sound present, No gallops present (Cardio), No murmurs present (Cardio), No rub (Cardio) and Peripheral pulses 2+ throughout RATE: regular rate RHYTHM: regular rhythm HEART SOUNDS: S1 normal heart sound present and S2 normal heart sound present PERIPHERAL PULSES: Peripheral pulses 2+ throughout GI: COMMON NORMALS: Soft to palpation, non-tender, No hepatosplenomegaly present and no masses AUSCULTATION: Yes normoactive bowel sounds PALPATION: Yes Soft to palpation and Yes No hepatosplenomegaly present RECTAL EXAM: deferred OTHER: Extensive skin excoriation around the ostomy site Extremity: COMMON NORMALS: no clubbing, cyanosis or edema and no pedal edema Neuro: COMMON NORMALS: patient oriented x3 Discharge Data Data Completed and Pending: Completed Studies During Hospitalization Category Date Time Status CT abdomen pelvis w con* [id number] Urge nt Cat Scan 03/25/21 14:[address] head wo con* [id number] Urgent Cat Scan 03/25/21 14:00 Completed XR chest 1V neyda ble [id number] Urgent Exams 03/25/21 14:00 Completed Pending at discharge Category Date Time Status Basic Metabolic P kb AM LABS Lab 03/28/21 04:00 Ordered Blood Culture Sta t Lab 03/25/21 15:51 Results Complete Blood Co unt w/Auto AM LABS Lab 03/28/21 04:00 Ordered Urine Culture Sta t Lab 03/25/21 22:00 Results Labs from last 24 hours 03/27/21 16:15 POC Glucose 65 L Vitals: Last Vital Signs Temp 97.6 F 03/28/21 11:54 Pulse 69 03/28/21 11:54 Resp 17 03/28/21 11:54 BP 113/73 03/28/21 11:54 Pulse Ox 98 03/28/21 11:54 Discharge Plan Discharge Patient Disposition: Xfer SNF Condition: Stable Prescriptions: New doxycycline hyclate 100 mg capsule 100 mg PO BID 14 Days Qty: 28 RF: 0 Senna Lax 8.6 mg tablet 8.6 mg PO DAILY Qty: 30 RF: 0 levofloxacin 750 mg tablet 750 mg PO DAILY 7 Days Qty: 7 RF: 0 Continued tramadol 50 mg tablet 50 mg PO BID PRN (Reason: Pain) 30 Days Qty: 60 RF: 2 acetaminophen [Tylenol Extra Strength] 500 mg Tablet 1,000 mg PO PRN MDD SEE PHARMACY COMMENT PRN (Reason: Pain) RF: 0 cholecalciferol (vitamin D3) [Vitamin D3] 125 mcg (5,000 unit) Tablet 125 mcg PO DAILY@0800 RF: 0 famotidine [Pepcid AC] 20 mg tablet 20 mg PO DAILY@0800 RF: 0 pregabalin [Lyrica] 50 mg capsule 50 mg PO DAILY@0800 RF: 0 food supplemt, lactose-reduced Liquid 1 ea PO TID RF: 0 metoprolol tartrate 25 mg Tablet 25 mg PO DAILY@0800,1999 RF: 0 cyanocobalamin (vitamin B-12) 1,000 mcg capsule 1,000 mcg PO DAILY@0800 RF: 0 zinc oxide Ointment 1 applic TOPICAL TID@0800,1199,1999 RF: 0 Metamucil 3.4 gram/5.4 gram Powder 1 - 2 tbsp PO DAILY RF: 0 Prostat 15 ml PO BID@799,1999 RF: 0 duloxetine 60 mg capsule,delayed release(DR/EC) 60 mg PO DAILY@0800 RF: 0 Discharge Orders: Discharge Order (Routine); Ordered 03/28/21 Ordered By: Jass Sarkar Referrals: Jassi Quick MD [Physician] - 1-3 days (please call for appointment ) Discharge Diet: Cardiac Discharge Activity: Resume usual activity Discharge Attestations Time Spent in Discharge Care*: less than 30 min Status at Discharge: Cognitive status at discharge: cognitively intact , Behavioral status at discharge: cooperative , Quality Metrics Clinical Quality Measures During this hospital stay, did patient experience: None Coding Level of Care Code Acute Chg FW DC note Diagnoses Syncope R55 EARL (acute kidney injury) N17.9 Hyponatremia E87.1 Dehydration E86.0 HTN (hypertension) I10 S/P left hemicolectomy Z90.49
[2021-03-28 13:08] LABS: Basophils % 0.4 %; Eosinophils # 0.1 10^3/uL (0.0-0.8); Eosinophils % 2.7 %; Hematocrit 42.3 % (37.0-47.0); Hemoglobin 13.5 g/dL (11.5-15.3); Lymphocytes # 1.5 10^3/uL (0.8-4.8); Lymphocytes % 28.3 %; Mean Corpuscular HGB Conc 31.9 g/dL (30.0-36.0); Mean Corpuscular Hemoglobin 30.3 pg (28.0-34.0); Mean Corpuscular Volume 94.8 fl (81-99); Mean Platelet Volume 10.4 fL (7.4-10.4); Monocytes # 0.4 10^3/uL (0.2-0.9); Monocytes % 8.3 %; Neutrophils # 3.12 10^3/uL (1.8-7.7); Neutrophils % 60.1 %; Nucleated Red Blood Cells % 0 %; Platelet Count 154 10^3/cmm (130-400); Red Blood Count 4.46 10^6/uL (4.1-5.3); Red Cell Distribution Width 16.9 % (12.1-15.1); White Blood Count 5.2 10^3/uL (4.0-10.0)
[2021-03-28 13:53] LABS: Blood Urea Nitrogen 14 mg/dL (8-23); Calcium 11.4 mg/dL (8.5-10.5); Carbon Dioxide 20 mmol/L (22-29); Chloride 107 mmol/L (98-107); Glucose 71 mg/dL (65-115); Osmolality Calculated 283 mOsm/kg (285-295); Sodium 137 mmol/L (136-145)
[2021-03-28 13:56] LABS: Anion Gap 14.4 (5-19); Potassium 4.4 mmol/L (3.5-5.1)
[2021-03-28 14:06] VITALS: BP 113/73; PULSE 69; RESP 17; TEMP 36.4; O2SAT 98
== END 2021-03-28 14:08 | disposition skilled nursing facility (03) | DRG 641 ==
LOC: ER 14:42 → MEDSURG 18:55
PROVIDERS: Admitting Provider Internal Medicine; Emergency Provider Emergency Medicine; PCP Nurse Practitioner Family; Visit Provider Internal Medicine
DX: E86.0 Dehydration (principal); N17.9 Acute kidney failure, unspecified; R55 Syncope and collapse; I10 Essential (primary) hypertension; E78.2 Mixed hyperlipidemia; M79.7 Fibromyalgia; D50.9 Iron deficiency anemia, unspecified; E87.1 Hypo-osmolality and hyponatremia; C76.41 Malignant neoplasm of right upper limb; Z93.2 Ileostomy status; Z90.49 Acquired absence of other specified parts of digestive tract; Z85.038 Personal history of other malignant neoplasm of large intestine
CPT/HCPCS: 36415; 36416; 70450; 71045; 74177; 80048; 80053; 80500; 81001; 82962; 83605; 83880; 84145; 84443; 84484; 85025; 86140; 87040; 87077; 87086; 87186; 93005; 96361; 96365; 96366; 96372; 99285; G0378; J1650; J3475; J7030; J7040; Q9967

== ENCOUNTER 2021-04-04 15:13 | Inpatient (IN) | payer MEDICARE, OTHER, SELFPAY ==
--- NOTE | 2021-04-04 15:20 | ECG_ITS ---
[facility] Test Date: 2021-04-04 Pat Name: Mariangel Morales Department: Room: Gender: Female Grade Setter: : 1945 Requested By: Kel Leggett Order Number: [id number] Sophie MD: Kaley Donato M.D. Measurements Intervals [place] Rate: 92 P: 57 NV: 138 QRS: -16 QRSD: 84 T: 90 QT: 343 QTc: 425 Interpretive Statements SINUS RHYTHM LOW QRS VOLTAGE IN PRECORDIAL LEADS [QRS DEFLECTION < 1.0 mV IN CHEST LEADS] INFERIOR MYOCARDIAL INFARCTION , OF INDETERMINATE AGE [40+ ms Q WAVE AND/OR ST/T ABNORMALITY IN II/aVF] Compared to ECG 03/25/2021 16:57:36 Myocardial infarct finding now present Electronically Signed On 04-04-2021 19:08:17 CDT by Kaley Donato M.D. [id number]
[2021-04-04 15:26] VITALS: BP 90/69; PULSE 96; RESP 16; TEMP 35.8; O2SAT 100; BMI 41.1
--- NOTE | 2021-04-04 16:04 | PC.PHAR ---
PT UNABLE TO CONFIRM MEDICATIONS. GOING BY JESSICA FROM [facility].
--- NOTE | 2021-04-04 16:13 | CTR_ITS ---
PROCEDURE INFORMATION: Exam: CT Head Without Contrast Exam date and time: 04/04/2021 4:13 PM Age: 75 years old Clinical indication: Altered mental status/memory loss; Patient HX: Scan x 2 PT motion; Additional info: AMS TECHNIQUE: Imaging protocol: Computed tomography of the head without contrast. Radiation optimization: All CT scans at this facility use at least one of these dose optimization techniques: automated exposure control; mA and/or kV adjustment per patient size (includes targeted exams where dose is matched to clinical indication); or iterative reconstruction. COMPARISON: CT head wo con* [id number] 03/25/2021 3:02 PM RADIATION DOSE METRICS: Total DLP (mGy-cm): 1368.92 FINDINGS: Brain: No hemorrhage. Moderate diffuse cerebral atrophy and sequela of chronic small vessel ischemic disease. No mass effect. Cerebral ventricles: No ventriculomegaly. Paranasal sinuses: Visualized sinuses are unremarkable. No fluid levels. Mastoid air cells: Visualized mastoid air cells are well aerated. Bones/joints: Unremarkable. No acute fracture. Soft tissues: Unremarkable. CT/CT head wo con* [id number] IMPRESSION: 1. No acute intracranial abnormality. 2. Moderate diffuse cerebral atrophy and sequela of chronic small vessel ischemic disease. Radiation Dose CTDIVOL = (mGy): DLP = 1368.92 (mGy-cm)
--- NOTE | 2021-04-04 16:16 | W.ED.WEAKNES ---
Documented by User: Kel Monk DO 04/05/21 13:31 HPI - Weakness General: Chief complaint: Weakness Stated complaint: DIZZINESS Time Seen by Provider: 04/04/21 15:19 History of Present Illness: HPI Narrative: 75-year-old female brought in the emergency room via EMS for dizziness confusion shortness of breath hypotension. On arrival patient's systolic blood pressure were in the 90s. EMS reported she was in 60s to 80s at the residential facility. She is disoriented and does not answer questions appropriately. She vocalizes things but is not able to actually answer any questions. She denies chest pain denies abdominal pain but on exam she expresses tenderness diffusely. She does indicate that it has been difficult for her and painful to urinate. Complaint: generalized weakness Onset (ago): hour(s) Duration: constant Location: generalized Severity: mild Relieving factors: none Exacerbating factors: none Associated symptoms: Reports confusion, dysuria and myalgias; Denies chest pain, chills, decreased appetite, fever(s), headache(s), nausea, rash, short of breath or vomiting Review of Systems General: Reports: Other (Limited due to mental status) Const: Denies: fever(s) or chills Card: Denies: chest pain Resp: Denies: dyspnea, productive cough or non-productive cough GI: Denies: nausea or vomiting : Reports: dysuria Neuro: Reports: confusion; Denies: headache(s) [facility] ED PFSH: Medical History EARL (acute kidney injury) Anemia Chronic osteoarthritis Colitis Depression Essential hypertension, benign Fibromyalgia H/O malignant neoplasm of colon HTN (hypertension) 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 Mild dementia Mixed hyperlipidemia Post-menopausal osteoporosis Vitamin D deficiency Surgical History H/O right hemicolectomy colon cancer History of ankle surgery History of S/P colon resection colon cancer recurrence S/P left hemicolectomy (12/24/20) with ileostomy Status post colonoscopy Family History Other Diabetes Social History Smoking and tobacco status: never smoked Alcohol intake: never Physical Exam Const: COMMON NORMALS: no acute distress GENERAL APPEARANCE: cooperative and comfortable HENMT: COMMON NORMALS: normocephalic, atraumatic and hearing grossly normal bilaterally HEAD & SCALP: normocephalic and atraumatic Resp: AUSCULTATION: diminished lung sounds Cardio: COMMON NORMALS: regular rate, regular rhythm and No murmurs present (Cardio) RATE: regular rate RHYTHM: regular rhythm GI: COMMON NORMALS: No hepatosplenomegaly present AUSCULTATION: Yes normoactive bowel sounds PALPATION: Yes Tenderness to palpation present (GI) (Mild diffuse), No Guarding due to palpation present (GI) and Yes No hepatosplenomegaly present Skin: COMMON NORMALS: no rashes or lesions noted GENERAL SKIN EXAM: no rashes or lesions noted Course Vital Signs: Vital signs: Vital Signs Temperature 98.3 F 04/07/21 04:00 Pulse Rate 88 04/07/21 04:00 Respiratory Rate 17 04/07/21 04:00 Blood Pressure 94/59 04/07/21 04:00 Pulse Oximetry 98 04/07/21 04:00 MDM - Weakness MDM Narrative: Medical decision making narrative: Care turned over to Dr. Lion at change of shift. See his notes for final diagnosis and disposition Lab Data: Labs: Lab Results 04/04/21 04/04/21 04/04/21 Range/Units 16:38 16:38 16:38 WBC 9.9 (4.0-10.0) 10^3/ uL RBC 4.94 (4.1-5.3) 10^6/u L Hgb 14.7 (11.5-15.3) g/dL Hct 45.4 (37.0-47.0) % MCV 91.9 (81-99) fl MCH 29.8 (28.0-34.0) pg MCHC 32.4 (30.0-36.0) g/dL RDW 16.4 H (12.1-15.1) % Plt Count 132 (130-400) 10^3/c mm MPV 11.8 H (7.4-10.4) fL Neut % (Auto) 70.4 % Lymph % (Auto) 18.2 % [place] % (Auto) 10.7 % Eos % (Auto) 0.0 % Baso % (Auto) 0.3 % Neut # (Auto) 6.99 (1.8-7.7) 10^3/u L Lymph # (Auto) 1.8 (0.8-4.8) 10^3/u L [place] # (Auto) 1.1 H (0.2-0.9) 10^3/u L Eos # (Auto) 0.0 (0.0-0.8) 10^3/u L Baso # (Auto) 0.0 (0.0-0.1) 10^3/u L Nucleated RBC % (a uto) 0 % Nucleated RBCs # 0.0 /100WBC Sodium 133 L (136-145) mmol/L Potassium 4.3 (3.5-5.1) mmol/L Chloride 101 (98-107) mmol/L Carbon Dioxide 20 L (22-29) mmol/L Anion Gap 16.3 (5-19) BUN 66 H (8-23) mg/dL Creatinine 1.8 H (0.5-0.9) mg/dL GFR Calculation Not Reportable Glucose 89 (65-115) mg/dL Calculated Osmolal ity 295 (285-295) mOsm/k g Lactic Acid (0.5-2.2) mmol/L Calcium 9.9 (8.5-10.5) mg/dL Total Bilirubin 0.5 (0.15-1.2) mg/dL AST 32 (0-32) U/L ALT 23 (0-33) U/L Alkaline Phosphata se 83 (35-105) IU/L Creatine Kinase 12 L (26-192) U/L Troponin T Baselin e 33 H (0-10) ng/L Troponin T 120 Min beaver (0-10) ng/L Delta Troponin T (0-10) ABS# C-Reactive Protein (0.0-4.9) mg/L NT-Pro-B Natriuret Pep (0-450) pg/mL Total Protein 5.0 L (6.6-8.7) g/dL Albumin 2.8 L (3.5-5.2) g/dL Globulin 2.2 (1.3-4.6) g/dL Procalcitonin (0-0.5) ng/mL TSH (0.27-4.20) uIU/ mL Random Cortisol (2.47-19.5) ug/d L Urine Color (Yellow) Urine Appearance (CLEAR) Urine pH (5-7) Ur Specific Gravit y (1.005-1.030) Urine Protein (Negative) Urine Glucose (UA) (Normal) Urine Ketones (Negative) Urine Blood (Negative) Urine Nitrate (Negative) Urine Bilirubin (Negative) Urine Urobilinogen (Negative) mg/dL Ur Leukocyte Sultana ase (Negative) SARS-CoV-2 Ag (Rap id) (Negative) 04/04/21 04/04/21 04/04/21 Range/Units 16:38 18:55 18:55 WBC (4.0-10.0) 10^3/ uL RBC (4.1-5.3) 10^6/u L Hgb (11.5-15.3) g/dL Hct (37.0-47.0) % MCV (81-99) fl MCH (28.0-34.0) pg MCHC (30.0-36.0) g/dL RDW (12.1-15.1) % Plt Count (130-400) 10^3/c mm MPV (7.4-10.4) fL Neut % (Auto) % Lymph % (Auto) % [place] % (Auto) % Eos % (Auto) % Baso % (Auto) % Neut # (Auto) (1.8-7.7) 10^3/u L Lymph # (Auto) (0.8-4.8) 10^3/u L [place] # (Auto) (0.2-0.9) 10^3/u L Eos # (Auto) (0.0-0.8) 10^3/u L Baso # (Auto) (0.0-0.1) 10^3/u L Nucleated RBC % (a uto) % Nucleated RBCs # /100WBC Sodium (136-145) mmol/L Potassium (3.5-5.1) mmol/L Chloride (98-107) mmol/L Carbon Dioxide (22-29) mmol/L Anion Gap (5-19) BUN (8-23) mg/dL Creatinine (0.5-0.9) mg/dL GFR Calculation Glucose (65-115) mg/dL Calculated Osmolal ity (285-295) mOsm/k g Lactic Acid 1.7 (0.5-2.2) mmol/L Calcium (8.5-10.5) mg/dL Total Bilirubin (0.15-1.2) mg/dL AST (0-32) U/L ALT (0-33) U/L Alkaline Phosphata se (35-105) IU/L Creatine Kinase (26-192) U/L Troponin T Baselin e (0-10) ng/L Troponin T 120 Min beaver 33.06 H (0-10) ng/L Delta Troponin T 0.06 (0-10) ABS# C-Reactive Protein 2.5 (0.0-4.9) mg/L NT-Pro-B Natriuret Pep 309 (0-450) pg/mL Total Protein (6.6-8.7) g/dL Albumin (3.5-5.2) g/dL Globulin (1.3-4.6) g/dL Procalcitonin 0.15 (0-0.5) ng/mL TSH (0.27-4.20) uIU/ mL Random Cortisol (2.47-19.5) ug/d L Urine Color (Yellow) Urine Appearance (CLEAR) Urine pH (5-7) Ur Specific Gravit y (1.005-1.030) Urine Protein (Negative) Urine Glucose (UA) (Normal) Urine Ketones (Negative) Urine Blood (Negative) Urine Nitrate (Negative) Urine Bilirubin (Negative) Urine Urobilinogen (Negative) mg/dL Ur Leukocyte Sultana ase (Negative) SARS-CoV-2 Ag (Rap id) (Negative) 04/04/21 04/04/21 04/05/21 Range/Units 18:55 22:40 02:52 WBC (4.0-10.0) 10^3/ uL RBC (4.1-5.3) 10^6/u L Hgb (11.5-15.3) g/dL Hct (37.0-47.0) % MCV (81-99) fl MCH (28.0-34.0) pg MCHC (30.0-36.0) g/dL RDW (12.1-15.1) % Plt Count (130-400) 10^3/c mm MPV (7.4-10.4) fL Neut % (Auto) % Lymph % (Auto) % [place] % (Auto) % Eos % (Auto) % Baso % (Auto) % Neut # (Auto) (1.8-7.7) 10^3/u L Lymph # (Auto) (0.8-4.8) 10^3/u L [place] # (Auto) (0.2-0.9) 10^3/u L Eos # (Auto) (0.0-0.8) 10^3/u L Baso # (Auto) (0.0-0.1) 10^3/u L Nucleated RBC % (a uto) % Nucleated RBCs # /100WBC Sodium (136-145) mmol/L Potassium (3.5-5.1) mmol/L Chloride (98-107) mmol/L Carbon Dioxide (22-29) mmol/L Anion Gap (5-19) BUN (8-23) mg/dL Creatinine (0.5-0.9) mg/dL GFR Calculation Glucose (65-115) mg/dL Calculated Osmolal ity (285-295) mOsm/k g Lactic Acid (0.5-2.2) mmol/L Calcium (8.5-10.5) mg/dL Total Bilirubin (0.15-1.2) mg/dL AST (0-32) U/L ALT (0-33) U/L Alkaline Phosphata se (35-105) IU/L Creatine Kinase (26-192) U/L Troponin T Baselin e (0-10) ng/L Troponin T 120 Min [place] (0-10) ng/L Delta Troponin T (0-10) ABS# C-Reactive Protein (0.0-4.9) mg/L NT-Pro-B Natriuret Pep (0-450) pg/mL Total Protein (6.6-8.7) g/dL Albumin (3.5-5.2) g/dL Globulin (1.3-4.6) g/dL Procalcitonin (0-0.5) ng/mL TSH 1.89 (0.27-4.20) uIU/ mL Random Cortisol (2.47-19.5) ug/d L Urine Color Yellow (Yellow) Urine Appearance Clear (CLEAR) Urine pH 5 (5-7) Ur Specific Gravit y 1.015 (1.005-1.030) Urine Protein Neg (Negative) Urine Glucose (UA) Norm (Normal) Urine Ketones Negative (Negative) Urine Blood Neg (Negative) Urine Nitrate Negative (Negative) Urine Bilirubin Neg (Negative) Urine Urobilinogen Norm (Negative) mg/dL Ur Leukocyte Sultana ase Negative (Negative) SARS-CoV-2 Ag (Rap id) Negative (Negative) 04/05/21 Range/Units 08:15 WBC (4.0-10.0) 10^3/ uL RBC (4.1-5.3) 10^6/u L Hgb (11.5-15.3) g/dL Hct (37.0-47.0) % MCV (81-99) fl MCH (28.0-34.0) pg MCHC (30.0-36.0) g/dL RDW (12.1-15.1) % Plt Count (130-400) 10^3/c mm MPV (7.4-10.4) fL Neut % (Auto) % Lymph % (Auto) % [place] % (Auto) % Eos % (Auto) % Baso % (Auto) % Neut # (Auto) (1.8-7.7) 10^3/u L Lymph # (Auto) (0.8-4.8) 10^3/u L [place] # (Auto) (0.2-0.9) 10^3/u L Eos # (Auto) (0.0-0.8) 10^3/u L Baso # (Auto) (0.0-0.1) 10^3/u L Nucleated RBC % (a uto) % Nucleated RBCs # /100WBC Sodium (136-145) mmol/L Potassium (3.5-5.1) mmol/L Chloride (98-107) mmol/L Carbon Dioxide (22-29) mmol/L Anion Gap (5-19) BUN (8-23) mg/dL Creatinine (0.5-0.9) mg/dL GFR Calculation Glucose (65-115) mg/dL Calculated Osmolal ity (285-295) mOsm/k g Lactic Acid (0.5-2.2) mmol/L Calcium (8.5-10.5) mg/dL Total Bilirubin (0.15-1.2) mg/dL AST (0-32) U/L ALT (0-33) U/L Alkaline Phosphata se (35-105) IU/L Creatine Kinase (26-192) U/L Troponin T Baselin e (0-10) ng/L Troponin T 120 Min [place] (0-10) ng/L Delta Troponin T (0-10) ABS# C-Reactive Protein (0.0-4.9) mg/L NT-Pro-B Natriuret Pep (0-450) pg/mL Total Protein (6.6-8.7) g/dL Albumin (3.5-5.2) g/dL Globulin (1.3-4.6) g/dL Procalcitonin (0-0.5) ng/mL TSH (0.27-4.20) uIU/ mL Random Cortisol 26.99 H (2.47-19.5) ug/d L Urine Color (Yellow) Urine Appearance (CLEAR) Urine pH (5-7) Ur Specific Gravit y (1.005-1.030) Urine Protein (Negative) Urine Glucose (UA) (Normal) Urine Ketones (Negative) Urine Blood (Negative) Urine Nitrate (Negative) Urine Bilirubin (Negative) Urine Urobilinogen (Negative) mg/dL Ur Leukocyte Sultana ase (Negative) SARS-CoV-2 Ag (Rap id) (Negative) Discharge Plan Discharge Admit Provider: Danny Rubin Condition: Stable Discharge Orders: Discharge Order (Routine); Ordered 04/06/21 Ordered By: Jass Sarkar Discharge Diet: GI Soft Discharge Activity: Use walker/crutches as instructed and Wheelchair as instructed Sign Out Sign Out Data: Patient Sign Out occurred on 04/04/21 at 17:57. Patient's care was discussed, and care was transferred from to Jonathan Loja MD. Coding Level of Care Code ED House Detective for g Fwd Exam Detailed Documented by User: Jonathan Loja MD 04/07/21 05:13 HPI - Weakness General: Chief complaint: Weakness Stated complaint: DIZZINESS Time Seen by Provider: 04/04/21 15:19 PFSH ED PFSH: Medical History EARL (acute kidney injury) Anemia Chronic osteoarthritis Colitis Depression Essential hypertension, benign Fibromyalgia H/O malignant neoplasm of colon HTN (hypertension) 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 Mild dementia Mixed hyperlipidemia Post-menopausal osteoporosis Vitamin D deficiency Surgical History H/O right hemicolectomy colon cancer History of ankle surgery History of S/P colon resection colon cancer recurrence S/P left hemicolectomy (12/24/20) with ileostomy Status post colonoscopy Family History Other Diabetes Social History Smoking and tobacco status: never smoked Alcohol intake: never Course Vital Signs: Vital signs: Vital Signs Temperature 98.3 F 04/07/21 04:00 Pulse Rate 88 04/07/21 04:00 Respiratory Rate 17 04/07/21 04:00 Blood Pressure 94/59 04/07/21 04:00 Pulse Oximetry 98 04/07/21 04:00 MDM - Weakness MDM Narrative: Medical decision making narrative: Patient care handoff received from daytime ED physician Dr. Monk pending urinalysis. Prolonged ED course given difficulty obtaining urinalysis. Department urinalysis results no evidence of urinary tract infection. Patient remains encephalopathic and has EARL therefore requires admission. Hospitalist service contacted and patient admitted in stable condition. Jonathan Loja MD Emergency Medicine Lab Data: Labs: Lab Results 04/04/21 04/04/21 04/04/21 Range/Units 16:38 16:38 16:38 WBC 9.9 (4.0-10.0) 10^3/ uL RBC 4.94 (4.1-5.3) 10^6/u L Hgb 14.7 (11.5-15.3) g/dL Hct 45.4 (37.0-47.0) % MCV 91.9 (81-99) fl MCH 29.8 (28.0-34.0) pg MCHC 32.4 (30.0-36.0) g/dL RDW 16.4 H (12.1-15.1) % Plt Count 132 (130-400) 10^3/c mm MPV 11.8 H (7.4-10.4) fL Neut % (Auto) 70.4 % Lymph % (Auto) 18.2 % [place] % (Auto) 10.7 % Eos % (Auto) 0.0 % Baso % (Auto) 0.3 % Neut # (Auto) 6.99 (1.8-7.7) 10^3/u L Lymph # (Auto) 1.8 (0.8-4.8) 10^3/u L [place] # (Auto) 1.1 H (0.2-0.9) 10^3/u L Eos # (Auto) 0.0 (0.0-0.8) 10^3/u L Baso # (Auto) 0.0 (0.0-0.1) 10^3/u L Nucleated RBC % (a uto) 0 % Nucleated RBCs # 0.0 /100WBC Sodium 133 L (136-145) mmol/L Potassium 4.3 (3.5-5.1) mmol/L Chloride 101 (98-107) mmol/L Carbon Dioxide 20 L (22-29) mmol/L Anion Gap 16.3 (5-19) BUN 66 H (8-23) mg/dL Creatinine 1.8 H (0.5-0.9) mg/dL GFR Calculation Not Reportable Glucose 89 (65-115) mg/dL Calculated Osmolal ity 295 (285-295) mOsm/k g Lactic Acid (0.5-2.2) mmol/L Calcium 9.9 (8.5-10.5) mg/dL Total Bilirubin 0.5 (0.15-1.2) mg/dL AST 32 (0-32) U/L ALT 23 (0-33) U/L Alkaline Phosphata se 83 (35-105) IU/L Creatine Kinase 12 L (26-192) U/L Troponin T Baselin e 33 H (0-10) ng/L Troponin T 120 Min [place] (0-10) ng/L Delta Troponin T (0-10) ABS# C-Reactive Protein (0.0-4.9) mg/L NT-Pro-B Natriuret Pep (0-450) pg/mL Total Protein 5.0 L (6.6-8.7) g/dL Albumin 2.8 L (3.5-5.2) g/dL Globulin 2.2 (1.3-4.6) g/dL Procalcitonin (0-0.5) ng/mL TSH (0.27-4.20) uIU/ mL Random Cortisol (2.47-19.5) ug/d L Urine Color (Yellow) Urine Appearance (CLEAR) Urine pH (5-7) Ur Specific Gravit y (1.005-1.030) Urine Protein (Negative) Urine Glucose (UA) (Normal) Urine Ketones (Negative) Urine Blood (Negative) Urine Nitrate (Negative) Urine Bilirubin (Negative) Urine Urobilinogen (Negative) mg/dL Ur Leukocyte Sultana ase (Negative) SARS-CoV-2 Ag (Rap id) (Negative) 04/04/21 04/04/21 04/04/21 Range/Units 16:38 18:55 18:55 WBC (4.0-10.0) 10^3/ uL RBC (4.1-5.3) 10^6/u L Hgb (11.5-15.3) g/dL Hct (37.0-47.0) % MCV (81-99) fl MCH (28.0-34.0) pg MCHC (30.0-36.0) g/dL RDW (12.1-15.1) % Plt Count (130-400) 10^3/c mm MPV (7.4-10.4) fL Neut % (Auto) % Lymph % (Auto) % [place] % (Auto) % Eos % (Auto) % Baso % (Auto) % Neut # (Auto) (1.8-7.7) 10^3/u L Lymph # (Auto) (0.8-4.8) 10^3/u L [place] # (Auto) (0.2-0.9) 10^3/u L Eos # (Auto) (0.0-0.8) 10^3/u L Baso # (Auto) (0.0-0.1) 10^3/u L Nucleated RBC % (a uto) % Nucleated RBCs # /100WBC Sodium (136-145) mmol/L Potassium (3.5-5.1) mmol/L Chloride (98-107) mmol/L Carbon Dioxide (22-29) mmol/L Anion Gap (5-19) BUN (8-23) mg/dL Creatinine (0.5-0.9) mg/dL GFR Calculation Glucose (65-115) mg/dL Calculated Osmolal ity (285-295) mOsm/k g Lactic Acid 1.7 (0.5-2.2) mmol/L Calcium (8.5-10.5) mg/dL Total Bilirubin (0.15-1.2) mg/dL AST (0-32) U/L ALT (0-33) U/L Alkaline Phosphata se (35-105) IU/L Creatine Kinase (26-192) U/L Troponin T Baselin e (0-10) ng/L Troponin T 120 Min [place]aver 33.06 H (0-10) ng/L Delta Troponin T 0.06 (0-10) ABS# C-Reactive Protein 2.5 (0.0-4.9) mg/L NT-Pro-B Natriuret Pep 309 (0-450) pg/mL Total Protein (6.6-8.7) g/dL Albumin (3.5-5.2) g/dL Globulin (1.3-4.6) g/dL Procalcitonin 0.15 (0-0.5) ng/mL TSH (0.27-4.20) uIU/ mL Random Cortisol (2.47-19.5) ug/d L Urine Color (Yellow) Urine Appearance (CLEAR) Urine pH (5-7) Ur Specific Gravit y (1.005-1.030) Urine Protein (Negative) Urine Glucose (UA) (Normal) Urine Ketones (Negative) Urine Blood (Negative) Urine Nitrate (Negative) Urine Bilirubin (Negative) Urine Urobilinogen (Negative) mg/dL Ur Leukocyte Sultana ase (Negative) SARS-CoV-2 Ag (Rap id) (Negative) 04/04/21 04/04/21 04/05/21 Range/Units 18:55 22:40 02:52 WBC (4.0-10.0) 10^3/ uL RBC (4.1-5.3) 10^6/u L Hgb (11.5-15.3) g/dL Hct (37.0-47.0) % MCV (81-99) fl MCH (28.0-34.0) pg MCHC (30.0-36.0) g/dL RDW (12.1-15.1) % Plt Count (130-400) 10^3/c mm MPV (7.4-10.4) fL Neut % (Auto) % Lymph % (Auto) % [place] % (Auto) % Eos % (Auto) % Baso % (Auto) % Neut # (Auto) (1.8-7.7) 10^3/u L Lymph # (Auto) (0.8-4.8) 10^3/u L [place] # (Auto) (0.2-0.9) 10^3/u L Eos # (Auto) (0.0-0.8) 10^3/u L Baso # (Auto) (0.0-0.1) 10^3/u L Nucleated RBC % (a uto) % Nucleated RBCs # /100WBC Sodium (136-145) mmol/L Potassium (3.5-5.1) mmol/L Chloride (98-107) mmol/L Carbon Dioxide (22-29) mmol/L Anion Gap (5-19) BUN (8-23) mg/dL Creatinine (0.5-0.9) mg/dL GFR Calculation Glucose (65-115) mg/dL Calculated Osmolal ity (285-295) mOsm/k g Lactic Acid (0.5-2.2) mmol/L Calcium (8.5-10.5) mg/dL Total Bilirubin (0.15-1.2) mg/dL AST (0-32) U/L ALT (0-33) U/L Alkaline Phosphata se (35-105) IU/L Creatine Kinase (26-192) U/L Troponin T Baselin e (0-10) ng/L Troponin T 120 Min [place] (0-10) ng/L Delta Troponin T (0-10) ABS# C-Reactive Protein (0.0-4.9) mg/L NT-Pro-B Natriuret Pep (0-450) pg/mL Total Protein (6.6-8.7) g/dL Albumin (3.5-5.2) g/dL Globulin (1.3-4.6) g/dL Procalcitonin (0-0.5) ng/mL TSH 1.89 (0.27-4.20) uIU/ mL Random Cortisol (2.47-19.5) ug/d L Urine Color Yellow (Yellow) Urine Appearance Clear (CLEAR) Urine pH 5 (5-7) Ur Specific Gravit y 1.015 (1.005-1.030) Urine Protein Neg (Negative) Urine Glucose (UA) Norm (Normal) Urine Ketones Negative (Negative) Urine Blood Neg (Negative) Urine Nitrate Negative (Negative) Urine Bilirubin Neg (Negative) Urine Urobilinogen Norm (Negative) mg/dL Ur Leukocyte Sultana ase Negative (Negative) SARS-CoV-2 Ag (Rap id) Negative (Negative) 04/05/21 Range/Units 08:15 WBC (4.0-10.0) 10^3/ uL RBC (4.1-5.3) 10^6/u L Hgb (11.5-15.3) g/dL Hct (37.0-47.0) % MCV (81-99) fl MCH (28.0-34.0) pg MCHC (30.0-36.0) g/dL RDW (12.1-15.1) % Plt Count (130-400) 10^3/c mm MPV (7.4-10.4) fL Neut % (Auto) % Lymph % (Auto) % [place] % (Auto) % Eos % (Auto) % Baso % (Auto) % Neut # (Auto) (1.8-7.7) 10^3/u L Lymph # (Auto) (0.8-4.8) 10^3/u L [place] # (Auto) (0.2-0.9) 10^3/u L Eos # (Auto) (0.0-0.8) 10^3/u L Baso # (Auto) (0.0-0.1) 10^3/u L Nucleated RBC % (a uto) % Nucleated RBCs # /100WBC Sodium (136-145) mmol/L Potassium (3.5-5.1) mmol/L Chloride (98-107) mmol/L Carbon Dioxide (22-29) mmol/L Anion Gap (5-19) BUN (8-23) mg/dL Creatinine (0.5-0.9) mg/dL GFR Calculation Glucose (65-115) mg/dL Calculated Osmolal ity (285-295) mOsm/k g Lactic Acid (0.5-2.2) mmol/L Calcium (8.5-10.5) mg/dL Total Bilirubin (0.15-1.2) mg/dL AST (0-32) U/L ALT (0-33) U/L Alkaline Phosphata se (35-105) IU/L Creatine Kinase (26-192) U/L Troponin T Baselin e (0-10) ng/L Troponin T 120 Min [place] (0-10) ng/L Delta Troponin T (0-10) ABS# C-Reactive Protein (0.0-4.9) mg/L NT-Pro-B Natriuret Pep (0-450) pg/mL Total Protein (6.6-8.7) g/dL Albumin (3.5-5.2) g/dL Globulin (1.3-4.6) g/dL Procalcitonin (0-0.5) ng/mL TSH (0.27-4.20) uIU/ mL Random Cortisol 26.99 H (2.47-19.5) ug/d L Urine Color (Yellow) Urine Appearance (CLEAR) Urine pH (5-7) Ur Specific Gravit y (1.005-1.030) Urine Protein (Negative) Urine Glucose (UA) (Normal) Urine Ketones (Negative) Urine Blood (Negative) Urine Nitrate (Negative) Urine Bilirubin (Negative) Urine Urobilinogen (Negative) mg/dL Ur Leukocyte Sultana ase (Negative) SARS-CoV-2 Ag (Rap id) (Negative) Discharge Plan Discharge Admit Provider: Danny Rubin Condition: Stable Discharge Orders: Discharge Order (Routine); Ordered 04/06/21 Ordered By: Jass Sarkar Discharge Diet: GI Soft Discharge Activity: Use walker/crutches as instructed and Wheelchair as instructed Sign Out Sign Out Data: Patient Sign Out occurred on 04/04/21 at 17:57. Patient's care was discussed, and care was transferred from to Jonathan Loja MD. Coding Level of Care Code ED House Detective for g Fwd Exam Detailed
[2021-04-04 16:48] LABS: Basophils % 0.3 %; Hematocrit 45.4 % (37.0-47.0); Hemoglobin 14.7 g/dL (11.5-15.3); Lymphocytes # 1.8 10^3/uL (0.8-4.8); Lymphocytes % 18.2 %; Mean Corpuscular HGB Conc 32.4 g/dL (30.0-36.0); Mean Corpuscular Hemoglobin 29.8 pg (28.0-34.0); Mean Corpuscular Volume 91.9 fl (81-99); Mean Platelet Volume 11.8 fL (7.4-10.4); Monocytes # 1.1 10^3/uL (0.2-0.9); Monocytes % 10.7 %; Neutrophils # 6.99 10^3/uL (1.8-7.7); Neutrophils % 70.4 %; Nucleated Red Blood Cells % 0 %; Platelet Count 132 10^3/cmm (130-400); Red Blood Count 4.94 10^6/uL (4.1-5.3); Red Cell Distribution Width 16.4 % (12.1-15.1); White Blood Count 9.9 10^3/uL (4.0-10.0)
[2021-04-04 17:04] LABS: Alanine Aminotransferase 23 U/L (0-33); Albumin Level 2.8 g/dL (3.5-5.2); Alkaline Phosphatase 83 IU/L (35-105); Anion Gap 16.3 (5-19); Aspartate Amino Transferase 32 U/L (0-32); Blood Urea Nitrogen 66 mg/dL (8-23); Calcium 9.9 mg/dL (8.5-10.5); Carbon Dioxide 20 mmol/L (22-29); Chloride 101 mmol/L (98-107); Creatine Phosphokinase 12 U/L (26-192); Globulin 2.2 g/dL (1.3-4.6); Glucose 89 mg/dL (65-115); Osmolality Calculated 295 mOsm/kg (285-295); Potassium 4.3 mmol/L (3.5-5.1); Sodium 133 mmol/L (136-145); Total Bilirubin 0.5 mg/dL (0.15-1.2)
[2021-04-04 17:20] LABS: Troponin(5th) Baseline 33 ng/L (0-10)
[2021-04-04] MEDS: sodium chloride 0.9% 1,000 ML 999 ML IV (17:44)
--- NOTE | 2021-04-04 17:47 | CTR_ITS ---
PROCEDURE INFORMATION: Exam: CT Abdomen And Pelvis Without Contrast Exam date and time: 04/04/2021 5:47 PM Age: 75 years old Clinical indication: Abdominal pain; Prior surgery; Surgery type: Gb, , hyst, colon, cholo; Additional info: Abd pain TECHNIQUE: Imaging protocol: Computed tomography of the abdomen and pelvis without contrast. Radiation optimization: All CT scans at this facility use at least one of these dose optimization techniques: automated exposure control; mA and/or kV adjustment per patient size (includes targeted exams where dose is matched to clinical indication); or iterative reconstruction. COMPARISON: CT abdomen pelvis w con* [id number] 03/25/2021 3:07 PM RADIATION DOSE METRICS: Total DLP (mGy-cm): 1767.26 FINDINGS: Liver: Normal. No mass. Gallbladder and bile ducts: Normal. No calcified stones. No ductal dilation. Pancreas: Normal. No ductal dilation. Spleen: Normal. No splenomegaly. Adrenal glands: Normal. No mass. Kidneys and ureters: Normal. No hydronephrosis. Stomach and bowel: Hemicolectomy changes. No evidence of obstruction. Appendix: No evidence of appendicitis. Intraperitoneal space: Unremarkable. No free air. No significant fluid collection. Vasculature: Unremarkable. No abdominal aortic aneurysm. Lymph nodes: Unremarkable. No enlarged lymph nodes. Urinary bladder: Hargrove catheter noted within the bladder with small focus of intraluminal air within the bladder. Reproductive: Unremarkable as visualized. Bones/joints: Generalized osseous demineralization. No acute fracture. Grade 1 anterolisthesis of L4 on L5. Probable vertebral hemangioma within the L4 vertebral body. Soft tissues: Scarring at the prior left lower abdominal ostomy site. Scarring noted along the mid abdominal wall. CT/CT abdomen pelvis con [id number] IMPRESSION: No acute abdominal/pelvic findings. Radiation Dose CTDIVOL = (mGy): DLP = 1767.26 (mGy-cm)
[2021-04-04 17:50] VITALS: BP 102/56; PULSE 82; RESP 16; O2SAT 96
[2021-04-04 19:35] LABS: Lactic Sepsis W/Reflex 1.7 mmol/L (0.5-2.2)
[2021-04-04 19:42] LABS: Troponin 5 2HR 33.06 ng/L (0-10); Troponin 5 2HR Delta 0.06 ABS# (0-10)
[2021-04-04] MEDS: LORazepam 2 mg/mL INJ 1 mL 0.5 MG IVP (20:40)
--- NOTE | 2021-04-04 21:20 | ECG_ITS ---
[facility] Test Date: 2021-04-04 Pat Name: Mariangel Morales Department: Room: 253 Gender: Female Lab Manager: : [id number] Requested By: Kel Leggett Order Number: [id number] Reading MD: Claudio Trevino M.D. Measurements Intervals [place] Rate: 93 P: 61 IN: 140 QRS: -32 QRSD: 84 T: 80 QT: 354 QTc: 442 Interpretive Statements Regular supraventricular rhythm. Heavy baseline artifact. Defective EKG, need to repeat Electronically Signed On 04-05-2021 23:45:36 CDT by Claudio Trevino M.D. [id number]
--- NOTE | 2021-04-04 22:44 | PC.NURSE ---
No urine return in mckee placed by prior nurse. After bladder scan patient had 575mL of urine. Mckee Dc'd and new mckee placed with 600mL of urine return.
[2021-04-04 22:47] LABS: Add Urine Microscopic? NO; Charge for UA Resulting for Rev
[2021-04-04 22:49] LABS: Bilirubin Urine Neg (Negative); Blood Urine Neg (Negative); Glucose Urine UA Norm (Normal); Ketones Urine Negative (Negative); Leukocyte Esterase Urine Negative (Negative); Nitrate Urine Negative (Negative); Protein Urine Neg (Negative); Specific Gravity, Urine 1.015 (1.005-1.030); Urine Appearance Clear (CLEAR); Urine Color Yellow (Yellow); Urobilinogen Urine Norm (Negative); pH Urine 5 (5-7)
--- NOTE | 2021-04-04 23:19 | XRR_ITS ---
PROCEDURE INFORMATION: Exam: XR Chest Exam date and time: 04/04/2021 11:19 PM Age: 75 years old Clinical indication: Shortness of breath; Additional info: AMS TECHNIQUE: Imaging protocol: XR of the chest. Views: 1 view. COMPARISON: CR XR chest 1V portable [id number] 03/25/2021 2:00 PM FINDINGS: Lungs: Interval appearance of slight patchy increased density over the medial left lung base. No cause for this finding noted on yesterday's abdomen/pelvis CT scan. Interval minimal horizontal stranding in the lateral left lung base. Still no consolidation elsewhere in the lungs. Pleural spaces: Still no pneumothorax or apparent pleural fluid. Heart/Mediastinum: Still no cardiomegaly. Vasculature: Continued aortic elongation. Bones/joints: Degenerated left glenohumeral joint again evident. Calcific/bony densities in the right glenohumeral joint region still present. No suggestion of acute bony disease. Intraperitoneal space: Continued surgical clips in the right upper abdomen. XR/XR chest 1V portable [id number] IMPRESSION: Interval densities in the left lung base probably due to atelectasis. No acute findings elsewhere.
[2021-04-05] VITALS (15 sets, daily range): BP systolic 81–160; BP diastolic 49–79; PULSE 92–119; RESP 13–25; TEMP 36.3–36.9; O2SAT 88–100; BMI 45.8; BMI 36.6
--- NOTE | 2021-04-05 00:08 | PM.HP ---
Providers/Chief Complaint Primary Care Provider: SUSIE Tello Chief Complaint: DIZZINESS History of Present Illness Mariangel Morales is a 75 year old female with history of colon cancer status post right hemicolectomy 30 years ago and subsequently had a resection of local recurrence 10 years ago with left hemicolectomy with end ileostomy on 12/24/2020 for large bowel obstruction secondary to splenic flexure mass, currently a resident at [facility], history of iron deficiency anemia, hypertension, who presents to [facility] due to concerns for low blood pressure, hypoxia, increased confusion. Currently patient is alert, she knows her name, she tells me her only complaint is that she feels cold, but does not really answer questions appropriately. She she is confused, most of the history was obtained by her at bedside, and [facility]. According to [facility] point, patient has been more confused over the last few days, they have also noticed that her blood pressures are on the lower end, she is now requiring oxygen, up to 5 L, she is also had a couple of falls, no significant falls, no documented fevers, no documented UTIs, she is received both her Covid vaccines. According to patient's at bedside, he tells me that after her last surgery she was admitted at [facility] and she has had a slow decline, her memory has been declining, she is now wheelchair-bound, requires assistance for activities of daily living, becoming more forgetful he tells me for the last 2 weeks she has not been able to recognize him twice, which is very unusual for her, he feels that she has been eating less. She is never had a stroke according to , no history of CAD, she recently was hospitalized at [facility] for syncopal episode, which was a vasovagal episode, skilled nursing confirms that she does have vasovagal episodes when they are repositioning her such as getting her up from a seated position. Work-up in the emergency room showed EARL creatinine 1.8, recently she was here in the emergency room, and had an EARL and was given fluids and sent home. UA no evidence of UTI. CT scan of the abdomen and pelvis had no acute findings. She is requiring 4 L, is tachycardic, normotensive, chest x-ray no focal pneumonia Review of Systems General: Reports: ROS unobtainable due to medical condition Medications/Allergies Home Medications Medication Instructions Recorded Confirmed Last Taken Type cholecalciferol (vitamin D3) 125 mcg PO DAILY@0800 12/13/20 04/04/21 04/04/21 History [Vitamin D3] famotidine [Pepcid AC] 20 mg PO DAILY@0800 12/13/20 04/04/21 04/04/21 History pregabalin [Lyrica] 50 mg PO DAILY@0800 12/13/20 04/04/21 04/04/21 History tramadol 50 mg tablet 50 mg PO BID PRN 30 Days #60 tab 12/21/20 04/04/21 03/28/21 Rx cyanocobalamin (vitamin B-12) 1,000 mcg PO DAILY@0800 12/23/20 04/04/21 04/04/21 History Metamucil 1 - 2 tbsp PO DAILY 02/08/21 04/04/21 04/04/21 History Prostat 15 ml PO BID@0800,199902/08/21 04/04/21 04/04/21 History duloxetine 60 mg PO DAILY@0800 02/08/21 04/04/21 04/04/21 History zinc oxide 1 applic TOPICAL TID@0800,1200,199902/08/21 04/04/21 04/04/21 History food supplemt, lactose-reduced 1 ea PO TID@08,12,03/25/21 04/04/21 04/04/21 12:00 History metoprolol tartrate 25 mg PO DAILY@0800,199903/25/21 04/04/21 04/04/21 History doxycycline hyclate 100 mg PO BID@0800,1600 04/04/21 04/04/21 04/04/21 History levofloxacin 750 mg PO DAILY@0800 04/04/21 04/04/21 04/04/21 History ondansetron HCl [Zofran] 4 mg PO Q6H PRN 04/04/21 04/04/21 03/28/21 History sennosides [Senna Lax] 8.6 mg PO DAILY@0800,199904/04/21 04/04/21 04/04/21 History Allergies Allergy/AdvReac Type Severity Reaction Status Date / Time No Known Allergies Allergy Verified 03/07/21 14:48 PFSH Acute PFSH: Medical History EARL (acute kidney injury) Anemia Chronic osteoarthritis Colitis Depression Essential hypertension, benign Fibromyalgia H/O malignant neoplasm of colon HTN (hypertension) 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 Mild dementia Mixed hyperlipidemia Post-menopausal osteoporosis Vitamin D deficiency Surgical History H/O right hemicolectomy colon cancer History of ankle surgery History of S/P colon resection colon cancer recurrence S/P left hemicolectomy (12/24/20) with ileostomy Status post colonoscopy Family History Other Diabetes Social History Smoking and tobacco status: never smoked Alcohol intake: never Vitals/I&O/Wt Last Vital Signs Temp 97.5 F L 04/05/21 00:00 Pulse 119 H 04/05/21 00:00 Resp 23 H 04/05/21 00:00 BP 108/79 04/05/21 00:00 Pulse Ox 88 L 04/05/21 00:00 04/04/21 04/04/21 04/05/21 14:59 22:59 06:59 Intake Total 1000 / 1000 Balance 1000 / 1000 Weight last 48 hrs Weight 102.058 kg Physical Exam Const: COMMON NORMALS: no acute distress EXAM LIMITATIONS: altered mental status GENERAL APPEARANCE: frail appearing ORIENTATION/CONSCIOUSNESS: Yes awake and Yes oriented to person; not oriented to place and not oriented to time Eye: COMMON NORMALS: Equal, round and reactive pupils present and EOMs intact bilaterally GENERAL EYE: appearance normal, both eyes and all related structures PUPIL: Yes Equal, round and reactive pupils present Neck/C-Spine: COMMON NORMALS: no lymphadenopathy Lymph: LYMPHATIC: no lymphadenopathy noted Resp: COMMON NORMALS: normal respiratory effort, No retractions, No use of accessory muscles and clear to auscultation bilaterally AUSCULTATION: clear to auscultation bilaterally Cardio: COMMON NORMALS: regular rhythm, S1 normal heart sound present, S2 normal heart sound present, No gallops present (Cardio), No clicks present (Cardio) and No murmurs present (Cardio) RATE: regular rate RHYTHM: regular rhythm HEART SOUNDS: S1 normal heart sound present and S2 normal heart sound present GI: COMMON NORMALS: Normal to inspection, nondistended, normoactive bowel sounds present, Soft to palpation, non-tender and No hepatosplenomegaly present Extremity: COMMON NORMALS: normal to inspection, full ROM and no pedal edema Neuro: OTHER: Can follow some neurologic testing, such as squeezing my fingers bilaterally, she is able to wiggle her toes, but does not follow other neurologic tests Urinary Catheter Management^: [place]: Cath Placed During This Visit: yes Urinary Catheter Date of Insertion: 04/04/21 Urinary Catheter Time of Insertion: 18:19 Data : 04/04/21 16:38 04/04/21 16:38 Micro: Microbiology 04/04/21 16:39 Blood Culture - Preliminary Blood SPECIMEN COLLECTED 04/04/21 16:38 Blood Culture - Preliminary Blood SPECIMEN COLLECTED A&P Assessment and plan (1) Acute encephalopathy: -Acute encephalopathy -Likely secondary to aspiration pneumonia -Head CT no acute stroke -Abdomen and pelvis CT no acute findings -She does have surrounding erythema around an ileostomy site, unlikely to be cellulitis -No significant leukocytosis -UA unremarkable -Inflammatory markers pending -Chest x-ray no focal pneumonia -Requiring 4 L, tachycardia, alert and oriented x1, cannot recognize her which is unusual, does have baseline dementia Plan -Admit to general medical floors -Aspiration precautions, neurochecks -Keep n.p.o. -Speech therapy evaluation -Consult respiratory therapy, oxygen therapy -Cdiff -Zosyn for antibiotic coverage -Follow blood cultures, sputum cultures Acute kidney injury, creatinine 1.8, likely secondary to dehydration, continue IV hydration, monitor UOP Hyponatremia, likely hypovolemic, continue IV hydration Elevated troponins, no complaints of chest pain, likely secondary to pneumonia, dehydration, continue to follow serial EKGs, serial troponins Has baseline dementia Hypertension, hold blood pressure medications Has vasovagal syncope, history -For now patient is a full code, patient's will discuss with his son -Danita for DVT prophylaxis -Healthcare power of family law attorney is patient's Status: Acute (2) Aspiration pneumonia: Status: Acute (3) Acute kidney injury: Status: Acute (4) Hyponatremia: Status: Acute (5) Elevated troponin: Status: Acute Attestations Medical Necessity Statement*: Patient requires hospitalization for acute encephalopathy secondary to aspiration pneumonia, outpatient with observation, EARL Coding Level of Care Code Acute Director Heart for [facility] Fwd Diagnoses Acute encephalopathy G93.40 Aspiration pneumonia J69.0 Acute kidney injury N17.9 Hyponatremia E87.1 Elevated troponin R77.8
[2021-04-05 00:36] LABS: NT Pro B Type Natriuretic Pept 309 pg/mL (0-450); Procalcitonin 0.15 ng/mL (0-0.5)
[2021-04-05 00:47] LABS: C Reactive Protein 2.5 mg/L (0.0-4.9)
[2021-04-05 03:01] LABS: Thyroid Stimulating Hormone 1.89 uIU/mL (0.27-4.20)
[2021-04-05] MEDS: piperacillin-tazobactam 3.375 GM in sodium chloride 0.9% (plus) 50 ML IV ×3 (03:40→20:38)
[2021-04-05] MEDS: enoxaparin 40 mg/0.4 mL Syringe SUBCUT (03:41)
[2021-04-05] MEDS: pantoprazole 40 mg SDV IVP (03:41)
[2021-04-05] MEDS: sodium chloride 0.9% 1,000 ML 75 ML IV ×2 (03:42→17:01)
[2021-04-05 04:04] LABS: SARS Covid-2 Antigen Negative (Negative)
[2021-04-05 09:03] LABS: Cortisol Random 26.99 ug/dL (2.47-19.5)
--- NOTE | 2021-04-05 11:19 | PC.CHAP ---
Pastoral Care Encounter/Spiritual Assessment Type of Contact [] Declined felt checker visit [] Patient/Family/Request visit [] Outpatient visit [] Follow-up visit [] Physician referral [] Code/Alert [x] Routine visit [] Staff referral [] Actively dying [x] Patient sleeping [] Family support [] [] Out of room [] Palliative care [] [] Receiving care in room [] Pre-surgical visit [] Trauma [] Long length of stay [] ICU visit [] Other: Relational/Emotional Strength [] Patient feels connected with others/family/visitors/staff [] Distress [] Loneliness/isolation [] Abandonment Spirituality of Patient [] Person of Tram [] Attends Islam of their Tram [] Believes in Prayer [] Reads Bible or Taoism materials [] There are Spiritual issues to be addressed Workplace Relations Adviser Interventions [] Prayer [] Active listening [] Non-anxious presence [] Spiritual/emotional support [] Crisis/trauma care [] Spiritual counseling [] Bereavement support [] Provided bereavement packet [] Provided Bible/devotional materials [] Provided toy/stuffed animal, coloring book to patient or family member [] Provided Communion [] Anointing/[place] [] Salvation [] Completed spiritual assessment [] Other: Impact on Illness or Injury [] Angry [] Fearful [] Anxious [] Often cries [] Exhaustion [] Unable to work [] Unable to attend taoist [] Unable to walk/stand [] Unable to read [] Unable to drive [] Unable to eat/drink [] Unable to sleep [] Unable to be with family [] Patient intubated [] Other: Summary Time spent with patient
--- NOTE | 2021-04-05 11:24 | PM.PN ---
Subjective Subjective: Interval history: I did evaluate her ostomy site along Dr. Mack today, she has asked massive excoriation cellulitis around her stoma She has been afebrile no leukocytosis, abdomen CT pelvis did not show any localized collection of pus Dr. Mack is going to update his colleague Dr. Quick who did surgery in December She needs colostomy bag to prevent spillage of content onto the skin Dr. Mack did recommend zinc and Desitin Vitals/I&O/Wt Last Vital Signs Temp 97.5 F L 04/05/21 08:00 Pulse 100 04/05/21 08:00 Resp 20 H 04/05/21 08:00 BP 160/60 04/05/21 08:00 Pulse Ox 100 04/05/21 08:00 04/04/21 04/05/21 04/05/21 22:59 06:59 14:59 Intake Total 1000 / 1000 50 / 50 Output Total 480 / 480 Balance 1000 / 1000 -480 / 520 50 / 50 Weight last 48 hrs Weight 99.79 kg Weight 113.653 kg Weight 102.058 kg Physical Exam Narrative: EXAM NARRATIVE: Patient is only oriented to herself No neurological deficit Does answer some questions appropriately otherwise not a good historian No neurological deficit Able to move her extremities without any limitations S1, S2 Patient appears euvolemic, obese appearance Peristomal excoriation cellulitis with spillage of bilious and fecal content No purulence noted Nonpurulent cellulitis Lower extremity trace edema Hargrove catheter draining concentrated urine Urinary Catheter Management^: [place]: Cath Placed During This Visit: yes Reason for Continuing Indwelling Catheter: Acute Urinary Retention or Obstruction Urinary Catheter Date of Insertion: 04/04/21 Urinary Catheter Time of Insertion: 18:19 Data : 04/04/21 16:38 04/04/21 16:38 Micro: Microbiology 04/04/21 16:39 Blood Culture - Preliminary Blood SPECIMEN COLLECTED 04/04/21 16:38 Blood Culture - Preliminary Blood SPECIMEN COLLECTED A&P Assessment and plan (1) Hyponatremia: Status: Acute (2) Acute kidney injury: Status: Acute (3) Aspiration pneumonia: Status: Acute (4) Acute encephalopathy: Status: Acute (5) Peristomal dermatitis: Status: Acute Additional A&P Information Encephalopathy Has baseline dementia I have developed this patient on previous visit, she is back to her baseline, no neurological deficit No signs of meningoencephalitis She is able to answer my questions appropriately however not a good historian No neurological deficits Head CT abdomen pelvis unremarkable Urine catheter draining concentrated urine Acute hypoxic respiratory failure Secondary to aspiration pneumonia Left lower lobe infiltrate Continue antibiotics, afebrile no leukocytosis Speech evaluation is pending Wean off oxygen EARL secondary to dehydration Continue IV fluids Type II MD Elevated troponin no active chest pain no ischemic or infarctive changes on EKG Peristomal cellulitis Bilious and fecal content drainage noted skin excoriation with nonpurulent cellulitis I will add doxycycline with Zosyn Need colostomy bag Did evaluate the wound with Dr. Mack who is planning to talk with his colleague Dr. Quick Will discuss CODE STATUS with the family today I would hold her Lovenox in case she goes for placement of colostomy bag Attestations Medical Necessity Statement*: Continue medical management change to inpatient Time Spent in Patient Care: Greater than 35 minutes Coding Level of Care Code Acute Financial Sales Professional for [facility] Fwd Diagnoses Hyponatremia E87.1 Acute kidney injury N17.9 Aspiration pneumonia J69.0 Acute encephalopathy G93.40 Peristomal dermatitis L30.9
--- NOTE | 2021-04-05 14:31 | PC.OT ---
OT EVALUATION ATTEMPTED. PATIENT IS SLEEPING SOUNDLY AND SPOUSE ASKS ME TO HOLD FOR TODAY. WILL ATTEMPT EVALUATION AGAIN TOMORROW.
[2021-04-05] MEDS: lactated ringers 1,000 ML 999 ML IV (14:36)
[2021-04-05] MEDS: doxycycline 100 mg Tablet PO (18:25)
--- NOTE | 2021-04-05 19:07 | PC.NURSE ---
Addendum entered by Eveline Sanderson RN 04/05/21 19:12: Patient had a few low blood pressures during this shift, provider notified and a 1000mL bolus was ordered and administered. Last blood pressure taken was 110/62 manually. Original Note: Shift Note Frequent safety and comfort rounds continue. Orders and/or nursing care completed as indicated. Patient monitored for response to intervention and treatment(s). Patient rested well in bed throughout this shift with at bedside. Patient is currently resting comfortably in bed. Will continue to monitor.
[2021-04-06] MEDS: pantoprazole 40 mg SDV IVP (01:56)
[2021-04-06 04:00] VITALS: BP 98/55; PULSE 88; RESP 16; TEMP 36.6; O2SAT 93
[2021-04-06] MEDS: piperacillin-tazobactam 3.375 GM in sodium chloride 0.9% (plus) 50 ML IV ×3 (04:38→20:40)
[2021-04-06 05:39] LABS: Basophils % 0.5 %; Eosinophils % 0.2 %; Hematocrit 38.8 % (37.0-47.0); Lymphocytes # 1.4 10^3/uL (0.8-4.8); Lymphocytes % 22.8 %; Mean Corpuscular HGB Conc 30.9 g/dL (30.0-36.0); Mean Corpuscular Hemoglobin 30.7 pg (28.0-34.0); Mean Corpuscular Volume 99.2 fl (81-99); Mean Platelet Volume 11.9 fL (7.4-10.4); Monocytes # 0.6 10^3/uL (0.2-0.9); Monocytes % 9.8 %; Neutrophils # 4.13 10^3/uL (1.8-7.7); Neutrophils % 66.4 %; Nucleated Red Blood Cells % 0 %; Platelet Count 96 10^3/cmm (130-400); Red Blood Count 3.91 10^6/uL (4.1-5.3); Red Cell Distribution Width 16.8 % (12.1-15.1); White Blood Count 6.2 10^3/uL (4.0-10.0)
[2021-04-06 05:58] LABS: Albumin Level 2.2 g/dL (3.5-5.2); Alkaline Phosphatase 63 IU/L (35-105); Blood Urea Nitrogen 45 mg/dL (8-23); Calcium 8.8 mg/dL (8.5-10.5); Carbon Dioxide 17 mmol/L (22-29); Chloride 113 mmol/L (98-107); Globulin 2.4 g/dL (1.3-4.6); Glucose 72 mg/dL (65-115); Magnesium 1.2 mg/dL (1.7-2.3); Osmolality Calculated 298 mOsm/kg (285-295); Phosphorus 1.9 mg/dL (2.5-4.5); Sodium 139 mmol/L (136-145); Total Bilirubin 0.6 mg/dL (0.15-1.2); Total Protein 4.6 g/dL (6.6-8.7)
[2021-04-06 06:01] LABS: Alanine Aminotransferase 21 U/L (0-33); Anion Gap 12.9 (5-19); Aspartate Amino Transferase 31 U/L (0-32); Potassium 3.9 mmol/L (3.5-5.1)
[2021-04-06] MEDS: sodium chloride 0.9% 1,000 ML 75 ML IV ×2 (06:18→20:39)
[2021-04-06 08:00] VITALS: BP 96/64; PULSE 96; RESP 17; TEMP 36.6; O2SAT 100
[2021-04-06] MEDS: nystatin powder 15 gm Btl 1 APPLIC TOPICAL ×2 (09:20→18:15)
[2021-04-06] MEDS: cyanocobalamin 1,000 mcg Tablet 1000 MCG PO (09:21)
[2021-04-06] MEDS: doxycycline 100 mg Tablet PO ×2 (09:21→18:16)
[2021-04-06] MEDS: duloxetine 60 mg Capsule PO (09:21)
[2021-04-06] MEDS: cholecalciferol (vitamin D3) 5,000 unit Tablet 5000 UNIT PO (09:21)
--- NOTE | 2021-04-06 10:01 | PC.CHAP ---
Pastoral Care Encounter/Spiritual Assessment Type of Contact [] Declined tube building machine operator visit [] Patient/Family/Request visit [] Outpatient visit [] Follow-up visit [] Physician referral [] Code/Alert [x] Routine visit [] Staff referral [] Actively dying [] Patient sleeping [] Family support [] [] Out of room [] Palliative care [] [x] Receiving care in room [] Pre-surgical visit [] Trauma [] Long length of stay [] ICU visit [] Other: Relational/Emotional Strength [] Patient feels connected with others/family/visitors/staff [] Distress [] Loneliness/isolation [] Abandonment Spirituality of Patient [] Person of Tram [] Attends Je[employer] of their Tram [] Believes in Prayer [] Reads Bible or Voodoo materials [] There are Spiritual issues to be addressed Roll Off Driver Interventions [] Prayer [] Active listening [] Non-anxious presence [] Spiritual/emotional support [] Crisis/trauma care [] Spiritual counseling [] Bereavement support [] Provided bereavement packet [] Provided Bible/devotional materials [] Provided toy/stuffed animal, coloring book to patient or family member [] Provided Communion [] Anointing/[place] [] Salvation [] Completed spiritual assessment [] Other: Impact on Illness or Injury [] Angry [] Fearful [] Anxious [] Often cries [] Exhaustion [] Unable to work [] Unable to attend church [] Unable to walk/stand [] Unable to read [] Unable to drive [] Unable to eat/drink [] Unable to sleep [] Unable to be with family [] Patient intubated [] Other: Summary Time spent with patient
[2021-04-06 12:00] VITALS: BP 91/56; PULSE 94; RESP 18; TEMP 37.1; O2SAT 98
--- NOTE | 2021-04-06 12:53 | PM.DCS ---
Discharge Providers Date of Admission: 04/05/21 11:33 Date of Discharge: April 06, 2021 Attending Provider at Admission: Danny Rubin MD Attending Provider at Discharge: Jass Sarkar MD Primary Care Provider: SUSIE Tello Diagnoses at Discharge Discharge Diagnosis (1) Hyponatremia: Status: Acute (2) Acute kidney injury: Status: Acute (3) Aspiration pneumonia: Status: Acute (4) Acute encephalopathy: Status: Acute (5) Peristomal dermatitis: Status: Acute Reason for Visit Reason for Visit: DIZZINESS Hospital Course Hospital Course History of Present Illness Dr. Rubin Mariangel Morales is a 75 year old female with history of colon cancer status post right hemicolectomy 30 years ago and subsequently had a resection of local recurrence 10 years ago with left hemicolectomy with end ileostomy on 12/24/2020 for large bowel obstruction secondary to splenic flexure mass, currently a resident at [facility], history of iron deficiency anemia, hypertension, who presents to [facility] due to concerns for low blood pressure, hypoxia, increased confusion. Currently patient is alert, she knows her name, she tells me her only complaint is that she feels cold, but does not really answer questions appropriately. She she is confused, most of the history was obtained by her at bedside, and [facility]. According to [facility] point, patient has been more confused over the last few days, they have also noticed that her blood pressures are on the lower end, she is now requiring oxygen, up to 5 L, she is also had a couple of falls, no significant falls, no documented fevers, no documented UTIs, she is received both her Covid vaccines. According to patient's at bedside, he tells me that after her last surgery she was admitted at [facility] and she has had a slow decline, her memory has been declining, she is now wheelchair-bound, requires assistance for activities of daily living, becoming more forgetful he tells me for the last 2 weeks she has not been able to recognize him twice, which is very unusual for her, he feels that she has been eating less. She is never had a stroke according to , no history of CAD, she recently was hospitalized at [facility] for syncopal episode, which was a vasovagal episode, skilled nursing confirms that she does have vasovagal episodes when they are repositioning her such as getting her up from a seated position. Work-up in the emergency room showed EARL creatinine 1.8, recently she was here in the emergency room, and had an EARL and was given fluids and sent home. UA no evidence of UTI. CT scan of the abdomen and pelvis had no acute findings. She is requiring 4 L, is tachycardic, normotensive, chest x-ray no focal pneumonia Hospital course Patient was admitted for worsening of her mentation which was deemed secondary to dehydration and EARL, she did not meet criteria for meningitis, encephalitis. She was started on Zosyn. C. difficile ruled out. With IV fluids her mentation and creatinine improved. We did started using zinc and Desitin around stoma, ostomy bag was placed. She does have baseline dementia I went over goals of care with who discussed goals of care with his son who is an ER nurse. They both agreed with DNR, DNI status. She is being discharged on 04/06, stating that she is back to baseline and looks much improved from day of admission. Chest x-ray, CT abdomen pelvis unremarkable. Head CT unremarkable. White count on discharge 6.2, she has been afebrile, she has completed course of antibiotics for her Klebsiella UTI it is ESBL, she was put on dysphagia level 2 ground diet by speech therapist, Hargrove catheter will be removed before discharge Wound care: Zinc Desitin to be applied around the stoma to keep it dry the bile in stool content spillage cause skin maceration and cellulitis. She can continue doxycycline for next few days Magnesium and phosphorus supplementation provided at the time of discharge for hypomagnesemia and hypophosphatemia She does need encouragement to increase her p.o. and fluid intake Physical Exam Narrative: EXAM NARRATIVE: Patient is only oriented to herself No neurological deficit Does answer some questions appropriately otherwise not a good historian No neurological deficit Able to move her extremities without any limitations S1, S2 Patient appears euvolemic, obese appearance Colostomy bag draining liquid stool No purulence noted Nonpurulent cellulitis Lower extremity trace edema Hargrove catheter draining concentrated urine Urinary Catheter Management^: Hargrove: Cath Placed During This Visit: yes Reason for Continuing Indwelling Catheter: Accurate Measurement of Urinary Output in Critically Ill Patients Urinary Catheter Date of Insertion: 04/04/21 Urinary Catheter Time of Insertion: 18:19 Discharge Data Data Completed and Pending: Completed Studies During Hospitalization Category Date Time Status CT abdomen pelvis wo con [id number] Stat Cat Scan 04/04/21 17:[address] head wo con* 7 0450 Stat Cat Scan 04/04/21 16:13 Completed XR chest 1V neyda ble [id number] Urgent Exams 04/04/21 23:19 Completed Pending at discharge Category Date Time Status Blood Culture Sta t Lab 04/04/21 16:39 Results Clostridioides Di fficile PCR Routin e Lab 04/05/21 13:55 Received Complete Blood Co unt w/Auto AM LABS Lab 04/07/21 04:00 Ordered Complete Blood Co unt w/Auto AM LABS Lab 04/08/21 04:00 Ordered Comprehensive Met abolic Panel AM LA BS Lab 04/07/21 04:00 Ordered Comprehensive Met abolic Panel AM LA BS Lab 04/08/21 04:00 Ordered Magnesium AM LABS Lab 04/07/21 04:00 Ordered Magnesium AM LABS Lab 04/08/21 04:00 Ordered Phosphorus AM LAB S Lab 04/07/21 04:00 Ordered Phosphorus AM LAB S Lab 04/08/21 04:00 Ordered Sputum Culture an d Gram Stain Stat Lab 04/05/21 00:20 Uncollected Labs from last 24 hours 04/06/21 04/06/21 05:14 05:14 WBC 6.2 RBC 3.91 L Hgb 12.0 Hct 38.8 MCV 99.2 H MCH 30.7 MCHC 30.9 RDW 16.8 H Plt Count 96 L MPV 11.9 H Neut % (Auto) 66.4 Lymph % (Auto) 22.8 Hardeman % (Auto) 9.8 Eos % (Auto) 0.2 Baso % (Auto) 0.5 Neut # (Auto) 4.13 Lymph # (Auto) 1.4 Hardeman # (Auto) 0.6 Eos # (Auto) 0.0 Baso # (Auto) 0.0 Nucleated RBC % (a uto) 0 Nucleated RBCs # 0.0 Sodium 139 Potassium 3.9 Chloride 113 H Carbon Dioxide 17 L Anion Gap 12.9 BUN 45 H Creatinine 1.1 H GFR Calculation Not Reportable Glucose 72 Calculated Osmolal ity 298 H Calcium 8.8 Phosphorus 1.9 L Magnesium 1.2 L Total Bilirubin 0.6 AST 31 ALT 21 Alkaline Phosphata se 63 Total Protein 4.6 L Albumin 2.2 L Globulin 2.4 Vitals: Last Vital Signs Temp 98.7 F 04/06/21 12:00 Pulse 94 04/06/21 12:00 Resp 18 04/06/21 12:00 BP 91/56 04/06/21 12:00 Pulse Ox 98 04/06/21 12:00 Discharge Plan Discharge Patient Disposition: Xfer [facility] Condition: Stable Prescriptions: New nystatin 100,000 unit/gram powder 1 applic topical BID Qty: 30 RF: 0 zinc oxide Ointment 1 applic topical TID PRN (Reason: skin irritation) Qty: 56.7 RF: 0 Phosphorous 250 mg tablet 1 tab PO BID Qty: 4 RF: 0 magnesium chloride 64 mg tablet,delayed release (DR/EC) 64 mg PO DAILY Qty: 4 RF: 0 Continued tramadol 50 mg tablet 50 mg PO BID PRN (Reason: Pain) 30 Days Qty: 60 RF: 2 cholecalciferol (vitamin D3) [Vitamin D3] 125 mcg (5,000 unit) Tablet 125 mcg PO DAILY@0800 RF: 0 famotidine [Pepcid AC] 20 mg tablet 20 mg PO DAILY@0800 RF: 0 pregabalin [Lyrica] 50 mg capsule 50 mg PO DAILY@0800 RF: 0 food supplemt, lactose-reduced Liquid 1 ea PO TID@08,, RF: 0 metoprolol tartrate 25 mg Tablet 25 mg PO DAILY@799,1999 RF: 0 Zofran 4 mg Tablet 4 mg PO Q6H PRN (Reason: NAUSEA/VOMITING) RF: 0 Senna Lax 8.6 mg tablet 8.6 mg PO DAILY@799,1999 RF: 0 zinc oxide Ointment 1 applic TOPICAL TID@0800,1199,1999 10 Days Qty: 0 RF: 0 cyanocobalamin (vitamin B-12) 1,000 mcg capsule 1,000 mcg PO DAILY@0800 RF: 0 Metamucil 3.4 gram/5.4 gram Powder 1 - 2 tbsp PO DAILY RF: 0 Prostat 15 ml PO BID@799,1999 RF: 0 duloxetine 60 mg capsule,delayed release(DR/EC) 60 mg PO DAILY@0800 RF: 0 Changed doxycycline hyclate 100 mg capsule 100 mg PO BID@0800,1600 10 Days Qty: 20 RF: 0 Discontinued levofloxacin 750 mg tablet 750 mg PO DAILY@0800 RF: 0 Discharge Orders: Discharge Order (Routine); Ordered 04/06/21 Ordered By: Jass Sarkar Discharge Diet: GI Soft Discharge Activity: Use walker/crutches as instructed and Wheelchair as instructed Activity Restrictions/Additional Instructions: zinc and john around stoma encouraged Mag and Phos supplementation for 3-4 days NO pnemonia Pt was made DNR DNI Discharge Attestations Time Spent in Discharge Care*: less than 30 min Status at Discharge: Cognitive status at discharge: cognitively intact, Behavioral status at discharge: cooperative, Quality Metrics Clinical Quality Measures During this hospital stay, did patient experience: None Coding Level of Care Code Acute Chg FW DC note Diagnoses Hyponatremia E87.1 Acute kidney injury N17.9 Aspiration pneumonia J69.0 Acute encephalopathy G93.40 Peristomal dermatitis L30.9
[2021-04-06 15:09] VITALS: BP 120/70; PULSE 96; RESP 18; TEMP 36.6; O2SAT 98
[2021-04-06] MEDS: midodrine 5 mg TABLET 10 MG PO ×2 (15:55→20:40)
[2021-04-06 16:14] LABS: D Dimer 2.37 ug/mIFEU (0-0.59)
[2021-04-06] MEDS: albumin 12.5 GM/250 ML VIAL IV (17:00)
[2021-04-06 19:43] VITALS: BP 94/60; PULSE 91; RESP 18; TEMP 37.1; O2SAT 96
[2021-04-07] VITALS: BP 93/61; PULSE 100; RESP 18; TEMP 36.5; O2SAT 98
[2021-04-07] MEDS: pantoprazole 40 mg SDV IVP (01:49)
[2021-04-07] MEDS: piperacillin-tazobactam 3.375 GM in sodium chloride 0.9% (plus) 50 ML IV ×3 (03:29→21:21)
[2021-04-07 04:00] VITALS: BP 94/59; PULSE 88; RESP 17; TEMP 36.8; O2SAT 98
[2021-04-07 05:29] LABS: Basophils % 0.4 %; Eosinophils % 0.5 %; Hematocrit 33.1 % (37.0-47.0); Hemoglobin 10.8 g/dL (11.5-15.3); Lymphocytes # 1.5 10^3/uL (0.8-4.8); Lymphocytes % 26.3 %; Mean Corpuscular HGB Conc 32.6 g/dL (30.0-36.0); Mean Corpuscular Hemoglobin 29.9 pg (28.0-34.0); Mean Corpuscular Volume 91.7 fl (81-99); Mean Platelet Volume 12.3 fL (7.4-10.4); Monocytes # 0.6 10^3/uL (0.2-0.9); Monocytes % 10.9 %; Neutrophils % 61.7 %; Nucleated Red Blood Cells % 0 %; Platelet Count 82 10^3/cmm (130-400); Red Blood Count 3.61 10^6/uL (4.1-5.3); Red Cell Distribution Width 16.5 % (12.1-15.1); White Blood Count 5.5 10^3/uL (4.0-10.0)
[2021-04-07 05:54] LABS: Alanine Aminotransferase 18 U/L (0-33); Albumin Level 2.3 g/dL (3.5-5.2); Alkaline Phosphatase 56 IU/L (35-105); Anion Gap 12.1 (5-19); Aspartate Amino Transferase 26 U/L (0-32); Blood Urea Nitrogen 27 mg/dL (8-23); Calcium 8.3 mg/dL (8.5-10.5); Carbon Dioxide 17 mmol/L (22-29); Chloride 116 mmol/L (98-107); Globulin 1.9 g/dL (1.3-4.6); Glucose 71 mg/dL (65-115); Magnesium 1.1 mg/dL (1.7-2.3); Osmolality Calculated 298 mOsm/kg (285-295); Phosphorus 1.1 mg/dL (2.5-4.5); Potassium 3.1 mmol/L (3.5-5.1); Sodium 142 mmol/L (136-145); Total Bilirubin 0.7 mg/dL (0.15-1.2); Total Protein 4.2 g/dL (6.6-8.7)
--- NOTE | 2021-04-07 07:23 | USCV_ITS ---
Mariangel Morales Age: 75 Gender: F : 1945 Exam Date: 04/07/2021 14:28 Ordering Phys: Jass Sarkar MD Technologist: [place] [facility] [place] swellng HISTORY: Lower extremity edema. PROCEDURES: The venous duplex Doppler examination of both lower extremities was performed in the standard fashion. The following venous structures were evaluated: common femoral vein, profunda vein, proximal portion of the greater saphenous vein, superficial femoral vein, and the popliteal vein. FINDINGS: NON OCCUSIVE DVT IN LT FV, MID AND DIST. No additional DVT in either venous system. CONCLUSIONS Non occlusive acute DVT left femoral vein. Dr. Ting Ambrocio DO (Electronically Signed) Final Date: 07 April 2021 15:13 S
--- NOTE | 2021-04-07 07:23 | CT_ITS ---
WS: [id number] CT CHEST ANGIOGRAPHY WITH REFORMATS HISTORY: hypotension dimer high TECHNIQUE: Contiguous axial images are obtained through the chest during arterial injection of intrav enous contrast. Images are reconstructed to evaluate the pulmonary arteries. MIP imaging also reviewe d. All CT scans at [facility] use at least one of these dose optimization techniques: automat ed exposure control; mA and/or kV adjustment per patient size (includes targeted exams where dose is matched to clinical indication); or iterative reconstruction. CONTRAST: Omnipaque 350; 95 mL IV. DLP: 524.92 mGy.cm COMPARISON: None available. Good opacification of the pulmonary arteries. No filling defects are identified to the segmental bran ches. Normal size pulmonary artery. There is mild enlargement of the RIGHT heart. No pericardial effu dania. No pulmonary mass or pneumonia. No pleural effusion. No mediastinal or hilar adenopathy. Mild tricuspid regurgitation into hepatic veins. No adrenal mass. RIGHT curvature thoracic spine. CT/CT angio chest PE protcl [id number] IMPRESSION: 1. No pulmonary embolism. 2. No pneumonia. 3. Moderate coronary artery atherosclerosis.
[2021-04-07 08:00] VITALS: BP 96/61; PULSE 84; RESP 17; TEMP 36.4; O2SAT 90
[2021-04-07] MEDS: iohexol 350 mg/mL 100 mL Btl IV (09:27)
[2021-04-07] MEDS: midodrine 5 mg TABLET 10 MG PO ×3 (09:55→21:22)
[2021-04-07] MEDS: duloxetine 60 mg Capsule PO (09:55)
[2021-04-07] MEDS: cholecalciferol (vitamin D3) 5,000 unit Tablet 5000 UNIT PO (09:55)
[2021-04-07] MEDS: doxycycline 100 mg Tablet PO ×2 (09:55→16:05)
[2021-04-07] MEDS: cyanocobalamin 1,000 mcg Tablet 1000 MCG PO (09:55)
[2021-04-07] MEDS: albumin 12.5 GM/250 ML VIAL IV (09:57)
[2021-04-07] MEDS: sodium chloride 0.9% 1,000 ML 75 ML IV (10:01)
[2021-04-07 12:00] VITALS: BP 113/78; PULSE 91; RESP 17; TEMP 36.9; O2SAT 90
--- NOTE | 2021-04-07 14:00 | USCV_ITS ---
Mariangel Morales Age: 75 Gender: F : 1945 Exam Date: 04/07/2021 14:22 Ordering Phys: Jass Sarkar MD Technologist: Exam Location: [facility] [place] Indication: SOB BP: / HR: Rhythm: Sinus Technical Quality: Very technically difficult study MEASUREMENTS (Male / Female) Normal Values FINDINGS Left Ventricle Extremely difficult study. Only subcostal views were obtained which are difficult to interpret. Left ventricle could not visualized Right Ventricle Possibly normal RV size ejection fraction Right Atrium Left Atrium Mitral Valve Aortic Valve Tricuspid Valve Pulmonic Valve Pericardium Aorta Ascending aorta appeared to be of normal size CONCLUSIONS Possibly normal RV size and ejection fraction. Ventricle could not visualize properly Ascending aorta appeared to be of normal size Technically very difficult study Dr Claudio Trevino MD [facility] (Electronically Signed) Final Date: 08 April 2021 00:23 S
--- NOTE | 2021-04-07 14:04 | PM.PN ---
Subjective Subjective: Interval history: Patient will go for CTA chest today overnight no events Yesterday she was not sent to the senior living because of hypotension Vitals/I&O/Wt Last Vital Signs Temp 98.5 F 04/07/21 12:00 Pulse 91 04/07/21 12:00 Resp 17 04/07/21 12:00 BP 113/78 04/07/21 12:00 Pulse Ox 90 04/07/21 12:00 04/06/21 04/07/21 04/07/21 22:59 06:59 14:59 Intake Total 1320 / 1840 450 / 2290 1050 / 1050 Output Total 850 / 850 Balance 1320 / 1840 -400 / 1440 1050 / 1050 Physical Exam Narrative: EXAM NARRATIVE: Patient was sitting in a wheelchair she was being rolled out for CTA chest Overnight no events Patient was awake and alert very pleasant during my evaluation Bilateral breath sounds with rhonchi S1, S2 Colostomy bag in place EOMI, PERRLA No neurological deficit Abdomen soft, zinc oxide cream underneath colostomy bag Urinary Catheter Management^: Hargrove: Cath Placed During This Visit: yes Reason for Continuing Indwelling Catheter: Acute Urinary Retention or Obstruction Urinary Catheter Date of Insertion: 04/04/21 Urinary Catheter Time of Insertion: 18:19 Data : 04/07/21 04:54 04/07/21 04:54 Micro: Microbiology 04/05/21 13:55 C.difficile Toxin B Gene (PCR) - Final Stool Routine Collection A&P Assessment and plan (1) Peristomal dermatitis: Status: Acute (2) Hypotension: Status: Acute (3) Acute kidney injury: Status: Acute (4) Acute encephalopathy: Status: Acute (5) Hypomagnesemia: Status: Acute (6) Hypophosphatemia: Status: Acute Additional A&P Information Hypotension CTA chest ruled out PE She is not in any septic shock right now No signs of obstructive shock Will get echo to rule out cardiogenic etiology Her heart rate goes up appropriately with low blood pressure does not suspect autonomic dysfunction cortisol level is normal, will add fludrocortisone, midodrine continue fluids and give another dose of albumin I do suspect this is related to low albumin third spacing EARL: Improved with fluid resuscitation Encephalopathy patient is back to baseline improved after fluid resuscitation as well no signs of meningitis Active neurological deficits Hypomagnesemia hypophosphatemia due to increase GI losses repleted DNR/DNI Discharge back to senior living once blood pressure is stable Attestations Medical Necessity Statement*: Discharge tomorrow Time Spent in Patient Care: less than 15 minutes Coding Level of Care Code Acute Information Technology Manager for Rowang Fwd Diagnoses Peristomal dermatitis L30.9 Hypotension I95.9 Acute kidney injury N17.9 Acute encephalopathy G93.40 Hypomagnesemia E83.42 Hypophosphatemia E83.39
[2021-04-07] MEDS: nystatin powder 15 gm Btl 1 APPLIC TOPICAL ×2 (15:48→16:15)
--- NOTE | 2021-04-07 15:52 | PC.NURSE ---
Attempted to call Dr. Sarkar to notify that per ultrasound report pt appears to have DVT in left femoral vein.
[2021-04-07 16:00] VITALS: BP 116/77; PULSE 91; RESP 17; TEMP 36.4; O2SAT 99
[2021-04-07] MEDS: fludrocortisone 0.1 mg Tablet PO (16:05)
[2021-04-07] MEDS: magnesium sulfate premix 2 GM/50 ML PIGGYBACK IV (16:06)
[2021-04-07] MEDS: phosphorus 250 mg Tablet PO (16:06)
[2021-04-07 20:00] VITALS: BP 92/55; PULSE 126; RESP 16; TEMP 36.7; O2SAT 98
[2021-04-07] MEDS: apixaban 5 mg Tablet 10 MG PO (21:22)
[2021-04-08] VITALS: BP 115/71; PULSE 90; RESP 15; TEMP 36.5; O2SAT 99
[2021-04-08] MEDS: pantoprazole DR 40 mg Tablet PO (02:10)
[2021-04-08] MEDS: sodium chloride 0.9% 1,000 ML 100 ML IV ×2 (03:07→13:26)
[2021-04-08] MEDS: piperacillin-tazobactam 3.375 GM in sodium chloride 0.9% (plus) 50 ML IV (03:08)
[2021-04-08 04:00] VITALS: BP 103/66; PULSE 89; RESP 18; TEMP 36.5; O2SAT 97
[2021-04-08 05:22] LABS: Basophils % 0.7 %; Eosinophils % 0.7 %; Hematocrit 35.5 % (37.0-47.0); Hemoglobin 11.6 g/dL (11.5-15.3); Lymphocytes # 1.5 10^3/uL (0.8-4.8); Lymphocytes % 24.9 %; Mean Corpuscular HGB Conc 32.7 g/dL (30.0-36.0); Mean Corpuscular Hemoglobin 30.8 pg (28.0-34.0); Mean Corpuscular Volume 94.2 fl (81-99); Mean Platelet Volume 11.7 fL (7.4-10.4); Monocytes # 0.7 10^3/uL (0.2-0.9); Monocytes % 11.8 %; Neutrophils # 3.72 10^3/uL (1.8-7.7); Neutrophils % 61.7 %; Nucleated Red Blood Cells % 0 %; Platelet Count 74 10^3/cmm (130-400); Red Blood Count 3.77 10^6/uL (4.1-5.3); Red Cell Distribution Width 16.7 % (12.1-15.1)
--- NOTE | 2021-04-08 05:29 | PC.NURSE ---
shift note colostomy full and leaking at beginning of shift, small open hole on old abdominal surgical site, purulent drainage, skin around stoma bleeding, ostomy change painful for patient. open area to sacrum healing, new dressing applied.
[2021-04-08 05:42] LABS: Alanine Aminotransferase 20 U/L (0-33); Albumin Level 2.3 g/dL (3.5-5.2); Alkaline Phosphatase 56 IU/L (35-105); Anion Gap 12.8 (5-19); Aspartate Amino Transferase 32 U/L (0-32); Blood Urea Nitrogen 20 mg/dL (8-23); Calcium 8.5 mg/dL (8.5-10.5); Carbon Dioxide 18 mmol/L (22-29); Chloride 117 mmol/L (98-107); Glucose 80 mg/dL (65-115); Magnesium 1.5 mg/dL (1.7-2.3); Osmolality Calculated 302 mOsm/kg (285-295); Phosphorus 1.1 mg/dL (2.5-4.5); Sodium 145 mmol/L (136-145); Total Bilirubin 0.8 mg/dL (0.15-1.2); Total Protein 4.3 g/dL (6.6-8.7)
[2021-04-08 05:51] LABS: Potassium 2.8 mmol/L (3.5-5.1)
[2021-04-08] MEDS: potassium chloride premix 100 ML 25 MEQ IV (06:45)
[2021-04-08 07:27] VITALS: BP 104/66; PULSE 106; RESP 16; TEMP 36.9; O2SAT 99
[2021-04-08] MEDS: duloxetine 60 mg Capsule PO (08:19)
[2021-04-08] MEDS: apixaban 5 mg Tablet 10 MG PO (08:19)
[2021-04-08] MEDS: midodrine 5 mg TABLET 10 MG PO ×2 (08:19→14:38)
[2021-04-08] MEDS: cyanocobalamin 1,000 mcg Tablet 1000 MCG PO (08:19)
[2021-04-08] MEDS: fludrocortisone 0.1 mg Tablet PO (08:19)
[2021-04-08] MEDS: cholecalciferol (vitamin D3) 5,000 unit Tablet 5000 UNIT PO (08:19)
[2021-04-08] MEDS: doxycycline 100 mg Tablet PO (08:19)
[2021-04-08] MEDS: phosphorus 250 mg Tablet PO (08:19)
--- NOTE | 2021-04-08 09:37 | P.PN_ITS ---
Subjective Subjective: Interval history: Patient is oriented to herself, today her potassium is low which I am repeating with IV, hypomagnesemia hypophosphatemia being repleted with p.o. regimen Cellulitis around stoma seems slightly improved, no overnight events Pressure has improved after 2 doses of albumin will give another dose today Positive for DVT CTA rule out PE Vitals/I&O/Wt Last Vital Signs Temp 98.4 F 04/08/21 07:27 Pulse 106 H 04/08/21 07:27 Resp 16 04/08/21 07:27 BP 104/66 04/08/21 07:27 Pulse Ox 99 04/08/21 07:27 04/07/21 04/08/21 04/08/21 22:59 06:59 14:59 Intake Total 500 / 1550 1510 / 3060 360 / 360 Output Total 400 / 400 350 / 750 Balance 100 / 1150 1160 / 2310 360 / 360 Physical Exam Narrative: EXAM NARRATIVE: Patient was resting comfortably in her bed Oriented to herself No neurological deficit Nonpitting edema of lower extremities S1, S2 tachycardia Abdomen soft nondistended peristomal site with zinc oxide application and colostomy bag draining yellow-brown liquid, I do notice some spillage around her umbilical area No audible stridor or wheezing she saturating well on room air Urinary Catheter Management^: Hargrove: Cath Placed During This Visit: yes Reason for Continuing Indwelling Catheter: Acute Urinary Retention or Obstruction Urinary Catheter Date of Insertion: 04/04/21 Urinary Catheter Time of Insertion: 18:19 Data : 04/08/21 05:05 04/08/21 05:05 A&P Assessment and plan (1) Hypophosphatemia: Status: Acute (2) Hypomagnesemia: Status: Acute (3) Hypotension: Status: Acute (4) Peristomal dermatitis: Status: Acute (5) Acute kidney injury: Status: Acute (6) DVT (deep venous thrombosis): Status: Acute Additional A&P Information Hypotension: Improved with albumin we will give third bag of albumin today, replenish electrolytes No signs of septic shock, PE, or cardiogenic shock I did start her on fludrocortisone Midodrine Albumin 2.3 Hypomagnesemia: Repleted with p.o. supplementation Hypophosphatemia Currently on p.o. tablets Electrolyte imbalance secondary to malabsorption Peristomal dermatitis continue doxycycline, zinc oxide It is very important to have colostomy bag in order to prevent recurrent cellulitis and spillage of content EARL: Improved with IV fluids, remove Hargrove catheter Encephalopathy: Improved with improvement in her hydration status no signs of stroke Plan to discharge her back to detention if electrolytes are replenished by 2:00PM Attestations Medical Necessity Statement*: Replenish electrolytes Time Spent in Patient Care: less than 15 minutes Coding Level of Care Code Acute Personal Banking Assistant for g Fwd Diagnoses Hypophosphatemia E83.39 Hypomagnesemia E83.42 Hypotension I95.9 Peristomal dermatitis L30.9 Acute kidney injury N17.9 DVT (deep venous thrombosis) I82.409
[2021-04-08] MEDS: lidocaine 1% 5 ML in potassium chloride premix 100 ML 25 ML IV (09:53)
[2021-04-08] MEDS: nystatin powder 15 gm Btl 1 APPLIC TOPICAL (09:54)
--- NOTE | 2021-04-08 10:56 | PC.SOCIAL ---
IMM update IMM updated with patient. Verbalized an understanding. Copy Pg 2 provided. Initialled, dated, timed, and placed in chart.
[2021-04-08 11:21] VITALS: BP 94/63; PULSE 92; RESP 16; TEMP 36.9; O2SAT 97
[2021-04-08] MEDS: potassium chloride ER 20 mEq Tablet 40 MEQ PO (13:27)
[2021-04-08 13:40] LABS: Blood Urea Nitrogen 17 mg/dL (8-23); Calcium 8.6 mg/dL (8.5-10.5); Carbon Dioxide 18 mmol/L (22-29); Chloride 113 mmol/L (98-107); Glucose 90 mg/dL (65-115); Osmolality Calculated 295 mOsm/kg (285-295); Sodium 142 mmol/L (136-145)
[2021-04-08] MEDS: albumin 12.5 GM/250 ML VIAL IV (14:15)
--- NOTE | 2021-04-08 15:23 | PC.NURSE ---
Report called to ALEXEI Maguire, at [facility].
--- NOTE | 2021-04-08 15:24 | PC.CHAP ---
Pastoral Care Encounter/Spiritual Assessment Type of Contact [] Declined java websphere developer visit [] Patient/Family/Request visit [] Outpatient visit [xx] Follow-up visit [] Physician referral [] Code/Alert [] Routine visit [] Staff referral [] Actively dying [] Patient sleeping [] Family support [] [] Out of room [] Palliative care [] [xx] Receiving care in room [] Pre-surgical visit [] Trauma [] Long length of stay [] ICU visit [] Other: Relational/Emotional Strength [] Patient feels connected with others/family/visitors/staff [] Distress [] Loneliness/isolation [] Abandonment Spirituality of Patient [] Person of Tram [] Attends Congregation of their Tram [] Believes in Prayer [] Reads Bible or Orthodox materials [] There are Spiritual issues to be addressed Equity Research Analyst Interventions [] Prayer [] Active listening [] Non-anxious presence [] Spiritual/emotional support [] Crisis/trauma care [] Spiritual counseling [] Bereavement support [] Provided bereavement packet [] Provided Bible/devotional materials [] Provided toy/stuffed animal, coloring book to patient or family member [] Provided Communion [] Anointing/[place] [] Salvation [] Completed spiritual assessment [] Other: Impact on Illness or Injury [] Angry [] Fearful [] Anxious [] Often cries [] Exhaustion [] Unable to work [] Unable to attend religious [] Unable to walk/stand [] Unable to read [] Unable to drive [] Unable to eat/drink [] Unable to sleep [] Unable to be with family [] Patient intubated [] Other: Summary Room was filled with staff helping roommate prepare for discharge. No room for java websphere developer. Follow up later. Time spent with patient
[2021-04-08 16:09] VITALS: BP 94/63; PULSE 92; RESP 16; TEMP 36.9; O2SAT 97
--- NOTE | 2021-04-08 17:26 | PM.DCS ---
Discharge Providers Date of Admission: 04/05/21 11:33 Date of Discharge: April 08, 2021 Attending Provider at Admission: Danny Rubin MD Attending Provider at Discharge: Jass Sarkar MD Primary Care Provider: SUSIE Tello Diagnoses at Discharge Discharge Diagnosis (1) Hypophosphatemia: Status: Acute (2) Hypomagnesemia: Status: Acute (3) Hypotension: Status: Acute (4) Peristomal dermatitis: Status: Acute (5) Acute kidney injury: Status: Acute (6) DVT (deep venous thrombosis): Status: Acute Reason for Visit Reason for Visit: DIZZINESS Hospital Course Hospital Course History of Present Illness Dr. 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 Currently patient is alert, she knows her name, she tells me her only complaint is that she feels cold, but does not really answer questions appropriately. She she is confused, most of the history was obtained by her at bedside, and [facility]. According to [facility] point, patient has been more confused over the last few days, they have also noticed that her blood pressures are on the lower end, she is now requiring oxygen, up to 5 L, she is also had a couple of falls, no significant falls, no documented fevers, no documented UTIs, she is received both her Covid vaccines. According to patient's at bedside, he tells me that after her last surgery she was admitted at [facility] and she has had a slow decline, her memory has been declining, she is now wheelchair-bound, requires assistance for activities of daily living, becoming more forgetful he tells me for the last 2 weeks she has not been able to recognize him twice, which is very unusual for her, he feels that she has been eating less. She is never had a stroke according to , no history of CAD, she recently was hospitalized at [facility] for syncopal episode, which was a vasovagal episode, [facility] confirms that she does have vasovagal episodes when they are repositioning her such as getting her up from a seated position. Work-up in the emergency room showed EARL creatinine 1.8, recently she was here in the emergency room, and had an EARL and was given fluids and sent home. UA no evidence of UTI. CT scan of the abdomen and pelvis had no acute findings. She is requiring 4 L, is tachycardic, normotensive, chest x-ray no focal pneumonia Hospital course Patient was admitted for worsening of her mentation which was deemed secondary to dehydration and EARL, she did not meet criteria for meningitis, encephalitis. She was started on Zosyn. C. difficile ruled out. With IV fluids her mentation and creatinine improved. We did started using zinc and Desitin around stoma, ostomy bag was placed. She does have baseline dementia I went over goals of care with who discussed goals of care with his son who is an ER nurse. They both agreed with DNR, DNI status. She is being discharged on 04/06, stating that she is back to baseline and looks much improved from day of admission. Chest x-ray, CT abdomen pelvis unremarkable. Head CT unremarkable. White count on discharge 6.2, she has been afebrile, she has completed course of antibiotics for her Klebsiella UTI it is ESBL, she was put on dysphagia level 2 ground diet by speech therapist, Hargrove catheter will be removed before discharge Wound care: Zinc Desitin to be applied around the stoma to keep it dry the bile in stool content spillage cause skin maceration and cellulitis. She can continue doxycycline for next few days Magnesium and phosphorus supplementation provided at the time of discharge for hypomagnesemia and hypophosphatemia She does need encouragement to increase her p.o. and fluid intake 04/08patient's discharge was put on hold because of her persistent hypotension. She received 3 doses of albumin, fludrocortisone and midodrine were initiated. Her blood pressure did improve to 99/60 mmHg, on review of previous records seem like her systolic blood pressure stays on the lower side and patient is asymptomatic, normal cortisol and TSH level. No signs of PE no signs of cardiogenic shock or sepsis. 04/08 decision was made to send her back to [facility]. Please note during this stay she was diagnosed with DVT and Eliquis 10 mg twice a day was started and after 7 days she will take 5 mg twice a day. This seems to be a provoked PE secondary to sedentary lifestyle. Her magnesium and phosphorus repleted and supplementation added at the time of discharge. CTA negative for PE. Physical Exam Narrative: EXAM NARRATIVE: Patient was laying comfortably Oriented to herself S1, S2 Systolic blood pressure 99mmhg however no symptoms Colostomy bag in place with mild peristomal drainage No worsening of cellulitis noticed Lower symmetry nonpitting edema No neurological deficits Breathing well on room air Saturating well, no audible stridor or wheezing No neurological deficits Urinary Catheter Management^: Hargrove: Cath Placed During This Visit: yes Reason for Continuing Indwelling Catheter: Acute Urinary Retention or Obstruction Urinary Catheter Date of Insertion: 04/04/21 Urinary Catheter Time of Insertion: 18:19 Discharge Data Data Completed and Pending: Completed Studies During Hospitalization Category Date Time Status CT abdomen pelvis wo con [id number] Stat Cat Scan 04/04/21 17:[address] angio chest PE protcl [id number] Stat Cat Scan 04/07/21 07:[address] head wo con* 7 [id number] Stat Cat Scan 04/04/21 16:13 Completed XR chest 1V neyda ble [id number] Urgent Exams 04/04/21 23:19 [place] [id number] Routin e Ultrasound 04/07/21 07:23 Completed CV. echo complete * [id number] Routine Ultrasound 04/07/21 14:00 Completed Pending at discharge Category Date Time Status Blood Culture Sta t Lab 04/04/21 16:39 Results Labs from last 24 hours 04/08/21 04/08/21 04/08/21 12:58 05:05 05:05 WBC 6.0 RBC 3.77 L Hgb 11.6 Hct 35.5 L MCV 94.2 MCH 30.8 MCHC 32.7 RDW 16.7 H Plt Count 74 L MPV 11.7 H Neut % (Auto) 61.7 Lymph % (Auto) 24.9 Saunders % (Auto) 11.8 Eos % (Auto) 0.7 Baso % (Auto) 0.7 Neut # (Auto) 3.72 Lymph # (Auto) 1.5 Saunders # (Auto) 0.7 Eos # (Auto) 0.0 Baso # (Auto) 0.0 Nucleated RBC % (a uto) 0 Nucleated RBCs # 0.0 Sodium 142 145 Potassium 4.0 2.8 L* Chloride 113 H 117 H Carbon Dioxide 18 L 18 L Anion Gap 15.0 12.8 BUN 17 20 Creatinine 0.6 0.6 GFR Calculation Not Reportable Not Reportable Glucose 90 80 Calculated Osmolal ity 295 302 H Calcium 8.6 8.5 Phosphorus 1.1 L Magnesium 1.5 L Total Bilirubin 0.8 AST 32 ALT 20 Alkaline Phosphata se 56 Total Protein 4.3 L Albumin 2.3 L Globulin 2.0 Vitals: Last Vital Signs Temp 98.5 F 04/08/21 16:09 Pulse 92 04/08/21 16:09 Resp 16 04/08/21 16:09 BP 94/63 04/08/21 16:09 Pulse Ox 97 04/08/21 16:09 Discharge Plan Discharge Patient Disposition: Xfer [facility] Condition: Stable Prescriptions: New nystatin 100,000 unit/gram powder 1 applic topical BID Qty: 30 RF: 0 zinc oxide Ointment 1 applic topical TID PRN (Reason: skin irritation) Qty: 56.7 RF: 0 Phosphorous 250 mg tablet 1 tab PO BID Qty: 4 RF: 0 magnesium chloride 64 mg tablet,delayed release (DR/EC) 64 mg PO DAILY Qty: 4 RF: 0 Eliquis 5 mg Tablet 10 mg PO BID@0900,2100 5 Days Qty: 20 RF: 0 Eliquis 5 mg tablet 5 mg PO BID 120 Days Qty: 240 RF: 0 midodrine 10 mg tablet 10 mg PO TID Qty: 90 RF: 0 Continued tramadol 50 mg tablet 50 mg PO BID PRN (Reason: Pain) 30 Days Qty: 60 RF: 2 cholecalciferol (vitamin D3) [Vitamin D3] 125 mcg (5,000 unit) Tablet 125 mcg PO DAILY@0800 RF: 0 famotidine [Pepcid AC] 20 mg tablet 20 mg PO DAILY@0800 RF: 0 pregabalin [Lyrica] 50 mg capsule 50 mg PO DAILY@0800 RF: 0 food supplemt, lactose-reduced Liquid 1 ea PO TID@08,12,20 RF: 0 Zofran 4 mg Tablet 4 mg PO Q6H PRN (Reason: NAUSEA/VOMITING) RF: 0 Senna Lax 8.6 mg tablet 8.6 mg PO DAILY@0800,1999 RF: 0 zinc oxide Ointment 1 applic TOPICAL TID@0800,1200,1999 10 Days Qty: 0 RF: 0 cyanocobalamin (vitamin B-12) 1,000 mcg capsule 1,000 mcg PO DAILY@0800 RF: 0 Metamucil 3.4 gram/5.4 gram Powder 1 - 2 tbsp PO DAILY RF: 0 Prostat 15 ml PO BID@799,1999 RF: 0 duloxetine 60 mg capsule,delayed release(DR/EC) 60 mg PO DAILY@0800 RF: 0 Changed doxycycline hyclate 100 mg capsule 100 mg PO BID@0800,1600 10 Days Qty: 20 RF: 0 Discontinued metoprolol tartrate 25 mg Tablet 25 mg PO DAILY@08,1999 RF: 0 levofloxacin 750 mg tablet 750 mg PO DAILY@0800 RF: 0 Discharge Orders: Discharge Order (Routine); Ordered 04/08/21 Ordered By: Jass Sarkar Discharge Diet: GI Soft Discharge Activity: Use walker/crutches as instructed and Wheelchair as instructed Patient Instructions: Magnesium Oxide (By mouth), Zinc Oxide (On the skin), Hyponatremia (DC) Activity Restrictions/Additional Instructions: zinc and john around stoma encouraged Mag and Phos supplementation for 3-4 days NO pnemonia Pt was made DNR DNI after discussion with her Discharge Attestations Time Spent in Discharge Care*: less than 30 min Status at Discharge: Cognitive status at discharge: cognitively intact, Behavioral status at discharge: cooperative, Quality Metrics Clinical Quality Measures During this hospital stay, did patient experience: None Coding Level of Care Code Acute Chg FW DC note Diagnoses Hypophosphatemia E83.39 Hypomagnesemia E83.42 Hypotension I95.9 Peristomal dermatitis L30.9 Acute kidney injury N17.9 DVT (deep venous thrombosis) I82.409
--- NOTE | 2021-04-11 13:43 | PC.SOCIAL ---
discharge follow up call made. spoke with jourdan Helton nurse at [facility]. nurse reports patient hasn't had much improvement, is having very little intake, dizziness with position changes. patient hasn't seen the physician at [facility] as of yet but physician is aware of complaints. patient does have zofran for nausea.
== END 2021-04-08 16:10 | disposition skilled nursing facility (03) | DRG 683 ==
LOC: ER 23:37 → MEDSURG 04-05 00:29
PROVIDERS: Family Medicine; Admitting Provider Family Medicine; Emergency Provider Emergency Medicine; PCP Nurse Practitioner Family; Visit Provider Internal Medicine
DX: N17.9 Acute kidney failure, unspecified (principal); I82.412 Acute embolism and thrombosis of left femoral vein; E87.1 Hypo-osmolality and hyponatremia; K94.09 Other complications of colostomy; L03.311 Cellulitis of abdominal wall; G93.49 Other encephalopathy; I95.9 Hypotension, unspecified; L30.8 Other specified dermatitis; E86.0 Dehydration; E83.39 Other disorders of phosphorus metabolism; E83.42 Hypomagnesemia; F03.90 Unspecified dementia, unspecified severity, without behavioral disturbance, psychotic disturbance, mood disturbance, and anxiety; I10 Essential (primary) hypertension; M79.7 Fibromyalgia; F32.9 Major depressive disorder, single episode, unspecified; E78.2 Mixed hyperlipidemia; M81.0 Age-related osteoporosis without current pathological fracture; R77.8 Other specified abnormalities of plasma proteins; Z66 Do not resuscitate; Z90.49 Acquired absence of other specified parts of digestive tract; Z85.038 Personal history of other malignant neoplasm of large intestine; Z99.3 Dependence on wheelchair; Z87.440 Personal history of urinary (tract) infections
CPT/HCPCS: 36415; 51702; 70450; 71045; 71275; 74176; 80048; 80053; 81003; 82533; 82550; 83605; 83735; 83880; 84100; 84145; 84443; 84484; 85025; 85378; 86140; 87040; 87426; 87493; 92523; 92526; 92610; 93005; 93306; 93970; 94664; 96361; 96372; 96374; 97110; 97162; 97166; 97530; 99285; C9113; G0378; J1650; J2060; J2543; J3475; J3480; J7030; P9041; Q9967

== ENCOUNTER 2021-06-23 17:51 | Outpatient (CLI) | payer MEDICARE, OTHER, SELFPAY ==
[2021-06-23 18:10] LABS: Basophils % 0.1 %; Hematocrit 37.6 % (37.0-47.0); Hemoglobin 12.3 g/dL (11.5-15.3); Lymphocytes # 1.4 10^3/uL (0.8-4.8); Lymphocytes % 8.5 %; Mean Corpuscular HGB Conc 32.7 g/dL (30.0-36.0); Mean Corpuscular Hemoglobin 30.8 pg (28.0-34.0); Mean Platelet Volume 10.7 fL (7.4-10.4); Monocytes # 1.1 10^3/uL (0.2-0.9); Monocytes % 6.4 %; Neutrophils # 13.99 10^3/uL (1.8-7.7); Neutrophils % 83.5 %; Nucleated Red Blood Cells % 0 %; Platelet Count 273 10^3/cmm (130-400); Red Cell Distribution Width 14.9 % (12.1-15.1); White Blood Count 16.8 10^3/uL (4.0-10.0)
[2021-06-23 18:35] LABS: Alanine Aminotransferase 25 U/L (0-33); Albumin Level 2.8 g/dL (3.5-5.2); Alkaline Phosphatase 91 IU/L (35-105); Anion Gap 18.5 (5-19); Aspartate Amino Transferase 45 U/L (0-32); Blood Urea Nitrogen 62 mg/dL (8-23); Calcium 10.8 mg/dL (8.5-10.5); Carbon Dioxide 23 mmol/L (22-29); Chloride 102 mmol/L (98-107); Glucose 91 mg/dL (65-115); Osmolality Calculated 305 mOsm/kg (285-295); Potassium 4.5 mmol/L (3.5-5.1); Sodium 139 mmol/L (136-145); Total Bilirubin 0.2 mg/dL (0.15-1.2); Total Protein 5.8 g/dL (6.6-8.7)
== END 2021-06-23 17:52 | disposition home or self-care (01) ==
LOC: LAB 17:53
PROVIDERS: PCP Nurse Practitioner Family; Visit Provider Internal Medicine
DX: E86.0 Dehydration (principal); D64.9 Anemia, unspecified
CPT/HCPCS: 80053; 85025